=== PATIENT | female | born 1950 | race Caucasian/White ===

== ENCOUNTER 2017-03-12 15:59 | Outpatient (POV) | payer MEDICARE, SELFPAY | END 2017-03-12 17:15 | disposition home or self-care (01) | PROVIDERS: Visit Provider Podiatrist | DX: M20.12 Hallux valgus (acquired), left foot (principal); M20.11 Hallux valgus (acquired), right foot; M20.42 Other hammer toe(s) (acquired), left foot; M20.41 Other hammer toe(s) (acquired), right foot | CPT/HCPCS: 99203; 73630 ==

== ENCOUNTER 2017-04-28 14:57 | Emergency (ER) | payer MEDICARE, SELFPAY ==
[2017-04-28 14:58] VITALS: BP 111/60; PULSE 66; RESP 14; TEMP 36.9; O2SAT 98; BMI 25.5
--- NOTE | 2017-04-28 15:18 | XR_ITS ---
XR ribs RT min 3V w CXR1V Ordering Physician: Racquel Tamayo Patient Age: 66 years: Female HISTORY: ITS.REASON: FALL WITH PAIN Right rib pain. TECHNIQUE: Oblique views right ribs. COMPARISON :December 2010 CXR... April 2010. Left rib series FINDINGS Right ribs are intact with no fracture identified. No rib lesion. Mild diffuse demineralization. The lungs appear clear bilaterally with no pneumothorax no pleural effusion. would only note Trace blunting right CP angle on the oblique views could reflect. Most likely reflects mild chronic pleural change although could reflect scant pleural fluid. This and I see no pneumothorax associated raise concern however. The previous chest film patient large hiatal hernia but there appear to been interval surgery at the upper abdomen which may address such. The heart is upper normal in size. Calcified granuloma at the left nayeli again noted. IMPRESSION: ------ . 1. No right Rib fracture nor lesion evident. 2. Lungs well expanded and clear with no active disease. No pneumothorax. No pleural effusion. 3. Trace blunting right CP angle most likely reflecting minor chronic pleural change. Doubt Tiny pleural effusion 4. Other observations pole No longer see the large hiatal hernila evident on 2010, but rather now see postsurgical changes upper abdomen-possibly reflect hiatal hernia repair Borderline to minor cardiomegaly is similar to previous studies
--- NOTE | 2017-04-28 15:20 | HMH.EDUTC ---
[facility] [place] Disposition Clinical Impression: Rib pain on right side Disposition: Home, Self-Care Condition on Discharge: Good Instructions: DI for Chronic Pain -- Adult Additional Instructions: Follow up with family doctor on Sunday if symptoms do not improve Return if needed Over the counter medication for pain as needed Stop taking the over the counter Arthritis medication that you just started taking that possibly caused the allergic reaction you was having today at the [facility] If you began to have any trouble breathing or swelling go straight to ER Forms: Work/School Release Time of Disposition: 16:46 Medical Decision Making - Medical Records Medical records reviewed: Yes: I reviewed the patient's medical records. Vital Signs: 04/28/17 14:58 Temperature 98.4 F Temperature Source Oral Pulse Rate [Left Brachial] 66 Respiratory Rate 14 Blood Pressure [Right Arm] 111/60 Blood Pressure Mean [Right Arm] 77 Blood Pressure Source [Right Arm] Automatic Cuff Blood Pressure Position [Right Arm] Sitting 02 Sat by Pulse Oximetry 98 Oxygen Delivery Method Room Air Orders (Tests/Meds): ED MEDICATIONS Discontinued Medications Generic Name Dose Route Start Last Admin Trade Name Abimbola PRN Reason Stop Dose Admin Methylprednisolone Sodium Succinate 125 mg 04/28/17 15:41 04/28/17 15:45 Solu-Medrol 125mg/2ml Vial IM 04/28/17 15:42 125 mg ONCE ONE Administration - Kishor Inquiry Pt receiving controlled substance: No Kishor was queried for this patient: No - Reevaluation(s) Time: 16:41 (Rash and welps improved ) [facility] [place] HPI - General Stated complaint: AO 04/25/17 Fell and Hurt Right Ribs Mode of Arrival: Ambulatory Source of Information: Patient Limitations: No Limitations Description of Symptoms (Recalled from Triage Doc. by RN): PT FELL AND IS C/O RIB PAIN HEENT Symptoms (Recalled from RN notes): No Resp Symptoms (Recalled from RN notes): No Skin Symptoms (Recalled from RN notes): No MS Symptoms (Recalled from RN notes): Yes (RIB PAIN) Functional Status (Recalled from RN notes): NA - History of Present Illness Provider Complaint: Patient state that she fell about 3 days ago and landed on her right side States that she has been having pain in her right rib area ever since States that she is not having any trouble breathing just having pain when she moves or tries to stand quickly. - Related Data Home Medications Medication Instructions Recorded Confirmed fluoxetine 20 mg capsule PO 90 Days 04/23/17 gabapentin 300 mg capsule PO 90 Days 04/23/17 gemfibrozil 600 mg tablet PO 90 Days 04/23/17 primidone 250 mg tablet PO 90 Days 04/23/17 promethazine 6.25 mg/5 mL syrup PO 23 Days 04/23/17 Allergies Allergy/AdvReac Type Severity Reaction Status Date / Time No Known Allergies Allergy Unverified 03/27/17 14:44 - Worker's Comp Is this a Worker's Comp case?: No [facility] History I have reviewed the patient's past medical history: Yes Medical History: Denies:: Cancer, Diabetes Mellitus Type 1, Diabetes Mellitus Type 2, Hypertension, MRSA Other Surgeries: Yes: Other (ear surgery) Amputation: No Fractures: No - *Social History Smoking Status: Current every day smoker Tobacco Type: cigarettes # Packs/Day (cigarettes): 1 Alcohol Intake: never Alcohol Intake Frequency:: 0-2 drinks per day Substance Use Type: denies use Occupational Status: employed - Psychiatric History Expresses thoughts of harming self/others: None Suicide Plan Description: No Plan *Family Hx:: Cancer ROS Obtained: Yes All systems reviewed & no additional complaints Physical Exam - General General appearance: alert, in no apparent distress - Chest Chest inspection: Present: normal inspection, symmetric chest wall rise, other (No bruising, no contusions to area). Absent: tenderness - Expanded Chest Exam Breast: bilateral: other (no bruising, no discoloration, noticed red raised hives on chest and back that
--- NOTE | 2017-04-28 15:24 | ED_ITS ---
[facility] [place] Disposition Clinical Impression: Rib pain on right side Disposition: Home, Self-Care Condition on Discharge: Good Instructions: DI for Chronic Pain -- Adult Additional Instructions: Follow up with family doctor on Sunday if symptoms do not improve Return if needed Over the counter medication for pain as needed Stop taking the over the counter Arthritis medication that you just started taking that possibly caused the allergic reaction you was having today at the [facility] If you began to have any trouble breathing or swelling go straight to ER Forms: Work/School Release Time of Disposition: 16:46 Medical Decision Making - Medical Records Medical records reviewed: Yes: I reviewed the patient's medical records. Vital Signs: 04/28/17 14:58 Temperature 98.4 F Temperature Source Oral Pulse Rate [Left Brachial] 66 Respiratory Rate 14 Blood Pressure [Right Arm] 111/60 Blood Pressure Mean [Right Arm] 77 Blood Pressure Source [Right Arm] Automatic Cuff Blood Pressure Position [Right Arm] Sitting 02 Sat by Pulse Oximetry 98 Oxygen Delivery Method Room Air Orders (Tests/Meds): ED MEDICATIONS Discontinued Medications Generic Name Dose Route Start Last Admin Trade Name Abimbola PRN Reason Stop Dose Admin Methylprednisolone Sodium Succinate 125 mg 04/28/17 15:41 04/28/17 15:45 Solu-Medrol 125mg/2ml Vial IM 04/28/17 15:42 125 mg ONCE ONE Administration - Kishor Inquiry Pt receiving controlled substance: No Kishor was queried for this patient: No - Reevaluation(s) Time: 16:41 (Rash and welps improved ) [facility] [place] HPI - General Stated complaint: AO 04/25/17 Fell and Hurt Right Ribs Mode of Arrival: Ambulatory Source of Information: Patient Limitations: No Limitations Description of Symptoms (Recalled from Triage Doc. by RN): PT FELL AND IS C/O RIB PAIN HEENT Symptoms (Recalled from RN notes): No Resp Symptoms (Recalled from RN notes): No Skin Symptoms (Recalled from RN notes): No MS Symptoms (Recalled from RN notes): Yes (RIB PAIN) Functional Status (Recalled from RN notes): NA - History of Present Illness Provider Complaint: Patient state that she fell about 3 days ago and landed on her right side States that she has been having pain in her right rib area ever since States that she is not having any trouble breathing just having pain when she moves or tries to stand quickly. - Related Data Home Medications Medication Instructions Recorded Confirmed fluoxetine 20 mg capsule PO 90 Days 04/23/17 gabapentin 300 mg capsule PO 90 Days 04/23/17 gemfibrozil 600 mg tablet PO 90 Days 04/23/17 primidone 250 mg tablet PO 90 Days 04/23/17 promethazine 6.25 mg/5 mL syrup PO 23 Days 04/23/17 Allergies Allergy/AdvReac Type Severity Reaction Status Date / Time No Known Allergies Allergy Unverified 03/27/17 14:44 - Worker's Comp Is this a Worker's Comp case?: No [facility] History I have reviewed the patient's past medical history: Yes Medical History: Denies:: Cancer, Diabetes Mellitus Type 1, Diabetes Mellitus Type 2, Hypertension, MRSA Other Surgeries: Yes: Other (ear surgery) Amputation: No Fractures: No - *Social History Smoking Status: Current every day smoker Tobacco Type: cigarettes # Packs/Day (cigarettes): 1
[2017-04-28 17:04] VITALS: BP 134/85; PULSE 87; RESP 18; O2SAT 98
== END 2017-04-28 17:05 | disposition home or self-care (01) ==
PROVIDERS: Emergency Provider Nurse Practitioner
DX: R07.81 Pleurodynia (principal); W18.30XA Fall on same level, unspecified, initial encounter; Y93.9 Activity, unspecified; Y92.9 Unspecified place or not applicable; F17.210 Nicotine dependence, cigarettes, uncomplicated
CPT/HCPCS: 71101; 96372; 99202

== ENCOUNTER → 2017-07-09 08:25 | Outpatient (CLI) | payer MEDICARE, SELFPAY ==
[2017-07-09 08:54] LABS: Basophils # 0.1 K/mm3 (0-0.2); Basophils % 0.9 % (0.1-2.0); Eosinophils # 0.8 K/mm3 (0.0-0.4); Hematocrit 37.5 % (37.0-47.0); Hemoglobin 12.5 g/dL (12.2-16.2); Lymphocytes # 1.3 K/mm3 (0.7-4.5); Lymphocytes % 21.4 K/mm3 (10-50); Mean Corpuscular HGB Conc 33.3 g/dL (31.8-35.4); Mean Corpuscular Hemoglobin 34.8 pg (27.0-31.2); Mean Corpuscular Volume 104.6 fl (81-99); Mean Platelet Volume 10.3 fl (7.4-10.4); Monocytes # 0.6 K/mm3 (0.1-1.0); Monocytes % 9.8 % (1.7-9.3); Neutrophils # 3.3 K/mm3 (1.8-7.8); Neutrophils % 54.8 % (37.0-80.0); Platelet Count 176 K/mm3 (142-424); Red Blood Count 3.58 M/mm3 (4.20-5.40); Red Cell Distribution Width 12.7 % (11.5-17.5)
[2017-07-09 10:05] LABS: Anion Gap 11.9 mEq/L (5-15); Bilirubin,Total 0.2 mg/dL (0.2-1.0); Blood Urea Nitrogen 21 mg/dL (7-18); Carbon Dioxide 28 mmol/L (21.0-32.0); Chloride 104 mmol/L (98-107); Creatinine,Serum 0.96 mg/dL (0.55-1.02); Estimated Glomerular Filt Rate 58 ml/min (>60); Ferritin 20 ng/mL (8-388); GFR (African American) 70 ML/MIN (>60); Glucose 98 mg/dL (74-106); Potassium 4.9 mmoL/L (3.5-5.1); Sodium 139 mmol/L (136-145)
[2017-07-09 10:06] LABS: Alanine Aminotransferase 23 U/L (12-78); Albumin Level 3.5 gm/dL (3.4-5.0); Albumin/Globulin Ratio 0.8 (1.1-1.8); Aspartate Amino Transferase 27 U/L (15-37); Chol/HDL Ratio 2.6 (1-3.5); Cholesterol 169 mg/dL (140-200); Globulin 4.2 gm/dl (1.3-3.2); HDL Cholesterol 66 mg/dL (29-89); LDL Cholesterol 92 mg/dL (0-130); Total Protein,Serum 7.7 gm/dL (6.4-8.2); Triglycerides 55 mg/dL (30-200); VLDL Cholesterol 11 mg/dL (0-40)
[2017-07-09 10:07] LABS: Alkaline Phosphatase 260 U/L (46-116); Thyroid Stimulating Hormone 0.72 uIU/ml (0.358-3.740)
[2017-07-10 08:24] LABS: Iron 94 ug/dL (27-139); UIBC 218 ug/dL (118-369)
[2017-07-10 15:40] LABS: Iron Saturation 30 % (15-55)
== END ==
PROVIDERS: Visit Provider Physician Assistant
DX: D50.9 Iron deficiency anemia, unspecified (principal); E78.5 Hyperlipidemia, unspecified; E03.9 Hypothyroidism, unspecified; R79.89 Other specified abnormal findings of blood chemistry
CPT/HCPCS: 36415; 80053; 80061; 82728; 83550; 84443; 85025

== ENCOUNTER → 2017-07-16 15:34 | Outpatient (CLI) | payer MEDICARE, SELFPAY ==
--- NOTE | 2017-07-16 15:36 | XR_ITS ---
XR DEXA axial skeleton HISTORY: ITS.REASON: Osteoporosis ORDERING PHYSICIAN: Clive Bradley MD PATIENT AGE: 67 years COMPARISON: 04/27/2016 FINDINGS: The BMD measured at the AP spine L1-L4 is 0.845 g/cm squared with a T score of -2.8 . This is considered Osteoporotic according to the World Health Organization criteria. Fracture risk is high. Treatment is advised. The mean hip density has a T score of -1.8. The density within the lumbar spine has increased by 5.5% and the density in the hips has decreased by 5% compared to the previous exam. IMPRESSION: Osteoporosis with high fracture risk. Recommend follow-up exam July 2018
== END ==
PROVIDERS: PCP Family Medicine; Visit Provider Obstetrics & Gynecology
DX: M81.0 Age-related osteoporosis without current pathological fracture (principal)
CPT/HCPCS: 77080

== ENCOUNTER → 2017-12-21 10:48 | Outpatient (CLI) | payer MEDICARE, SELFPAY ==
--- NOTE | 2017-12-21 10:54 | XR_ITS ---
XR ribs RT min 3V w CXR1V HISTORY: Chest pain, follow-up rib fracture ITS.REASON: FU RIB FX ORDERING PHYSICIAN: MELANIE Cabrera PATIENT AGE: 67 years Comparison: 12/08/2017 FINDINGS: There are chronic appearing fractures of the right fourth, fifth, sixth, and seventh ribs no acute displaced rib fractures are apparent. There is a healing right third rib fracture as previously described Frontal view of the chest shows unremarkable cardiovascular structures with evidence of old granulomatous disease. No evidence of pneumothorax. IMPRESSION: Chronic appearing right third through seventh rib fractures. Please correlate with clinical findings.
== END ==
PROVIDERS: PCP Physician Assistant; Visit Provider Physician Assistant
DX: S22.31XD Fracture of one rib, right side, subsequent encounter for fracture with routine healing (principal)
CPT/HCPCS: 71101

== ENCOUNTER 2018-01-03 14:53 | Outpatient (CLI) | payer MEDICARE, SELFPAY ==
[2018-01-03 14:56] VITALS: BMI 25.9
[2018-01-03 15:26] LABS: Albumin Level 3.3 gm/dL (3.4-5.0); Calcium 8.5 mg/dL (8.5-10.1)
[2018-01-03 15:28] LABS: Creatinine Clearance Estimated 57 mL/min (0-300); Creatinine,Serum 0.94 mg/dL (0.55-1.02); Estimated Glomerular Filt Rate 59 ml/min (>60); GFR (African American) 71 ML/MIN (>60)
[2018-01-03 15:49] VITALS: BP 127/66; PULSE 68; RESP 18; TEMP 36.4; O2SAT 99
[2018-01-03 16:10] VITALS: BP 110/70; PULSE 62; RESP 18; TEMP 36.6; O2SAT 98
== END 2018-01-03 16:10 | disposition home or self-care (01) ==
LOC: INF 14:59
PROVIDERS: PCP Physician Assistant; Visit Provider Obstetrics & Gynecology
DX: M81.0 Age-related osteoporosis without current pathological fracture (principal)
CPT/HCPCS: 82040; 82310; 82565; 96374; J3489

== ENCOUNTER → 2018-07-17 15:29 | Outpatient (CLI) | payer MEDICARE, SELFPAY ==
--- NOTE | 2018-07-17 15:36 | XR_ITS ---
XR DEXA axial skeleton HISTORY: ITS.REASON: screening ORDERING PHYSICIAN: Clive Bradley MD PATIENT AGE: 68 years COMPARISON: 07/16/2017 FINDINGS: The BMD measured at the AP Spine L1-L4 is 0.813 g/cm squared with a T score of -3.1. This is considered Osteoporotic according to the World Health Organization criteria. Fracture risk is High. Treatment is advised. The mean hip density has decreased 8%.. The lumbar density has decreased by 4% IMPRESSION: Osteoporosis with high fracture risk. Treatment is advised. Recommend follow-up exam July 2019
== END ==
PROVIDERS: PCP Family Medicine; Visit Provider Obstetrics & Gynecology
DX: M81.0 Age-related osteoporosis without current pathological fracture (principal); Z78.0 Asymptomatic menopausal state
CPT/HCPCS: 77080

== ENCOUNTER → 2018-08-19 16:15 | Outpatient (CLI) | payer MEDICARE, SELFPAY ==
[2018-08-19 16:59] LABS: Basophils # 0.1 K/mm3 (0-0.2); Basophils % 0.7 % (0.1-2.0); Eosinophils # 0.4 K/mm3 (0.0-0.4); Eosinophils % 6.1 % (0.1-12.0); Lymphocytes # 2.1 K/mm3 (0.7-4.5); Lymphocytes % 29.8 % (10-50); Mean Corpuscular HGB Conc 32.3 g/dL (31.8-35.4); Mean Corpuscular Hemoglobin 32.4 pg (27.0-31.2); Mean Corpuscular Volume 100.1 fl (81-99); Mean Platelet Volume 9.3 fl (7.4-10.4); Monocytes # 0.5 K/mm3 (0.1-1.0); Monocytes % 7.1 % (1.7-9.3); Neutrophils # 4.1 K/mm3 (1.8-7.8); Neutrophils % 56.3 % (37.0-80.0); Platelet Count 270 K/mm3 (142-424); Red Blood Count 3.69 M/mm3 (4.20-5.40); Red Cell Distribution Width 13.9 % (11.5-17.5); White Blood Count 7.2 K/mm3 (4.8-10.8)
[2018-08-19 19:01] LABS: Alanine Aminotransferase 30 U/L (12-78); Albumin Level 4.2 gm/dL (3.4-5.0); Alkaline Phosphatase 400 U/L (46-116); Anion Gap 17.6 mEq/L (5-15); Aspartate Amino Transferase 40 U/L (15-37); Bilirubin,Total 0.3 mg/dL (0.2-1.0); Blood Urea Nitrogen 26 mg/dL (7-18); Calcium 8.8 mg/dL (8.5-10.1); Carbon Dioxide 23 mmol/L (21.0-32.0); Chloride 100 mmol/L (98-107); Chol/HDL Ratio 3.1 (1-3.5); Cholesterol 245 mg/dL (140-200); Creatinine,Serum 1.46 mg/dL (0.55-1.02); Estimated Glomerular Filt Rate 35 ml/min (>60); Ferritin 37 ng/mL (8-388); Free T4 (Free Thyroxine) 0.87 ng/dl (0.76-1.46); GFR (African American) 43 ML/MIN (>60); Globulin 4.1 gm/dl (1.3-3.2); Glucose 88 mg/dL (74-106); HDL Cholesterol 79 mg/dL (29-89); LDL Cholesterol 150 mg/dL (0-130); Potassium 4.6 mmoL/L (3.5-5.1); Sodium 136 mmol/L (136-145); Thyroid Stimulating Hormone 0.87 uIU/ml (0.358-3.740); Total Protein,Serum 8.3 gm/dL (6.4-8.2); Triglycerides 82 mg/dL (30-200); VLDL Cholesterol 16 mg/dL (0-40)
[2018-08-21 07:24] LABS: Iron 105 ug/dL (27-139); UIBC 230 ug/dL (118-369)
[2018-08-21 08:17] LABS: Iron Saturation 31 % (15-55); Vitamin D 25 Hydroxy 19.3 ng/mL (30.0-100.0)
[2018-08-21 14:40] LABS: Vitamin B12 <150 pg/mL (232-1245)
== END ==
PROVIDERS: Visit Provider Physician Assistant
DX: D50.9 Iron deficiency anemia, unspecified (principal); E78.5 Hyperlipidemia, unspecified; E03.9 Hypothyroidism, unspecified; I10 Essential (primary) hypertension; R53.83 Other fatigue
CPT/HCPCS: 36415; 80053; 80061; 82607; 82652; 82728; 83540; 83550; 84439; 84443; 85025

== ENCOUNTER → 2018-08-20 17:39 | Outpatient (CLI) | payer MEDICARE, SELFPAY ==
[2018-08-22 10:12] LABS: Creatinine, Urine 156.5 mg/dL (Not Estab.); Microalbumin, Urine 91.1 ug/mL (Not Estab.)
== END ==
PROVIDERS: Visit Provider Physician Assistant
DX: R53.83 Other fatigue (principal); I10 Essential (primary) hypertension; D50.9 Iron deficiency anemia, unspecified; E78.5 Hyperlipidemia, unspecified; E03.9 Hypothyroidism, unspecified
CPT/HCPCS: 82043; 82570

== ENCOUNTER 2018-10-26 18:20 | Inpatient (IN) ==
[2018-10-26 19:00] LABS: Basophils % 0.1 % (0.1-2.0); Eosinophils # 0.1 K/mm3 (0.0-0.4); Eosinophils % 0.9 % (0.1-12.0); Hematocrit 30.5 % (37.0-47.0); Hemoglobin 10.1 g/dL (12.2-16.2); Lymphocytes # 0.8 K/mm3 (0.7-4.5); Lymphocytes % 7.1 % (10-50); Mean Corpuscular HGB Conc 33.2 g/dL (31.8-35.4); Mean Corpuscular Volume 91.3 fl (81-99); Mean Platelet Volume 9.2 fl (7.4-10.4); Monocytes # 0.6 K/mm3 (0.1-1.0); Monocytes % 5.2 % (1.7-9.3); Neutrophils # 9.5 K/mm3 (1.8-7.8); Neutrophils % 86.7 % (37.0-80.0); Platelet Count 182 K/mm3 (142-424); Red Blood Count 3.34 M/mm3 (4.20-5.40); Red Cell Distribution Width 12.7 % (11.5-17.5)
[2018-10-26 19:11] LABS: Albumin Level 2.7 gm/dL (3.4-5.0); Albumin/Globulin Ratio 0.6 (1.1-1.8); Anion Gap 15.3 mEq/L (5-15); Bilirubin,Total 0.7 mg/dL (0.2-1.0); Calcium 8.7 mg/dL (8.5-10.1); Globulin 4.5 gm/dl (1.3-3.2); Total Protein,Serum 7.2 gm/dL (6.4-8.2)
[2018-10-26 19:13] LABS: Lymphocytes % 5 % (10-50); Monocytes % 2 % (2-9); Neutrophils % 83 % (42-76); RBC Morphology Normal; Rouleaux 1+; Total Cells Counted 100
--- NOTE | 2018-10-26 19:17 | Emergency Department Note ---
ED Disposition Clinical Impression: S/P colonoscopy with polypectomy, Diverticulosis, Hypothyroidism, Diabetes, Essential tremor Disposition: Still a Patient Condition on Discharge: Fair - Critical Care Critical Care Time: No Attestation: On 10/26/18, the high probability of a clinically significant, sudden or life threatening deterioration of the following system(s) required my full and direct attention, intervention and personal management. The time I documented below is in addition to time spent performing reported procedures but includes the following listed in this critical care notation. Medical Decision Making - Kishor Inquiry Pt receiving controlled substance: No Kishor was queried for this patient: No Vital Signs: 10/26/18 18:43 Temperature 103.1 F H Temperature Source Oral Pulse Rate [Left Radial] 65 Respiratory Rate 20 Blood Pressure [Right Arm] 138/56 L Blood Pressure Mean [Right Arm] 83 Blood Pressure Source [Right Arm] Automatic Cuff Blood Pressure Position [Right Arm] Sitting 02 Sat by Pulse Oximetry 98 Oxygen Delivery Method Room Air - Lab Data Lab Results 10/26/18 18:47: WBC 11.0 H, RBC 3.34 L, Hgb 10.1 L, Hct 30.5 L, MCV 91.3, MCH 30.3, MCHC 33.2, RDW 12.7, Plt Count 182, MPV 9.2, Neut % (Auto) 86.7 H, Lymph % (Auto) 7.1 L, [place] % (Auto) 5.2, Eos % (Auto) 0.9, Baso % (Auto) 0.1, Neut # (Auto) 9.5 H, Lymph # (Auto) 0.8, Pima # (Auto) 0.6, Eos # (Auto) 0.1, Baso # (Auto) 0.0, Total Counted 100, Neutrophils % (Manual) 83 H, Band Neutrophils % 10.0 H, Lymphocytes % (Manual) 5 L, Monocytes % (Manual) 2, Platelet Estimate Normal, RBC Morphology Normal, Rouleaux 1+ 10/26/18 18:47: Sodium 131 L, Potassium 3.3 L, Chloride 97 L, Carbon Dioxide 22, Anion Gap 15.3 H, BUN 20 H, Creatinine 1.42 H, Estimated Creat Clear 42, Estimated GFR 37 L, Est GFR ( Amer) 44 L, Glucose 112 H, Calcium 8.7, Total Bilirubin 0.7, AST 33, ALT 34, Alkaline Phosphatase 275 H, Total Protein 7.2, Albumin 2.7 L, Globulin 4.5 H, Albumin/Globulin Ratio 0.6 L 10/26/18 19:35: Lactate 1.6 Result diagrams: 10/26/18 18:47 10/26/18 18:47 Orders (Tests/Meds): ED MEDICATIONS Generic Name Dose Route Start Last Admin Trade Name Freq PRN Reason Stop Dose Admin Sodium Chloride 1,000 mls @ 999 mls/hr 10/26/18 19:00 10/26/18 18:56 Sod Chlor 0.9% 1000ml Bag IV 10/26/18 20:00 999 mls/hr .Q1H1M YONI Administration Ertapenem 1 gm/ Sodium 50 mls @ 100 mls/hr 10/26/18 19:30 10/26/18 19:32 Chloride IV 11/09/18 19:29 100 mls/hr Q24H YONI Administration Protocol Discontinued Medications Generic Name Dose Route Start Last Admin Trade Name Freq PRN Reason Stop Dose Admin Acetaminophen 1,000 mg 10/26/18 18:48 10/26/18 18:55 Tylenol 500mg Tablet PO 10/26/18 18:49 1,000 mg ONCE ONE Administration Diatrizoate Meglum/Diatrizoate Sod 30 ml 10/26/18 19:22 10/26/18 19:27 Gastrografin 66%-10% 30ml PO 10/26/18 19:23 30 ml ONCE ONE Administration ORDERS Category Date Time Status CT abdomen pelvis wo con Stat Cat Scan 10/26/18 19:13 Taken Urinalysis and Microscopic Stat Lab 10/26/18 18:47 Ordered Blood Culture Stat Micro 10/26/18 19:35 Received - CT Data CT Scan: Abdomen, Pelvis Time Received: 20:24 Preliminary Findings: Abnormal Findings Narrative: Verbal report diverticulosis no appendicitis no perforation by Dr. Zabala. Medical Decision Narrative: 1899 I labs, blood cultures and ordered first dose of antibiotics. I ordered the patient stat CT scan of the abdomen with p.o. and IV contrast. 1929 I left the radiologist Dr. Zabala a voicemail for a stat read. 1939 notified on-call surgeon Dr. Watson did the patient history, exam findings and lab findings pending CT report. [address] Zabala radiologist there is no perforation no appendicitis, [address] Brasher and later on with Dr. Vasquez obviously the patient has an infection, final CT scan report is pending. She will be admitted for bowel rest IV antibiotics and bowel rest. Abdominal Pain HPI - General Chief Complaint: Abdominal Pain Stated Complaint: 10/24 colinastomy Chillilling,lower abd pain5 Time Seen by Provider: 10/26/18 19:00 Mode of Arrival: Ambulatory Limitations: No Limitations Description of Symptoms (Recalled from ER Triage Doc. by RN): to ed per pvt car c/o lower abd pain, nausea, chills starting yesterday pt states she had a colonoscopy th with no complications. cpta none - History of Present Illness HPI narrative: 68 years old white female with history of hypothyroidism, diabetes, essential tr emors, fundoplication and status post colonoscopy 48 hours ago. Postprocedure, she developed right lower quadrant abdominal pain she had with nausea no vomiting. Yesterday, she developed chills and covered up with blankets. He denies having hematemesis coffee-ground emesis melanotic stool or bleeding per rectum she denies having dysuria hematuria or frequency. MD complaint: abdominal pain Onset (ago): day(s) Consistency: constant Location: RLQ Severity: moderate Severity scale (1-10): 5 Quality: dull Radiation: none Associated symptoms: nausea - Related Data Home Medications Medication Instructions Recorded Confirmed fluoxetine 20 mg capsule 20 mg PO HS 90 Days 04/23/17 10/26/18 gabapentin 300 mg capsule 300 mg PO HS 90 Days 04/23/17 10/26/18 gemfibrozil 600 mg tablet 600 mg PO BID 90 Days 04/23/17 10/26/18 primidone 250 mg tablet 250 mg PO DAILY 90 Days 04/23/17 10/26/18 Levothyroxine Sodium [Synthroid 125 mcg PO DAILY 10/24/18 10/26/18 125mcg (0.125mg) tablet] RX: [id number]/Sod Sulf,Bicarb,Cl/KCl 240 ml PO Q10M 10/24/18 10/26/18 [[id number] and Electrolytes Soln] Allergies Allergy/AdvReac Type Severity Reaction Status Date / Time No Known Allergies Allergy Verified 10/24/18 06:48 [facility] History - Hepatitis A Screen Drug use history?: No High risk sexual behaviors?: No History of sexually transmitted infection?: No Currently employed?: No Childcare worker?: No Do you have indoor plumbing?: Yes Do you have electricity?: Yes Attestation statement:: This patient has been screened for Hepatitis A risk factors. I have reviewed the patient's past medical history: Yes Medical History: Reports:: Depression Denies:: Cancer, Diabetes Mellitus Type 1, Diabetes Mellitus Type 2, Hypertension, Internal Pacemaker, Lung Disease, MRSA, Seizures Other Medical History: Reports: Hypothyroidism Comment: tremor, chronic back pain Other Surgeries: Yes: Cholecystectomy, Colonoscopy, EGD, Other. No: Pacemaker Amputation: No Fractures: No Comment: 1972-PPBTL. 1996- D&C CONE BX. 2009- THYROID IRRADIATED. 2014- HIAT AL HERNIA REPAIR. 2015- LAP CHOLY. 04/2017---LEFT EAR REPAIR - Social History Smoking Status: Never smoker # Packs/Day (cigarettes): 1 Alcohol Intake: never Alcohol Intake Frequency:: 0-2 drinks per day Substance Use Type: denies use Occupational Status: employed - Psychiatric History Pschychiatric History:: Reports:: Depression Family Hx:: Cancer, Hypertension, Coronary Artery Disease ROS Obtained: Yes All systems reviewed & no additional complaints Physical Exam - General General appearance: alert, in no apparent distress - Head Head exam: atraumatic, normocephalic, normal inspection - Eye Eye exam: Present: normal appearance, PERRL, EOMI - ENT ENT exam: Present: normal exam, normal oropharynx, mucous membranes moist, TM's normal bilaterally, normal external ear exam - Neck Neck exam: Present: normal inspection, full ROM, trachea midline. Absent: meningismus, lymphadenopathy - Chest Chest inspection: Present: normal inspection, symmetric chest wall rise. Absent: tenderness - Respiratory Respiratory exam: Present: normal lung sounds bilaterally. Absent: respiratory distress, wheezes - Cardiovascular Cardiovascular exam: Present: regular rate, normal rhythm, normal heart sounds. Absent: JVD - Abdominal Exam Abdominal exam: Present: soft, tenderness, normal bowel sounds, tenderness at McBurney's Point, other (Right lower quadrant tenderness with rebound tenderness no cross tenderness.). Absent: distention, guarding, rebound, rigidity, Murp hy's sign - Extremities Exam Extremities exam: Present: normal inspection, full ROM, normal capillary refill. Absent: calf tenderness - Back Exam Back exam: Present: normal inspection. Absent: tenderness - Neurological Exam Neurological exam: Present: alert, oriented X3, CN II-XII intact, motor sensory deficit, reflexes normal - Psychiatric Psychiatric exam: Present: normal affect, normal mood - Skin Skin exam: Present: warm, dry, intact, normal color - Lymphatic Lymphatic Findings: no adenopathy
[2018-10-27 01:34] LABS: Microscopic, Urine URINE MICROSCOPIC (MICROSCOPIC)
[2018-10-27 02:00] LABS: Appearance,Urine SL CLOUDY (Clear); Bilirubin,Urine Negative (Negative); Blood, Urine 2+ (Negative); Color,Urine YELLOW (Yellow); Glucose,Urine (UA) Negative (Negative); Ketones,Urine TRACE (Negative); Leukocyte Esterase,Urine 2+ (Negative); Protein,Urine 1+ (Negative)
[2018-10-27 02:06] LABS: Bacteria,Urine 2+ /lpf; RBC,Urine 20-50 #/hpf (0-3); WBC,Urine 50-100 #/hpf (0-3)
[2018-10-27 06:55] LABS: Eosinophils % 0.1 % (0.1-12.0)
[2018-10-27 07:07] LABS: Basophils % 0.2 % (0.1-2.0); Lymphocytes # 0.9 K/mm3 (0.7-4.5); Lymphocytes % 8.6 % (10-50); Mean Corpuscular HGB Conc 33.4 g/dL (31.8-35.4); Mean Corpuscular Volume 92.4 fl (81-99); Mean Platelet Volume 9.4 fl (7.4-10.4); Monocytes # 0.6 K/mm3 (0.1-1.0); Monocytes % 5.4 % (1.7-9.3); Neutrophils # 9.4 K/mm3 (1.8-7.8); Neutrophils % 85.6 % (37.0-80.0); Platelet Count 179 K/mm3 (142-424); Red Blood Count 2.93 M/mm3 (4.20-5.40); Red Cell Distribution Width 12.8 % (11.5-17.5)
[2018-10-27 07:08] LABS: Anion Gap 19.1 mEq/L (5-15); Calcium 8.3 mg/dL (8.5-10.1)
[2018-10-27 07:12] LABS: Hematocrit 27.1 % (37.0-47.0); Hemoglobin 9.1 g/dL (12.2-16.2)
[2018-10-27 07:22] LABS: Lymphocytes % 5 % (10-50); Monocytes % 1 % (2-9); Neutrophils % 83 % (42-76); RBC Morphology Normal; Rouleaux 2+; Total Cells Counted 100
--- NOTE | 2018-10-27 08:18 | Pharmacy Consult Notes ---
[facility] Pharmacy VTE Monitoring - Patient Demographics Admission date: 10/27/18 Report Date: 10/27/18 Time: 08:17 Allergies/Adverse Reactions: Patient Allergies No Known Allergies Allergy (Verified 10/24/18 06:48) Height: 1.63 m Weight: 72.235 kg Patient Problems: Current Active Problems (Updated 10/26/18 @ 19:47 by Abdirizak Scott MD) S/P colonoscopy with polypectomy (Acute) Diverticulosis (Acute) Hypothyroidism (Acute) Diabetes (Acute) Essential tremor (Acute) - VTE Risk Labs: VTE Related Lab Results Hgb 9.1 g/dL (12.2-16.2) L 10/27/18 06:04 Hct 27.1 % (37.0-47.0) L 10/27/18 06:04 Plt Count 179 K/mm3 (142-424) 10/27/18 06:04 BUN 18 mg/dL (7-18) 10/27/18 06:04 Creatinine 1.19 mg/dL (0.55-1.02) H 10/27/18 06:04 Estimated Creat Clear 50 mL/min (50-200) 10/27/18 06:04 Was VTE Risk Assessment Performed: Yes VTE Score: 3 VTE Risk Level: Low Risk - Prophylaxis Types of VTE Prophylaxis: TEDS Knee High (CHATO HOSE ORDER PLACED)
--- NOTE | 2018-10-27 09:05 | History & Physical Report ---
*Admission Date: 10/27/18 *Chief complaint: Abdominal pain *History of present illness: 68 year old patient presented to [facility] ER yesterday complaining of lower abdominal pain and fever. She had a colonoscopy, now 3 days ago, for colon cancer screening and did have one polyp removed. She did have a few liquid stools after the colonoscopy but no blood in stool. She had some nausea but no vomiting. Otherwise, she has been in her normal state of health. [facility] History I have reviewed the patient's past medical history: Yes Medical History: Reports:: Depression, Gastroesophageal Reflux Disease(GERD), Hepatitis (autoimmune), Hypertension, Osteoporosis, Renal Insufficiency Denies:: Cancer, Diabetes Mellitus Type 1, Diabetes Mellitus Type 2, Internal Pacemaker, Lung Disease, MRSA, Seizures *Have you ever received a pneumonia vaccine?: Yes *Have you received a flu vaccine this season?: Yes Other Medical History: Reports: Hypothyroidism, Other (tremor, chronic back pain, over active bladder) Other Surgeries: Yes: Cholecystectomy, Colonoscopy (w/ polypectomy 10/24/18), EGD, Hernia Repair, Other (fundoplication). No: Pacemaker Amputation: No Fractures: No - *Social History Educational Level: Attended College Smoking Status: Former smoker Tobacco Type: cigarettes # Packs/Day (cigarettes): 1 Smoking End Date: 04/09/2016 Alcohol Intake: never Alcohol Intake Frequency:: holidays/special occasions only Substance Use Type: denies use *Occupational Status:: employed Housing: house Household Members: family *Travel in the last 8 weeks: None - Psychiatric History Expresses thoughts of harming self/others: None Pschychiatric History:: Reports:: Depression Family Hx:: Cancer Review of Systems - Constitutional Reports chills, Reports fever(s) - Eyes Denies blurry vision - ENT Denies difficulty swallowing - *Cardiovascular Denies chest pain - *Respiratory Denies cough - *Genitourinary Reports painful urination - *Musculoskeletal Denies joint pain - Integumentary/Breasts Denies rash - *Neurologic Denies dizziness - Psychiatric Denies confusion - Hematologic/Lymphatic Denies easy bleeding Meds Home Medications Medication Instructions Recorded Confirmed Type fluoxetine 20 mg capsule 20 mg PO HS 90 Days 04/23/17 10/26/18 History gabapentin 300 mg capsule 300 mg PO HS 90 Days 04/23/17 10/26/18 History primidone 250 mg tablet 250 mg PO DAILY 90 Days 04/23/17 10/26/18 History Levothyroxine Sodium [Synthroid 125 mcg PO DAILY 10/24/18 10/26/18 History 125mcg (0.125mg) tablet] Oxybutynin Chloride [Ditropan 5mg 5 mg PO BID 10/26/18 10/26/18 History tablet] Famotidine [Pepcid 20mg Tablet] 20 mg PO HS 10/27/18 10/27/18 History Gemfibrozil 600 mg PO BID 10/27/18 10/27/18 History Allergies Allergy/AdvReac Type Severity Reaction Status Date / Time No Known Allergies Allergy Verified 10/24/18 06:48 Exam Vital signs and Labs for Last 24 Hours: Temp Pulse Resp BP Pulse Ox 98.2 F 61 20 108/33 L 95 10/27/18 08:00 10/27/18 08:00 10/27/18 08:00 10/27/18 08:00 10/27/18 08:00 Laboratory Results - last 24 hr 10/26/18 18:47: WBC 11.0 H, RBC 3.34 L, Hgb 10.1 L, Hct 30.5 L, MCV 91.3, MCH 30.3, MCHC 33.2, RDW 12.7, Plt Count 182, MPV 9.2, Neut % (Auto) 86.7 H, Lymph % (Auto) 7.1 L, [place] % (Auto) 5.2, Eos % (Auto) 0.9, Baso % (Auto) 0.1, Neut # (Auto) 9.5 H, Lymph # (Auto) 0.8, [place] # (Auto) 0.6, Eos # (Auto) 0.1, Baso # (Auto) 0.0, Total Counted 100, Neutrophils % (Manual) 83 H, Band Neutrophils % 10.0 H, Lymphocytes % (Manual) 5 L, Monocytes % (Manual) 2, Platelet Estimate Normal, RBC Morphology Normal, Rouleaux 1+ 10/26/18 18:47: Sodium 131 L, Potassium 3.3 L, Chloride 97 L, Carbon Dioxide 22, Anion Gap 15.3 H, BUN 20 H, Creatinine 1.42 H, Estimated Creat Clear 42, Estimated GFR 37 L, Est GFR ( Amer) 44 L, Glucose 112 H, Calcium 8.7, Total Bilirubin 0.7, AST 33, ALT 34, Alkaline Phosphatase 275 H, Total Protein 7.2, Albumin 2.7 L, Globulin 4.5 H, Albumin/Globulin Ratio 0.6 L 10/26/18 19:35: Lactate 1.6 10/26/18 21:54: POC Glucose 94 10/27/18 01:15: Urine Color Yellow, Urine Appearance Sl cloudy, Urine pH 6.0, Ur Specific [place] 1.010, Urine Protein 1+, Urine Glucose (UA) Negative, Urine Ketones Trace, Urine Blood 2+, Urine Nitrate Positive, Urine Bilirubin Negative, Urine Urobilinogen 2.0, Ur Leukocyte Esterase 2+ A, Urine RBC 20-50, Urine WBC 50-100, Urine Bacteria 2+ 10/27/18 06:04: WBC 11.0 H, RBC 2.93 L, Hgb 9.1 L, Hct 27.1 L, MCV 92.4, MCH 30.9, MCHC 33.4, RDW 12.8, Plt Count 179, MPV 9.4, Neut % (Auto) 85.6 H, Lymph % (Auto) 8.6 L, [place] % (Auto) 5.4, Eos % (Auto) 0.1, Baso % (Auto) 0.2, Neut # (Auto) 9.4 H, Lymph # (Auto) 0.9, [place] # (Auto) 0.6, Eos # (Auto) 0.0, Baso # (Auto) 0.0, Total Counted 100, Neutrophils % (Manual) 83 H, Band Neutrophils % 11.0 H, Lymphocytes % (Manual) 5 L, Monocytes % (Manual) 1 L, Platelet Estimate Normal, RBC Morphology Normal, Rouleaux 2+ 10/27/18 06:04: Sodium 136, Potassium 3.1 L, Chloride 101, Carbon Dioxide 19 L, Anion Gap 19.1 H, BUN 18, Creatinine 1.19 H, Estimated Creat Clear 50, Estimated GFR 45 L, Est GFR ( Amer) 54 L D, Glucose 71 L D, Calcium 8.3 L, Magnesium 1.8 10/27/18 06:32: POC Glucose 79 Vital Signs - 24 hr 10/26/18 18:43 10/26/18 20:52 10/26/18 21:21 Temperature 103.1 F H 98.9 F 98.2 F Pulse Rate 69 Pulse Rate [Left Radial] 65 56 L Respiratory Rate Blood Pressure 139/79 Blood Pressure [Right Arm] 138/56 L 111/42 L 02 Sat by Pulse Oximetry 98 96 10/26/18 22:22 10/27/18 04:53 10/27/18 07:38 Temperature 103 F H Pulse Rate Pulse Rate [Left Radial] 66 Respiratory Rate 18 Blood Pressure Blood Pressure [Right Arm] 104/48 L 02 Sat by Pulse Oximetry 96 95 95 10/27/18 08:00 Temperature 98.2 F Pulse Rate Pulse Rate [Left Radial] 61 Respiratory Rate 20 Blood Pressure Blood Pressure [Right Arm] 108/33 L 02 Sat by Pulse Oximetry 95 I & O for Last 24 hours: Intake & Output 10/24/18 10/25/18 10/26/18 10/27/18 23:59 23:59 23:59 23:59 Intake Total 0 / 0 Output Total 950 / 950 Balance -950 / -950 Weight 159 lb 4 oz 159 lb 4 oz Microbiology Reports for the Last 24 Hours: Microbiology 10/26/18 19:35 Blood Blood Culture - Preliminary 10/26/18 19:35 Blood Blood Culture - Preliminary - Constitutional no acute distress - *Routine HEENT Exam Head: Present: normocephalic Eye: Present: EOMI, PERRL ENT: Present: mucous membranes moist - *Routine Neck Exam Present: supple. Absent: lymphadenopathy - *Routine Respiratory Exam Present: CTA bilaterally - *Routine Cardiovascular Exam Present: RRR - *Routine Abdominal Exam Present: soft, normoactive bowel sounds, tenderness (bilateral lower quadrants) - *Routine Extremities Exam Absent: cyanosis, clubbing, edema - *Routine Skin Exam Present: warm. Absent: rash - *Routine Neurological Exam Present: alert, oriented X3, tremors Assessment and Plan (1) Urinary tract infection Current visit: Yes Status: Acute Category: Medical Code(s): N39.0 - Urinary tract infection, site not specified (2) Renal insufficiency Current visit: Yes Status: Acute Category: Medical Code(s): N28.9 - Disorder of kidney and ureter, unspecified (3) Anemia Current visit: Yes Status: Acute Category: Medical Code(s): D64.9 - Anemia, unspecified (4) Hyponatremia Current visit: Yes Status: Acute Category: Medical Code(s): E87.1 - Hypo- osmolality and hyponatremia (5) Hypokalemia Current visit: Yes Status: Acute Category: Medical Code(s): E87.6 - Hypokalemia (6) Abdominal pain Current visit: Yes Status: Acute Category: Medical Code(s): R10.9 - Unspecified abdominal pain (7) Diverticulosis Current visit: Yes Status: Acute Category: Medical Code(s): K57.90 - Diverticulosis of intestine, part unspecified, without perforation or abscess without bleeding (8) Essential tremor Current visit: Yes Status: Acute Category: Medical Code(s): G25.0 - Essential tremor (9) Hypothyroidism Current visit: Yes Status: Acute Category: Medical Code(s): E03.9 - Hypothyroidism, unspecified (10) S/P colonoscopy with polypectomy Current visit: Yes Status: Acute Category: Surgical Code(s): Z98.890 - Other specified postprocedural states (11) Osteoporosis Problem details: USI Current visit: No Status: Acute Category: Medical Code(s): M81.0 - Age-related osteoporosis without current pathological fracture - Assessment and plan all Dx Assessment and Plan for all problems:: Patient admitted with abdominal pain and fever. She seems to have a UTI, will continue antibiotics and start clear liquid diet today, replace potassium.
--- NOTE | 2018-10-27 09:19 | Consult Report ---
*Admission Date: 10/27/18 *Reason for consult:: Abdominal pain status post colonoscopy *History of present illness: This is a 68-year-old female who presented overnight with increasing pain along the lower abdomen and most significantly in the right lower quadrant. She is now 3 days status post colonoscopy at which time she underwent snare excision of polyps and was also found to have diverticulosis with minimal inflammatory response close to the diverticulum. No definitive sign of diverticulitis noted. Evaluation in the emergency department revealed a mild leukocytosis. She was febrile, but otherwise her vital signs were essentially normal. CT scan revealed no definitive abnormality. This morning she states that her abdominal pain "somewhat better". Review of Systems - Constitutional Reports fever(s) - Eyes Denies change in vision - ENT Denies change in voice, Denies difficulty swallowing - *Cardiovascular Denies chest pain - *Respiratory Denies cough - *Gastrointestinal Reports abdominal pain, Denies vomiting - *Genitourinary Denies abnormal vaginal bleeding - *Musculoskeletal Denies tingling - Integumentary/Breasts Denies lesions - *Neurologic Denies confusion, Denies dizziness - Psychiatric Denies anxiety - Endocrine Denies cold intolerance - Hematologic/Lymphatic Denies easy bleeding - Allergic/Immunologic Denies wheezing [facility] History Medical History: Reports:: Depression, Gastroesophageal Reflux Disease(GERD), Hepatitis (autoimmune), Hypertension, Osteoporosis, Renal Insufficiency Denies:: Cancer, Diabetes Mellitus Type 1, Diabetes Mellitus Type 2, Internal Pacemaker, Lung Disease, MRSA, Seizures *Have you ever received a pneumonia vaccine?: Yes *Have you received a flu vaccine this season?: Yes Other Medical History: Reports: Hypothyroidism, Osteoporosis, Other (tremor) Other Surgeries: Yes: Cholecystectomy, Colonoscopy (w/ polypectomy 10/24/18), EGD, Hernia Repair, Other (fundoplication). No: Pacemaker Amputation: No Fractures: No - *Social History Educational Level: Attended College Smoking Status: Former smoker Tobacco Type: cigarettes # Packs/Day (cigarettes): 1 Smoking End Date: 04/09/2016 Alcohol Intake: never Alcohol Intake Frequency:: holidays/special occasions only Substance Use Type: denies use *Occupational Status:: employed Housing: house Household Members: family *Travel in the last 8 weeks: None - Psychiatric History Expresses thoughts of harming self/others: None Pschychiatric History:: Reports:: Depression Family Hx:: Cancer Meds Home Medications Medication Instructions Recorded Confirmed Type fluoxetine 20 mg capsule 20 mg PO HS 90 Days 04/23/17 10/26/18 History gabapentin 300 mg capsule 300 mg PO HS 90 Days 04/23/17 10/26/18 History primidone 250 mg tablet 250 mg PO DAILY 90 Days 04/23/17 10/26/18 History Levothyroxine Sodium [Synthroid 125 mcg PO DAILY 10/24/18 10/26/18 History 125mcg (0.125mg) tablet] Oxybutynin Chloride [Ditropan 5mg 5 mg PO BID 10/26/18 10/26/18 History tablet] Famotidine [Pepcid 20mg Tablet] 20 mg PO HS 10/27/18 10/27/18 History Gemfibrozil 600 mg PO BID 10/27/18 10/27/18 History Allergies Allergy/AdvReac Type Severity Reaction Status Date / Time No Known Allergies Allergy Verified 10/24/18 06:48 Exam Vital signs and Labs for Last 24 Hours: Temp Pulse Resp BP Pulse Ox 98.2 F 61 20 108/33 L 95 10/27/18 08:00 10/27/18 08:00 10/27/18 08:00 10/27/18 08:00 10/27/18 08:00 Laboratory Results - last 24 hr 10/26/18 18:47: WBC 11.0 H, RBC 3.34 L, Hgb 10.1 L, Hct 30.5 L, MCV 91.3, MCH 30.3, MCHC 33.2, RDW 12.7, Plt Count 182, MPV 9.2, Neut % (Auto) 86.7 H, Lymph % (Auto) 7.1 L, [place] % (Auto) 5.2, Eos % (Auto) 0.9, Baso % (Auto) 0.1, Neut # (Auto) 9.5 H, Lymph # (Auto) 0.8, [place] # (Auto) 0.6, Eos # (Auto) 0.1, Baso # (Auto) 0.0, Total Counted 100, Neutrophils % (Manual) 83 H, Band Neutrophils % 10.0 H, Lymphocytes % (Manual) 5 L, Monocytes % (Manual) 2, Platelet Estimate Normal, RBC Morphology Normal, Rouleaux 1+ 10/26/18 18:47: Sodium 131 L, Potassium 3.3 L, Chloride 97 L, Carbon Dioxide 22, Anion Gap 15.3 H, BUN 20 H, Creatinine 1.42 H, Estimated Creat Clear 42, Estimated GFR 37 L, Est GFR ( Amer) 44 L, Glucose 112 H, Calcium 8.7, Total Bilirubin 0.7, AST 33, ALT 34, Alkaline Phosphatase 275 H, Total Protein 7.2, Albumin 2.7 L, Globulin 4.5 H, Albumin/Globulin Ratio 0.6 L 10/26/18 19:35: Lactate 1.6 10/26/18 21:54: POC Glucose 94 10/27/18 01:15: Urine Color Yellow, Urine Appearance Sl cloudy, Urine pH 6.0, Ur Specific [place] 1.010, Urine Protein 1+, Urine Glucose (UA) Negative, Urine Ket ones Trace, Urine Blood 2+, Urine Nitrate Positive, Urine Bilirubin Negative, Urine Urobilinogen 2.0, Ur Leukocyte Esterase 2+ A, Urine RBC 20-50, Urine WBC 50-100, Urine Bacteria 2+ 10/27/18 06:04: WBC 11.0 H, RBC 2.93 L, Hgb 9.1 L, Hct 27.1 L, MCV 92.4, MCH 30.9, MCHC 33.4, RDW 12.8, Plt Count 179, MPV 9.4, Neut % (Auto) 85.6 H, Lymph % (Auto) 8.6 L, [place] % (Auto) 5.4, Eos % (Auto) 0.1, Baso % (Auto) 0.2, Neut # (Auto) 9.4 H, Lymph # (Auto) 0.9, [place] # (Auto) 0.6, Eos # (Auto) 0.0, Baso # (Auto) 0.0, Total Counted 100, Neutrophils % (Manual) 83 H, Band Neutrophils % 11.0 H, Lymphocytes % (Manual) 5 L, Monocytes % (Manual) 1 L, Platelet Estimate Normal, RBC Morphology Normal, Rouleaux 2+ 10/27/18 06:04: Sodium 136, Potassium 3.1 L, Chloride 101, Carbon Dioxide 19 L, Anion Gap 19.1 H, BUN 18, Creatinine 1.19 H, Estimated Creat Clear 50, Estimated GFR 45 L, Est GFR ( Amer) 54 L D, Glucose 71 L D, Calcium 8.3 L, Magnesium 1.8 10/27/18 06:32: POC Glucose 79 I & O for Last 24 hours: Intake & Output 10/24/18 10/25/18 10/26/18 10/27/18 11:59 11:59 11:59 11:59 Intake Total 0 / 0 Output Total 950 / 950 Balance -950 / -950 Weight 159 lb 4 oz Microbiology Reports for the Last 24 Hours: Microbiology 10/26/18 19:35 Blood Blood Culture - Preliminary 10/26/18 19:35 Blood Blood Culture - Preliminary - Constitutional no acute distress - *Routine Respiratory Exam Absent: respiratory distress - *Routine Cardiovascular Exam Present: RRR - *Routine Abdominal Exam Present: soft Comments: Mild lower abdominal tenderness Results - Labs 10/27/18 06:04 10/27/18 06:04 Laboratory Results - last 24 hr 10/26/18 18:47: WBC 11.0 H, RBC 3.34 L, Hgb 10.1 L, Hct 30.5 L, MCV 91.3, MCH 30.3, MCHC 33.2, RDW 12.7, Plt Count 182, MPV 9.2, Neut % (Auto) 86.7 H, Lymph % (Auto) 7.1 L, [place] % (Auto) 5.2, Eos % (Auto) 0.9, Baso % (Auto) 0.1, Neut # (Auto) 9.5 H, Lymph # (Auto) 0.8, [place] # (Auto) 0.6, Eos # (Auto) 0.1, Baso # (Auto) 0.0, Total Counted 100, Neutrophils % (Manual) 83 H, Band Neutrophils % 10.0 H, Lymphocytes % (Manual) 5 L, Monocytes % (Manual) 2, Platelet Estimate Normal, RBC Morphology Normal, Rouleaux 1+ 10/26/18 18:47: Sodium 131 L, Potassium 3.3 L, Chloride 97 L, Carbon Dioxide 22, Anion Gap 15.3 H, BUN 20 H, Creatinine 1.42 H, Estimated Creat Clear 42, Estimated GFR 37 L, Est GFR ( Amer) 44 L, Glucose 112 H, Calcium 8.7, Total Bilirubin 0.7, AST 33, ALT 34, Alkaline Phosphatase 275 H, Total Protein 7.2, Albumin 2.7 L, Globulin 4.5 H, Albumin/Globulin Ratio 0.6 L 10/26/18 19:35: Lactate 1.6 10/26/18 21:54: POC Glucose 94 10/27/18 01:15: Urine Color Yellow, Urine Appearance Sl cloudy, Urine pH 6.0, Ur Specific [place] 1.010, Urine Protein 1+, Urine Glucose (UA) Negative, Urine Ketones Trace, Urine Blood 2+, Urine Nitrate Positive, Urine Bilirubin Negative, Urine Urobilinogen 2.0, Ur Leukocyte Esterase 2+ A, Urine RBC 20-50, Urine WBC 50-100, Urine Bacteria 2+ 10/27/18 06:04: WBC 11.0 H, RBC 2.93 L, Hgb 9.1 L, Hct 27.1 L, MCV 92.4, MCH 30.9, MCHC 33.4, RDW 12.8, Plt Count 179, MPV 9.4, Neut % (Auto) 85.6 H, Lymph % (Auto) 8.6 L, [place] % (Auto) 5.4, Eos % (Auto) 0.1, Baso % (Auto) 0.2, Neut # (Auto) 9.4 H, Lymph # (Auto) 0.9, [place] # (Auto) 0.6, Eos # (Auto) 0.0, Baso # (Auto) 0.0, Total Counted 100, Neutrophils % (Manual) 83 H, Band Neutrophils % 11.0 H, Lymphocytes % (Manual) 5 L, Monocytes % (Manual) 1 L, Platelet Estimate Normal, RBC Morphology Normal, Rouleaux 2+ 10/27/18 06:04: Sodium 136, Potassium 3.1 L, Chloride 101, Carbon Dioxide 19 L, Anion Gap 19.1 H, BUN 18, Creatinine 1.19 H, Estimated Creat Clear 50, Estimated GFR 45 L, Est GFR ( Amer) 54 L D, Glucose 71 L D, Calcium 8.3 L, Magnesium 1.8 10/27/18 06:32: POC Glucose 79 - Imaging CT scan - abdomen: report reviewed, image reviewed CT scan - pelvis: report reviewed, image reviewed Assessment and Plan (1) Urinary tract infection Current visit: Yes Status: Acute Category: Medical Code(s): N39.0 - Urinary tract infection, site not specified (2) Abdominal pain Current visit: Yes Status: Acute Category: Medical Code(s): R10.9 - Unspecified abdominal pain Possibly secondary to urinary tract infection. 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 No definitive sign of diverticulitis. Continue management as per primary service
[2018-10-28 05:58] LABS: Basophils % 0.1 % (0.1-2.0); Eosinophils % 0.2 % (0.1-12.0); Hemoglobin 8.9 g/dL (12.2-16.2); Lymphocytes # 1.4 K/mm3 (0.7-4.5); Lymphocytes % 16.3 % (10-50); Mean Corpuscular HGB Conc 32.6 g/dL (31.8-35.4); Mean Platelet Volume 9.5 fl (7.4-10.4); Monocytes # 0.6 K/mm3 (0.1-1.0); Monocytes % 7.7 % (1.7-9.3); Neutrophils # 6.3 K/mm3 (1.8-7.8); Neutrophils % 75.6 % (37.0-80.0); Platelet Count 168 K/mm3 (142-424); Red Blood Count 2.92 M/mm3 (4.20-5.40); White Blood Count 8.4 K/mm3 (4.8-10.8)
[2018-10-28 06:00] LABS: Hematocrit 27.4 % (37.0-47.0)
[2018-10-28 06:07] LABS: Anion Gap 12.1 mEq/L (5-15); Calcium 8.4 mg/dL (8.5-10.1)
--- NOTE | 2018-10-28 07:27 | Progress Note ---
Subjective Patient reports: feels better Exam Vital signs and Labs for Last 24 Hours: Temp Pulse Resp BP Pulse Ox 98.2 F 54 L 24 137/57 L 95 10/28/18 04:00 10/28/18 04:00 10/28/18 04:00 10/28/18 04:00 10/28/18 04:00 Laboratory Results - last 24 hr 10/27/18 11:06: POC Glucose 95 10/27/18 16:40: POC Glucose 135 H 10/27/18 21:04: POC Glucose 139 H 10/28/18 05:47: WBC 8.4, RBC 2.92 L, Hgb 8.9 L, Hct 27.4 L, MCV 94.0, MCH 30.6, MCHC 32.6, RDW 13.0, Plt Count 168, MPV 9.5, Neut % (Auto) 75.6, Lymph % (Auto) 16.3, [place] % (Auto) 7.7, Eos % (Auto) 0.2, Baso % (Auto) 0.1, Neut # (Auto) 6.3, Lymph # (Auto) 1.4, [place] # (Auto) 0.6, Eos # (Auto) 0.0, Baso # (Auto) 0.0 10/28/18 05:47: Sodium 135 L, Potassium 4.1 D, Chloride 106, Carbon Dioxide 21, Anion Gap 12.1, BUN 11 D, Creatinine 1.10 H, Estimated Creat Clear 54, Estimated GFR 49 L, Est GFR ( Amer) 59, Glucose 156 H D, Calcium 8.4 L 10/28/18 06:16: POC Glucose 163 H I & O for Last 24 hours: Intake & Output 10/25/18 10/26/18 10/27/18 10/28/18 11:59 11:59 11:59 11:59 Intake Total 0 / 0 4337 / 4337 Output Total 950 / 950 1100 / 1100 Balance -950 / -950 3237 / 3237 Weight 159 lb 4 oz 166 lb 3 oz Microbiology Reports for the Last 24 Hours: Microbiology 10/27/18 01:15 Urine,Clean Catch Urine Culture - Preliminary NO GROWTH AFTER 24 HOURS 10/26/18 19:35 Blood Blood Culture - Preliminary 10/26/18 19:35 Blood Blood Culture - Preliminary - Constitutional no acute distress - *Routine Abdominal Exam Present: soft Comments: Minimal tenderness in lower abdomen (improved) Progress Note: A&P (1) Urinary tract infection Status: Acute Assessment and plan: As per primary service Current Visit: Yes (2) Renal insufficiency Status: Acute Current Visit: Yes (3) Anemia Status: Acute Assessment and plan: No sign of ongoing blood loss. Continue evaluation as outpatient. Current Visit: Yes (4) Hyponatremia Status: Acute Current Visit: Yes (5) Hypokalemia Status: Acute Current Visit: Yes (6) Abdominal pain Status: Acute Assessment and plan: Dramatically improved Current Visit: Yes (7) Diverticulosis Status: Acute Current Visit: Yes (8) Essential tremor Status: Acute Current Visit: Yes (9) Hypothyroidism Status: Acute Current Visit: Yes (10) S/P colonoscopy with polypectomy Status: Acute Current Visit: Yes (11) Osteoporosis Problem details: USI Status: Acute Current Visit: No
--- NOTE | 2018-10-28 08:18 | Progress Note ---
<Awa Mathur - Last Filed: 10/28/18 08:14> Internal Medicine - PN: Subj *Date: 10/28/18 *Time: 08:15 Interval history: Patient states she is better. She is hungry and would like some food and a diet Pepsi. She denies nausea and abdominal pain. Her bowels have mood stool is a yellow liquid. She is voiding QS. She denies chest pain shortness of breath. Exam Vital signs and Labs for Last 24 Hours: Temp Pulse Resp BP Pulse Ox 97.7 F 52 L 18 121/53 L 98 10/28/18 07:59 10/28/18 07:59 10/28/18 07:59 10/28/18 07:59 10/28/18 07:59 Laboratory Results - last 24 hr 10/27/18 11:06: POC Glucose 95 10/27/18 16:40: POC Glucose 135 H 10/27/18 21:04: POC Glucose 139 H 10/28/18 05:47: WBC 8.4, RBC 2.92 L, Hgb 8.9 L, Hct 27.4 L, MCV 94.0, MCH 30.6, MCHC 32.6, RDW 13.0, Plt Count 168, MPV 9.5, Neut % (Auto) 75.6, Lymph % (Auto) 16.3, [place] % (Auto) 7.7, Eos % (Auto) 0.2, Baso % (Auto) 0.1, Neut # (Auto) 6.3, Lymph # (Auto) 1.4, [place] # (Auto) 0.6, Eos # (Auto) 0.0, Baso # (Auto) 0.0 10/28/18 05:47: Sodium 135 L, Potassium 4.1 D, Chloride 106, Carbon Dioxide 21, Anion Gap 12.1, BUN 11 D, Creatinine 1.10 H, Estimated Creat Clear 54, Estimated GFR 49 L, Est GFR ( Amer) 59, Glucose 156 H D, Calcium 8.4 L 10/28/18 06:16: POC Glucose 163 H I & O for Last 24 hours: Intake & Output 10/25/18 10/26/18 10/27/18 10/28/18 11:59 11:59 11:59 11:59 Intake Total 0 / 0 4337 / 4337 Output Total 950 / 950 1100 / 1100 Balance -950 / -950 3237 / 3237 Weight 159 lb 4 oz 166 lb 3 oz Microbiology Reports for the Last 24 Hours: Microbiology 10/27/18 01:15 Urine,Clean Catch Urine Culture - Final Multiple organisms, suggests contamination. 10/26/18 19:35 Blood Blood Culture - Preliminary 10/26/18 19:35 Blood Blood Culture - Preliminary - Constitutional no acute distress Comments: Appears comfortable - *Routine Respiratory Exam Comments: Few bibasilar crackles - *Routine Cardiovascular Exam Present: RRR - *Routine Abdominal Exam Present: soft, normoactive bowel sounds. Absent: tenderness, distended, guarding - *Routine Extremities Exam Absent: edema, calf tenderness - *Routine Neurological Exam Present: tremors (Head tremor) Assessment and Plan (1) Urinary tract infection Current visit: Yes Status: Acute Category: Medical Code(s): N39.0 - Urinary tract infection, site not specified (2) Renal insufficiency Current visit: Yes Status: Acute Category: Medical Code(s): N28.9 - Disorder of kidney and ureter, unspecified (3) Anemia Current visit: Yes Status: Acute Category: Medical Code(s): D64.9 - Anemia, unspecified (4) Hyponatremia Current visit: Yes Status: Acute Category: Medical Code(s): E87.1 - Hypo- osmolality and hyponatremia (5) Hypokalemia Current visit: Yes Status: Acute Category: Medical Code(s): E87.6 - Hypokalemia (6) Abdominal pain Current visit: Yes Status: Acute Category: Medical Code(s): R10.9 - Unspecified abdominal pain (7) Diverticulosis Current visit: Yes Status: Acute Category: Medical Code(s): K57.90 - Diverticulosis of intestine, part unspecified, without perforation or abscess without bleeding (8) Essential tremor Current visit: Yes Status: Acute Category: Medical Code(s): G25.0 - Essential tremor (9) Hypothyroidism Current visit: Yes Status: Acute Category: Medical Code(s): E03.9 - Hypothyroidism, unspecified (10) S/P colonoscopy with polypectomy Current visit: Yes Status: Acute Category: Surgical Code(s): Z98.890 - Other specified postprocedural states (11) Osteoporosis Problem details: USI Current visit: No Status: Acute Category: Medical Code(s): M81.0 - Age-related osteoporosis without current pathological fracture - Assessment and plan all Dx Assessment and Plan for all problems:: We will advance diet. Saline lock <Elder Brasher - Last Filed: 10/28/18 08:50> Internal Medicine - PN: Subj *Date: 10/28/18 *Time: 08:49 Exam Vital signs and Labs for Last 24 Hours: Temp Pulse Resp BP Pulse Ox 97.7 F 52 L 18 121/53 L 98 10/28/18 07:59 10/28/18 07:59 10/28/18 07:59 10/28/18 07:59 10/28/18 07:59 Laboratory Results - last 24 hr 10/27/18 01:15: Urine Color Yellow, Urine Appearance Sl cloudy, Urine pH 6.0, Ur Specific [place] 1.010, Urine Protein 1+, Urine Glucose (UA) Negative, Urine Ketones Trace, Urine Blood 2+, Urine Nitrate Positive, Urine Bilirubin Negative, Urine Urobilinogen 2.0, Ur Leukocyte Esterase 2+ A, Urine RBC 20-50, Urine WBC 50-100, Urine Bacteria 2+ 10/27/18 11:06: POC Glucose 95 10/27/18 16:40: POC Glucose 135 H 10/27/18 21:04: POC Glucose 139 H 10/28/18 05:47: WBC 8.4, RBC 2.92 L, Hgb 8.9 L, Hct 27.4 L, MCV 94.0, MCH 30.6, MCHC 32.6, RDW 13.0, Plt Count 168, MPV 9.5, Neut % (Auto) 75.6, Lymph % (Auto) 16.3, [place] % (Auto) 7.7, Eos % (Auto) 0.2, Baso % (Auto) 0.1, Neut # (Auto) 6.3, Lymph # (Auto) 1.4, [place] # (Auto) 0.6, Eos # (Auto) 0.0, Baso # (Auto) 0.0 10/28/18 05:47: Sodium 135 L, Potassium 4.1 D, Chloride 106, Carbon Dioxide 21, Anion Gap 12.1, BUN 11 D, Creatinine 1.10 H, Estimated Creat Clear 54, Estimated GFR 49 L, Est GFR ( Amer) 59, Glucose 156 H D, Calcium 8.4 L 10/28/18 06:16: POC Glucose 163 H I & O for Last 24 hours: Intake & Output 10/25/18 10/26/18 10/27/18 10/28/18 23:59 23:59 23:59 23:59 Intake Total 2359 / 2359 1977 Output Total 1750 / 1750 300 / 300 Balance 609 / 609 1678 / 1678 Weight 159 lb 4 oz 159 lb 4 oz 166 lb 3 oz Microbiology Reports for the Last 24 Hours: Microbiology 10/26/18 19:35 Blood Blood Culture - Preliminary Gram Negative Rods 10/26/18 19:35 Blood Blood Culture - Preliminary Gram Negative Rods 10/27/18 01:15 Urine,Clean Catch Urine Culture - Final Multiple organisms, suggests contamination. Assessment and Plan (1) Urinary tract infection Current visit: Yes Status: Acute Category: Medical Code(s): N39.0 - Urinary tract infection, site not specified (2) Renal insufficiency Current visit: Yes Status: Acute Category: Medical Code(s): N28.9 - Disorder of kidney and ureter, unspecified (3) Anemia Current visit: Yes Status: Acute Category: Medical Code(s): D64.9 - Anemia, unspecified (4) Hyponatremia Current visit: Yes Status: Acute Category: Medical Code(s): E87.1 - Hypo- osmolality and hyponatremia (5) Hypokalemia Current visit: Yes Status: Acute Category: Medical Code(s): E87.6 - Hypokalemia (6) Abdominal pain Current visit: Yes Status: Acute Category: Medical Code(s): R10.9 - Unspecified abdominal pain (7) Diverticulosis Current visit: Yes Status: Acute Category: Medical Code(s): K57.90 - Diverticulosis of intestine, part unspecified, without perforation or abscess without bleeding (8) Essential tremor Current visit: Yes Status: Acute Category: Medical Code(s): G25.0 - Essential tremor (9) Hypothyroidism Current visit: Yes Status: Acute Category: Medical Code(s): E03.9 - Hypothyroidism, unspecified (10) S/P colonoscopy with polypectomy Current visit: Yes Status: Acute Category: Surgical Code(s): Z98.890 - Other specified postprocedural states (11) Osteoporosis Problem details: USI Current visit: No Status: Acute Category: Medical Code(s): M81.0 - Age-related osteoporosis without current pathological fracture - Assessment and plan all Dx Assessment and Plan for all problems:: Saw patient, agree with above note.
--- NOTE | 2018-10-28 14:14 | Discharge Summary ---
General - General Admission date:: 10/27/18 Discharge date: 10/28/18 HPI HPI: 68 year old patient presented to [facility] ER complaining of lower abdominal pain and fever. She had a colonoscopy, 3 days prior to admission for colon cancer screening and did have one polyp removed. She did have a few liquid stools after the colonoscopy but no blood in stool. She had some nausea but no vomiting. Otherwise, she had been in her normal state of health. Objective Vital signs: Temp Pulse Resp BP Pulse Ox 97.7 F 52 L 18 121/53 L 97 10/28/18 07:59 10/28/18 07:59 10/28/18 07:59 10/28/18 07:59 10/28/18 08:18 Narrative: Exam Vital signs and Labs for Last 24 Hours: Temp Pulse Resp BP Pulse Ox 97.7 F 52 L 18 121/53 L 98 10/28/18 07:59 10/28/18 07:59 10/28/18 07:59 10/28/18 07:59 10/28/18 07:59 Laboratory Results - last 24 hr 10/27/18 11:06: POC Glucose 95 10/27/18 16:40: POC Glucose 135 H 10/27/18 21:04: POC Glucose 139 H 10/28/18 05:47: WBC 8.4, RBC 2.92 L, Hgb 8.9 L, Hct 27.4 L, MCV 94.0, MCH 30.6, MCHC 32.6, RDW 13.0, Plt Count 168, MPV 9.5, Neut % (Auto) 75.6, Lymph % (Auto) 16.3, [place] % (Auto) 7.7, Eos % (Auto) 0.2, Baso % (Auto) 0.1, Neut # (Auto) 6.3, Lymph # (Auto) 1.4, [place] # (Auto) 0.6, Eos # (Auto) 0.0, Baso # (Auto) 0.0 10/28/18 05:47: Sodium 135 L, Potassium 4.1 D, Chloride 106, Carbon Dioxide 21, Anion Gap 12.1, BUN 11 D, Creatinine 1.10 H, Estimated Creat Clear 54, Estimated GFR 49 L, Est GFR ( Amer) 59, Glucose 156 H D, Calcium 8.4 L 10/28/18 06:16: POC Glucose 163 H I & O for Last 24 hours: Intake & Output 10/25/18 10/26/18 10/27/18 10/28/18 11:59 11:59 11:59 11:59 Intake Total 0 / 0 4337 / 4337 Output Total 950 / 950 1100 / 1100 Balance -950 / -950 3237 / 3237 Weight 159 lb 4 oz 166 lb 3 oz Microbiology Reports for the Last 24 Hours: Microbiology 10/27/18 01:15 Urine,Clean Catch Urine Culture - Final Multiple organisms, suggests contamination. 10/26/18 19:35 Blood Blood Culture - Preliminary 10/26/18 19:35 Blood Blood Culture - Preliminary - Constitutional no acute distress Comments: Appears comfortable - *Routine Respiratory Exam Comments: Few bibasilar crackles - *Routine Cardiovascular Exam Present: RRR - *Routine Abdominal Exam Present: soft, normoactive bowel sounds. Absent: tenderness, distended, guarding - *Routine Extremities Exam Absent: edema, calf tenderness - *Routine Neurological Exam Present: tremors (Head tremor) Results Labs on day of discharge: Labs from last 24 hours 10/28/18 10/28/18 10/28/18 06:16 05:47 05:47 WBC 8.4 RBC 2.92 L Hgb 8.9 L Hct 27.4 L MCV 94.0 MCH 30.6 MCHC 32.6 RDW 13.0 Plt Count 168 MPV 9.5 Neut % (Auto) 75.6 Lymph % (Auto) 16.3 [place] % (Auto) 7.7 Eos % (Auto) 0.2 Baso % (Auto) 0.1 Neut # (Auto) 6.3 Lymph # (Auto) 1.4 [place] # (Auto) 0.6 Eos # (Auto) 0.0 Baso # (Auto) 0.0 Sodium 135 L Potassium 4.1 D Chloride 106 Carbon Dioxide 21 Anion Gap 12.1 BUN 11 D Creatinine 1.10 H Estimated Creat Clear 54 Estimated GFR 49 L Est GFR ( Amer) 59 Glucose 156 H D POC Glucose 163 H Calcium 8.4 L Urine Color Urine Appearance Urine pH Ur Specific [place] Urine Protein Urine Glucose (UA) Urine Ketones Urine Blood Urine Nitrate Urine Bilirubin Urine Urobilinogen Ur Leukocyte Esterase Urine RBC Urine WBC Urine Bacteria 10/27/18 10/27/1819 21:04 16:40 01:15 WBC RBC Hgb Hct MCV MCH MCHC RDW Plt Count MPV Neut % (Auto) Lymph % (Auto) [place] % (Auto) Eos % (Auto) Baso % (Auto) Neut # (Auto) Lymph # (Auto) [place] # (Auto) Eos # (Auto) Baso # (Auto) Sodium Potassium Chloride Carbon Dioxide Anion Gap BUN Creatinine Estimated Creat Clear Estimated GFR Est GFR ( Amer) Glucose POC Glucose 139 H 135 H Calcium Urine Color Yellow Urine Appearance Sl cloudy Urine pH 6.0 Ur Specific [place] 1.010 Urine Protein 1+ Urine Glucose (UA) Negative Urine Ketones Trace Urine Blood 2+ Urine Nitrate Positive Urine Bilirubin Negative Urine Urobilinogen 2.0 Ur Leukocyte Esterase 2+ A Urine RBC 20-50 Urine WBC 50-100 Urine Bacteria 2+ Preliminary micro results at discharge 10/26/18 19:35 Blood Culture - Preliminary Blood Gram Negative Rods 10/26/18 19:35 Blood Culture - Preliminary Blood Gram Negative Rods DS: Diagnosis - Discharge Diagnosis (1) Urinary tract infection Status: Acute (2) Renal insufficiency Status: Acute (3) Anemia Status: Acute (4) Hyponatremia Status: Acute (5) Hypokalemia Status: Acute (6) Abdominal pain Status: Acute (7) Diverticulosis Status: Acute (8) Essential tremor Status: Acute (9) Hypothyroidism Status: Acute (10) S/P colonoscopy with polypectomy Status: Acute (11) Osteoporosis Status: Acute Problem details: USI Discharge Plan - Patient Discharge Instructions ACTIVITY: Continue current activity DIET: continue same diet Patient Instructions: Urinary Tract Infection, DI for Abdominal Pain-Adult - Follow up Plan Follow up with: Adeola Hebert PA [Physician [employer]] - 11/01/18 1:15 pm Baudilio Watson MD [Staff Physician] - 10/30/18 9:00 am (The patient should have a follow-up appointment status post colonoscopy. Please confirm this appointment.) Disposition: Home, Self-Jail Medications: Home Medications Medication Instructions Recorded Confirmed Type fluoxetine 20 mg capsule 20 mg PO HS 90 Days 04/23/17 10/26/18 History gabapentin 300 mg capsule 300 mg PO HS 90 Days 04/23/17 10/26/18 History primidone 250 mg tablet 250 mg PO DAILY 90 Days 04/23/17 10/26/18 History Levothyroxine Sodium [Synthroid 125 mcg PO DAILY 10/24/18 10/26/18 History 125mcg (0.125mg) tablet] Oxybutynin Chloride [Ditropan 5mg 5 mg PO BID 10/26/18 10/26/18 History tablet] Famotidine [Pepcid 20mg Tablet] 20 mg PO HS 10/27/18 10/27/18 History Gemfibrozil 600 mg PO BID 10/27/18 10/27/18 History cefUROXime axetil [Ceftin 250mg 250 mg PO BID #14 tab 10/28/18 Rx Tablet] Prescriptions/Medication Reconciliation: New cefUROXime axetil [Ceftin 250mg Tablet] 250 mg PO BID #14 tab Continued gabapentin 300 mg capsule 300 mg PO HS 90 Days fluoxetine 20 mg capsule 20 mg PO HS 90 Days primidone 250 mg tablet 250 mg PO DAILY 90 Days Oxybutynin Chloride [Ditropan 5mg tablet] 5 mg PO BID Gemfibrozil 600 mg PO BID Levothyroxine Sodium [Synthroid 125mcg (0.125mg) tablet] 125 mcg PO DAILY Famotidine [Pepcid 20mg Tablet] 20 mg PO HS
--- NOTE | 2018-10-29 08:21 | Progress Note ---
<Awa Mathur - Last Filed: 10/29/18 08:18> Internal Medicine - PN: Subj *Date: 10/29/18 *Time: 08:18 Interval history: She is feeling fine this morning. She did sleep. She is eating without difficulty. She ambulates in the room without problems. She denies chest pain and shortness of breath. She denies abdominal discomfort. Bowels are moving and have some form now. She is voiding QS. Blood cultures finals reveal E. coli sensitive to antibiotics except for sulfa. Exam Vital signs and Labs for Last 24 Hours: Temp Pulse Resp BP Pulse Ox 98.3 F 60 16 139/63 100 10/29/18 07:57 10/29/18 07:57 10/29/18 07:57 10/29/18 07:57 10/29/18 07:57 Laboratory Results - last 24 hr 10/27/18 01:15: Urine Color Yellow, Urine Appearance Sl cloudy, Urine pH 6.0, Ur Specific [place] 1.010, Urine Protein 1+, Urine Glucose (UA) Negative, Urine Ketones Trace, Urine Blood 2+, Urine Nitrate Positive, Urine Bilirubin Negative, Urine Urobilinogen 2.0, Ur Leukocyte Esterase 2+ A, Urine RBC 20-50, Urine WBC 50-100, Urine Bacteria 2+ 10/28/18 11:25: POC Glucose 131 H 10/28/18 16:46: POC Glucose 100 10/28/18 20:50: POC Glucose 96 10/29/18 05:56: POC Glucose 105 I & O for Last 24 hours: Intake & Output 10/26/18 10/27/18 10/28/18 10/29/18 11:59 11:59 11:59 11:59 Intake Total 0 / 0 4577 / 4577 840 / 840 Output Total 950 / 950 1100 / 1100 1001 / 1001 Balance -950 / -950 3477 / 3477 -161 / -161 Weight 159 lb 4 oz 166 lb 3 oz 171 lb 6.4 oz Microbiology Reports for the Last 24 Hours: Microbiology 10/26/18 19:35 Blood Blood Culture - Preliminary Escherichia coli 10/26/18 19:35 Blood Blood Culture - Preliminary Gram Negative Rods 10/27/18 01:15 Urine,Clean Catch Urine Culture - Final Multiple organisms, suggests contamination. - Constitutional no acute distress Comments: Appears comfortable - *Routine Respiratory Exam Present: CTA bilaterally (Anteriorly and posteriorly) - *Routine Cardiovascular Exam Present: RRR - *Routine Abdominal Exam Present: soft, normoactive bowel sounds. Absent: tenderness, distended - *Routine Extremities Exam Absent: edema, calf tenderness - *Routine Neurological Exam Present: alert, oriented X3 Assessment and Plan (1) Urinary tract infection Current visit: Yes Status: Acute Category: Medical Code(s): N39.0 - Urinary tract infection, site not specified (2) Renal insufficiency Current visit: Yes Status: Acute Category: Medical Code(s): N28.9 - Disorder of kidney and ureter, unspecified (3) Anemia Current visit: Yes Status: Acute Category: Medical Code(s): D64.9 - Anemia, unspecified (4) Hyponatremia Current visit: Yes Status: Acute Category: Medical Code(s): E87.1 - Hypo- osmolality and hyponatremia (5) Hypokalemia Current visit: Yes Status: Acute Category: Medical Code(s): E87.6 - Hypokalemia (6) Abdominal pain Current visit: Yes Status: Acute Category: Medical Code(s): R10.9 - Unspecified abdominal pain (7) Diverticulosis Current visit: Yes Status: Acute Category: Medical Code(s): K57.90 - Diverticulosis of intestine, part unspecified, without perforation or abscess without bleeding (8) Essential tremor Current visit: Yes Status: Acute Category: Medical Code(s): G25.0 - Essential tremor (9) Hypothyroidism Current visit: Yes Status: Acute Category: Medical Code(s): E03.9 - Hypothyroidism, unspecified (10) S/P colonoscopy with polypectomy Current visit: Yes Status: Acute Category: Surgical Code(s): Z98.890 - Other specified postprocedural states (11) Osteoporosis Problem details: USI Current visit: No Status: Acute Category: Medical Code(s): M81.0 - Age-related osteoporosis without current pathological fracture (12) E coli bacteremia Current visit: Yes Status: Acute Category: Medical Code(s): R78.81 - Bacteremia - Assessment and plan all Dx Assessment and Plan for all problems:: Home today on antibiotic. <Elder Brasher - Last Filed: 10/29/18 08:52> Internal Medicine - PN: Subj *Date: 10/29/18 *Time: 08:52 Exam Vital signs and Labs for Last 24 Hours: Temp Pulse Resp BP Pulse Ox 98.3 F 60 16 139/63 100 10/29/18 07:57 10/29/18 07:57 10/29/18 07:57 10/29/18 07:57 10/29/18 07:57 Laboratory Results - last 24 hr 10/28/18 11:25: POC Glucose 131 H 10/28/18 16:46: POC Glucose 100 10/28/18 20:50: POC Glucose 96 10/29/18 05:56: POC Glucose 105 I & O for Last 24 hours: Intake & Output 10/26/18 10/27/18 10/28/18 10/29/18 23:59 23:59 23:59 23:59 Intake Total 2359 / 2359 2698 / 2698 360 / 360 Output Total 1750 / 1750 901 / 901 400 / 400 Balance 609 / 609 1797 / 1797 -40 / -40 Weight 159 lb 4 oz 159 lb 4 oz 166 lb 3 oz 171 lb 6.4 oz Microbiology Reports for the Last 24 Hours: Microbiology 10/26/18 19:35 Blood Blood Culture - Preliminary Escherichia coli 10/26/18 19:35 Blood Blood Culture - Preliminary Gram Negative Rods 10/27/18 01:15 Urine,Clean Catch Urine Culture - Final Multiple organisms, suggests contamination. Assessment and Plan (1) Urinary tract infection Current visit: Yes Status: Acute Category: Medical Code(s): N39.0 - Urinary tract infection, site not specified (2) Renal insufficiency Current visit: Yes Status: Acute Category: Medical Code(s): N28.9 - Disorder of kidney and ureter, unspecified (3) Anemia Current visit: Yes Status: Acute Category: Medical Code(s): D64.9 - Anemia, unspecified (4) Hyponatremia Current visit: Yes Status: Acute Category: Medical Code(s): E87.1 - Hypo- osmolality and hyponatremia (5) Hypokalemia Current visit: Yes Status: Acute Category: Medical Code(s): E87.6 - Hypokalemia (6) Abdominal pain Current visit: Yes Status: Acute Category: Medical Code(s): R10.9 - Unspecified abdominal pain (7) Diverticulosis Current visit: Yes Status: Acute Category: Medical Code(s): K57.90 - Diverticulosis of intestine, part unspecified, without perforation or abscess without bleeding (8) Essential tremor Current visit: Yes Status: Acute Category: Medical Code(s): G25.0 - Essential tremor (9) Hypothyroidism Current visit: Yes Status: Acute Category: Medical Code(s): E03.9 - Hypothyroidism, unspecified (10) S/P colonoscopy with polypectomy Current visit: Yes Status: Acute Category: Surgical Code(s): Z98.890 - Other specified postprocedural states (11) Osteoporosis Problem details: USI Current visit: No Status: Acute Category: Medical Code(s): M81.0 - Age-related osteoporosis without current pathological fracture (12) E coli bacteremia Current visit: Yes Status: Acute Category: Medical Code(s): R78.81 - Bacteremia - Assessment and plan all Dx Assessment and Plan for all problems:: Saw patient, agree with above note.
--- NOTE | 2018-10-29 08:32 | Progress Note ---
Subjective Patient reports: feels better Exam Vital signs and Labs for Last 24 Hours: Temp Pulse Resp BP Pulse Ox 98.3 F 60 16 139/63 100 10/29/18 07:57 10/29/18 07:57 10/29/18 07:57 10/29/18 07:57 10/29/18 07:57 Laboratory Results - last 24 hr 10/28/18 11:25: POC Glucose 131 H 10/28/18 16:46: POC Glucose 100 10/28/18 20:50: POC Glucose 96 10/29/18 05:56: POC Glucose 105 I & O for Last 24 hours: Intake & Output 10/26/18 10/27/18 10/28/18 10/29/18 11:59 11:59 11:59 11:59 Intake Total 0 / 0 4577 / 4577 840 / 840 Output Total 950 / 950 1100 / 1100 1001 / 1001 Balance -950 / -950 3477 / 3477 -161 / -161 Weight 159 lb 4 oz 166 lb 3 oz 171 lb 6.4 oz Microbiology Reports for the Last 24 Hours: Microbiology 10/26/18 19:35 Blood Blood Culture - Preliminary Escherichia coli 10/26/18 19:35 Blood Blood Culture - Preliminary Gram Negative Rods 10/27/18 01:15 Urine,Clean Catch Urine Culture - Final Multiple organisms, suggests contamination. - Constitutional no acute distress - *Routine Abdominal Exam Present: soft Progress Note: A&P (1) Urinary tract infection Status: Acute Current Visit: Yes (2) Renal insufficiency Status: Acute Current Visit: Yes (3) Anemia Status: Acute Current Visit: Yes (4) Hyponatremia Status: Acute Current Visit: Yes (5) Hypokalemia Status: Acute Current Visit: Yes (6) Abdominal pain Status: Acute Assessment and plan: improved Ongoing treatment as per primary service Follow-up as scheduled status post recent colonoscopy Current Visit: Yes (7) Diverticulosis Status: Acute Current Visit: Yes (8) Essential tremor Status: Acute Current Visit: Yes (9) Hypothyroidism Status: Acute Current Visit: Yes (10) S/P colonoscopy with polypectomy Status: Acute Current Visit: Yes (11) Osteoporosis Problem details: USI Status: Acute Current Visit: No (12) E coli bacteremia Status: Acute Current Visit: Yes
--- NOTE | 2018-10-31 09:33 | Discharge Summary ---
General - General Admission date:: 10/27/18 Discharge date: 10/29/18 HPI HPI: 68 year old patient presented to [facility] ER yesterday complaining of lower abdominal pain and fever. She had a colonoscopy, now 3 days ago, for colon cancer screening and did have one polyp removed. She did have a few liquid stools after the colonoscopy but no blood in stool. She had some nausea but no vomiting. Otherwise, she has been in her normal state of health. Hospital Course Hospital Course: The patient was admitted with abdominal pain and fever. She was felt to have a UTI and was started on antibiotics as well as a clear liquid diet. Her potassium was replaced due to hypokalemia. Dr. Watson was consulted due to abdominal pain status post colonoscopy. She did have a CT of the abdomen and pelvis which showed small bowel dilatation with moderate air-fluid levels consistent with an ileus. There was some areas of mildly thickened small bowel which could be d/t an enteritis or partial obstruction. There was also prominent diverticulosis of the sigmoid colon and some borderline wall thickening in some of these diverticuli. Radiology felt it was difficult to exclude a mild diverticulitis. Dr. Watson felt management could be as per Dr. Brasher and nothing surgical was necessary. She did begin feeling better and her abdominal pain improved. She wanted a diet therefore it was advanced and she tolerated a regular diet well. Her bowels did move and her stool was a yellow liquid. Her urine culture came back with multiple organisms suggesting contamination. Her potassium did normalize. Her blood culture began growing gram-negative rods. Her final blood culture revealed E. coli sensitive to most antibiotics except for sulfa. She was stable to be discharged home on Levaquin and will follow up with both Dr. Watson and in the office of [facility]. Objective Vital signs: Temp Pulse Resp BP Pulse Ox 98.3 F 60 16 139/63 97 10/29/18 07:57 10/29/18 07:57 10/29/18 07:57 10/29/18 07:57 10/29/18 09:00 Narrative: - Constitutional no acute distress - *Routine HEENT Exam Head: Present: normocephalic Eye: Present: EOMI, PERRL ENT: Present: mucous membranes moist - *Routine Neck Exam Present: supple. Absent: lymphadenopathy - *Routine Respiratory Exam Present: CTA bilaterally - *Routine Cardiovascular Exam Present: RRR - *Routine Abdominal Exam Present: soft, normoactive bowel sounds, tenderness (bilateral lower quadrants) - *Routine Extremities Exam Absent: cyanosis, clubbing, edema - *Routine Skin Exam Present: warm. Absent: rash - *Routine Neurological Exam Present: alert, oriented X3, tremors Results Labs on day of discharge: Preliminary micro results at discharge 10/26/18 19:35 Blood Culture - Preliminary Blood Escherichia coli 10/26/18 19:35 Blood Culture - Preliminary Blood Escherichia coli DS: Diagnosis - Discharge Diagnosis (1) Urinary tract infection Status: Acute (2) Renal insufficiency Status: Acute (3) Anemia Status: Acute (4) Hyponatremia Status: Acute (5) Hypokalemia Status: Acute (6) Abdominal pain Status: Acute (7) Diverticulosis Status: Acute (8) Essential tremor Status: Acute (9) Hypothyroidism Status: Acute (10) S/P colonoscopy with polypectomy Status: Acute (11) Osteoporosis Status: Acute Problem details: USI (12) E coli bacteremia Status: Acute Discharge Plan - Patient Discharge Instructions ACTIVITY: Continue current activity DIET: continue same diet Patient Instructions: Urinary Tract Infection, DI for Abdominal Pain-Adult - Follow up Plan Follow up with: Adeola Hebert PA [[facility]] - 11/01/18 1:15 pm Baudilio Watson MD [Staff Physician] - 10/30/18 9:00 am (The patient should have a follow-up appointment status post colonoscopy. Please confirm this appointment.) Disposition: Home, Self-Intermediate Medications: Home Medications Medication Instructions Recorded Confirmed Type fluoxetine 20 mg capsule 20 mg PO HS 90 Days 04/23/17 10/30/18 History gabapentin 300 mg capsule 300 mg PO HS 90 Days 04/23/17 10/30/18 History primidone 250 mg tablet 250 mg PO DAILY 90 Days 04/23/17 10/30/18 History Levothyroxine Sodium [Synthroid 125 mcg PO DAILY 10/24/18 10/30/18 History 125mcg (0.125mg) tablet] Oxybutynin Chloride [Ditropan 5mg 5 mg PO BID 10/26/18 10/30/18 History tablet] Famotidine [Pepcid 20mg Tablet] 20 mg PO HS 10/27/18 10/30/18 History Gemfibrozil 600 mg PO BID 10/27/18 10/30/18 History levoFLOXacin [Levaquin 500mg 500 mg PO DAILY #10 tab 10/29/18 10/30/18 Rx tab] Prescriptions/Medication Reconciliation: New levoFLOXacin [Levaquin 500mg tab] 500 mg PO DAILY #10 tab Continued gabapentin 300 mg capsule 300 mg PO HS 90 Days fluoxetine 20 mg capsule 20 mg PO HS 90 Days primidone 250 mg tablet 250 mg PO DAILY 90 Days Oxybutynin Chloride [Ditropan 5mg tablet] 5 mg PO BID Gemfibrozil 600 mg PO BID Levothyroxine Sodium [Synthroid 125mcg (0.125mg) tablet] 125 mcg PO DAILY Famotidine [Pepcid 20mg Tablet] 20 mg PO HS
== END 2018-10-29 16:05 | disposition home or self-care (01) | DRG 690 ==
LOC: ER 18:20 → 2ND 18:20
PROVIDERS: ADMIT Family Medicine; ATTEND Family Medicine
CPT/HCPCS: 36415; 74176; 80048; 80053; 81001; 82962; 83605; 83735; 85007; 85025; 87040; 87077; 87086; 87186; 88305; 96365; 96367; 99284; G0378; J1335

== ENCOUNTER → 2019-01-16 10:51 | Outpatient (CLI) | payer MEDICARE, SELFPAY ==
--- NOTE | 2019-01-16 11:00 | XR_ITS ---
PROCEDURE: XR FOOT WT BEARING LT 3V CLINICAL INDICATION: fracture left foot Follow-up fracture, pain COMPARISON: FTL3 FOOT-LT-3 VIEWS from 03/12/2017 FTR3 FOOT-RT-3 VIEWS from 03/12/2017 XR FOOT LT MIN 3V from 01/02/2019 FINDINGS: There is a nondisplaced oblique fracture through the base of the 5th metatarsal which does appear to extend into the articular surface proximally. Fracture line is still visible. There is generalized osteopenia IMPRESSION: No change oblique fracture base of 5th metatarsal with extension into the articular surface nondisplaced Dictated by: Sav Da Silva MD 01/16/2019 17:35 Electronically signed by Sav Da Silva MD in [place] 01/16/2019 17:35
== END ==
PROVIDERS: PCP Family Medicine; Visit Provider Podiatrist
DX: S92.352A Displaced fracture of fifth metatarsal bone, left foot, initial encounter for closed fracture (principal)
CPT/HCPCS: 73630

== ENCOUNTER → 2019-01-21 08:39 | Outpatient (CLI) | payer MEDICARE, SELFPAY ==
--- NOTE | 2019-01-21 08:40 | FL_ITS ---
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 The colon was visualized from rectum to cecum. There are scattered diverticula in the descending and sigmoid colon. No annular constricting lesions are evident. There was an area of questionable internal filling defect in the proximal descending colon. This was viewed fluoroscopically and with manipulation appeared to move on through the colon consistent with some residual fecal material IMPRESSION: Colonic diverticulosis. Otherwise negative air-contrast barium enema The and the the the the of Dictated by: Sav Da Silva MD 01/25/2019 06:44 Electronically signed by Sav Da Silva MD in [place] 01/25/2019 06:44
== END ==
PROVIDERS: PCP Family Medicine; Visit Provider Surgery
DX: Q43.8 Other specified congenital malformations of intestine (principal)
CPT/HCPCS: 74270

== ENCOUNTER 2019-01-28 14:47 | Outpatient (CLI) | payer MEDICARE, SELFPAY ==
[2019-01-28 14:51] VITALS: BMI 26.6
[2019-01-28 15:06] LABS: Albumin Level 3.4 gm/dL (3.4-5.0); Creatinine Clearance Estimated 46 mL/min (50-200); Creatinine,Serum 1.25 mg/dL (0.55-1.02); Estimated Glomerular Filt Rate 42 ml/min (>60); GFR (African American) 51 ML/MIN (>60)
[2019-01-28 15:12] LABS: Calcium 8.9 mg/dL (8.5-10.1)
[2019-01-28 15:28] VITALS: BP 123/61; PULSE 58; RESP 18; O2SAT 94
[2019-01-28 15:55] VITALS: BP 134/71; PULSE 58; RESP 18
== END 2019-01-28 15:55 | disposition home or self-care (01) ==
LOC: INF 14:47
PROVIDERS: Visit Provider Obstetrics & Gynecology
DX: M81.0 Age-related osteoporosis without current pathological fracture (principal)
CPT/HCPCS: 82040; 82310; 82565; 96365; J3489

== ENCOUNTER → 2019-02-05 08:46 | Outpatient (CLI) | payer MEDICARE, SELFPAY ==
--- NOTE | 2019-02-05 08:52 | XR_ITS ---
PROCEDURE: XR FOOT WT BEARING LT 3V CLINICAL INDICATION: fracture/dislocation f/u Follow-up fracture COMPARISON: FTL3 FOOT-LT-3 VIEWS from 03/12/2017 FTR3 FOOT-RT-3 VIEWS from 03/12/2017 XR FOOT LT MIN 3V from 01/02/2019 XR FOOT WT BEARING LT 3V from 01/16/2019 FINDINGS: Nondisplaced transverse fracture once again noted involving the base of the 5th metatarsal. Fracture line is still visible laterally and inferiorly with some healing medially. There is diffuse osteopenia Other findings:None. IMPRESSION: No change nondisplaced healing 5th metatarsal fracture Dictated by: Sav Da Silva MD 02/05/2019 14:16 Electronically signed by Sav Da Silva MD in [place] 02/05/2019 14:16
== END ==
PROVIDERS: PCP Family Medicine; Visit Provider Podiatrist
DX: T14.8XXA Other injury of unspecified body region, initial encounter (principal); S92.352A Displaced fracture of fifth metatarsal bone, left foot, initial encounter for closed fracture
CPT/HCPCS: 73630

== ENCOUNTER 2019-03-12 15:00 | Outpatient (RCR) | payer MEDICARE, SELFPAY ==
--- NOTE | 2019-02-25 15:32 | HMH.PTOPEV ---
PT Outpatient Evaluation Rehab PT Outpatient Evaluation Start: 02/25/19 15:18 Freq: Status: Active Protocol: Document 02/25/19 15:19 ALYSSAIMARIA C (Rec: 02/25/19 15:32 ALYSSIAMARIA C [id number]) Electronically Signed By Imer Augustin, PT 02/25/19 15:19 Outpatient Therapy Subjective History Subjective History This is the initial Physical Therapy evaluation for [facility]. Pt is a 68 y/o female referred to PT for c/o L upper trapezius pain. Pt reports pain began ~ 1 year ago. Pt reports pain has come and gone multiple times over the year. Chief Complaint Pain,Spasms,Stiff Symptom Type Ache,Throb,Dull Symptoms Relieved By Heat,OTC Meds,Prescription Meds Symptoms Aggravated By Physical Activity Prior Functional Limitations None Current Functional Limitations Housework,Recreation Activity Symptom Description Intermittent Level of pain today (0-10) 0 Pain scale - at its best (0-10) 0 Pain scale - at its worst (0-10) 5 Cervical Eval Palpation Cervical Muscles L Thoracic Paraspinals Cervical/Thoracic Palpation Findings Tenderness,Trigger Point Posture Head/C-Spine Posture Sitting Position Excess Extension,C-Spine Flattened Head/C-Spine Posture Standing Position Excess Extension,C-Spine Flattened AROM Cervical Spine Extension Active Range of 30 Motion (degrees) Cervical Spine Flexion Active Range of 50 Motion (degrees) Cervical Spine Right Lateral Flexion 30 Active Range of Motion (degrees) Cervical Spine Left Lateral Flexion 30 Active Range of Motion (degrees) Cervical Spine Right Rotation Active 50 Range of Motion (degrees) Cervical Spine Left Rotation Active 50 Range of Motion (degrees) MMT Bilateral Deltoid (C5) 4 Good Biceps Brachii Strength Grade 4- Good- Triceps Brachii Strength Grade 4- Good- Special Test C-Spine Foraminal Compression (Spurling) Negative Left,Negative Right Test C-Spine Foraminal Distraction Test Negative C-Spine Compression Test Negative Left,Negative Right Outpatient Therapy Assessment Impairments Problems/Impairmments Palpation Tenderness,Impaired Range of Motion,Impaired Household Care,Impaired Recreational Activities, Impaired Work Activities, Subjective C/O Pain Prognosis Rehab Potential Fair Clinical Impress
== END 2019-03-12 15:05 | disposition home or self-care (01) ==
LOC: PT 15:00
PROVIDERS: PCP Family Medicine; Visit Provider Family Medicine
DX: M53.82 Other specified dorsopathies, cervical region (principal); M62.838 Other muscle spasm
CPT/HCPCS: 97110; 97163

== ENCOUNTER → 2019-04-19 09:56 | Outpatient (CLI) | payer MEDICARE, SELFPAY ==
[2019-04-19 14:44] LABS: Alanine Aminotransferase 32 U/L (12-78); Albumin/Globulin Ratio 0.9 (1.1-1.8); Alkaline Phosphatase 415 U/L (46-116); Anion Gap 17.3 mEq/L (5-15); Aspartate Amino Transferase 36 U/L (15-37); Bilirubin,Total 0.3 mg/dL (0.2-1.0); Blood Urea Nitrogen 16 mg/dL (7-18); Calcium 8.7 mg/dL (8.5-10.1); Carbon Dioxide 21 mmol/L (21.0-32.0); Chloride 106 mmol/L (98-107); Chol/HDL Ratio 2.7 (1-3.5); Cholesterol 237 mg/dL (140-200); Creatinine,Serum 1.36 mg/dL (0.55-1.02); Estimated Glomerular Filt Rate 38 ml/min (>60); Ferritin 110 ng/mL (8-388); Free T4 (Free Thyroxine) 1.18 ng/dl (0.76-1.46); GFR (African American) 47 ML/MIN (>60); Globulin 3.2 gm/dl (1.3-3.2); Glucose 98 mg/dL (74-106); HDL Cholesterol 88 mg/dL (29-89); LDL Cholesterol 141 mg/dL (0-130); Potassium 4.3 mmoL/L (3.5-5.1); Sodium 140 mmol/L (136-145); Thyroid Stimulating Hormone 0.04 uIU/ml (0.358-3.740); Total Protein,Serum 6.2 gm/dL (6.4-8.2); Triglycerides 42 mg/dL (30-200); VLDL Cholesterol 8 mg/dL (0-40)
[2019-04-20 08:46] LABS: Iron 104 ug/dL (27-139); UIBC 91 ug/dL (118-369)
[2019-04-20 10:36] LABS: Iron Saturation 53 % (15-55)
== END ==
PROVIDERS: Visit Provider Physician Assistant
DX: E03.9 Hypothyroidism, unspecified (principal); N28.9 Disorder of kidney and ureter, unspecified; D50.9 Iron deficiency anemia, unspecified; E78.5 Hyperlipidemia, unspecified
CPT/HCPCS: 36415; 80053; 80061; 82728; 83540; 83550; 84439; 84443

== ENCOUNTER → 2019-04-23 14:53 | Outpatient (POV) | payer MEDICARE, SELFPAY | DX: Z00.00 Encounter for general adult medical examination without abnormal findings (principal) ==

== ENCOUNTER → 2019-05-14 15:00 | Outpatient (POV) | payer MEDICARE, SELFPAY | DX: Z00.00 Encounter for general adult medical examination without abnormal findings (principal) ==

== ENCOUNTER → 2019-05-28 12:56 | Outpatient (POV) | payer MEDICARE, SELFPAY | DX: Z00.00 Encounter for general adult medical examination without abnormal findings (principal) ==

== ENCOUNTER → 2019-06-18 13:39 | Outpatient (POV) | payer MEDICARE, SELFPAY | DX: Z00.00 Encounter for general adult medical examination without abnormal findings (principal) ==

== ENCOUNTER → 2019-07-02 15:38 | Outpatient (POV) | payer MEDICARE, SELFPAY | DX: Z00.00 Encounter for general adult medical examination without abnormal findings (principal) ==

== ENCOUNTER → 2019-07-11 15:30 | Outpatient (CLI) | payer MEDICARE, SELFPAY ==
[2019-07-11 15:49] LABS: Basophils # 0.1 K/mm3 (0-0.2); Eosinophils # 0.2 K/mm3 (0.0-0.4); Eosinophils % 3.7 % (0.1-12.0); Hematocrit 33.8 % (37.0-47.0); Hemoglobin 10.6 g/dL (12.2-16.2); Lymphocytes # 1.5 K/mm3 (0.7-4.5); Lymphocytes % 23.6 % (10-50); Mean Corpuscular HGB Conc 31.3 g/dL (31.8-35.4); Mean Corpuscular Volume 102.3 fl (81-99); Mean Platelet Volume 9.2 fl (7.4-10.4); Monocytes # 0.4 K/mm3 (0.1-1.0); Monocytes % 6.1 % (1.7-9.3); Neutrophils # 4.1 K/mm3 (1.8-7.8); Neutrophils % 65.7 % (37.0-80.0); Platelet Count 293 K/mm3 (142-424); Red Cell Distribution Width 13.5 % (11.5-17.5); White Blood Count 6.2 K/mm3 (4.8-10.8)
[2019-07-11 16:52] LABS: Chloride 106 mmol/L (98-107); Potassium 5.4 mmoL/L (3.5-5.1); Sodium 138 mmol/L (136-145)
[2019-07-11 16:55] LABS: Anion Gap 13.4 mEq/L (5-15); Blood Urea Nitrogen 15 mg/dl (7-17); Carbon Dioxide 24 mmol/L (22.0-30.0); Estimated Glomerular Filt Rate 44 ml/min (>60); GFR (African American) 54 ML/MIN (>60); Phosphorous 3.6 mg/dl (2.5-4.5)
[2019-07-11 16:56] LABS: Calcium 9.6 mg/dl (8.4-10.2); Glucose 144 mg/dl (74-100)
[2019-07-14 08:14] LABS: Vitamin D 25 Hydroxy 23.1 ng/mL (30.0-100.0)
[2019-07-15 08:02] LABS: Parathyroid Hormone Intact 115 pg/mL (15-65)
== END ==
PROVIDERS: Visit Provider Internal Medicine Nephrology
DX: N18.3 Chronic kidney disease, stage 3 (moderate) (principal)
CPT/HCPCS: 36415; 80069; 82652; 83970; 85025

== ENCOUNTER → 2019-07-14 14:18 | Outpatient (CLI) | payer MEDICARE, SELFPAY ==
[2019-07-14 15:03] LABS: Microscopic, Urine URINE MICROSCOPIC (MICROSCOPIC)
[2019-07-14 16:38] LABS: Appearance,Urine CLEAR (Clear); Bilirubin,Urine Negative (Negative); Blood, Urine Negative (Negative); Color,Urine YELLOW (Yellow); Glucose,Urine (UA) Negative (Negative); Ketones,Urine Negative (Negative); Leukocyte Esterase,Urine 2+ (Negative); Nitrate,Urine POSITIVE (Negative); PH,Urine 6.5 (5.0-8.5); Protein,Urine Negative (Negative); Urobilinogen,Urine 0.2 EU/dl (0.2)
[2019-07-14 16:50] LABS: Creatinine,Urine Random 51 mg/dL (Not Estab.)
[2019-07-14 16:52] LABS: Bacteria,Urine 3+ /lpf; Squamous Epithelial Cell,Urine Occasional #/hpf (0-5)
== END ==
PROVIDERS: Visit Provider Internal Medicine Nephrology
DX: N18.3 Chronic kidney disease, stage 3 (moderate) (principal); R82.90 Unspecified abnormal findings in urine
CPT/HCPCS: 81001; 82570; 84155; 87086; 87088; 87186

== ENCOUNTER → 2019-08-20 15:05 | Outpatient (POV) | payer MEDICARE, SELFPAY | PROVIDERS: PCP Family Medicine | DX: Z00.00 Encounter for general adult medical examination without abnormal findings (principal) ==

== ENCOUNTER → 2019-10-01 14:53 | Outpatient (POV) | payer MEDICARE, SELFPAY | PROVIDERS: PCP Family Medicine | DX: Z00.00 Encounter for general adult medical examination without abnormal findings (principal) ==

== ENCOUNTER → 2019-11-05 12:59 | Outpatient (POV) | payer MEDICARE, SELFPAY | PROVIDERS: PCP Family Medicine | DX: Z00.00 Encounter for general adult medical examination without abnormal findings (principal) ==

== ENCOUNTER → 2019-11-11 14:26 | Outpatient (CLI) | payer MEDICARE, SELFPAY ==
[2019-11-11 14:42] LABS: Basophils % 0.6 % (0.1-2.0); Eosinophils # 0.1 K/mm3 (0.0-0.4); Eosinophils % 2.3 % (0.1-12.0); Hematocrit 31.9 % (37.0-47.0); Hemoglobin 10.7 g/dL (12.2-16.2); Lymphocytes # 1.9 K/mm3 (0.7-4.5); Lymphocytes % 32.3 % (10-50); Mean Corpuscular HGB Conc 33.7 g/dL (31.8-35.4); Mean Platelet Volume 10.1 fl (7.4-10.4); Monocytes # 0.3 K/mm3 (0.1-1.0); Monocytes % 5.2 % (1.7-9.3); Neutrophils # 3.6 K/mm3 (1.8-7.8); Neutrophils % 59.7 % (37.0-80.0); Platelet Count 229 K/mm3 (142-424); Red Blood Count 3.16 M/mm3 (4.20-5.40); Red Cell Distribution Width 14.5 % (11.5-17.5)
[2019-11-11 14:58] LABS: INR 1.02 (0.9-1.1); Prothrombin Time 10.5 seconds (9.4-11.8)
[2019-11-11 15:26] LABS: Chloride 104 mmol/L (98-107); Potassium 4.7 mmoL/L (3.5-5.1); Sodium 137 mmol/L (136-145)
[2019-11-11 15:28] LABS: Blood Urea Nitrogen 20 mg/dl (7-17); Estimated Glomerular Filt Rate 34 ml/min (>60); GFR (African American) 41 ML/MIN (>60)
[2019-11-11 15:29] LABS: Alanine Aminotransferase 46 U/L (12-78); Albumin/Globulin Ratio 1.1 (1.1-1.8); Alkaline Phosphatase 964 U/L (38-126); Anion Gap 17.7 mEq/L (5-15); Aspartate Amino Transferase 85 U/L (14-36); Bilirubin,Total 0.8 mg/dl (0.2-1.3); Calcium 8.9 mg/dl (8.4-10.2); Carbon Dioxide 20 mmol/L (22.0-30.0); Globulin 3.5 g/dL (1.3-3.2); Glucose 147 mg/dl (74-100); Total Protein,Serum 7.5 g/dl (6.3-8.2)
== END ==
PROVIDERS: Visit Provider Nurse Practitioner Family
DX: R10.9 Unspecified abdominal pain (principal); R79.89 Other specified abnormal findings of blood chemistry
CPT/HCPCS: 36415; 80053; 85025; 85610

== ENCOUNTER → 2019-11-22 12:05 | Outpatient (CLI) | payer MEDICARE, SELFPAY ==
[2019-11-22 13:53] LABS: Alkaline Phosphatase 889 U/L (38-126)
[2019-11-25 02:54] LABS: Mitochondrial (M2) Antibody <20.0 Units (0.0-20.0)
== END ==
PROVIDERS: Visit Provider Nurse Practitioner Family
DX: R74.8 Abnormal levels of other serum enzymes (principal)
CPT/HCPCS: 36415; 84075; 86256

== ENCOUNTER → 2019-12-03 15:44 | Outpatient (CLI) | payer MEDICARE, SELFPAY ==
[2019-12-03 18:47] LABS: Gamma Glutamyl Transpeptidase 1298 U/L (12-43)
[2019-12-08 15:21] LABS: Alkaline Phosphatase 814 IU/L (39-117); Bone Fraction: 21 % (14-68); Liver Fraction: 79 % (18-85)
[2019-12-08 16:03] LABS: Intestinal Frac.: 0 % (0-18)
== END ==
PROVIDERS: Visit Provider Nurse Practitioner Family
DX: R74.8 Abnormal levels of other serum enzymes (principal)
CPT/HCPCS: 36415; 82977; 84075; 84080

== ENCOUNTER → 2020-02-02 12:20 | Outpatient (CLI) | payer MEDICARE, SELFPAY ==
[2020-02-02 13:03] LABS: Basophils # 0.1 K/mm3 (0-0.2); Eosinophils # 0.2 K/mm3 (0.0-0.4); Eosinophils % 2.8 % (0.1-12.0); Hematocrit 38.2 % (37.0-47.0); Hemoglobin 12.2 g/dL (12.2-16.2); Lymphocytes # 2.1 K/mm3 (0.7-4.5); Mean Corpuscular HGB Conc 31.9 g/dL (31.8-35.4); Mean Corpuscular Hemoglobin 33.1 pg (27.0-31.2); Mean Corpuscular Volume 103.9 fl (81-99); Monocytes # 0.5 K/mm3 (0.1-1.0); Monocytes % 7.1 % (1.7-9.3); Neutrophils % 58.1 % (37.0-80.0); Platelet Count 247 K/mm3 (142-424); Red Blood Count 3.68 M/mm3 (4.20-5.40); Red Cell Distribution Width 13.8 % (11.5-17.5); White Blood Count 6.9 K/mm3 (4.8-10.8)
[2020-02-02 13:25] LABS: Albumin Level 4.2 g/dl (3.5-5.0); Chloride 100 mmol/L (98-107); Potassium 5.1 mmoL/L (3.5-5.1); Sodium 131 mmol/L (136-145)
[2020-02-02 13:27] LABS: Blood Urea Nitrogen 20 mg/dl (7-17); Estimated Glomerular Filt Rate 49 ml/min (>60); GFR (African American) 59 ML/MIN (>60)
[2020-02-02 13:28] LABS: Anion Gap 13.1 mEq/L (5-15); Calcium 9.3 mg/dl (8.4-10.2); Carbon Dioxide 23 mmol/L (22.0-30.0); Glucose 114 mg/dl (74-100); Phosphorous 4.3 mg/dl (2.5-4.5)
[2020-02-02 14:41] LABS: Microscopic, Urine URINE MICROSCOPIC (MICROSCOPIC)
[2020-02-02 14:49] LABS: Appearance,Urine CLOUDY (Clear); Bilirubin,Urine Negative (Negative); Blood, Urine Negative (Negative); Color,Urine YELLOW (Yellow); Glucose,Urine (UA) Negative (Negative); Ketones,Urine Negative (Negative); Leukocyte Esterase,Urine 3+ (Negative); Nitrate,Urine POSITIVE (Negative); Protein,Urine Negative (Negative); Urobilinogen,Urine 0.2 EU/dl (0.2)
[2020-02-02 15:06] LABS: Creatinine,Urine Random 48 mg/dL (Not Estab.)
[2020-02-02 15:17] LABS: Bacteria,Urine 1+ /lpf
== END ==
PROVIDERS: Visit Provider Internal Medicine Nephrology
DX: N18.30 Chronic kidney disease, stage 3 unspecified (principal); R82.90 Unspecified abnormal findings in urine
CPT/HCPCS: 36415; 80069; 81001; 82570; 84155; 85025; 87086; 87088; 87186

== ENCOUNTER → 2020-02-09 14:32 | Outpatient (POV) | payer MEDICARE, SELFPAY | PROVIDERS: Visit Provider Internal Medicine Nephrology | DX: Z00.00 Encounter for general adult medical examination without abnormal findings (principal) ==

== ENCOUNTER → 2020-03-18 14:58 | Outpatient (POV) | payer MEDICARE, SELFPAY ==
[2020-03-18 15:12] VITALS: BP 128/88; PULSE 74; RESP 18; TEMP 36.6; O2SAT 98; BMI 25.0
--- NOTE | 2020-03-18 15:16 | HMH.PMCON ---
Assessment and Plan (1) Back pain, thoracic Status: Chronic Qualifiers: Back pain laterality: left Category: Medical Code(s): M54.6 - Pain in thoracic spine - Assessment and plan all Dx Assessment and Plan for all problems:: We will get an MRI of her thoracic spine to help determine pathology. Patient also had shingles several years back in the same area. If she does not have pathology on her MRI we may treat her for postherpetic neuralgia. I will follow-up with her after her MRI reassess her symptoms at that time she has been instructed to call the office if she has any issues prior to her next appointment. Dr. Christine has reviewed this note and agrees with this plan of care. This note was dictated using voice recognition software and may contain errors or omissions HPI - Data of Consult Consult date: 03/18/20 Requesting Physician: Anna Lal APRN Primary Care Provider: Elder Brasher MD - Consult Narrative Reason for consult: Back pain History of present illness: Ms. Oneill is a 69 year old female who presents today for consultation regards to her thoracic back pain. Patient was seen several years back and received an injection however it was not beneficial for her. Patient is tried multiple medications including gabapentin with no relief. She is continuing to work at [employer]. Patient's pain is quite focal in her thoracic spine on the T4-T5 level. Patient does not have any imaging of this thoracic spine. We will order an MRI to help discern pathology. Rates her pain today a 5 out of 10 CC: Anna Lal APRN [facility] History I have reviewed the patient's past medical history: Yes Medical History: Reports:: Depression, Gastroesophageal Reflux Disease(GERD), Hepatitis, Hypertension, Osteoporosis, Renal Insufficiency Denies:: Cancer, Diabetes Mellitus Type 1, Diabetes Mellitus Type 2, Internal Pacemaker, Lung Disease, MRSA, Seizures *Have you ever received a pneumonia vaccine?: Yes *Have you received a flu vaccine this season?: Yes Other Medical History: Reports: Hypothyroidism, Osteoporosis, Other (tremor, chronic back pain, over active bladder) Other Surgeries: Yes: Cholecystectomy, Colonoscopy, EGD, Hernia Repair, Other. No: Pacemaker Amputation: No Fractures: Yes (STERNAL) - *Social History Smoking Status: Never smoker Tobacco Type: cigarettes # Packs/Day (cigarettes): 1 Alcohol Intake: never Alcohol Intake Frequency:: other Substance Use Type: denies use *Occupational Status:: retired Housing: house Household Members: family *Travel in the last 8 weeks: None - Psychiatric History Pschychiatric History:: Reports:: Depression Family Hx:: Cancer Review of Systems - Review of Systems ROS General: no recent weight change, no fever, no sleep disturbances Respiratory: no cough, no shortness of air, no recurring pulmonary infections Cardiovascular/Peripheral Vascular: No chest pain, No palpitations, no edema, no shortness of breath. Gastrointestinal: no new onset incontinence, normal bowel movements reported Genitourinary: no new onset incontinence Musculoskeletal: Back pain Psychiatric: normal mood/ affect Neurological: [denies new onset weakness in extremities], [denies new onset balance issues] Meds Home Medications Medication Instructions Recorded Confirmed Type fluoxetine 20 mg capsule 20 mg PO HS 90 Days 04/23/17 02/05/19 History gabapentin 300 mg capsule 300 mg PO HS 90 Days 04/23/17 02/05/19 History primidone 250 mg tablet 250 mg PO DAILY 90 Days 04/23/17 02/05/19 History Levothyroxine Sodium [Synthroid 125 mcg PO DAILY 10/24/18 02/05/19 History 125mcg (0.125mg) tablet] Oxybutynin Chloride [Ditropan 5mg 5 mg PO BID 10/26/18 02/05/19 History tablet] Famotidine [Pepcid 20mg Tablet] 20 mg PO HS 10/27/18 02/05/19 History gemfibroziL [Gemfibrozil] 600 mg PO BID 10/27/18 02/05/19 History Walker [Francisco, Nanci] 1 each MISCELLANEOUS DIRECTED 12/09
== END ==
PROVIDERS: PCP Family Medicine; Visit Provider Clinical Nurse Specialist Family Health
DX: M54.6 Pain in thoracic spine (principal)
CPT/HCPCS: 99212

== ENCOUNTER → 2020-03-23 07:38 | Outpatient (CLI) | payer MEDICARE, SELFPAY ==
--- NOTE | 2020-03-23 07:51 | MR_ITS ---
PROCEDURE: MR THORACIC SPINE WO CON CLINICAL INDICATION: BACK PAIN LEFT SIDED MID BACK PAIN [id number], NO INJURY. PRIOR 09-30-25 COMPARISON: MR TSW/O MRI-T-SPINE W/O from 10/01/2015 TECHNIQUE: Routine multiplanar multi echo sequences are performed without gadolinium enhancement. FINDINGS: Mild exaggeration thoracic kyphosis. No fracture or dislocation evident. No lytic or blastic change. No disc herniation canal stenosis or paraspinal mass is evident. There are mild degenerative changes at the costovertebral junction. Spinal cord has an unremarkable appearance ending at the L1 level. There is mild multilevel disc desiccation but no significant IMPRESSION: Exaggerated thoracic kyphosis with mild degenerative otherwise negative with no significant change in no acute finding. Dictated by: Sav Da Silva MD 03/24/2020 17:59 Sav Da Silva MD in [place] 03/24/2020 17:59
== END ==
PROVIDERS: PCP Family Medicine; Visit Provider Clinical Nurse Specialist Family Health
DX: M54.6 Pain in thoracic spine (principal)
CPT/HCPCS: 72146

== ENCOUNTER → 2020-03-29 09:38 | Outpatient (POV) | payer MEDICARE, SELFPAY ==
--- NOTE | 2020-03-29 10:07 | P.CONS_ITS ---
[facility] Pain Management SOAP Note Subjective:: Is a pleasant 69-year-old white female presents today for follow-up after MRI. Patient has thoracic back pain. Patient was seen several years back and received an injection however it was not beneficial for her. She is tried multiple medications including gabapentin with no relief. She rates the pain a 0 out of 10. Patient does have kyphosis. Patient and I discussed a trigger point injection she is has a very focal pain complaints in her left thoracic paraspinous. Patient does have a palpable trigger point in this location. She would like to move forward with this. ROS General: no recent weight change, no fever, no sleep disturbances Respiratory: no cough, no shortness of air, no recurring pulmonary infections Cardiovascular/Peripheral Vascular: No chest pain, No palpitations, no edema, no shortness of breath. Gastrointestinal: no new onset incontinence, normal bowel movements reported Genitourinary: no new onset incontinence Musculoskeletal: Myofascial pain Psychiatric: normal mood/ affect Neurological: [denies new onset weakness in extremities], [denies new onset luz elena nce issues] Objective:: Physical Exam General: Alert and oriented x3, no acute distress, pleasant and cooperative, [on room air] Lungs: Resps E/U, Symmetrical chest expansion, Eyes: PERRL Musculoskeletal: Flexion and extension of thoracic lumbar spine somewhat guarded secondary to pain, deep tendon reflexes normal, strength in upper and lower extremities [5/5], slightly antalgic gait noted Neurological: speech clear, 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 I will follow-up with her after this reassess her symptoms at that time she has been instructed to call the office if she has any issues prior to her next appointment. Dr. Christine has reviewed this note and agrees with this plan of care. This note was dictated using voice recognition software and may contain errors or omissions [facility] History I have reviewed the patient's past medical history: Yes Medical History: Reports:: Depression, Gastroesophageal Reflux Disease(GERD), Hepatitis, Hypertension, Osteoporosis, Renal Insufficiency Denies:: Cancer, Diabetes Mellitus Type 1, Diabetes Mellitus Type 2, Internal Pacemaker, Lung Disease, MRSA, Seizures *Have you ever received a pneumonia vaccine?: Yes *Have you received a flu vaccine this season?: Yes Other Medical History: Reports: Hypothyroidism, Osteoporosis, Other (tremor, chronic back pain, over active bladder) Other Surgeries: Yes: Cholecystectomy, Colonoscopy, EGD, Hernia Repair, Other. No: Pacemaker Amputation: No Fractures: Yes (STERNAL) - *Social History Smoking Status: Never smoker Tobacco Type: cigarettes # Packs/Day (cigarettes): 1 Alcohol Intake: never Alcohol Intake Frequency:: other Substance Use Type: denies use *Occupational Status:: retired Housing: house Household Members: family *Travel in the last 8 weeks: None - Psychiatric History Pschychiatric History:: Reports:: Depression Family Hx:: Cancer
[2020-03-29 10:41] VITALS: BP 145/87; PULSE 77; RESP 18; TEMP 36.2; O2SAT 98; BMI 25.0
== END ==
PROVIDERS: PCP Family Medicine; Visit Provider Clinical Nurse Specialist Family Health
DX: M79.18 Myalgia, other site (principal)
CPT/HCPCS: 99212

== ENCOUNTER 2020-04-05 14:49 | Day surgery (SDC) | payer MEDICARE, SELFPAY ==
[2020-04-05 14:59] VITALS: BP 118/62; PULSE 72; RESP 18; TEMP 36.1; O2SAT 99; BMI 25.0
[2020-04-05 15:25] VITALS: BP 142/74; PULSE 74; RESP 18; O2SAT 98
[2020-04-05 15:26] VITALS: BP 128/78; PULSE 79; RESP 18; O2SAT 98
--- NOTE | 2020-04-05 15:28 | HMH.PMPROC ---
- Procedure Date: 04/05/20 Time: 15:28 Anesthesiologist:: Anna Lal APRN Complications:: None Pre-procedure Diagnosis:: Myofascial pain syndrome Post-procedure Diagnosis:: Same Indications for Procedure:: Patient is a pleasant 69-year-old white female presents today for trigger point injections of the left thoracic paraspinous. Patient has thoracic back pain. She has had thoracic epidurals with no relief. Patient's MRI did show kyphosis. Patient is tried multiple medications including gabapentin with no relief. She rates her pain today a 0 out of 10 however this is because she has not done much. She is still working. Patient has palpable trigger points in her left thoracic paraspinous muscles. Procedure Details:: Procedure: Informed consent was obtained and the risk and benefits of the procedure were explained to the patient. Patient was taken to the procedure room. Left thoracic paraspinous was prepped using ChloraPrep as a cleansing solution. Trigger points were palpated and marked. Each of these trigger points were injected with 3 mL's of bupivacaine 0.25 and Depo-Medrol 10 mg. A total of 80 milligrams of Depo-Medrol was used for 8 trigger points in the left thoracic paraspinous muscle. Bandages were placed over the injection sites. Patient tolerated the procedure well with no complications. Plan and Disposition:: We will see the patient back in several weeks reassess her symptoms at that time she has been instructed to call the office if she has any issues prior to her next appointment. Dr. Christine has reviewed this note and agrees with this plan of care. This note was dictated using voice recognition software and may contain errors or omissions
[2020-04-05 15:44] VITALS: BP 112/62; PULSE 66; RESP 20; O2SAT 99
== END 2020-04-05 15:45 | disposition home or self-care (01) ==
LOC: SC.PAINP 14:51
PROVIDERS: PCP Family Medicine; Visit Provider Clinical Nurse Specialist Family Health
DX: M79.18 Myalgia, other site; K21.9 Gastro-esophageal reflux disease without esophagitis; E03.9 Hypothyroidism, unspecified; Z79.899 Other long term (current) drug therapy
CPT/HCPCS: 20552; J1040

== ENCOUNTER → 2020-04-19 16:21 | Outpatient (CLI) | payer MEDICARE, SELFPAY ==
--- NOTE | 2020-04-19 16:30 | XR_ITS ---
PROCEDURE: XR CERVICAL SPINE 5V CLINICAL INDICATION: CERVICAL SPINE ARTHRITIS Neck pain, left shoulder pain COMPARISON: No exams were available for comparison FINDINGS: 2-3 mm anterolisthesis C4 on C5 and 2 mm anterolisthesis C5 on C6. There is degenerative disc disease at C6-C7. Foramina are widely patent. Facet arthritic changes are present at C4-C5 and C6. No fracture or dislocation. No lytic or blastic change. Other findings:None. IMPRESSION: Degenerative changes as described above Dictated by: Sav Da Silva MD 04/19/2020 17:23 Sav Da Silva MD in [place] 04/19/2020 17:23
== END ==
PROVIDERS: PCP Family Medicine; Visit Provider Family Medicine
DX: M47.812 Spondylosis without myelopathy or radiculopathy, cervical region (principal)
CPT/HCPCS: 72050

== ENCOUNTER → 2020-04-22 09:09 | Outpatient (POV) | payer MEDICARE, SELFPAY ==
--- NOTE | 2020-04-22 09:45 | HMH.PAINSOAP ---
[facility] Pain Management SOAP Note Subjective:: Patient is a pleasant 69-year-old white female presents today for follow-up after trigger points of the left thoracic paraspinous muscles. Patient however has a new pain in her left shoulder she rates it a 10 out of 10. Patient has tried a Medrol Dosepak with not much relief. Patient has tried gabapentin however she had side effects to it. She is also tried a muscle relaxer with not much relief. Patient I had a discussion in regards to the plan of care. We will try prednisone to 40 mg a day for 5 days. If she is not better in 1 week we will get an MRI of her cervical spine to help determine pathology. Patient does not have any difficulty moving her shoulder she does not have any decrease in range of motion. ROS General: no recent weight change, no fever, no sleep disturbances Respiratory: no cough, no shortness of air, no recurring pulmonary infections Cardiovascular/Peripheral Vascular: No chest pain, No palpitations, no edema, no shortness of breath. Gastrointestinal: no new onset incontinence, normal bowel movements reported Genitourinary: no new onset incontinence Musculoskeletal: Left shoulder pain Psychiatric: normal mood/ affect Neurological: [denies new onset weakness in extremities], [denies new onset balance issues] Objective:: Physical Exam General: Alert and oriented x3, no acute distress, pleasant and cooperative, [on room air] Lungs: Resps E/U, Symmetrical chest expansion, Eyes: PERRL Musculoskeletal: Flexion and extension of cervical spine somewhat guarded secondary to pain, deep tendon reflexes normal, strength in upper and lower extremities [5/5], [abnormal gait noted] Neurological: speech clear, 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 twice daily for 5 days we will see her in 1 week. If she is no better we will order an MRI of her neck. She has been instructed to call the office if she has any issues prior to her next appointment. Dr. Christine has reviewed this note and agrees with this plan of care. This note was dictated using voice recognition software and may contain errors or omissions [facility] History I have reviewed the patient's past medical history: Yes Medical History: Reports:: Depression, Gastroesophageal Reflux Disease(GERD), Hepatitis, Hypertension, Osteoporosis, Renal Insufficiency Denies:: Cancer, Diabetes Mellitus Type 1, Diabetes Mellitus Type 2, Internal Pacemaker, Lung Disease, MRSA, Seizures *Have you ever received a pneumonia vaccine?: No *Have you received a flu vaccine this season?: No Other Medical History: Reports: Hypothyroidism, Osteoporosis, Thyroid Disease, Other (tremor, chronic back pain, over active bladder) Other Surgeries: Yes: Cholecystectomy, Colonoscopy, EGD, Hernia Repair, Other. No: Pacemaker Amputation: No Fractures: Yes (STERNAL) - *Social History Smoking Status: Never smoker Tobacco Type: cigarettes # Packs/Day (cigarettes): 1 Alcohol Intake: never Alcohol Intake Frequency:: other Substance Use Type: denies use *Occupational Status:: retired Housing: house Household Members: family *Travel in the last 8 weeks: None - Psychiatric History Pschychiatric History:: Reports:: Depression Family Hx:: Cancer
== END ==
PROVIDERS: PCP Family Medicine; Visit Provider Clinical Nurse Specialist Family Health
DX: M25.512 Pain in left shoulder (principal); M79.18 Myalgia, other site
CPT/HCPCS: 99212; G0463

== ENCOUNTER → 2020-04-29 14:13 | Outpatient (POV) | payer MEDICARE, SELFPAY ==
[2020-04-29 14:43] VITALS: BP 112/74; PULSE 77; RESP 18; O2SAT 99; BMI 22.4
--- NOTE | 2020-04-29 14:50 | P.CONS_ITS ---
[facility] Pain Management SOAP Note Subjective:: Is an 69-year-old white female who presents today for follow-up. Patient was seen last week with extreme neck pain. Her pain has eased up after some steroids however she is having still severe pain in her neck radiating down into her left arm. Patient has not had any recent MRI imaging of her neck. I discussed with her getting an diagnostic imaging since she has not responded to the prednisone. Patient is agreeable. She does rate her pain a 3 out of 10 today. Patient's tried and failed gabapentin, prednisone, muscle relaxers. ROS General: no recent weight change, no fever, no sleep disturbances Respiratory: no cough, no shortness of air, no recurring pulmonary infections Cardiovascular/Peripheral Vascular: No chest pain, No palpitations, no edema, no shortness of breath. Gastrointestinal: no new onset incontinence, normal bowel movements reported Genitourinary: no new onset incontinence Musculoskeletal: Neck pain, arm pain Psychiatric: normal mood/ affect Neurological: [denies new onset weakness in extremities], [denies new onset balance issues] Objective:: Physical Exam General: Alert and oriented x3, no acute distress, pleasant and cooperative, [on room air] Lungs: Resps E/U, Symmetrical chest expansion, Eyes: PERRL Musculoskeletal: Flexion and extension of cervical spine somewhat guarded secondary to pain, deep tendon reflexes normal, strength in upper and lower extremities [5/5], slightly antalgic gait noted Neurological: 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 We will continue her prednisone 20 mg once daily for 10 more days. I will follow-up with her after this reassess her symptoms at that time she has been instructed to call the office if she has any issues prior to her next appointment. Dr. Christine has reviewed this note and agrees with this plan of care. This note was dictated using voice recognition software and may contain errors or omissions [facility] History I have reviewed the patient's past medical history: Yes Medical History: Reports:: Depression, Gastroesophageal Reflux Disease(GERD), Hepatitis, Hypertension, Osteoporosis, Renal Insufficiency Denies:: Cancer, Diabetes Mellitus Type 1, Diabetes Mellitus Type 2, Internal Pacemaker, Lung Disease, MRSA, Seizures *Have you ever received a pneumonia vaccine?: Yes *Have you received a flu vaccine this season?: Yes Other Medical History: Reports: Hypothyroidism, Osteoporosis, Thyroid Disease, Other (tremor, chronic back pain, over active bladder) Other Surgeries: Yes: Cholecystectomy, Colonoscopy, EGD, Hernia Repair, Other. No: Pacemaker Amputation: No Fractures: Yes (STERNAL) - *Social History Smoking Status: Never smoker Tobacco Type: cigarettes # Packs/Day (cigarettes): 1 Alcohol Intake: never Alcohol Intake Frequency:: other Substance Use Type: denies use *Occupational Status:: employed Housing: house Household Members: family *Travel in the last 8 weeks: None - Psychiatric History Pschychiatric History:: Reports:: Depression Family Hx:: Cancer
== END ==
PROVIDERS: Visit Provider Clinical Nurse Specialist Family Health
DX: M50.10 Cervical disc disorder with radiculopathy, unspecified cervical region (principal)
CPT/HCPCS: 99212; G0463

== ENCOUNTER → 2020-05-04 14:21 | Outpatient (CLI) | payer MEDICARE, SELFPAY ==
--- NOTE | 2020-05-04 14:24 | MR_ITS ---
PROCEDURE: MR CERVICAL SPINE WO CON CLINICAL INDICATION: NECK PAIN LT SIDED NECK PAIN INTO LEFT SHOULDER, SYMPTOMS X3 WEEKS. PRIOR XRAYS 1--21 COMPARISON: No exams were available for comparison TECHNIQUE: Standard multiplanar multiecho sequences are performed without contrast. 3-D MIP and myelographic images are also rendered and reviewed FINDINGS: There is normal alignment. There is exaggeration of the cervical lordosis. The craniocervical junction has an unremarkable. C2-C3: Unremarkable. C3-C4: Unremarkable. C4-C5: Minimal bulging disc. C5-C6: Minimal bulging disc. C6-C7: Minimal bulging disc. C7-T1: 2 mm anterolisthesis of C7. T1-T2: 2 mm anterolisthesis. IMPRESSION: Exaggeration of cervical lordosis. Minimal bulging disc C4-C5 C5-C6 and C6-C7. No extruded herniated disc canal stenosis or other significant anomaly. Dictated by: Sav Da Silva MD 05/05/2020 15:34 Sav Da Silva MD in [facility] 05/05/2020 15:34
== END ==
PROVIDERS: Visit Provider Clinical Nurse Specialist Family Health
DX: M54.2 Cervicalgia (principal)
CPT/HCPCS: 72141; 76376

== ENCOUNTER 2020-05-09 11:37 | Emergency (ER) | payer MEDICARE, SELFPAY ==
[2020-05-09] VITALS (9 sets, daily range): BP systolic 132–149; BP diastolic 52–78; PULSE 72–84; RESP 16–18; TEMP 36.8; O2SAT 98–100; BMI 22.4
--- NOTE | 2020-05-09 11:38 | HMH.EDGENADL ---
ED Disposition Clinical Impression: Chest wall pain Disposition: Home, Self-Care Condition on Discharge: Good Instructions: DI for Atypical Chest Pain Additional Instructions: Additional instructions for CHEST PAIN: See your physician as soon as possible for further evaluation. Return immediately if worsening chest pain, vomiting, shortness of breath, fever, coughing of blood. Referrals: PCP,No [Primary Care Provider] - - Critical Care Critical Care Time: No Attestation: On , the high probability of a clinically significant, sudden or life threatening deterioration of the following system(s) required my full and direct attention, intervention and personal management. The time I documented below is in addition to time spent performing reported procedures but includes the following listed in this critical care notation. Medical Decision Making - Kishor Inquiry Pt receiving controlled substance: No Vital Signs: 05/09/20 11:37 05/09/20 11:47 05/09/20 12:37 Temperature 98.2 F Temperature Source Oral Pulse Rate [Right] 84 83 77 Respiratory Rate 16 16 16 Blood Pressure [Right Arm] 149/78 H 137/68 Blood Pressure Mean [Right Arm] 101 91 Blood Pressure Source [Right Arm] Blood Pressure Position [Right Arm] 02 Sat by Pulse Oximetry 98 99 100 Oxygen Delivery Method Room Air 05/09/20 13:23 05/09/20 13:50 05/09/20 14:00 Temperature Temperature Source Pulse Rate [Right] 75 72 77 Respiratory Rate 18 16 18 Blood Pressure [Right Arm] 144/66 H 145/52 H 132/57 L Blood Pressure Mean [Right Arm] 92 83 82 Blood Pressure Source [Right Arm] Automatic Cuff Blood Pressure Position [Right Arm] Supine 02 Sat by Pulse Oximetry 100 99 99 Oxygen Delivery Method Room Air 05/09/20 14:34 Temperature Temperature Source Pulse Rate [Right] 77 Respiratory Rate 18 Blood Pressure [Right Arm] 137/64 Blood Pressure Mean [Right Arm] 88 Blood Pressure Source [Right Arm] Blood Pressure Position [Right Arm] 02 Sat by Pulse Oximetry 99 Oxygen Delivery Method - Lab Data Lab Results 05/09/20 11:45: WBC 10.6, RBC 3.65 L, Hgb 11.8 L, Hct 36.3 L, MCV 99.4 H, MCH 32.3 H, MCHC 32.5, RDW 15.2, Plt Count 327, MPV 10.0, Neut % (Auto) 69.4, Lymph % (Auto) 22.6, Moore % (Auto) 6.7, Eos % (Auto) 0.8, Baso % (Auto) 0.6, Neut # (Auto) 7.4, Lymph # (Auto) 2.4, Moore # (Auto) 0.7, Eos # (Auto) 0.1, Baso # (Auto) 0.1 05/09/20 11:45: Sodium 137, Potassium 5.1, Chloride 105, Carbon Dioxide 16 L, Anion Gap 21.1 H, BUN 44 H, Creatinine 1.60 H, Estimated Creat Clear 30, Estimated GFR 32 L, Est GFR ( Amer) 38 L, Glucose 95, Calcium 10.2, Troponin I 0.02 05/09/20 14:21: Troponin I 0.02 Result diagrams: 05/09/20 11:45 05/09/20 11:45 Orders (Tests/Meds): ED MEDICATIONS Discontinued Medications Generic Name Dose Route Start Last Admin Trade Name Freq PRN Reason Stop Dose Admin Sodium Chloride 1,000 ml 05/09/20 12:33 05/09/20 13:28 Sodium Chloride 0.9% 1000ml Bag IV 05/09/20 12:34 1,000 ml BOLUS ONE Administration ORDERS Category Date Time Status Troponin I Q3H Lab 05/09/20 18:00 Ordered Urinalysis and Microscopic Stat Lab 05/09/20 11:47 Ordered - Radiology Data #1 Image(s): Chest, Pelvis Image Reviewed: Yes I reviewed the patient's radiology image, Yes I have reviewed radiologist's interpretation PROCEDURE: XR PELVIS 1-2V Referring Doctor: Kael Kelly Patient Age:69Y CLINICAL INDICATION: Fall with head and neck pain injury. Also pelvic injury and pain. COMPARISON: CT ABDPELW CT abdomen pelvis w con from 10/26/2018 DX,RF FL BARIUM ENEMA from 01/21/2019 TECHNIQUE: XR Pelvis AP View FINDINGS: Osseous pelvis-intact with no fracture or dislocation is evident. No significant degenerative change. Hip joint spaces are well maintained.. No lytic or blastic change. The SI joints have an unremarkable appearance. bones are slightly demineralized. Sac
--- NOTE | 2020-05-09 11:39 | ECG_ITS ---
APPROVED REPORT Exam: Resting ECG HR:84 bpm ECG Measurements Heart Rate 84 AXES NE 102 P -7 QRSd 66 QRS 29 QT 356 T 59 QTc 420 Conclusion Sinus rhythm with short NE Otherwise normal ECG Electronically signed by : Hansel Polanco, 05/10/2020 05:56:57
--- NOTE | 2020-05-09 11:47 | XR_ITS ---
PROCEDURE: XR PELVIS 1-2V Referring Doctor: Kael Kelly Patient Age:69Y CLINICAL INDICATION: Fall with head and neck pain injury. Also pelvic injury and pain. COMPARISON: CT ABDPELW CT abdomen pelvis w con from 10/26/2018 DX,RF FL BARIUM ENEMA from 01/21/2019 TECHNIQUE: XR Pelvis AP View FINDINGS: Osseous pelvis-intact with no fracture or dislocation is evident. No significant degenerative change. Hip joint spaces are well maintained.. No lytic or blastic change. The SI joints have an unremarkable appearance. bones are slightly demineralized. Sacrum unremarkable. Iliac bone pubis unremarkable. IMPRESSION: Osseous pelvis intact with no acute findings.. Mild demineralization Dictated by: Eron Zabala MD 05/09/2020 13:35 Eron Zabala MD in [facility] 05/09/2020 13:35
--- NOTE | 2020-05-09 11:47 | XR_ITS ---
PROCEDURE: XR CHEST AP Referring Doctor: Kael Kelly Patient Age:69Y CLINICAL HISTORY: possible fall multiple injuries including chest COMPARISON: CR [id number] XR ribs RT min 3V w CXR1V from 04/28/2017 CR [id number] XR ribs RT min 3V w CXR1V from 12/08/2017 DX [id number] XR ribs RT min 3V w CXR1V from 12/21/2017 FINDINGS: The lungs are well expanded and clear with nothing definitely acute The cardiomediastinal silhouette and pulmonary vascularity are within normal limits. The lungs are clear without infiltrates, suspicious nodules, or pleural effusions. No acute bony abnormalities. Postsurgical changes at the epigastric region to the left of midline again observed. Calcified left hilar nodes again observed IMPRESSION: Lungs clear with no nothing definitely acute. Stable appearance chest since 2017 Dictated by: Eron Zabala MD 05/09/2020 13:32 Eron Zabala MD in [facility] 05/09/2020 13:32
--- NOTE | 2020-05-09 11:47 | CT_ITS ---
PROCEDURE: CT CERVICAL SPINE WO CON Referring Doctor: Kael Kelly Patient Age:69Y CLINICAL INDICATION: Patient fell with neck pain.. COMPARISON: MR MR CERVICAL SPINE WO CON from 05/04/2020 TECHNIQUE: No IV contrast Helical axial images obtained with sagittal and coronal reformats. All CT scans at the facility use one or more dose reduction, viz: automated exposure control, ma/kV adjustment per patient size (including targeted exams where dose is matched to indication, i.e. head), or iterative reconstruction technique. FINDINGS: Cervical spine images reveal no no fracture nor subluxation is evident. Satisfactory alignment C-spine with no significant subluxation. Normal prevertebral soft tissues. Facets, neural foramen and vertebral bodies i normal relationships and overall intact with mild degenerative changes C-spine similar to previous studies including recent MR performed last week May 04 2020... There is some scant early degenerative disc changes to his is C6/7 suggestion of scant mild central disc bulge at this level. Also note there are some degenerative facet changes of these are most evident to the left at C2/3 and on the right at C C5/6. Normal C1/C2 relationships. The images again include the posterior fossa or we again see the 1.6 cm densely calcified round mass at the far left aspect of the posterior fossa period of the coronal images with this is is cervical image set nicely demonstrate the dural base abutting the inferior/posterior margin of temporal bone where the tentorium originates of further home characteristic of a meningioma. Apices of lungs are clear with no acute findings. IMPRESSION: Cervical spine intact with no fracture nor subluxation. Mild cervical degenerative changes: There are degenerative facet changes bilaterally most evident right C5/6 and left C2/3 Only scant early degenerative disc changes otherwise noted. For example scant central bulge C6/7. (Recent MRI C-spine further evaluated for these very minor degenerative features) *. The 16 mm densely calcified mass at the far left aspect of the posterior fossa,, compatible with a calcified meningioma Dictated by: Eron Zabala MD 05/09/2020 13:30 Eron Zabala MD in [facility] 05/09/2020 13:30
--- NOTE | 2020-05-09 11:47 | CT_ITS ---
PROCEDURE: CT HEAD/BRAIN WO CON Referring Doctor: Kael Kelly Patient Age:69Y CLINICAL INDICATION: possible fall Multiple injuries including suspected head trauma head injury. Also rib pain chest pain right side COMPARISON: CR XR CERVICAL SPINE 5V from 04/19/2020 MR MR CERVICAL SPINE WO CON from 05/04/[address] CERVICAL SPINE WO CON from 05/09/2020 TECHNIQUE: No IV contrast. Standard axial images were obtained. All CT scans at the facility use one or more dose reduction, viz: automated exposure control, ma/kV adjustment per patient size (including targeted exams where dose is matched to indication, i.e. head), or iterative reconstruction technique. FINDINGS: No acute intracranial findings. No intracranial hemorrhage. . No territorial infarct . Diffuse cerebral atrophy. Chronic small vessel deep white-matter ischemic gliotic changes most certainly account for the patchy subtle low-density in throughout periventricular regions No hydrocephalus.The ventricles and basal cisterns appear clear and satisfactory.. The hyperdense choroid extends from the atria downward into the towards the temporal horns bilaterally/symmetric anatomical variation with this appearance. No mass or midline shift nor mass effect. No subdural or extra-axial fluid collection is evident. Posterior fossa-densely calcified round area at left aspect posterior fossa measuring up to 16 mm diameter most compatible with a intracranial meningioma a just adjacent to the transverse sinus. Typically these are rather typically indolent and progressing longstanding feature but would benefit from neuro surgical consultation. No previous head CTs for comparison at this facility Skull intact- calvarium and scalp unremarkable. Mastoid air cells are well developed and and overall clear with only a few opacified mastoid air cells posteriorly bilaterally barely evident. Middle ear clear . IAC's symmetric. Nosinus air-fluid level. Visualized portions of the paranasal sinuses and orbits unremarkable. IMPRESSION: 1..No acute intracranial findings . Diffuse cerebral atrophy. . Chronic small vessel deep white-matter ischemic gliotic changes at cerebral hemispheres bilaterally 2...*Round 16 mm density calcified insert cranial mass mass far left aspect of the posterior fossa-dural based and overlying the left cerebellar hemisphere. Most compatible with a incidental intracranial meningioma at posterior fossa. Dictated by: Eron Zabala MD 05/09/2020 13:17 Eron Zabala MD in [facility] 05/09/2020 13:17
--- NOTE | 2020-05-09 12:04 | CT_ITS ---
PROCEDURE: CT CHEST WO CON Referring Doctor: Kael Kelly Patient Age:69Y CLINICAL INDICATION: fall COMPARISON: CR [id number] XR ribs RT min 3V w CXR1V from 04/28/2017 CR [id number] XR ribs RT min 3V w CXR1V from 12/08/2017 DX [id number] XR ribs RT min 3V w CXR1V from 12/21/[address] abdomen pelvis w con from 10/26/2018 CR XR CHEST AP from 05/09/2020 TECHNIQUE: Axial images obtained with sagittal and coronal reformats. All CT scans at the facility use one or more dose reduction, viz: automated exposure control, ma/kV adjustment per patient size (including targeted exams where dose is matched to indication, i.e. head), or iterative reconstruction technique. FINDINGS: HEART: Unremarkable. Normal heart size. No significant pericardial effusion. Coronary artery calcification left main and LAD noted MEDIASTINAL AND HILAR STRUCTURES: No mediastinal or hilar mass evident. No dominant adenopathy. . Calcified left hilar nodes reflect old granulomatous disease. No significant mediastinal adenopathy or mass otherwise but PULMONARY ARTERIES: Normal caliber. No IV contrast and thus can't evaluate for PE the the the AORTA: No aneurysmal dilatation. Minimal atherosclerotic calcification LUNGS:Well expanded and clear. But no focal pneumonia. No pleural effusion but mild chronic changes but no significant mass or nodule. Benign calcified granuloma at periphery of the left upper lung measuring just over 3 mm size PLEURAL SPACES: No significant effusion. No evidence of pneumothorax. BONY STRUCTURES: No acute bony abnormalities apparent.No obvious rib fractures Suspect there is a old healed fracture of the sternum/at manubrium. But vertebral bodies appear intact and. Stable appearance of vertebral bodies from T9 to the upper L-spine when compared to previous 2019 CT abdomen. But the vertebral bodies above this appears satisfactory. There may be some mild demineralization. The spinous processes appear intact. LYMPH NODES: No enlarged lymph nodes evident. UPPER ABDOMEN: 3 cm right renal cyst again noted measuring fluid solid stool at the the colon most evident at the right colon .. Postsurgical changes just below GE junction with what appears to be the the hiatal hernia or hiatal hernia repair again noted similar-in either case this area unchanged since prior studies the IMPRESSION: 1..No acute findings at the chest. Lungs clear/chest wall unremarkable.. . No evident rib fractures T-spine intact. Old fracture sternum/manubrium noted the the the the the . Lungs well expanded and clear with no active disease.-only mild hyperexpansion and minimal chronic changes Dictated by: Eron Zabala MD 05/09/2020 12:54 Eron Zabala MD in [facility] 05/09/2020 12:54
[2020-05-09 12:05] LABS: Chloride 105 mmol/L (98-107); Potassium 5.1 mmoL/L (3.5-5.1); Sodium 137 mmol/L (136-145)
[2020-05-09 12:07] LABS: Basophils # 0.1 K/mm3 (0-0.2); Basophils % 0.6 % (0.1-2.0); Eosinophils # 0.1 K/mm3 (0.0-0.4); Eosinophils % 0.8 % (0.1-12.0); Hematocrit 36.3 % (37.0-47.0); Hemoglobin 11.8 g/dL (12.2-16.2); Lymphocytes # 2.4 K/mm3 (0.7-4.5); Lymphocytes % 22.6 % (10-50); Mean Corpuscular HGB Conc 32.5 g/dL (31.8-35.4); Mean Corpuscular Hemoglobin 32.3 pg (27.0-31.2); Mean Corpuscular Volume 99.4 fl (81-99); Monocytes # 0.7 K/mm3 (0.1-1.0); Monocytes % 6.7 % (1.7-9.3); Neutrophils # 7.4 K/mm3 (1.8-7.8); Neutrophils % 69.4 % (37.0-80.0); Platelet Count 327 K/mm3 (142-424); Red Blood Count 3.65 M/mm3 (4.20-5.40); Red Cell Distribution Width 15.2 % (11.5-17.5); White Blood Count 10.6 K/mm3 (4.8-10.8)
[2020-05-09 12:08] LABS: Anion Gap 21.1 mEq/L (5-15); Blood Urea Nitrogen 44 mg/dl (7-17); Calcium 10.2 mg/dl (8.4-10.2); Carbon Dioxide 16 mmol/L (22.0-30.0); Creatinine Clearance Estimated 30 mL/min (50-200); Estimated Glomerular Filt Rate 32 ml/min (>60); GFR (African American) 38 ML/MIN (>60); Glucose 95 mg/dl (74-100)
--- NOTE | 2020-05-09 12:18 | PC.NURSE ---
pt to CT
[2020-05-09 12:21] LABS: Troponin I 0.02 ng/ml (0.00-0.034)
--- NOTE | 2020-05-09 13:06 | PC.NURSE ---
Pt returned from CT
[2020-05-09 14:57] LABS: Troponin I 0.02 ng/ml (0.00-0.034)
== END 2020-05-09 16:07 | disposition home or self-care (01) ==
PROVIDERS: Emergency Provider Emergency Medicine
DX: R07.89 Other chest pain (principal); K21.9 Gastro-esophageal reflux disease without esophagitis; E03.9 Hypothyroidism, unspecified; I10 Essential (primary) hypertension; N28.9 Disorder of kidney and ureter, unspecified; M81.0 Age-related osteoporosis without current pathological fracture; Z79.899 Other long term (current) drug therapy
CPT/HCPCS: 70450; 71045; 71250; 72125; 72170; 80048; 84484; 85025; 93005; 96365; 99284

== ENCOUNTER → 2020-05-13 08:43 | Outpatient (POV) | payer MEDICARE, SELFPAY ==
[2020-05-13 08:59] VITALS: BP 124/50; PULSE 80; RESP 20; TEMP 36.9; O2SAT 100; BMI 22.4
[2020-05-13 11:26] LABS: 25-OH Vitamin D, Total 62.3 ng/mL (30-100)
[2020-05-13 11:38] LABS: Albumin Level 4.4 g/dl (3.5-5.0); Chloride 107 mmol/L (98-107); Potassium 4.1 mmoL/L (3.5-5.1); Sodium 136 mmol/L (136-145)
[2020-05-13 11:41] LABS: Anion Gap 17.1 mEq/L (5-15); Blood Urea Nitrogen 41 mg/dl (7-17); Calcium 9.8 mg/dl (8.4-10.2); Carbon Dioxide 16 mmol/L (22.0-30.0); Creatinine Clearance Estimated 35 mL/min (50-200); Estimated Glomerular Filt Rate 37 ml/min (>60); GFR (African American) 45 ML/MIN (>60); Glucose 218 mg/dl (74-100); Phosphorous 3.3 mg/dl (2.5-4.5)
--- NOTE | 2020-05-13 11:41 | HMH.PAINSOAP ---
[facility] Pain Management SOAP Note Subjective:: Patient is a pleasant 69-year-old white female who presents today for follow-up. Patient has neck pain with radiating shoulder pain. Patient is completed physical therapy. She is interested in injective therapy she rates her pain a 6 out of 10. She is continue all home stretching program. Patient does have bulging disc throughout her cervical spine. Patient's not on any anticoagulation therapy. ROS General: no recent weight change, no fever, no sleep disturbances Respiratory: no cough, no shortness of air, no recurring pulmonary infections Cardiovascular/Peripheral Vascular: No chest pain, No palpitations, no edema, no shortness of breath. Gastrointestinal: no new onset incontinence, normal bowel movements reported Genitourinary: no new onset incontinence Musculoskeletal: Neck pain, shoulder pain Psychiatric: normal mood/ affect Neurological: [denies new onset weakness in extremities], [denies new onset balance issues] Objective:: Physical Exam General: Alert and oriented x3, no acute distress, pleasant and cooperative, [on room air] Lungs: Resps E/U, Symmetrical chest expansion, Eyes: PERRL Musculoskeletal: Flexion and extension of cervical spine somewhat guarded secondary to pain, deep tendon reflexes normal, strength in upper and lower extremities [5/5], antalgic gait noted 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 Patient's recently failed 3 months of conservative therapy including medications. Dr. Christine has reviewed this note and agrees with this plan of care. This note was dictated using voice recognition software and may contain errors or omissions [facility] History I have reviewed the patient's past medical history: Yes Medical History: Reports:: Depression, Gastroesophageal Reflux Disease(GERD), Hepatitis, Hypertension, Osteoporosis, Renal Insufficiency Denies:: Cancer, Diabetes Mellitus Type 1, Diabetes Mellitus Type 2, Internal Pacemaker, Lung Disease, MRSA, Seizures *Have you ever received a pneumonia vaccine?: Yes *Have you received a flu vaccine this season?: Yes Other Medical History: Reports: Hypothyroidism, Osteoporosis, Thyroid Disease, Other (tremor, chronic back pain, over active bladder) Other Surgeries: Yes: Cholecystectomy, Colonoscopy, EGD, Hernia Repair, Other. No: Pacemaker Amputation: No Fractures: Yes (STERNAL) - *Social History Smoking Status: Never smoker Tobacco Type: cigarettes # Packs/Day (cigarettes): 1 Alcohol Intake: never Alcohol Intake Frequency:: other Substance Use Type: denies use *Occupational Status:: retired Housing: house Household Members: family *Travel in the last 8 weeks: None - Psychiatric History Pschychiatric History:: Reports:: Depression Family Hx:: Cancer
[2020-05-17 19:25] LABS: C-Telopeptide Serum 809 pg/mL (.); Tandem-R Ostase 83.9 ug/L (.)
== END ==
PROVIDERS: PCP Family Medicine; Visit Provider Clinical Nurse Specialist Family Health
DX: M50.10 Cervical disc disorder with radiculopathy, unspecified cervical region (principal); M81.0 Age-related osteoporosis without current pathological fracture
CPT/HCPCS: 36415; 80069; 82306; 82523; 84080; 99212; G0463

== ENCOUNTER 2020-05-28 11:30 | Day surgery (SDC) | payer MEDICARE, SELFPAY ==
[2020-05-28 11:36] VITALS: BP 126/33; PULSE 71; RESP 20; TEMP 36.5; O2SAT 100; BMI 22.1
[2020-05-28 12:04] VITALS: BP 132/85; PULSE 85; RESP 18; O2SAT 98
[2020-05-28 12:05] VITALS: BP 128/88; PULSE 85; RESP 18; TEMP 36.8; O2SAT 98
[2020-05-28 12:16] VITALS: BP 128/57; PULSE 71; RESP 20; O2SAT 100
--- NOTE | 2020-05-28 12:49 | HMH.PMPROC ---
- Procedure Date: 05/28/20 Time: 12:49 Anesthesiologist:: Alexis Christine MD Complications:: None Pre-procedure Diagnosis:: Degenerative disc disease of the cervical spine with cervical radiculopathy symptoms Post-procedure Diagnosis:: Same Indications for Procedure:: This patient is a pleasant 69-year-old white female who we are treating for neck pain with cervical radicular symptoms. She has increasing pain in her neck radiating to left shoulder. We will do a cervical epidural steroid injection today to see if this will help with her pain symptoms. Procedure Details:: Cervical epidural steroid injection under fluoroscopy Informed consent was obtained and the risks and benefits of the procedure was explained to the patient. The patient was taken to the procedure room placed prone on the procedure table. The neck was prepped using ChloraPrep. The skin and subcutaneous tissues were anesthetized using lidocaine. I placed a 18-gauge epidural needle into the C5-C6 interspace and advanced using [id number] to air and fluoroscopic guidance. After confirmation of needle placement in the epidural space with dye, I injected 3 mL's lidocaine 1.5% and Depo-Medrol 80 mg. The patient tolerated the procedure well with no complications. Plan and Disposition:: We will follow-up with her in 2 weeks. Will reevaluate her symptoms at that time.
== END 2020-05-28 12:17 | disposition home or self-care (01) ==
LOC: SC.PAINP 11:33
PROVIDERS: PCP Family Medicine; Visit Provider Anesthesiology
DX: M50.10 Cervical disc disorder with radiculopathy, unspecified cervical region (principal); I10 Essential (primary) hypertension; E07.9 Disorder of thyroid, unspecified; K21.9 Gastro-esophageal reflux disease without esophagitis; F32.9 Major depressive disorder, single episode, unspecified; E78.5 Hyperlipidemia, unspecified; F41.9 Anxiety disorder, unspecified; Z87.448 Personal history of other diseases of urinary system; Z79.899 Other long term (current) drug therapy
CPT/HCPCS: 62321; J1040; Q9966

== ENCOUNTER → 2020-06-04 14:44 | Outpatient (CLI) | payer MEDICARE, SELFPAY ==
--- NOTE | 2020-06-04 14:48 | XR_ITS ---
PROCEDURE: XR DEXA AXIAL SKELETON CLINICAL HISTORY: Dexa Scan- osteoporosis COMPARISON: CR [id number] XR DEXA axial skeleton from 07/17/2018 FINDINGS: The right hip BMD is 0.494 with a T-score of -3.2. The left hip BMD is 0.52 with a T-score of -3.2. The lumbar spine BMD is 0.630 with a T-score of -3.8. Previously the lowest density was in the L spine with a T-score of -3.1. Previously the lowest density in the hips was in the left femoral neck with T-score -2.9 IMPRESSION: This patient is considered osteoporotic according to the World Health Organization criteria. Fracture risk is high. Treatment is advised. Based on these results a follow-up exam is recommended in 1 year. Dictated by: Sav Da Silva MD 06/05/2020 10:33 Sav Da Silva MD in [facility] 06/05/2020 10:33
== END ==
PROVIDERS: PCP Family Medicine; Visit Provider Obstetrics & Gynecology
DX: M81.0 Age-related osteoporosis without current pathological fracture (principal)
CPT/HCPCS: 77080

== ENCOUNTER 2020-06-14 12:59 | Outpatient (CLI) | payer MEDICARE, SELFPAY ==
[2020-06-14 12:59] VITALS: BMI 22.3
[2020-06-14 13:23] LABS: Albumin Level 4.1 g/dl (3.5-5.0)
[2020-06-14 13:25] LABS: Calcium 9.5 mg/dl (8.4-10.2); Creatinine Clearance Estimated 13 mL/min (50-200); Estimated Glomerular Filt Rate 12 ml/min (>60); GFR (African American) 15 ML/MIN (>60)
[2020-06-14 13:50] VITALS: BP 111/65; PULSE 69; RESP 18; TEMP 36.1; O2SAT 98
== END 2020-06-14 13:50 | disposition home or self-care (01) ==
LOC: INF 12:59
PROVIDERS: Visit Provider Obstetrics & Gynecology
DX: M81.0 Age-related osteoporosis without current pathological fracture (principal)
CPT/HCPCS: 82040; 82310; 82565

== ENCOUNTER → 2020-06-14 14:16 | Outpatient (CLI) | payer MEDICARE, SELFPAY ==
[2020-06-14 15:01] LABS: Basophils # 0.1 K/mm3 (0-0.2); Basophils % 0.7 % (0.1-2.0); Eosinophils # 0.2 K/mm3 (0.0-0.4); Eosinophils % 2.7 % (0.1-12.0); Hematocrit 35.6 % (37.0-47.0); Hemoglobin 10.8 g/dL (12.2-16.2); Lymphocytes # 1.7 K/mm3 (0.7-4.5); Lymphocytes % 26.4 % (10-50); Mean Corpuscular HGB Conc 30.5 g/dL (31.8-35.4); Mean Corpuscular Hemoglobin 33.3 pg (27.0-31.2); Mean Corpuscular Volume 109.3 fl (81-99); Mean Platelet Volume 9.7 fl (7.4-10.4); Monocytes # 0.4 K/mm3 (0.1-1.0); Monocytes % 5.6 % (1.7-9.3); Neutrophils % 64.5 % (37.0-80.0); Platelet Count 230 K/mm3 (142-424); Red Blood Count 3.26 M/mm3 (4.20-5.40); Red Cell Distribution Width 14.5 % (11.5-17.5); White Blood Count 6.3 K/mm3 (4.8-10.8)
[2020-06-14 15:32] LABS: Chloride 114 mmol/L (98-107); Sodium 142 mmol/L (136-145)
[2020-06-14 15:35] LABS: Alanine Aminotransferase 44 U/L (12-78); Albumin Level 4.5 g/dl (3.5-5.0); Albumin/Globulin Ratio 1.5 (1.1-1.8); Alkaline Phosphatase 696 U/L (38-126); Anion Gap 20.3 mEq/L (5-15); Aspartate Amino Transferase 74 U/L (14-36); Bilirubin,Total 0.6 mg/dl (0.2-1.3); Blood Urea Nitrogen 41 mg/dl (7-17); Calcium 10.2 mg/dl (8.4-10.2); Carbon Dioxide 14 mmol/L (22.0-30.0); Estimated Glomerular Filt Rate 12 ml/min (>60); GFR (African American) 15 ML/MIN (>60); Glucose 92 mg/dl (74-100); Total Protein,Serum 7.5 g/dl (6.3-8.2)
[2020-06-14 16:36] LABS: Potassium 6.3 mmoL/L (3.5-5.1)
[2020-06-17 16:18] LABS: Alkaline Phosphatase 657 IU/L (39-117); Bone Fraction: 23 % (14-68); Liver Fraction: 75 % (18-85)
[2020-06-18 04:58] LABS: Intestinal Frac.: 1 % (0-18)
== END ==
PROVIDERS: Visit Provider Nurse Practitioner Family
DX: R74.8 Abnormal levels of other serum enzymes (principal)
CPT/HCPCS: 36415; 80053; 82040; 82310; 82565; 84075; 84080; 85025

== ENCOUNTER → 2020-06-24 08:45 | Outpatient (POV) | payer MEDICARE, SELFPAY ==
--- NOTE | 2020-06-24 09:19 | HMH.PAINSOAP ---
[facility] Pain Management SOAP Note Subjective:: Patient is a pleasant 69-year-old white female who we are treating for neck and back pain. She is following up after cervical epidural steroid injection she rates her pain a 1 out of 10 overall doing extremely well. Patient I discussed physical therapy for home stretching program and potential repeat injection in several weeks. Patient is agreeable. She is not on any anticoagulation therapy. ROS General: no recent weight change, no fever, no sleep disturbances Respiratory: no cough, no shortness of air, no recurring pulmonary infections Cardiovascular/Peripheral Vascular: No chest pain, No palpitations, no edema, no shortness of breath. Gastrointestinal: no new onset incontinence, normal bowel movements reported Genitourinary: no new onset incontinence Musculoskeletal: Neck pain, back pain Psychiatric: normal mood/ affect Neurological: [denies new onset weakness in extremities], [denies new onset balance issues] Objective:: Physical Exam General: Alert and oriented x3, no acute distress, pleasant and cooperative, [on room air] Lungs: Resps E/U, Symmetrical chest expansion, Eyes: PERRL Musculoskeletal: Flexion and extension of lumbar and cervical spine somewhat guarded secondary to pain, deep tendon reflexes normal, strength in upper and lower extremities [5/5], [abnormal gait noted] Neurological: speech clear, ophthalmic medical technologist equal, no gross sensory deficits Assessment:: Degenerative disc disease cervical spine cervical radiculopathy symptoms, degenerative disc disease lumbar spine with lumbar radiculopathy symptoms Plan:: We will schedule patient for C5-C6 cervical epidural steroid injection in 8 weeks. We will also set her up with physical therapy for home stretching program. I will follow-up with her after her injection reassess her symptoms at that time she has been instructed to call the office if she has any issues prior to her next appointment. Dr. Christine has reviewed this note and agrees with this plan of care. This note was dictated using voice recognition software and may contain errors or omissions [facility] History I have reviewed the patient's past medical history: Yes Medical History: Reports:: Depression, Gastroesophageal Reflux Disease(GERD), Hepatitis, Hyperlipidemia, Hypertension, Osteoporosis, Renal Insufficiency Denies:: Cancer, Diabetes Mellitus Type 1, Diabetes Mellitus Type 2, Internal Pacemaker, Lung Disease, MRSA, Seizures *Have you ever received a pneumonia vaccine?: Yes *Have you received a flu vaccine this season?: No Other Medical History: Reports: Hypothyroidism, Osteoporosis, Thyroid Disease, Other (tremor, chronic back pain, over active bladder) Other Surgeries: Yes: Cholecystectomy, Colonoscopy, EGD, Hernia Repair (hiatal hernia surgery), Other. No: Pacemaker Amputation: No Fractures: Yes (STERNAL) - *Social History Smoking Status: Never smoker Tobacco Type: cigarettes # Packs/Day (cigarettes): 1 Alcohol Intake: never Alcohol Intake Frequency:: other Substance Use Type: denies use *Occupational Status:: retired Housing: house Household Members: family *Travel in the last 8 weeks: None - Psychiatric History Pschychiatric History:: Reports:: Depression Family Hx:: Cancer
[2020-06-24 09:22] VITALS: BP 132/75; PULSE 65; RESP 18; O2SAT 98; BMI 22.6
== END ==
PROVIDERS: PCP Family Medicine; Visit Provider Clinical Nurse Specialist Family Health
DX: M50.10 Cervical disc disorder with radiculopathy, unspecified cervical region (principal); M51.16 Intervertebral disc disorders with radiculopathy, lumbar region
CPT/HCPCS: 99212; G0463

== ENCOUNTER → 2020-06-25 14:06 | Outpatient (CLI) | payer MEDICARE, SELFPAY ==
[2020-06-25 14:38] LABS: Basophils % 0.6 % (0.1-2.0); Eosinophils % 0.6 % (0.1-12.0); Hematocrit 33.6 % (37.0-47.0); Hemoglobin 9.9 g/dL (12.2-16.2); Lymphocytes # 1.6 K/mm3 (0.7-4.5); Lymphocytes % 23.3 % (10-50); Mean Corpuscular HGB Conc 29.6 g/dL (31.8-35.4); Mean Corpuscular Hemoglobin 32.3 pg (27.0-31.2); Mean Corpuscular Volume 109.1 fl (81-99); Mean Platelet Volume 9.5 fl (7.4-10.4); Monocytes # 0.2 K/mm3 (0.1-1.0); Monocytes % 3.1 % (1.7-9.3); Neutrophils # 4.9 K/mm3 (1.8-7.8); Neutrophils % 72.3 % (37.0-80.0); Platelet Count 264 K/mm3 (142-424); Red Blood Count 3.08 M/mm3 (4.20-5.40); Red Cell Distribution Width 13.7 % (11.5-17.5); White Blood Count 6.7 K/mm3 (4.8-10.8)
[2020-06-25 15:06] LABS: Albumin Level 4.2 g/dl (3.5-5.0); Anion Gap 17.4 mEq/L (5-15); Blood Urea Nitrogen 43 mg/dl (7-17); Calcium 9.4 mg/dl (8.4-10.2); Carbon Dioxide 15 mmol/L (22.0-30.0); Chloride 109 mmol/L (98-107); Estimated Glomerular Filt Rate 25 ml/min (>60); GFR (African American) 30 ML/MIN (>60); Glucose 131 mg/dl (74-100); Potassium 5.4 mmoL/L (3.5-5.1); Sodium 136 mmol/L (136-145)
== END ==
PROVIDERS: Visit Provider Internal Medicine Nephrology
DX: N18.30 Chronic kidney disease, stage 3 unspecified (principal)
CPT/HCPCS: 36415; 80069; 85025

== ENCOUNTER 2020-06-29 08:40 | Outpatient (RCR) | payer MEDICARE, SELFPAY ==
--- NOTE | 2020-06-29 09:50 | HMH.PTOPEV ---
PT Outpatient Evaluation Rehab PT Outpatient Evaluation Start: 06/29/20 09:37 Freq: Status: Active Protocol: Document 06/29/20 09:37 LENORA (Rec: 06/29/20 09:50 ESTELAMOEKALPESH [id number]) Electronically Signed By Vignesh Segovia, PT 06/29/20 09:37 Outpatient Therapy Subjective History Subjective History Patient is a 69 year old female presenting to outpatient PT with reports of cervical and lumbar spine pain . LS pain is chronic in nature, while cervical spine pain has been present for approximately 2 months. CS pain L>R. Most recent CS CT indicates minimal degenerative changes. Comorbidities include hx hiatal hernia, cholecystectomy, HTN and HL. Chief Complaint Pain,Stiff Symptom Type Ache Symptoms Relieved By Rest/Positioning,Heat, Prescription Meds Symptoms Aggravated By Physical Activity Prior Functional Limitations None Current Functional Limitations Reaching,Lifting,Housework, Walking,Bending/Stooping Symptom Description Constant but Variable Level of pain today (0-10) 0 Pain scale - at its best (0-10) 0 Pain scale - at its worst (0-10) 9 Cervical Eval Palpation Cervical Muscles R Cervical Paraspinal,L Cervical Paraspinal,R Suboccipital,L Suboccipital,L Upper Trapezius,R Thoracic Paraspinals Cervical/Thoracic Palpation Findings Tenderness,Spasm Posture Head/C-Spine Posture Sitting Position C-Spine Flattened Head/C-Spine Posture Standing Position C-Spine Flattened Flexibility Deficits Upper Trapezius Muscle Length (R) Mild Tightness,(L) Moderate Tightness Levaetor Scapulae Muscle Length (R) Mild Tightness,(L) Moderate Tightness Pectoralis Minor Muscle Length (R) Moderate Tightness,(L) Moderate Tightness Passive Joint Mobility Cervical PIVM Dec: R C2/3 L C2/3 R C3/4 L C3/4 R C4/5 L C4/5 R C5/6 L C5/6 R C6/7 L C6/7
== END 2020-06-29 08:45 | disposition home or self-care (01) ==
LOC: PT 08:40
PROVIDERS: PCP Family Medicine; Visit Provider Clinical Nurse Specialist Family Health
DX: M54.5 Low back pain (principal)
CPT/HCPCS: 97163

== ENCOUNTER 2020-08-06 09:01 | Day surgery (SDC) | payer MEDICARE, SELFPAY ==
[2020-08-06 09:05] VITALS: BP 134/54; PULSE 57; RESP 18; TEMP 36.6; O2SAT 98; BMI 22.3
[2020-08-06 09:37] VITALS: BP 135/45; PULSE 60; RESP 18
[2020-08-06 09:40] VITALS: BP 140/52; PULSE 60; RESP 18; O2SAT 98
--- NOTE | 2020-08-06 09:52 | HMH.PMPROC ---
- Procedure Date: 08/06/20 Time: 09:52 Anesthesiologist:: Alexis Christine MD Complications:: None Pre-procedure Diagnosis:: Degenerative disc disease of cervical spine with cervical radiculopathy symptoms Post-procedure Diagnosis:: Same Indications for Procedure:: This patient is a pleasant 70-year-old white female who we are treating for neck pain with cervical radiculopathy symptoms. She has increasing pain in her neck radiating to both shoulders and down her left arm. She is done well with previous cervical epidural steroid injections. She presents for repeat cervical epidural steroid injection under fluoroscopy today. Procedure Details:: Cervical epidural steroid injection under fluoroscopy Informed consent was obtained and the risks and benefits of the procedure was explained to the patient. The patient was taken to the procedure room placed prone on the procedure table. The neck was prepped using ChloraPrep. The skin and subcutaneous tissues were anesthetized using lidocaine. I placed a 18-gauge epidural needle into the C5-C6 interspace and advanced using [id number] to air and fluoroscopic guidance. After confirmation of needle placement in the epidural space with dye, I injected 3 mL's lidocaine 1.5% and Depo-Medrol 80 mg. The patient tolerated the procedure well with no complications. Plan and Disposition:: We will follow-up with her in 2 weeks. Will reevaluate her symptoms at that time.
[2020-08-06 10:00] VITALS: BP 134/58; PULSE 55; RESP 18; O2SAT 98
== END 2020-08-06 10:00 | disposition home or self-care (01) ==
LOC: SC.PAINP 09:04
PROVIDERS: PCP Family Medicine; Visit Provider Anesthesiology
DX: M50.10 Cervical disc disorder with radiculopathy, unspecified cervical region (principal); I10 Essential (primary) hypertension; E78.5 Hyperlipidemia, unspecified; F32.9 Major depressive disorder, single episode, unspecified; E03.9 Hypothyroidism, unspecified
CPT/HCPCS: 62321; J1040; Q9966

== ENCOUNTER → 2020-08-30 08:51 | Outpatient (POV) | payer MEDICARE, SELFPAY ==
[2020-08-30 09:04] VITALS: BP 127/50; PULSE 68; RESP 18; O2SAT 98; BMI 22.3
--- NOTE | 2020-08-30 09:15 | P.CONS_ITS ---
[facility] Pain Management SOAP Note Subjective:: Patient is a pleasant 70-year-old white female who we are treating for neck pain with cervical radiculopathy symptoms she is following up after C5-C6 cervical epidural. She is doing extremely well rating her pain a 0 out of 10. Patient's only complaint today is her thoracic spine. Patient is interested in doing an epidural injection in this area. Patient has radiation of pain at times. She is not on any anticoagulation therapy. She responds well to injective therapy. ROS General: no recent weight change, no fever, no sleep disturbances Respiratory: no cough, no shortness of air, no recurring pulmonary infections Cardiovascular/Peripheral Vascular: No chest pain, No palpitations, no edema, no shortness of breath. Gastrointestinal: no new onset incontinence, normal bowel movements reported Genitourinary: no new onset incontinence Musculoskeletal: Back pain Psychiatric: normal mood/ affect Neurological: [denies new onset weakness in extremities], [denies new onset balance issues] Objective:: Physical Exam General: Alert and oriented x3, no acute distress, pleasant and cooperative, [on room air] Lungs: Resps E/U, Symmetrical chest expansion, Eyes: PERRL Musculoskeletal: Flexion and extension of thoracic spine somewhat guarded secondary to pain, deep tendon reflexes normal, strength in upper and lower extremities [5/5], antalgic gait noted Neurological: speech clear, forest fire prevention manager equal, no gross sensory deficits Assessment:: Degenerative disc disease thoracic spine with thoracic radiculopathy and back pain Plan:: We will schedule the patient for T6-T7 thoracic epidural steroid injection given the efficacy of injections in the past I do believe it would benefit her given her symptomology. Follow-up with her afterwards reassess her symptoms at that time she is been instructed to call the office if she has any issues prior to her next appointment. Dr. Christine has reviewed this note and agrees with this plan of care. This note was dictated using voice recognition software and may contain errors or omissions [facility] History I have reviewed the patient's past medical history: Yes Medical History: Reports:: Depression, Gastroesophageal Reflux Disease(GERD), Hepatitis, Hyperlipidemia, Hypertension, Osteoporosis, Renal Insufficiency Denies:: Cancer, Diabetes Mellitus Type 1, Diabetes Mellitus Type 2, Internal Pacemaker, Lung Disease, MRSA, Seizures *Have you ever received a pneumonia vaccine?: Yes *Have you received a flu vaccine this season?: Yes Other Medical History: Reports: Hypothyroidism, Osteoporosis, Thyroid Disease, Other (tremor, chronic back pain, over active bladder) Other Surgeries: Yes: Cholecystectomy, Colonoscopy, EGD, Hernia Repair (hiatal hernia surgery), Other. No: Pacemaker Amputation: No Fractures: Yes (STERNAL) - *Social History Smoking Status: Never smoker Tobacco Type: cigarettes # Packs/Day (cigarettes): 1 Alcohol Intake: never Alcohol Intake Frequency:: other Substance Use Type: denies use *Occupational Status:: retired Housing: house Household Members: other *Travel in the last 8 weeks: None - Psychiatric History Pschychiatric History:: Reports:: Depression Family Hx:: Cancer
== END ==
PROVIDERS: PCP Family Medicine; Visit Provider Clinical Nurse Specialist Family Health
DX: M51.14 Intervertebral disc disorders with radiculopathy, thoracic region (principal)
CPT/HCPCS: 99212; G0463

== ENCOUNTER 2020-09-10 10:15 | Day surgery (SDC) | payer MEDICARE, SELFPAY ==
[2020-09-10 10:33] VITALS: BP 111/40; PULSE 54; RESP 18; TEMP 36.6; O2SAT 98; BMI 22.3
[2020-09-10 11:06] VITALS: BP 116/47; PULSE 63; RESP 18; O2SAT 98
[2020-09-10 11:09] VITALS: BP 116/47; PULSE 63; RESP 18; O2SAT 98
--- NOTE | 2020-09-10 11:15 | HMH.PMPROC ---
- Procedure Date: 09/10/20 Time: 11:15 Anesthesiologist:: Alexis Christine MD Complications:: None Pre-procedure Diagnosis:: Degenerative disc disease of thoracic spine with thoracic radicular symptoms to the left side. 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 She had a cervical epidural steroid injection which gave her almost complete relief of her pain symptoms. She now has some increasing pain in her mid back radiating to the left side in the scapular area. We will do a thoracic epidural steroid injection at T6-T7 today to help her with her pain symptoms. Procedure Details:: Informed consent was obtained and the risk and benefits of the procedure was explained to the patient. Patient was taken to the procedure room. The back was prepped using ChloraPrep. C-arm fluoroscopy was used to view the thoracic spine. The skin and subcutaneous tissues were anesthetized using lidocaine. I placed a 17-gauge Touhy epidural needle into the T6-T7 interspace. I advanced using [id number] to air and fluoroscopic guidance until the epidural space was reached. Confirmation of needle placement in the epidural space was with dye. After this we injected 1 mL lidocaine 1.5% and Depo-Medrol 80 mg. The patient tolerated the procedure well with no complication. Plan and Disposition:: We will follow-up with her in 2 weeks. Will reevaluate her symptoms at that time. If she still having symptoms on the left side she may benefit from an intercostal nerve block in the posterior axillary line at the sixth and seventh ribs.
[2020-09-10 11:25] VITALS: BP 126/54; PULSE 58; RESP 20; O2SAT 98
== END 2020-09-10 11:25 | disposition home or self-care (01) ==
LOC: SC.PAINP 10:17
PROVIDERS: PCP Family Medicine; Visit Provider Anesthesiology
DX: M51.14 Intervertebral disc disorders with radiculopathy, thoracic region (principal); G58.8 Other specified mononeuropathies; E03.9 Hypothyroidism, unspecified; E78.5 Hyperlipidemia, unspecified; I10 Essential (primary) hypertension; K21.9 Gastro-esophageal reflux disease without esophagitis; M81.0 Age-related osteoporosis without current pathological fracture; F32.9 Major depressive disorder, single episode, unspecified; N28.9 Disorder of kidney and ureter, unspecified
CPT/HCPCS: 62321; J1040; Q9966

== ENCOUNTER → 2020-10-04 08:51 | Outpatient (POV) | payer MEDICARE, SELFPAY ==
[2020-10-04 09:06] VITALS: BP 129/55; PULSE 60; RESP 18; O2SAT 97; BMI 23.0
--- NOTE | 2020-10-04 10:09 | P.CONS_ITS ---
[facility] Pain Management SOAP Note Subjective:: Patient is a 70-year-old white female who presents today for follow-up after a thoracic epidural steroid injection. She is being treated for intercostal neuralgia on the left side. She also has degenerative disc disease thoracic spine with thoracic radicular symptoms. Patient's pain is a 0 out of 10 today. She is doing very well since her injection. She has also had cervical epidural steroid injections for which she gets 80 to 90% relief. Patient says that the injections gave her between 3 to 4 months of relief. She has been able to work longer day since having her last injection. Review of Systems General: No recent weight changes, no fever, no sleep disturbances Respiratory: No cough, no shortness of air, no recurring pulmonary infections Cardiovascular/peripheral vascular: No chest pain, no palpitations, no edema, no shortness of breath Gastrointestinal: No new onset incontinence, normal bowel movements reported Genitourinary: No new onset incontinence Musculoskeletal: Denies pain Psychiatric: Normal mood/affect Neurological: [Denies weakness in extremities], [denies balance issues] Objective:: Physical exam General: Alert and oriented x3, no acute distress, pleasant and cooperative, [on room air] Lungs: Respirations even and unlabored, symmetrical chest expansion Eyes: PERRL Musculoskeletal: Flexion and extension of [] spine nonguarded,, deep tendon reflexes normal, strength in upper and lower extremities [5/5], normal gait note d Neurological: Speech clear, pharmacovigilance specialist equal, no gross sensory deficit Assessment:: Degenerative disc disease thoracic spine with thoracic radiculopathy symptoms, intercostal neuralgia left side Plan:: Patient is doing well overall since her injections. We will schedule her for a 3-month follow-up. She has been instructed to contact clinic if she has any concerns before next appointment. [facility] History I have reviewed the patient's past medical history: Yes Medical History: Reports:: Depression, Gastroesophageal Reflux Disease(GERD), Hepatitis, Hyperlipidemia, Hypertension, Osteoporosis, Renal Insufficiency Denies:: Cancer, Diabetes Mellitus Type 1, Diabetes Mellitus Type 2, Internal Pacemaker, Lung Disease, MRSA, Seizures *Have you ever received a pneumonia vaccine?: Yes *Have you received a flu vaccine this season?: Yes Other Medical History: Reports: Hypothyroidism, Osteoporosis, Thyroid Disease, Other (tremor, chronic back pain, over active bladder). Denies: Blood Transfusion Reaction Other Surgeries: Yes: Cholecystectomy, Colonoscopy, EGD, Hernia Repair (hiatal hernia surgery), Other. No: Pacemaker Amputation: No Fractures: Yes (STERNAL) - *Social History Smoking Status: Never smoker Tobacco Type: cigarettes # Packs/Day (cigarettes): 1 Alcohol Intake: never Alcohol Intake Frequency:: other Substance Use Type: denies use *Occupational Status:: unemployed Housing: house Household Members: family *Travel in the last 8 weeks: None - Psychiatric History Pschychiatric History:: Reports:: Depression Family Hx:: Cancer
== END ==
PROVIDERS: PCP Family Medicine; Visit Provider Clinical Nurse Specialist Family Health
DX: M51.14 Intervertebral disc disorders with radiculopathy, thoracic region (principal); G58.8 Other specified mononeuropathies
CPT/HCPCS: 99212; G0463

== ENCOUNTER → 2020-10-18 08:05 | Outpatient (POV) | payer MEDICARE, SELFPAY ==
[2020-10-18 08:19] VITALS: BP 135/57; PULSE 68; RESP 18; O2SAT 98; BMI 23.0
--- NOTE | 2020-10-18 08:36 | HMH.PAINSOAP ---
[facility] Pain Management SOAP Note Subjective:: Patient is a 70-year-old white female who presents today for follow-up. She is being treated for degenerative disc disease thoracic spine with thoracic radiculopathy symptoms, . Today, she is complaining of left shoulder pain. Patient rates her pain a 1 out of 10 with no movement, and a 7 out of 10 with any type of movement of her left arm and left shoulder. She says that she has had a left intra-articular shoulder injection in the past and has gotten up to 70 to 80% relief for about 3 to 4 weeks. She recently underwent a thoracic epidural steroid injection and is still getting relief from that injection from 10/04/2020. She and I did discuss compounding cream to apply topically to her left shoulder. We can schedule the patient for a left intra-articular shoulder injection. Review of Systems General: No recent weight changes, no fever, no sleep disturbances Respiratory: No cough, no shortness of air, no recurring pulmonary infections Cardiovascular/peripheral vascular: No chest pain, no palpitations, no edema, no shortness of breath Gastrointestinal: No new onset incontinence, normal bowel movements reported Genitourinary: No new onset incontinence Musculoskeletal: Left shoulder pain with movement Psychiatric: Normal mood/affect Neurological: [Denies weakness in extremities], [denies balance issues] Objective:: Physical exam General: Alert and oriented x3, no acute distress, pleasant and cooperative, [on room air] Lungs: Respirations even and unlabored, symmetrical chest expansion Eyes: PERRL Musculoskeletal: Movement of left upper extremity guarded secondary to pain, deep tendon reflexes normal, strength in upper and lower extremities [5/5], [abnormal gait noted] Neurological: Speech clear, it solutions sales consultant equal, no gross sensory deficit Assessment:: Left shoulder pain, osteoarthritis left shoulder, degenerative disc disease thoracic spine with thoracic radiculopathy symptoms, Plan:: We will schedule the patient for a left intra-articular shoulder injection. She has had the injection in the past and is gotten significant relief after the injection. She is continuing with home stretching. We will also order the patient compounding cream to apply topically to her left shoulder. We will see her back in the clinic after her injection for reevaluation of symptoms. She has been instructed to contact clinic if she has any concerns for next appointment. Patient has been instructed to contact the clinic with any concerns before the next appointment. Dr. Christine has reviewed this note and agrees with this plan of care. This note was dictated using voice recognition software and make contain errors or omissions. Risks and benefits of the procedure have been explained to the patient. Patient would like to proceed with the procedure. Possible side effects of corticosteroids have been discussed with the patient. [facility] History I have reviewed the patient's past medical history: Yes Medical History: Reports:: Depression, Gastroesophageal Reflux Disease(GERD), Hepatitis, Hyperlipidemia, Hypertension, Osteoporosis, Renal Insufficiency Denies:: Cancer, Diabetes Mellitus Type 1, Diabetes Mellitus Type 2, Internal Pacemaker, Lung Disease, MRSA, Seizures *Have you ever received a pneumonia vaccine?: Yes *Have you received a flu vaccine this season?: Yes Other Medical History: Reports: Hypothyroidism, Osteoporosis, Thyroid Disease, Other (tremor, chronic back pain, over active bladder). Denies: Blood Transfusion Reaction Other Surgeries: Yes: Cholecystectomy, Colonoscopy, EGD, Hernia Repair (hiatal hernia surgery), Other. No: Pacemaker Amputation: No Fractures: Yes (STERNAL) - *Social History Smoking Status: Never smoker Tobacco Type: cigarettes # Packs/Day (cigarettes): 1 Alcohol Intake: never Alcohol Intake Frequency:: other Substance Use Type: denies use *Occupational Status:: unemployed Housing: house House
== END ==
PROVIDERS: Visit Provider Clinical Nurse Specialist Family Health
DX: M51.14 Intervertebral disc disorders with radiculopathy, thoracic region (principal); M19.012 Primary osteoarthritis, left shoulder
CPT/HCPCS: 99212; G0463

== ENCOUNTER 2020-10-29 10:28 | Day surgery (SDC) | payer MEDICARE, SELFPAY ==
[2020-10-29 11:00] VITALS: BP 108/43; PULSE 58; RESP 18; TEMP 36.7; O2SAT 97; BMI 23.0
[2020-10-29 11:59] VITALS: BP 115/59; PULSE 61; RESP 18; O2SAT 99
[2020-10-29 12:05] VITALS: BP 115/59; PULSE 58; RESP 18; O2SAT 100
--- NOTE | 2020-10-29 12:12 | P.PCN_ITS ---
- Procedure Date: 10/29/20 Time: 12:12 Anesthesiologist:: Fabiola Yoon MD Complications:: None Pre-procedure Diagnosis:: Left shoulder glenohumeral arthropathy, subacromial bursitis, chronic left shoulder pain Post-procedure Diagnosis:: Same Indications for Procedure:: This patient is a very pleasant 70-year-old white female who presents today with chronic left shoulder pain related to the above diagnosis. She reports the pain is worse with any type of movement and states that the pain radiates from her shoulder into her left upper extremity. She states that she has previously undergone intra-articular left shoulder injections in the past and notes about 70 to 80% pain relief for about 3 to 4 weeks. Of note, she recently underwent a thoracic epidural steroid injection October 04, 2020 and notes ongoing pain relief. For today is for the patient to undergo a repeat intra-articular left shoulder glenohumeral steroid injection, left sided subacromial bursa injection, and left suprascapular nerve injection. Procedure Details:: Informed consent was obtained. Risks and benefits of the procedure were explained to the patient. Patient was taken back to the procedure. The left shoulder was prepped using ChloraPrep. A 25-gauge needle was used first posteriorly in the medial to lateral trajectory the needle is advanced into the glenohumeral joint of the left shoulder was approached, at which point 3 mL of injectate solution of 5 mL of 1% lidocaine, 5 mL bupivacaine 0.25% and Depo- Medrol 40 mg was injected. Next the trajectory was adjusted so that the needle was advanced anteriorly and superiorly into the subacromial bursa of the shoulder, at which point 5 mL of the same injectate solution was injected. The needle was removed and scapular spine was palpated and a 25-gauge needle was advanced to 45 degrees toward the suprascapular notch, at which point 10 mL of the same injectate solution was injected. Patient tolerated the procedure well without any complications. Plan and Disposition:: We will follow-up with this patient in 2 weeks. Will reevaluate pain symptoms at that time.
[2020-10-29 12:28] VITALS: BP 110/40; PULSE 53; RESP 20; O2SAT 97
== END 2020-10-29 12:29 | disposition home or self-care (01) ==
LOC: SC.PAINP 10:31
PROVIDERS: PCP Family Medicine; Visit Provider Anesthesiology Pain Medicine
DX: M12.812 Other specific arthropathies, not elsewhere classified, left shoulder (principal); M75.52 Bursitis of left shoulder; G89.29 Other chronic pain
CPT/HCPCS: 20610; J1040

== ENCOUNTER → 2020-11-15 13:58 | Outpatient (CLI) | payer MEDICARE, SELFPAY ==
[2020-11-15 14:49] LABS: Basophils # 0.1 K/mm3 (0-0.2); Basophils % 0.8 % (0.1-2.0); Eosinophils # 0.1 K/mm3 (0.0-0.4); Eosinophils % 1.1 % (0.1-12.0); Hematocrit 31.3 % (37.0-47.0); Hemoglobin 10.2 g/dL (12.2-16.2); Mean Corpuscular HGB Conc 32.7 g/dL (31.8-35.4); Mean Corpuscular Hemoglobin 32.7 pg (27.0-31.2); Mean Corpuscular Volume 99.8 fl (81-99); Mean Platelet Volume 8.7 fl (7.4-10.4); Monocytes # 0.5 K/mm3 (0.1-1.0); Monocytes % 4.6 % (1.7-9.3); Neutrophils # 7.4 K/mm3 (1.8-7.8); Neutrophils % 73.5 % (37.0-80.0); Platelet Count 289 K/mm3 (142-424); Red Blood Count 3.14 M/mm3 (4.20-5.40); Red Cell Distribution Width 14.1 % (11.5-17.5); White Blood Count 10.1 K/mm3 (4.8-10.8)
[2020-11-15 15:23] LABS: Blood Urea Nitrogen 27 mg/dl (7-17); Calcium 9.1 mg/dl (8.4-10.2); Carbon Dioxide 24 mmol/L (22.0-30.0); Chloride 103 mmol/L (98-107); Estimated Glomerular Filt Rate 49 ml/min (>60); GFR (African American) 59 ML/MIN (>60); Glucose 118 mg/dl (74-100); Phosphorous 3.3 mg/dl (2.5-4.5); Sodium 136 mmol/L (136-145)
[2020-11-15 15:24] LABS: Alanine Aminotransferase 115 U/L (12-78); Albumin/Globulin Ratio 1.3 (1.1-1.8); Alkaline Phosphatase 1107 U/L (38-126); Anion Gap 15.1 mEq/L (5-15); Aspartate Amino Transferase 199 U/L (14-36); Bilirubin,Total 0.8 mg/dl (0.2-1.3); Blood Urea Nitrogen 28 mg/dl (7-17); Calcium 9.2 mg/dl (8.4-10.2); Carbon Dioxide 24 mmol/L (22.0-30.0); Chloride 102 mmol/L (98-107); Estimated Glomerular Filt Rate 49 ml/min (>60); GFR (African American) 59 ML/MIN (>60); Globulin 3.2 g/dL (1.3-3.2); Glucose 117 mg/dl (74-100); Potassium 5.1 mmoL/L (3.5-5.1); Sodium 136 mmol/L (136-145); Total Protein,Serum 7.2 g/dl (6.3-8.2)
[2020-11-15 15:33] LABS: Intact Parathyroid Hormone 111.6 pg/mL (7.5-53.5)
[2020-11-17 15:11] LABS: Calcium, Ionized 5.3 mg/dL (4.5-5.6)
[2020-11-18 17:32] LABS: Alkaline Phosphatase 1099 IU/L (48-121); Bone Fraction: 26 % (14-68); Intestinal Frac.: 1 % (0-18); Liver Fraction: 73 % (18-85)
[2020-12-07 10:31] LABS: Albumin 3.3; Alpha-1-Globulin 0.3; Alpha-2-Globulin 1.1; Protein, Total 6.9
[2020-12-07 10:32] LABS: Free Kappa Lt Chains 56.4; Free Lambda Lt Chains 59.4
== END ==
PROVIDERS: Visit Provider Internal Medicine Nephrology
DX: N18.30 Chronic kidney disease, stage 3 unspecified (principal); R74.8 Abnormal levels of other serum enzymes
CPT/HCPCS: 36415; 80053; 80069; 82330; 83883; 83970; 84075; 84080; 84155; 84165; 85025

== ENCOUNTER → 2020-11-16 17:27 | Outpatient (CLI) | payer MEDICARE, SELFPAY ==
[2020-11-16 19:01] LABS: Creatinine,Urine Random 86 mg/dL (Not Estab.)
== END ==
PROVIDERS: Visit Provider Internal Medicine Nephrology
DX: N18.30 Chronic kidney disease, stage 3 unspecified (principal)
CPT/HCPCS: 82570; 84155

== ENCOUNTER → 2020-11-17 09:15 | Outpatient (CLI) | payer MEDICARE, SELFPAY ==
--- NOTE | 2020-11-17 09:18 | XR_ITS ---
PROCEDURE: XR DEXA AXIAL SKELETON CLINICAL HISTORY: OSTEOPOROSIS COMPARISON: CR DEXAAX XR DEXA axial skeleton from 07/17/2018 CR XR PELVIS 1-2V from 05/09/2020 FINDINGS: The right hip BMD is 0.455 with a T-score of -3.5. The left hip BMD is 0.481 with a T-score of -3.3. The lumbar spine BMD is 0.654 with a T-score of -3.6. Previously the lowest density was in the lumbar spine with T-score of -3.1 IMPRESSION: This patient is considered osteoporotic according to the World Health Organization criteria. Fracture risk is high. Treatment is advised. Based on these results a follow-up exam is recommended in 1 year. Dictated by: Sav Da Silva MD 11/18/2020 07:39 Sav Da Silva MD in [place] 11/18/2020 07:39
--- NOTE | 2020-11-17 09:18 | US_ITS ---
PROCEDURE: US KIDNEY CLINICAL INDICATION: RENAL CYST COMPARISON: US ABD US ABD(COMPLETE-MULTI ORGANS from 02/26/[id number] abdomen pelvis w con from 10/26/2018 FINDINGS: The right kidney is [id number]. No hydronephrosis, cortical thinning, or renal mass or perinephric fluid collection is evident. There is a benign-appearing 2.8 x 3.3 cm cyst along the lower pole of the right kidney. This previously measured 2.3 x 2.8 cm The left kidney is [id number]. No hydronephrosis, cortical thinning, or renal mass or perinephric fluid collection is evident. IMPRESSION: Benign-appearing right renal cyst at 3 cm slightly larger from 02/26/2017. Otherwise negative renal ultrasound Dictated by: Sav Da Silva MD 11/17/2020 16:37 Sav Da Silva MD in [facility] 11/17/2020 16:37
== END ==
PROVIDERS: PCP Family Medicine; Visit Provider Internal Medicine Nephrology
DX: N28.1 Cyst of kidney, acquired (principal); M81.0 Age-related osteoporosis without current pathological fracture
CPT/HCPCS: 76770; 77080

== ENCOUNTER → 2020-11-29 10:30 | Outpatient (POV) | payer MEDICARE, SELFPAY ==
[2020-11-29 10:44] VITALS: BP 152/62; PULSE 73; RESP 18; O2SAT 100; BMI 22.6
--- NOTE | 2020-11-29 12:22 | HMH.PAINSOAP ---
[facility] Pain Management SOAP Note Subjective:: Patient is a 70-year-old white female who presents today for follow-up after left shoulder intra-articular injection. Patient had a left intra-articular shoulder injection on 10/29/2020. Patient reports that she got approximately 2 to 3 weeks of relief. She recently started taking prednisone because her pain did return. She says that she was order compounding cream which caused her to have severe nausea and as a result she stopped taking the medicine. She has been taking Voltaren gel as well as Aspercreme. She says she feels the Aspercreme has given her the most relief. She says that she is leaving this week for vacation and would like to schedule a repeat injection, however, she would like to schedule the injection for a month out. She has been taking steroids and would like to plan to finish out her steroid Dosepak and then plan for the injection. Patient has taken gabapentin in the past which caused her to have severe grogginess and weakness. As result, she did stop the medication. She did report to get some relief with the medication. We discussed trying Lyrica. She would like to try this medication. Her pain at this time is a 1 out of 10, however. Patient does have pain that radiates into her left arm. Review of Systems General: No recent weight changes, no fever, no sleep disturbances Respiratory: No cough, no shortness of air, no recurring pulmonary infections Cardiovascular/peripheral vascular: No chest pain, no palpitations, no edema, no shortness of breath Gastrointestinal: No new onset incontinence, normal bowel movements reported Genitourinary: No new onset incontinence Musculoskeletal: Left shoulder pain, left arm pain Psychiatric: [Normal mood/affect] Neurological: [Denies weakness in extremities], [denies balance issues] Objective:: Physical exam General: Alert and oriented x3, no acute distress, pleasant and cooperative, [on room air] Lungs: Respirations even and unlabored, symmetrical chest expansion Eyes: PERRL Musculoskeletal: Flexion and extension of right upper extremity somewhat guarded secondary to pain, strength in upper and lower extremities [5/5], normal gait noted Neurological: Speech clear, [sample tester equal], no gross sensory deficit Assessment:: Osteoarthritis left shoulder, left shoulder pain, left arm pain Plan:: We will schedule the patient for a left intra-articular shoulder injection for 1 month. She is currently taking oral steroids. We will also order her Lyrica 75 mg 1 tablet p.o. twice daily for her left arm pain. She has taken gabapentin for this in the past which caused her to have side effects. The patient has been advised if she experiences any side effects to stop the medication. She is also been advised if the medication is not giving her relief to stop the medication. We will follow-up with her after her left intra-articular shoulder injection for reevaluation of symptoms. She has been instructed to contact the clinic if she has any concerns before next appointment. Risks and benefits of the procedure have been explained to the patient. Patient would like to proceed with the procedure. Risks and benefits of the medication have been explained in detail to the patient. The patient has been advised to consult with his/her primary care provider and pharmacist regarding drug-drug interaction of medications currently prescribed. Possible side effects of corticosteroids have been discussed with the patient. Patient has been instructed to contact the clinic with any concerns before the next appointment. Dr. Christine has reviewed this note and agrees with this plan of care. This note was dictated using voice recognition software and make contain errors or omissions. [facility] History I have reviewed the patient's past medical history: Yes Medical History: Reports:: Depression, Diabetes Mellitus Type 2, Gastroesophageal Reflux Disease(GERD), Hepatiti
== END ==
PROVIDERS: PCP Family Medicine; Visit Provider Clinical Nurse Specialist Family Health
DX: M19.012 Primary osteoarthritis, left shoulder (principal); M79.602 Pain in left arm
CPT/HCPCS: 99212; G0463

== ENCOUNTER → 2020-12-24 13:17 | Outpatient (CLI) | payer MEDICARE, SELFPAY ==
[2020-12-24 14:48] LABS: Alanine Aminotransferase 47 U/L (12-78); Albumin Level 3.6 g/dl (3.5-5.0); Albumin/Globulin Ratio 1.1 (1.1-1.8); Alkaline Phosphatase 707 U/L (38-126); Aspartate Amino Transferase 71 U/L (14-36); Bilirubin,Total 0.7 mg/dl (0.2-1.3); Blood Urea Nitrogen 36 mg/dl (7-17); Calcium 9.2 mg/dl (8.4-10.2); Carbon Dioxide 18 mmol/L (22.0-30.0); Chloride 111 mmol/L (98-107); Estimated Glomerular Filt Rate 40 ml/min (>60); GFR (African American) 49 ML/MIN (>60); Globulin 3.4 g/dL (1.3-3.2); Glucose 115 mg/dl (74-100); Sodium 139 mmol/L (136-145)
[2020-12-24 15:20] LABS: Potassium 5.7 mmoL/L (3.5-5.1)
== END ==
PROVIDERS: Visit Provider Physician Assistant
DX: N28.9 Disorder of kidney and ureter, unspecified (principal)
CPT/HCPCS: 36415; 80053

== ENCOUNTER → 2020-12-27 13:17 | Outpatient (POV) | payer MEDICARE, SELFPAY | PROVIDERS: Visit Provider Internal Medicine Nephrology | DX: Z00.00 Encounter for general adult medical examination without abnormal findings (principal) ==

== ENCOUNTER 2020-12-31 08:38 | Day surgery (SDC) | payer MEDICARE, SELFPAY ==
[2020-12-31 08:52] VITALS: BP 124/68; PULSE 70; O2SAT 100; BMI 23.4
[2020-12-31 09:25] VITALS: BP 132/59; PULSE 62; RESP 18; O2SAT 98
[2020-12-31 09:26] VITALS: BP 132/59; PULSE 64; RESP 18; O2SAT 99
[2020-12-31 09:40] VITALS: BP 128/41; PULSE 60; RESP 20; O2SAT 100
--- NOTE | 2020-12-31 09:40 | HMH.PMPROC ---
- Procedure Date: 12/31/20 Time: 09:40 Anesthesiologist:: Alexis Christine MD Complications:: None Pre-procedure Diagnosis:: Left shoulder pain with degenerative osteoarthritis Post-procedure Diagnosis:: Same Indications for Procedure:: Patient is a pleasant 70-year-old white female who we've been treating for left shoulder pain with degenerative osteoarthritis. She has benefited from these injections in the past. Her pain is now starting to come back. We'll do a repeat left shoulder intra-articular injection and left suprascapular nerve block today. Procedure Details:: Left intra-articular shoulder injection and left suprascapular nerve block informed consent was obtained the risk and benefits of the procedure were explained to the patient. Patient was taken the procedure room. The left shoulder was prepped using ChloraPrep. A 25-gauge needle was used and we injected 10 mL bupivacaine 0.25% and Depo-Medrol 40 mg into the area of the left suprascapular nerve and into the left shoulder joint. Patient tolerated the procedure well with no complications. Plan and Disposition:: We'll follow-up with her in 2 weeks. Will reevaluate symptoms at that time.
== END 2020-12-31 09:41 | disposition home or self-care (01) ==
LOC: SC.PAINP 08:39
PROVIDERS: PCP Family Medicine; Visit Provider Anesthesiology
DX: M19.012 Primary osteoarthritis, left shoulder (principal); E78.5 Hyperlipidemia, unspecified; I10 Essential (primary) hypertension; K21.9 Gastro-esophageal reflux disease without esophagitis; E11.9 Type 2 diabetes mellitus without complications; E03.9 Hypothyroidism, unspecified; F32.9 Major depressive disorder, single episode, unspecified; M81.0 Age-related osteoporosis without current pathological fracture; N28.9 Disorder of kidney and ureter, unspecified; Z87.19 Personal history of other diseases of the digestive system; D64.9 Anemia, unspecified
CPT/HCPCS: 20610; 64418; J1040

== ENCOUNTER 2021-01-03 09:38 | Outpatient (CLI) | payer MEDICARE, SELFPAY ==
[2021-01-03 09:55] VITALS: BP 115/56; PULSE 55; RESP 18; TEMP 36.3; O2SAT 100
[2021-01-03 10:17] VITALS: BP 113/59; PULSE 55; RESP 18
[2021-01-03 11:54] LABS: Blood Urea Nitrogen 31 mg/dl (7-17); Calcium 9.5 mg/dl (8.4-10.2); Carbon Dioxide 19 mmol/L (22.0-30.0); Chloride 109 mmol/L (98-107); Estimated Glomerular Filt Rate 49 ml/min (>60); GFR (African American) 59 ML/MIN (>60); Glucose 125 mg/dl (74-100); Sodium 137 mmol/L (136-145)
== END 2021-01-03 10:17 | disposition home or self-care (01) ==
PROVIDERS: Physician Assistant; PCP Family Medicine; Visit Provider Internal Medicine Nephrology
DX: N28.9 Disorder of kidney and ureter, unspecified (principal); M81.0 Age-related osteoporosis without current pathological fracture
CPT/HCPCS: 36415; 80048; 96374; J3489

== ENCOUNTER → 2021-01-17 09:30 | Outpatient (POV) | payer MEDICARE, SELFPAY ==
[2021-01-17 09:53] VITALS: BP 100/62; PULSE 62; RESP 18; O2SAT 97; BMI 23.4
--- NOTE | 2021-01-17 10:53 | HMH.PAINSOAP ---
[facility] Pain Management SOAP Note Subjective:: Patient is a 70-year-old female who presents today for follow-up after a left intra-articular shoulder injection. Patient reports she did not get any relief with the injection. She rates her pain an 8 out of 10 to the area. Patient is having pain to the top of her left shoulder with radiation into the left anterior aspect of left arm. She denies pain with movement of arm. She says the pain is constant in nature. She has not had imaging of her arm. She has had an MRI of her cervical spine which did not show any significant concern with impingement or bulging disks. She is on Lyrica which does give her relief. The patient also uses Voltaren gel which gives her significant relief. Compounding cream did not help the patient, as she was unable to tolerate gabapentin in the medication. Review of Systems General: No recent weight changes, no fever, no sleep disturbances Respiratory: No cough, no shortness of air, no recurring pulmonary infections Cardiovascular/peripheral vascular: No chest pain, no palpitations, no edema, no shortness of breath Gastrointestinal: No new onset incontinence, normal bowel movements reported Genitourinary: No new onset incontinence Musculoskeletal: Left shoulder pain, left anterior arm pain Psychiatric: [Normal mood/affect] Neurological: [Denies weakness in extremities], [denies balance issues] Objective:: Physical exam General: Alert and oriented x3, no acute distress, pleasant and cooperative Lungs: Respirations even and unlabored, symmetrical chest expansion Eyes: PERRL Musculoskeletal: Palpation of left shoulder and left anterior arm somewhat guarded secondary to pain, normal gait noted Neurological: Speech clear, no gross sensory deficit Assessment:: Left shoulder pain, left arm pain Plan:: The patient has had an MRI of her cervical spine which did not show any significant pathology. She continues to have pain into the top of her left shoulder as well as pain into the anterior aspect of left arm. We will schedule the patient for an MRI of her left arm. She says that she is getting relief with Lyrica. We will continue the patient on Lyrica 75 mg 1 tablet p.o. twice daily. We will see the patient back after her MRI to discuss a further plan of care. The intra-articular shoulder injection did not give the patient any significant relief. The patient has tried compounding cream, but was not able to tolerate the medication due to gabapentin and the medicine. She does use Voltaren gel topically which gives her about 30 to 40% relief. We will review the patient's MRI at next visit. Patient has been instructed to contact the clinic with any concerns before the next appointment. Dr. Christine has reviewed this note and agrees with this plan of care. This note was dictated using voice recognition software and make contain errors or omissions. [facility] History I have reviewed the patient's past medical history: Yes Medical History: Reports:: Depression, Diabetes Mellitus Type 2, Gastroesophageal Reflux Disease(GERD), Hepatitis, Hyperlipidemia, Hypertension, Osteoporosis, Renal Insufficiency Denies:: Cancer, Diabetes Mellitus Type 1, Internal Pacemaker, Lung Disease, MRSA, Seizures *Have you ever received a pneumonia vaccine?: Yes *Have you received a flu vaccine this season?: Yes Other Medical History: Reports: Blood Transfusion Reaction, Hypothyroidism, Osteoporosis, Thyroid Disease, Other (tremor, chronic back pain, over active bladder) Other Surgeries: Yes: Cholecystectomy, Colonoscopy, EGD, Hernia Repair (hiatal hernia surgery), Other (left ear). No: Pacemaker Amputation: No Fractures: Yes (STERNAL) - *Social History Smoking Status: Never smoker Tobacco Type: cigarettes # Packs/Day (cigarettes): 1 Alcohol Intake: never Alcohol Intake Frequency:: other Substance Use Type: denies use *Occupational Status:: unemployed Housing: house Household Member
== END ==
PROVIDERS: Visit Provider Clinical Nurse Specialist Family Health
DX: M25.512 Pain in left shoulder (principal); M79.602 Pain in left arm
CPT/HCPCS: 99212; G0463

== ENCOUNTER → 2021-01-31 07:51 | Outpatient (CLI) | payer MEDICARE, SELFPAY ==
--- NOTE | 2021-01-31 08:05 | MR_ITS ---
PROCEDURE INFORMATION: Exam: MR Left Upper Extremity Joint Without Contrast; Shoulder Exam date and time: 01/31/2021 8:05 AM Age: 70 years old Clinical indication: Pain; Shoulder; Left; Additional info: Left shoulder pain. Left shoulder pain. Soreness in arm, no injury or trauma. No prior. TECHNIQUE: Imaging protocol: MR of the Left upper extremity without contrast. Exam focused on the shoulder. COMPARISON: CT CHEST WO CON 05/09/2020 12:21 PM FINDINGS: Limitations: Imaging planes are nonstandard due to extensive external rotation of the shoulder. Motion artifact. Bones and cartilage: The undersurface of the acromion has a normal curvature, consistent with a type II acromion. Joint spaces: A normal amount of fluid is present in the glenohumeral joint. Joint fluid extends through the full thickness rotator cuff tear into the subacromial-subdeltoid bursa. No significant degenerative change involves the acromioclavicular joint. Glenoid labrum: Abnormal signal and morphology of the superior labrum in a patient of this age likely represents degenerative tearing. Supraspinatus tendon: A focal full-thickness tear involves the supraspinatus tendon. The tear measures 7 mm anterior to posterior with approximately 1.5 cm retraction (series 10/image 12). Infraspinatus tendon: Mild tendinosis involves the infraspinatus tendon. Subscapularis tendon: No tear or significant tendinosis involves the subscapularis tendon. Teres minor tendon: No tear or significant tendinosis involves the teres minor tendon. Tendon of biceps brachii: The long head of the biceps tendon is normally situated within the bicipital groove. Glenohumeral ligaments: Unremarkable. Muscles: Unremarkable. Soft tissues: Unremarkable. IMPRESSION: 1. Full-thickness supraspinatus tendon tear measuring 7 mm anterior to posterior with 1.5 cm retraction and no significant muscle atrophy. 2. Abnormal signal and morphology of the glenoid labrum, likely representing degenerative tearing.
--- NOTE | 2021-01-31 08:49 | HMH.PMCON ---
Assessment and Plan - Assessment and plan all Dx Assessment and Plan for all problems:: Patient is a 70-year-old female who presents today for consultation for HPI - Data of Consult Patient: new to practice Consult date: 01/31/21 Requesting Physician: Inge Corcoran APRN Primary Care Provider: Elder Brasher MD - Consult Narrative History of present illness: Ms. Oneill is a 70 year old female who presents today for consultation for CC: Inge Corcoran APRN [facility] History I have reviewed the patient's past medical history: Yes Medical History: Reports:: Depression, Diabetes Mellitus Type 2, Gastroesophageal Reflux Disease(GERD), Hepatitis, Hyperlipidemia, Hypertension, Osteoporosis, Renal Insufficiency Denies:: Cancer, Diabetes Mellitus Type 1, Internal Pacemaker, Lung Disease, MRSA, Seizures *Have you ever received a pneumonia vaccine?: Yes *Have you received a flu vaccine this season?: Yes Other Medical History: Reports: Blood Transfusion Reaction, Hypothyroidism, Osteoporosis, Thyroid Disease, Other (tremor, chronic back pain, over active bladder) Other Surgeries: Yes: Cholecystectomy, Colonoscopy, EGD, Hernia Repair (hiatal hernia surgery), Other (left ear). No: Pacemaker Amputation: No Fractures: Yes (STERNAL) - *Social History Smoking Status: Never smoker Tobacco Type: cigarettes # Packs/Day (cigarettes): 1 Alcohol Intake: never Alcohol Intake Frequency:: other Substance Use Type: denies use *Occupational Status:: unemployed Housing: house Household Members: none - Psychiatric History Pschychiatric History:: Reports:: Depression Family Hx:: Cancer Review of Systems - Review of Systems Review of Systems General: No recent weight changes, no fever, no sleep disturbances Respiratory: No cough, no shortness of air, no recurring pulmonary infections Cardiovascular/peripheral vascular: No chest pain, no palpitations, no edema, no shortness of breath Gastrointestinal: No new onset incontinence, normal bowel movements reported Genitourinary: No new onset incontinence Musculoskeletal: [] Psychiatric: [Normal mood/affect] Neurological: [Denies weakness in extremities], [denies balance issues] Meds Home Medications Medication Instructions Recorded Confirmed Type fluoxetine 20 mg capsule 20 mg PO HS 90 Days 04/23/17 01/03/21 History gabapentin 300 mg capsule 300 mg PO HS 90 Days 04/23/17 01/03/21 History primidone 250 mg tablet 250 mg PO DAILY 90 Days 04/23/17 01/03/21 History Levothyroxine Sodium [Synthroid 125 mcg PO DAILY 10/24/18 01/03/21 History 125mcg (0.125mg) tablet] Oxybutynin Chloride [Ditropan 5mg 5 mg PO BID 10/26/18 01/03/21 History tablet] Famotidine [Pepcid 20mg Tablet] 20 mg PO HS 10/27/18 01/03/21 History gemfibroziL [Gemfibrozil] 600 mg PO BID 10/27/18 01/03/21 History zoledronic acid 5 mg/100 mL in 5 mg IV DIRECTED ml 01/03/19 01/03/21 History mannitol 5 %-water intravenous piggybck lisinopriL [Lisinopril] 10 mg PO DAILY 10/29/20 01/03/21 History predniSONE [Prednisone 20mg 20 mg PO BID 10/29/20 01/03/21 History Tab] Pregabalin [Lyrica 75mg Cap] 75 mg PO BID 12/31/20 01/03/21 History Pregabalin [Lyrica 75mg Cap] 75 mg PO BID #60 cap 01/17/21 Rx Allergies Allergy/AdvReac Type Severity Reaction Status Date / Time No Known Allergies Allergy Verified 12/31/20 08:59 Objective Narrative: Physical exam General: Alert and oriented x3, no acute distress, pleasant and cooperative Lungs: Respirations even and unlabored, symmetrical chest expansion Eyes: PERRL Musculoskeletal: Flexion and extension of [] [spine] somewhat guarded secondary to pain, [antalgic gait noted] Neurological: Speech clear, no gross sensory deficit Opioid Risk Tool - Opioid Risk Tool-Female Family hx alcohol abuse: N Family hx illegal drugs: N Family hx rx drug abuse: N Personal hx alcohol abuse: N Personal hx illegal drugs: N
== END ==
PROVIDERS: PCP Family Medicine; Visit Provider Clinical Nurse Specialist Family Health
DX: M25.512 Pain in left shoulder (principal)
CPT/HCPCS: 73221

== ENCOUNTER → 2021-03-08 09:48 | Outpatient (POV) | payer MEDICARE, SELFPAY ==
[2021-03-08 10:03] VITALS: BP 140/68; PULSE 65; RESP 20; TEMP 36.8; O2SAT 93; BMI 23.4
--- NOTE | 2021-03-08 10:07 | HMH.PAINSOAP ---
[facility] Pain Management SOAP Note Subjective:: Patient is a pleasant 71-year-old female who is here today for follow-up after an MRI. Patient is currently being treated for acute left shoulder pain. Patient previously had a left intra-articular shoulder injection that did not help with her discomfort. Patient also had an MRI on her cervical spine which was unremarkable. When we last saw the patient, we started the patient on Lyrica and ordered an MRI on her left shoulder. Today, patient says that her discomfort on her left shoulder is about the same as last time. The pain is more localized to her left shoulder and does not radiate to her finger tips. She rates her pain today as 3/10. Patient says the lyrica, hot compresses, and voltaren gel are helping her discomfort a little bit. From the MRI, patient presents with left supraspinatus tear. Review of Systems General: No recent weight changes, no fever, no sleep disturbances Respiratory: No cough, no shortness of air, no recurring pulmonary infections Cardiovascular/peripheral vascular: No chest pain, no palpitations, no edema, no shortness of breath Gastrointestinal: No new onset incontinence, normal bowel movements reported Genitourinary: No new onset incontinence Musculoskeletal: left shoulder pain Psychiatric: [Normal mood/affect] Neurological: [Denies weakness in extremities], [denies balance issues] Objective:: Physical exam General: Alert and oriented x3, no acute distress, pleasant and cooperative Lungs: Respirations even and unlabored, symmetrical chest expansion Eyes: PERRL Musculoskeletal: left shoulder tender to palpation, limited ROM, pain on movement Neurological: Speech clear, no gross sensory deficit Assessment:: Supraspinatus tear Plan:: PROCEDURE INFORMATION: Exam: MR Left Upper Extremity Joint Without Contrast; Shoulder Exam date and time: 01/31/2021 8:05 AM Age: 70 years old Clinical indication: Pain; Shoulder; Left; Additional info: Left shoulder pain. Left shoulder pain. Soreness in arm, no injury or trauma. No prior. TECHNIQUE: Imaging protocol: MR of the Left upper extremity without contrast. Exam focused on the shoulder. COMPARISON: CT CHEST WO CON 05/09/2020 12:21 PM FINDINGS: Limitations: Imaging planes are nonstandard due to extensive external rotation of the shoulder. Motion artifact. Bones and cartilage: The undersurface of the acromion has a normal curvature, consistent with a type II acromion. Joint spaces: A normal amount of fluid is present in the glenohumeral joint. Joint fluid extends through the full thickness rotator cuff tear into the subacromial-subdeltoid bursa. No significant degenerative change involves the acromioclavicular joint. Glenoid labrum: Abnormal signal and morphology of the superior labrum in a patient of this age likely represents degenerative tearing. Supraspinatus tendon: A focal full-thickness tear involves the supraspinatus tendon. The tear measures 7 mm anterior to posterior with approximately 1.5 cm retraction (series 10/image 12). Infraspinatus tendon: Mild tendinosis involves the infraspinatus tendon. Subscapularis tendon: No tear or significant tendinosis involves the subscapularis tendon. Teres minor tendon: No tear or significant tendinosis involves the teres minor tendon. Tendon of biceps brachii: The long head of the biceps tendon is normally situated within the bicipital groove. Glenohumeral ligaments: Unremarkable. Muscles: Unremarkable. Soft tissues: Unremarkable. IMPRESSION: 1. Full-thickness supraspinatus tendon tear measuring 7 mm anterior to posterior with 1.5 cm retraction and no significant muscle atrophy. 2. Abnormal signal and morphology of the glenoid labrum, likely representing degenerative tearing. From the MRI, Patient has a full
== END ==
PROVIDERS: Visit Provider Clinical Nurse Specialist Family Health
DX: S46.812A Strain of other muscles, fascia and tendons at shoulder and upper arm level, left arm, initial encounter
CPT/HCPCS: 99212; G0463

== ENCOUNTER 2021-04-18 13:00 | Outpatient (RCR) | payer MEDICARE, SELFPAY ==
--- NOTE | 2021-03-28 15:57 | HMH.OTOPEV ---
OT Inpatient Evaluation Rehab OT Outpatient Eval Start: 03/28/21 15:40 Freq: Status: Active Protocol: Document 03/28/21 15:40 JASPALJUAN (Rec: 03/28/21 15:57 JASPALJUAN [id number]) Electronically Signed By Daria Cristina OT 03/28/21 15:40 Outpatient Therapy Subjective History Subjective History 70 year old female referred to skilled OP OT services for L shoulder pain. Patient has been seeing pain clinic for L shoulder pain. MRI completed on 01/31/21 with findings of 1 . Full-thickness supraspinatus tendon tear measuring 7 mm anterior to posterior with 1.5 cm retraction and no significant muscle atrophy. 2. Abnormal signal and morphology of the glenoid labrum, likely representing degenerative tearing. 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 Patient is currently off work for the next week or so in order to decrease pain. Chief Complaint Pain Symptom Type Ache,Throb Symptoms Relieved By Nothing Symptoms Aggravated By Physical Activity Prior Functional Limitations None Current Functional Limitations Reaching,Lifting,Sleeping, Recreation Activity Symptom Description Intermittent Level of pain today (0-10) 0 Pain scale - at its best (0-10) 0 Pain scale - at its worst (0-10) 8 Shoulder/Elbow Eval Shoulder Objective Measurements Shoulder ROM Left Shoulder Abduction Active Range of 95 Motion (degrees) Shoulder Flexion Active Range of Motion 110 (degrees) Query Text: Shoulder External Rotation Active Range 20 of Motion (degrees) Shoulder Internal Rotation Active Range 60 of Motion (degrees) pain with active ROM shoulder exam right standard Shoulder MMT Shoulder Abduction Strength Grade 3- Fair- Shoulder Extension Strength Grade 3- Fair- Shoulder Flexion Strength Grade 3- Fair- Shoulder Horizontal Abduction Strength 3- Fair- Grade
== END 2021-04-18 13:05 | disposition home or self-care (01) ==
LOC: OT 13:00
PROVIDERS: PCP Family Medicine; Visit Provider Family Medicine
DX: M75.122 Complete rotator cuff tear or rupture of left shoulder, not specified as traumatic (principal); M25.512 Pain in left shoulder
CPT/HCPCS: 97010; 97014; 97110; 97140; 97165; 97530; G0283

== ENCOUNTER → 2021-04-26 12:06 | Outpatient (CLI) | payer MEDICARE, SELFPAY ==
--- NOTE | 2021-04-26 12:12 | XR_ITS ---
FINAL REPORT CLINICAL HISTORY: LT shoulder pain FINDINGS: LEFT SHOULDER Four views demonstrate no acute fracture or dislocation. There is mild acromioclavicular and glenohumeral joint degenerative change. The visualized bony structures are well aligned. No soft tissue abnormality is seen. IMPRESSION: Mild degenerative changes. Reviewed, Interpreted and Dictated by Shoaib Park III, MD Transcribed by Awa Boland Authenticated by Shoaib Park III, MD on 04/26/2021 02:32:12 PM [facility]
== END ==
PROVIDERS: PCP Family Medicine; Visit Provider Orthopaedic Surgery
DX: M25.512 Pain in left shoulder (principal)
CPT/HCPCS: 73030

== ENCOUNTER → 2021-05-03 12:39 | Outpatient (CLI) | payer MEDICARE, SELFPAY ==
--- NOTE | 2021-05-03 12:47 | XR_ITS ---
FINAL REPORT TECHNIQUE: Chest PA & Lateral CLINICAL HISTORY: PRE-OP,IRON DEFICIENCY..hypertension COMPARISON: May 09, 2020 FINDINGS: 2 views of the chest were performed. The heart size is normal. There is a calcified left hilar lymph node. There is a calcified granuloma in the left upper lobe. There is no acute cardiopulmonary process. There are no pleural effusions. There is no pneumothorax. The bony thorax appears intact. IMPRESSION: No acute cardiopulmonary process. Reviewed, Interpreted and Dictated by Sebas Heck MD Transcribed by Surinder [place] Authenticated by Sebas Heck MD on 05/03/2021 02:42:35 PM [facility]
--- NOTE | 2021-05-03 13:58 | ECG_ITS ---
APPROVED REPORT Exam: Resting ECG HR:64 bpm ECG Measurements Heart Rate 64 AXES AL 172 P 31 QRSd 75 QRS -12 QT 385 T -8 QTc 394 Conclusion SINUS RHYTHM VOLTAGE CRITERIA FOR LVH [MEETS CRITERIA IN ONE OF: R(aVL), S(V1), R(V5), R(V5/V6)+S(V1)] ANTEROLATERAL MYOCARDIAL INFARCTION , OF INDETERMINATE AGE [40+ ms Q WAVE IN I/aVL/V3-V6] ABNORMAL ECG UNCONFIRMED REPORT Electronically signed by : Hansel Polanco MD 05/09/2021 17:37:00
[2021-05-03 14:01] LABS: Basophils # 0.1 K/mm3 (0-0.2); Basophils % 0.8 % (0.1-2.0); Eosinophils # 0.2 K/mm3 (0.0-0.4); Eosinophils % 1.8 % (0.1-12.0); Hematocrit 31.9 % (37.0-47.0); Hemoglobin 10.1 g/dL (12.2-16.2); Lymphocytes # 2.6 K/mm3 (0.7-4.5); Lymphocytes % 25.5 % (10-50); Mean Corpuscular HGB Conc 31.8 g/dL (31.8-35.4); Mean Corpuscular Hemoglobin 32.4 pg (27.0-31.2); Mean Corpuscular Volume 101.9 fl (81-99); Mean Platelet Volume 9.9 fl (7.4-10.4); Monocytes # 0.3 K/mm3 (0.1-1.0); Monocytes % 3.4 % (1.7-9.3); Neutrophils # 6.9 K/mm3 (1.8-7.8); Neutrophils % 68.5 % (37.0-80.0); Platelet Count 325 K/mm3 (142-424); Red Blood Count 3.13 M/mm3 (4.20-5.40); Red Cell Distribution Width 14.6 % (11.5-17.5); White Blood Count 10.1 K/mm3 (4.8-10.8)
[2021-05-03 14:21] LABS: Chloride 108 mmol/L (98-107); Sodium 136 mmol/L (136-145)
[2021-05-03 14:22] LABS: Potassium 4.8 mmoL/L (3.5-5.1)
[2021-05-03 14:24] LABS: Alanine Aminotransferase 50 U/L (12-78); Albumin Level 3.9 g/dl (3.5-5.0); Albumin/Globulin Ratio 1.1 (1.1-1.8); Alkaline Phosphatase 1285 U/L (38-126); Anion Gap 16.8 mEq/L (5-15); Aspartate Amino Transferase 101 U/L (14-36); Bilirubin,Total 0.9 mg/dl (0.2-1.3); Blood Urea Nitrogen 32 mg/dl (7-17); Carbon Dioxide 16 mmol/L (22.0-30.0); Estimated Glomerular Filt Rate 37 ml/min (>60); GFR (African American) 45 ML/MIN (>60); Globulin 3.7 g/dL (1.3-3.2); Iron 95 ug/dL (37-170); Total Protein,Serum 7.6 g/dl (6.3-8.2)
[2021-05-03 14:25] LABS: Calcium 9.1 mg/dl (8.4-10.2); Glucose 120 mg/dl (74-100)
[2021-05-03 14:37] LABS: Free T4 (Free Thyroxine) 2.13 ng/dl (0.78-2.19)
[2021-05-03 14:53] LABS: Thyroid Stimulating Hormone 0.08 uIU/mL (0.465-4.68)
[2021-05-05 15:11] LABS: Erythropoietin 6.4 mIU/mL (2.6-18.5)
== END ==
PROVIDERS: PCP Family Medicine; Visit Provider Family Medicine
DX: Z01.818 Encounter for other preprocedural examination (principal); N28.9 Disorder of kidney and ureter, unspecified; I10 Essential (primary) hypertension; D50.9 Iron deficiency anemia, unspecified; E03.9 Hypothyroidism, unspecified
CPT/HCPCS: 36415; 71046; 80053; 82668; 83540; 84100; 84439; 84443; 85025; 93005

== ENCOUNTER → 2021-05-04 14:25 | Outpatient (CLI) | payer MEDICARE, SELFPAY ==
[2021-05-04 14:27] LABS: Microscopic, Urine URINE MICROSCOPIC (MICROSCOPIC)
[2021-05-04 14:38] LABS: Appearance,Urine CLEAR (Clear); Bilirubin,Urine Negative (Negative); Blood, Urine Negative (Negative); Color,Urine YELLOW (Yellow); Glucose,Urine (UA) Negative (Negative); Ketones,Urine Negative (Negative); Leukocyte Esterase,Urine 2+ (Negative); Nitrate,Urine POSITIVE (Negative); PH,Urine 5.5 (5.0-8.5); Protein,Urine Negative (Negative); Urobilinogen,Urine 0.2 EU/dl (0.2)
[2021-05-04 15:09] LABS: Amorphous Sediment,Urine 1+ /lpf; Bacteria,Urine 4+ /lpf; WBC,Urine 50-100 #/hpf (0-3)
== END ==
PROVIDERS: Visit Provider Family Medicine
DX: Z01.818 Encounter for other preprocedural examination (principal); N28.9 Disorder of kidney and ureter, unspecified; B96.20 Unspecified Escherichia coli [E. coli] as the cause of diseases classified elsewhere; I10 Essential (primary) hypertension; D50.9 Iron deficiency anemia, unspecified; E03.9 Hypothyroidism, unspecified
CPT/HCPCS: 81001; 87086; 87088; 87186

== ENCOUNTER → 2021-05-16 13:46 | Outpatient (CLI) | payer MEDICARE, SELFPAY ==
[2021-05-16 13:53] LABS: Microscopic, Urine URINE MICROSCOPIC (MICROSCOPIC)
[2021-05-16 14:51] LABS: Basophils % 0.5 % (0.1-2.0); Eosinophils # 0.1 K/mm3 (0.0-0.4); Eosinophils % 1.6 % (0.1-12.0); Hematocrit 32.2 % (37.0-47.0); Hemoglobin 10.1 g/dL (12.2-16.2); Lymphocytes # 1.7 K/mm3 (0.7-4.5); Lymphocytes % 20.4 % (10-50); Mean Corpuscular HGB Conc 31.4 g/dL (31.8-35.4); Mean Corpuscular Hemoglobin 32.5 pg (27.0-31.2); Mean Corpuscular Volume 103.3 fl (81-99); Mean Platelet Volume 10.2 fl (7.4-10.4); Monocytes # 0.5 K/mm3 (0.1-1.0); Monocytes % 5.6 % (1.7-9.3); Neutrophils # 5.9 K/mm3 (1.8-7.8); Platelet Count 414 K/mm3 (142-424); Red Blood Count 3.12 M/mm3 (4.20-5.40); Red Cell Distribution Width 14.9 % (11.5-17.5); White Blood Count 8.2 K/mm3 (4.8-10.8)
[2021-05-16 15:12] LABS: Anion Gap 14.6 mEq/L (5-15); Blood Urea Nitrogen 22 mg/dl (7-17); Calcium 9.4 mg/dl (8.4-10.2); Carbon Dioxide 20 mmol/L (22.0-30.0); Chloride 104 mmol/L (98-107); Estimated Glomerular Filt Rate 55 ml/min (>60); GFR (African American) 66 ML/MIN (>60); Glucose 99 mg/dl (74-100); Potassium 4.6 mmoL/L (3.5-5.1); Sodium 134 mmol/L (136-145)
[2021-05-16 18:01] LABS: Appearance,Urine CLOUDY (Clear); Bilirubin,Urine Negative (Negative); Blood, Urine Negative (Negative); Color,Urine DK YELLOW (Yellow); Glucose,Urine (UA) Negative (Negative); Ketones,Urine Negative (Negative); Leukocyte Esterase,Urine 1+ (Negative); Nitrate,Urine POSITIVE (Negative); Protein,Urine Negative (Negative)
[2021-05-16 18:25] LABS: Bacteria,Urine 1+ /lpf; RBC,Urine Occasional #/hpf (0-3); WBC,Urine TNTC #/hpf (0-3); Yeast,Urine 4+ /lpf
== END ==
PROVIDERS: PCP Family Medicine; Visit Provider Family Medicine
DX: N39.0 Urinary tract infection, site not specified (principal); E03.9 Hypothyroidism, unspecified; N28.9 Disorder of kidney and ureter, unspecified; D64.9 Anemia, unspecified; B96.20 Unspecified Escherichia coli [E. coli] as the cause of diseases classified elsewhere
CPT/HCPCS: 36415; 80048; 81001; 84439; 85025; 87086; 87088; 87186

== ENCOUNTER → 2021-05-30 13:56 | Outpatient (CLI) | payer MEDICARE, SELFPAY | PROVIDERS: Visit Provider Family Medicine | DX: N39.0 Urinary tract infection, site not specified (principal) ==

== ENCOUNTER → 2021-05-31 14:27 | Outpatient (CLI) | payer MEDICARE, SELFPAY ==
[2021-05-31 15:33] LABS: Microscopic, Urine URINE MICROSCOPIC (MICROSCOPIC)
[2021-05-31 17:38] LABS: Appearance,Urine CLEAR (Clear); Bilirubin,Urine Negative (Negative); Blood, Urine Negative (Negative); Color,Urine YELLOW (Yellow); Glucose,Urine (UA) Negative (Negative); Ketones,Urine Negative (Negative); Leukocyte Esterase,Urine 1+ (Negative); Nitrate,Urine Negative (Negative); Protein,Urine Negative (Negative); Urobilinogen,Urine 0.2 EU/dl (0.2)
[2021-05-31 18:19] LABS: Amorphous Sediment,Urine Trace /lpf; Bacteria,Urine 1+ /lpf; Calcium Oxalate Crystals,Urine 2+ /lpf
== END ==
PROVIDERS: Visit Provider Family Medicine
DX: N39.0 Urinary tract infection, site not specified (principal)
CPT/HCPCS: 81001; 87086

== ENCOUNTER 2021-07-28 05:14 | Inpatient (IN) | payer MEDICARE, SELFPAY ==
[2021-07-28] VITALS (8 sets, daily range): BP systolic 106–122; BP diastolic 50–70; PULSE 61–76; RESP 16–20; TEMP 36.3–37.3; O2SAT 93–100; BMI 21.9
--- NOTE | 2021-07-28 05:20 | HMH.EDGENADL ---
ED Disposition Clinical Impression: Dehydration, RUBÉN (acute kidney injury), Metabolic acidosis, Rib pain on right side Sepsis Qualifiers: Sepsis type: sepsis due to unspecified organism Sepsis acute organ dysfunction status: with acute organ dysfunction Severe sepsis acute organ dysfunction type: acute renal failure Acute renal failure type: unspecified Severe sepsis shock status: without septic shock Qualified Code(s): A41.9 - Sepsis, unspecified organism; R65.20 - Severe sepsis without septic shock; N17.9 - Acute kidney failure, unspecified Disposition: Admitted As Inpatient Condition on Discharge: Undetermined - Critical Care Critical Care Time: Yes Attestation: On , the high probability of a clinically significant, sudden or life threatening deterioration of the following system(s) required my full and direct attention, intervention and personal management. The time I documented below is in addition to time spent performing reported procedures but includes the following listed in this critical care notation. Total Critical Care Time: 30 Vital system(s) involved:: Metabolic Failure, Renal Failure My critical care processes included: Assessment & monitoring of V/S, Initial and Re-exams, Data Review/Interpretation, Coordinating Care, Medication Orders and management, Documentation Medical Decision Making - Medical Records Medical records reviewed: Yes: I reviewed the patient's medical records. - Kishor Inquiry Pt receiving controlled substance: No Vital Signs: 07/28/21 05:12 07/28/21 05:30 07/28/21 06:37 Temperature 99.1 F Temperature Source Oral Pulse Rate 69 61 Pulse Rate [Left] 76 Respiratory Rate 16 Blood Pressure 114/58 L 122/59 L Blood Pressure [Right Arm] 119/61 Blood Pressure Mean [Right Arm] 80 02 Sat by Pulse Oximetry 100 100 100 Oxygen Delivery Method Room Air Room Air Room Air - Lab Data Lab results reviewed: Yes: I reviewed the patient's lab results. Lab Results 07/28/21 05:59: WBC 17.5 H, RBC 2.53 L, Hgb 8.6 L, Hct 26.3 L, MCV 104.0 H, MCH 33.9 H, MCHC 32.5, RDW 15.0, Plt Count 215, MPV 10.5 H, Neut % (Auto) 89.3 H, Lymph % (Auto) 4.4 L, [place] % (Auto) 6.0, Eos % (Auto) 0.1, Baso % (Auto) 0.2, Neut # (Auto) 15.6 H, Lymph # (Auto) 0.8, [place] # (Auto) 1.0, Eos # (Auto) 0.0, Baso # (Auto) 0.0 07/28/21 05:59: Troponin I < 0.01, TSH 0.16 L, Thyroxine (T4) 3.5 L 07/28/21 05:59: Sodium 129 L, Potassium 4.3, Chloride 104, Carbon Dioxide 8 L*, Anion Gap 21.3 H, BUN 56 H, Creatinine 1.90 H, Estimated Creat Clear 21, Estimated GFR 26 L, Est GFR ( Amer) 31 L, Glucose 91, Calcium 7.9 L, Magnesium 1.8, Total Bilirubin 1.5 H, AST 72 H, ALT 43, Alkaline Phosphatase 645 H, Total Protein 7.0, Albumin 3.5, Globulin 3.5 H, Albumin/Globulin Ratio 1.0 L 07/28/21 05:59: Lactate 1.1 07/28/21 05:59: PT 11.8, INR 1.05 07/28/21 05:59: Acetone Level Moderate 07/28/21 06:02: Urine Color Yellow, Urine Appearance Clear, Urine pH 5.5, Ur Specific [place] 1.020, Urine Protein 2+, Urine Glucose (UA) Negative, Urine Ketones Trace, Urine Blood 3+, Urine Nitrate Positive, Urine Bilirubin Negative, Urine Urobilinogen 2.0, Ur Leukocyte Esterase 3+ A, Urine RBC 10-20, Urine WBC 20-50, Ur Squamous Epith Cells Occasional, Urine Bacteria 2+ 07/28/21 06:43: VBG pH 7.21 L, VBG pCO2 22.7 L, VBG pO2 88.3 H, VBG HCO3 8.9 L, VBG Total CO2 9.6 L, VBG O2 Saturation 95.1 H, VBG Base Excess -18.9 L Result diagrams: 07/28/21 05:59 07/28/21 05:59 Orders (Tests/Meds): ED MEDICATIONS Generic Name Dose Route Start Last Admin Trade Name Freq PRN Reason Stop Dose Admin Sodium Chloride 1,000 mls @ 1,000 mls/hr 07/28/21 05:30 07/28/21 05:53 Sod Chlor 0.45% 1000ml Bag IV 08/27/21 05:29 1,000 mls/hr .Q1H YONI Administration Ceftriaxone Sodium 1 gm/ 50 mls @ 100 mls/hr 07/28/21 07:00 Sodium Chloride IV 08/11/21 06:59 Q24H YONI Sodium Chloride 1,000 mls @ 100 mls/hr 07/28/21 07:15 Sod Chlor 0.45% 1000ml Bag I
--- NOTE | 2021-07-28 05:29 | XR_ITS ---
PROCEDURE INFORMATION: Exam: XR Left Ribs with PA Chest Exam date and time: 07/28/2021 5:34 AM Age: 71 years old Clinical indication: Chest wall pain; Left; Additional info: Pain, left lateral rib cage TECHNIQUE: Imaging protocol: XR Left ribs with PA chest. Views: 3 views COMPARISON: CR XR CHEST 2V 07/28/2021 5:32 AM FINDINGS: Lungs: No focal airspace disease. Pleural spaces: Unremarkable. No pleural effusion. No pneumothorax. Heart/Mediastinum: Cardiomediastinal silhouette is within normal limits. Bones/joints: No displaced rib fractures identified. Intraperitoneal space: Surgical clips in the upper abdomen. IMPRESSION: 1. No acute cardiopulmonary abnormality. 2. No displaced rib fractures identified.
--- NOTE | 2021-07-28 05:29 | XR_ITS ---
PROCEDURE INFORMATION: Exam: XR Chest Exam date and time: 07/28/2021 5:32 AM Age: 71 years old Clinical indication: Pain; Left-sided; Additional info: Left sided rib pain TECHNIQUE: Imaging protocol: XR of the chest. Views: 2 views. COMPARISON: CR XR CHEST 2V 05/03/2021 1:05 PM FINDINGS: Lungs: No focal airspace disease. Calcified granulomas in the left upper lobe. Pleural spaces: Unremarkable. No pleural effusion. No pneumothorax. Heart/Mediastinum: Cardiomediastinal silhouette is within normal limits. Bones/joints: Unremarkable. Intraperitoneal space: Surgical clips in the upper abdomen. IMPRESSION: No acute cardiopulmonary abnormality.
--- NOTE | 2021-07-28 05:35 | PC.NURSE ---
Pt gone to RAD
--- NOTE | 2021-07-28 05:49 | PC.NURSE ---
Pt back from RAD
--- NOTE | 2021-07-28 05:52 | ECG_ITS ---
APPROVED REPORT Exam: Resting ECG HR:67 bpm ECG Measurements Heart Rate 67 AXES NE 129 P -11 QRSd 76 QRS 30 QT 400 T 47 QTc 415 Conclusion SINUS RHYTHM WITH SINUS ARRHYTHMIA NORMAL ECG UNCONFIRMED REPORT Electronically signed by : Hansel Polanco MD 07/28/2021 11:44:44
[2021-07-28 06:19] LABS: Basophils % 0.2 % (0.1-2.0); Eosinophils % 0.1 % (0.1-12.0); Hematocrit 26.3 % (37.0-47.0); Hemoglobin 8.6 g/dL (12.2-16.2); Lymphocytes # 0.8 K/mm3 (0.7-4.5); Lymphocytes % 4.4 % (10-50); Mean Corpuscular HGB Conc 32.5 g/dL (31.8-35.4); Mean Corpuscular Hemoglobin 33.9 pg (27.0-31.2); Mean Platelet Volume 10.5 fl (7.4-10.4); Neutrophils # 15.6 K/mm3 (1.8-7.8); Neutrophils % 89.3 % (37.0-80.0); Platelet Count 215 K/mm3 (142-424); Red Blood Count 2.53 M/mm3 (4.20-5.40); White Blood Count 17.5 K/mm3 (4.8-10.8)
[2021-07-28 06:24] LABS: MANUAL DIFFERENTIAL MANUAL DIFFERENTIAL (MANUAL DIFF)
[2021-07-28 06:27] LABS: Chloride 104 mmol/L (98-107); Potassium 4.3 mmoL/L (3.5-5.1); Sodium 129 mmol/L (136-145)
[2021-07-28 06:30] LABS: Alanine Aminotransferase 43 U/L (12-78); Albumin Level 3.5 g/dl (3.5-5.0); Alkaline Phosphatase 645 U/L (38-126); Anion Gap 21.3 mEq/L (5-15); Aspartate Amino Transferase 72 U/L (14-36); Bilirubin,Total 1.5 mg/dl (0.2-1.3); Blood Urea Nitrogen 56 mg/dl (7-17); Calcium 7.9 mg/dl (8.4-10.2); Creatinine Clearance Estimated 21 mL/min (50-200); Estimated Glomerular Filt Rate 26 ml/min (>60); GFR (African American) 31 ML/MIN (>60); Globulin 3.5 g/dL (1.3-3.2); Glucose 91 mg/dl (74-100); INR 1.05 (0.9-1.1); Lactic Acid 1.1 mmol/L (0.7-2.1); Prothrombin Time 11.8 seconds (10.1-12.5)
[2021-07-28 06:31] LABS: Magnesium 1.8 mg/dl (1.6-2.3)
[2021-07-28 06:35] LABS: Carbon Dioxide 8 mmol/L (22.0-30.0)
[2021-07-28 06:36] LABS: Coronavirus 19, PCR Not Detected (NotDetected); Influenza A, PCR Not Detected (NotDetected); Influenza B, PCR Not Detected (NotDetected)
[2021-07-28 06:42] LABS: Microscopic, Urine URINE MICROSCOPIC (MICROSCOPIC)
[2021-07-28 06:43] LABS: Appearance,Urine CLEAR (Clear); Bilirubin,Urine Negative (Negative); Blood, Urine 3+ (Negative); Color,Urine YELLOW (Yellow); Glucose,Urine (UA) Negative (Negative); Ketones,Urine TRACE (Negative); Leukocyte Esterase,Urine 3+ (Negative); Nitrate,Urine POSITIVE (Negative); PH,Urine 5.5 (5.0-8.5); Protein,Urine 2+ (Negative)
[2021-07-28 06:43] LABS: Troponin I < 0.01 ng/ml (0.00-0.034)
[2021-07-28 06:47] LABS: T4 (Thyroxine) 3.5 ug/dl (5.53-11.0)
[2021-07-28 07:00] LABS: Bacteria,Urine 2+ /lpf; Squamous Epithelial Cell,Urine Occasional #/hpf (0-5); WBC,Urine 20-50 #/hpf (0-3)
[2021-07-28 07:00] LABS: VBG Base Excess -18.9 mmol/L (-2.4-2.3); VBG HCO3 8.9 mmol/L (23-30); VBG Oxygen Saturation 95.1 % (50-70); VBG PH 7.21 mmol/L (7.31-7.41); VBG PO2 88.3 mmol/L (28-40); VBG Total CO2 9.6 mmol/L (23-27)
--- NOTE | 2021-07-28 07:00 | PC.NURSE ---
Dr. Brasher pagepriscilla
[2021-07-28 07:01] LABS: VBG PCO2 22.7 mmol/L (35-51)
[2021-07-28 07:01] LABS: Thyroid Stimulating Hormone 0.16 uIU/mL (0.465-4.68)
[2021-07-28 07:02] LABS: Acetone, Serum (Rapid) Moderate (None Detect)
--- NOTE | 2021-07-28 07:04 | PC.NURSE ---
DR De Dios electronic lab technician with [facility]
--- NOTE | 2021-07-28 07:09 | PC.NURSE ---
House notified for bed assignment
[2021-07-28 07:16] LABS: Anisocytosis 1+; Hypochromasia 1+; Lymphocytes % 12 % (10-50); Monocytes % 3 % (2-9); Neutrophils % 85 % (42-76); Platelet Estimate Normal; Total Cells Counted 100
--- NOTE | 2021-07-28 07:21 | HMH.PHAVTE ---
[facility] Pharmacy VTE Monitoring - Patient Demographics Admission date: 07/28/21 Report Date: 07/28/21 Time: 07:21 Allergies/Adverse Reactions: Patient Allergies No Known Allergies Allergy (Verified 04/26/21 13:18) Height: 1.52 m Weight: 50.802 kg Patient Problems: Current Active Problems Rib pain on right side (Acute) Sepsis (Acute) Dehydration (Acute) RUBÉN (acute kidney injury) (Acute) Metabolic acidosis (Acute) - VTE Risk Labs: VTE Related Lab Results Hgb 8.6 g/dL (12.2-16.2) L 07/28/21 05:59 Hct 26.3 % (37.0-47.0) L 07/28/21 05:59 Plt Count 215 K/mm3 (142-424) 07/28/21 05:59 PT 11.8 seconds (10.1-12.5) 07/28/21 05:59 INR 1.05 (0.9-1.1) 07/28/21 05:59 BUN 56 mg/dl (7-17) H 07/28/21 05:59 Creatinine 1.90 mg/dl (0.52-1.04) H 07/28/21 05:59 Estimated Creat Clear 21 mL/min (50-200) 07/28/21 05:59 Clinical Trial Participant: No - Prophylaxis VTE Prophylaxis Ordered?: Yes Types of VTE Prophylaxis: TEDS Knee High
--- NOTE | 2021-07-28 07:22 | PC.NURSE ---
0746 bed assignment requested room 265. all staff notified
--- NOTE | 2021-07-28 08:30 | PC.NURSE ---
called report to shoshana hernandez
--- NOTE | 2021-07-28 09:04 | PC.NURSE ---
patient going up to 2nd floor with KARISHMA Welch by wheelchair. patient has all belongings
--- NOTE | 2021-07-28 10:34 | HMH.HP ---
*Admission Date: 07/28/21 <Adeola Hebert - 07/28/21 10:46> *Chief complaint: weakness <Adeola Hebert - 07/28/21 10:46> *History of present illness: Terrie is a 71yo F with past medical history significant for hypertension, GERD, depression and essential tremors presenting for chief complaint of feeling ill and generalized weakness at home. Patient started feeling ill on Sunday and has had a decreased p.o. intake since then. She denies fevers but has had rhinorrhea. She denies a sore throat, cough or hemoptysis. No chest pain or shortness of breath. She is currently denying abdominal pain and states she has been feeling nauseated but does not vomit secondary to prior surgery for hiatal hernia. No diarrhea, dysuria, blood in stool or urine. No unilateral lower extremity swelling. Patient denies blood thinner use. Of note, patient fell Sunday and hit her left-sided ribs on a cabinet. She has pain over the lateral left rib cage but denies hitting her head or loss of consciousness. On initial evaluation, patient is hemodynamically stable nontoxic-appearing. Differential diagnosis includes, but is not limited to, rib fracture, contusion, viral gastrointestinal illness, COVID-19, ACS, pneumonia, urinary tract infection, other. On initial exam, patient is hemodynamically stable nontoxic-appearing. She was evaluated with CBC, CMP, lactic acid, troponin, coags, magnesium, INR, COVID-19 swab, UA, urine culture, blood culture. She was treated with 1 L of IV fluids. She was given p.o. Tylenol for pain. Lab work is significant for metabolic acidosis likely secondary to starvation ketoacidosis in addition to mild to moderate RUBÉN in the setting of a urinary tract infection. Patient's presentation is concerning for sepsis. Given this, patient was given IV antibiotics, started on mIVF and admitted for inpatient care. (above as per ER physician) <Adeola Hebert - 07/28/21 10:46> [facility] History I have reviewed the patient's past medical history: Yes <Adeola Hebert - 07/28/21 10:46> Medical History: Reports:: Depression, Diabetes Mellitus Type 2, Gastroesophageal Reflux Disease(GERD), Hepatitis, Hyperlipidemia, Hypertension, Osteoporosis, Renal Insufficiency Denies:: Cancer, Diabetes Mellitus Type 1, Internal Pacemaker, Lung Disease, MRSA, Seizures <AzeemjeffersonAdeola 07/28/21 10:46> *Have you ever received a pneumonia vaccine?: Yes <EmileeAdeola 07/28/21 10:46> *Have you received a flu vaccine this season?: Yes <EmileeAdeola 07/28/21 10:46> Other Medical History: Reports: Blood Transfusion Reaction, Hypothyroidism, Osteoporosis, Thyroid Disease, Other (tremor, chronic back pain, over active bladder, autoimmune hepatitis) <EmileeAdeola 07/28/21 10:46> Laterality Cases: Bilateral: Cataract <EmileeAdeola 07/28/21 10:46> Other Surgeries: Yes: Cholecystectomy, Colonoscopy, EGD, Hernia Repair (hiatal hernia surgery), Other (left ear). No: Pacemaker <EmileeAdeola 07/28/21 10:46> Amputation: No <EmileeAdeola 07/28/21 10:46> Fractures: Yes (STERNAL) <EmileeAdeola 07/28/21 10:46> - *Social History Smoking Status: Never smoker <EmileeAdeola 07/28/21 10:46> Tobacco Type: cigarettes <EmileeAdeola 07/28/21 10:46> # Packs/Day (cigarettes): 1 <EmileeAdeola 07/28/21 10:46> Alcohol Intake: never <EmileeAdeola 07/28/21 10:46> Alcohol Intake Frequency:: other <EmileeAdeola 07/28/21 10:46> Substance Use Type: denies use <EmileeAdeola 07/28/21 10:46> *Occupational Status:: retired <EmileeAdeola 07/28/21 10:46> Housing: house <Adeola Hebert 07/28/21 10:46> Household Members: none <Adeola Hebert 07/28/21 10:46> *Travel in the last 8 weeks: None <Adeola Hebert 07/28/21 10:46> - Psychiatric History Pschychiatric History:: Reports:: Depression <Adeola Hebert 07/28/21 10:46> Family Hx:: Cancer <Adeola Hebert - 07/28/21 10:46> Review of Systems - Constitutional Reports weakness, Denies fever(s) <Luiza
[2021-07-28 11:35] LABS: Troponin I < 0.01 ng/ml (0.00-0.034)
[2021-07-28 12:16] LABS: Troponin I < 0.01 ng/ml (0.00-0.034)
[2021-07-29 04:00] VITALS: BP 122/62; PULSE 57; RESP 17; TEMP 36.8; O2SAT 100
[2021-07-29 05:44] LABS: Basophils % 0.2 % (0.1-2.0); Eosinophils % 0.1 % (0.1-12.0); Hematocrit 24.3 % (37.0-47.0); Lymphocytes % 6.2 % (10-50); Mean Corpuscular Volume 99.9 fl (81-99); Mean Platelet Volume 10.6 fl (7.4-10.4); Monocytes % 6.5 % (1.7-9.3); Neutrophils # 13.9 K/mm3 (1.8-7.8); Neutrophils % 87.2 % (37.0-80.0); Platelet Count 196 K/mm3 (142-424); Red Blood Count 2.43 M/mm3 (4.20-5.40); Red Cell Distribution Width 15.2 % (11.5-17.5)
[2021-07-29 05:49] LABS: Chloride 107 mmol/L (98-107); MANUAL DIFFERENTIAL MANUAL DIFFERENTIAL (MANUAL DIFF)
[2021-07-29 05:50] LABS: Potassium 3.2 mmoL/L (3.5-5.1); Sodium 129 mmol/L (136-145)
[2021-07-29 05:53] LABS: Anion Gap 14.2 mEq/L (5-15); Blood Urea Nitrogen 51 mg/dl (7-17); Carbon Dioxide 11 mmol/L (22.0-30.0); Creatinine Clearance Estimated 25 mL/min (50-200); Estimated Glomerular Filt Rate 32 ml/min (>60); GFR (African American) 38 ML/MIN (>60); Glucose 117 mg/dl (74-100)
--- NOTE | 2021-07-29 06:37 | PC.NURSE ---
Pt has rested well this shift. Pt has c/o of pain in right shoulder x1, medicated per MAR. Pt remains on RA with O2 sats >90%. Pt has ambulated with x1 assist to BSC. Pt has had 700ml in output this shift.
[2021-07-29 08:00] VITALS: BP 143/65; PULSE 55; RESP 17; TEMP 36.4; O2SAT 100
--- NOTE | 2021-07-29 08:06 | HMH.ACPN2 ---
Internal Medicine - PN: Subj *Date: 07/29/21 *Time: 08:06 Interval history: Patient with no new complaints today, feels a little better. Exam Vital signs and Labs for Last 24 Hours: Temp Pulse Resp BP Pulse Ox 98.3 F 57 L 17 122/62 100 07/29/21 04:00 07/29/21 04:00 07/29/21 04:00 07/29/21 04:00 07/29/21 04:00 Laboratory Results - last 24 hr 07/28/21 10:45: Troponin I < 0.01 07/28/21 11:43: Troponin I < 0.01 07/29/21 05:25: WBC 16.0 H, RBC 2.43 L, Hgb 8.0 L, Hct 24.3 L, MCV 99.9 H, MCH 33.0 H, MCHC 33.0, RDW 15.2, Plt Count 196, MPV 10.6 H, Neut % (Auto) 87.2 H, Lymph % (Auto) 6.2 L, [place] % (Auto) 6.5, Eos % (Auto) 0.1, Baso % (Auto) 0.2, Neut # (Auto) 13.9 H, Lymph # (Auto) 1.0, [place] # (Auto) 1.0, Eos # (Auto) 0.0, Baso # (Auto) 0.0 07/29/21 05:25: Sodium 129 L, Potassium 3.2 L D, Chloride 107, Carbon Dioxide 11 L, Anion Gap 14.2, BUN 51 H, Creatinine 1.60 H, Estimated Creat Clear 25, Estimated GFR 32 L, Est GFR ( Amer) 38 L D, Glucose 117 H D, Calcium 8.0 L Vital Signs - 24 hr 07/28/21 09:04 07/28/21 09:45 07/28/21 16:00 Temperature 97.4 F L 97.4 F L 98.1 F Pulse Rate 61 Pulse Rate [Left] 62 71 Respiratory Rate 18 19 20 Blood Pressure 110/70 Blood Pressure [Right Arm] 115/58 L 110/56 L 02 Sat by Pulse Oximetry 98 99 07/28/21 20:00 07/29/21 04:00 Temperature 98.0 F 98.3 F Pulse Rate Pulse Rate [Left] 67 57 L Respiratory Rate 18 17 Blood Pressure Blood Pressure [Right Arm] 113/57 L 122/62 02 Sat by Pulse Oximetry 93 L 100 I & O for Last 24 hours: Intake & Output 07/26/21 07/27/21 07/28/21 07/29/21 23:59 23:59 23:59 23:59 Intake Total 240 / 240 2000 Output Total 700 / 1100 400 / 400 Balance -460 / -860 1601 / 1601 Weight 111 lb 15.988 oz Microbiology Reports for the Last 24 Hours: Microbiology 07/28/21 06:02 Urine,Clean Catch Urine Culture - Preliminary NO GROWTH AFTER 24 HOURS - Constitutional no acute distress (appears tired) - *Routine HEENT Exam Head: Present: normocephalic Eye: Present: EOMI, PERRL ENT: Present: mucous membranes moist - *Routine Neck Exam Present: supple. Absent: lymphadenopathy - *Routine Respiratory Exam Present: CTA bilaterally - *Routine Cardiovascular Exam Present: RRR - *Routine Abdominal Exam Present: soft, normoactive bowel sounds. Absent: tenderness - *Routine Extremities Exam Absent: cyanosis, clubbing, edema - *Routine Skin Exam Present: warm. Absent: rash - *Routine Neurological Exam Present: alert, oriented X3, tremors Assessment and Plan (1) Urinary tract infection Status: Acute Category: Medical Code(s): N39.0 - Urinary tract infection, site not specified (2) RUBÉN (acute kidney injury) Status: Acute Category: Medical Code(s): N17.9 - Acute kidney failure, unspecified (3) Dehydration Status: Acute Category: Medical Code(s): E86.0 - Dehydration (4) Metabolic acidosis Status: Acute Category: Medical Code(s): E87.2 - Acidosis (5) Rib pain on right side Status: Acute Category: Medical Code(s): R07.81 - Pleurodynia (6) Sepsis Status: Acute Qualifiers: Sepsis type: sepsis due to unspecified organism Sepsis acute organ dysfunction status: with acute organ dysfunction Severe sepsis acute organ dysfunction type: acute renal failure Acute renal failure type: unspecified Severe sepsis shock status: without septic shock Qualified Code(s): A41.9 - Sepsis, unspecified organism; R65.20 - Severe sepsis without septic shock; N17.9 - Acute kidney failure, unspecified Category: Medical Code(s): A41.9 - Sepsis, unspecified organism (7) Anemia Status: Acute Category: Medical Code(s): D64.9 - Anemia, unspecified (8) Essential tremor Status: Chronic Category: Medical Code(s): G25.0 - Essential tremor (9) Hypothyroidism Status: Chronic Category: Medical Code(s): E03.9 - Hypothyr
[2021-07-29 08:09] LABS: Lymphocytes % 12 % (10-50); Monocytes % 1 % (2-9); Neutrophils % 87 % (42-76); Platelet Estimate Normal; Total Cells Counted 100
[2021-07-29 08:10] LABS: Hypochromasia 1+
--- NOTE | 2021-07-29 13:31 | PC.NURSE ---
Spoke to Lilli in lab regarding critical blood cultures and urine culture results. Verified pt's name, and room number. [id number]- Notified MD Mo who is cashier receptionist for MD Brasher regarding results. NNO @ this time
[2021-07-29 15:51] VITALS: BP 136/56; PULSE 52; RESP 16; TEMP 36.3; O2SAT 100
[2021-07-29 15:59] VITALS: BMI 21.9
[2021-07-29 20:00] VITALS: BP 152/53; PULSE 56; RESP 16; TEMP 36.4; O2SAT 96
[2021-07-30] VITALS (7 sets, daily range): BP systolic 117–151; BP diastolic 57–76; PULSE 54–61; RESP 16–20; TEMP 36.4–36.7; O2SAT 94–100; BMI 21.4
--- NOTE | 2021-07-30 04:47 | PC.NURSE ---
Patient has rested well this RN's shift. Patient ambulated well with 1 assist to the bathroom. No concerns voiced to this RN
--- NOTE | 2021-07-30 06:37 | PC.NURSE ---
Ceftriaxone and D5W/0.9% NS w/ 40meq K+ are compatible per Eldon from [employer].
[2021-07-30 07:46] LABS: Basophils % 0.2 % (0.1-2.0); Eosinophils % 0.1 % (0.1-12.0); Hematocrit 24.5 % (37.0-47.0); Hemoglobin 7.8 g/dL (12.2-16.2); Lymphocytes # 1.9 K/mm3 (0.7-4.5); Lymphocytes % 14.7 % (10-50); Mean Corpuscular HGB Conc 31.8 g/dL (31.8-35.4); Mean Corpuscular Hemoglobin 31.6 pg (27.0-31.2); Mean Corpuscular Volume 99.2 fl (81-99); Mean Platelet Volume 9.8 fl (7.4-10.4); Monocytes # 0.8 K/mm3 (0.1-1.0); Monocytes % 5.9 % (1.7-9.3); Neutrophils # 10.2 K/mm3 (1.8-7.8); Neutrophils % 79.1 % (37.0-80.0); Platelet Count 203 K/mm3 (142-424); Red Blood Count 2.47 M/mm3 (4.20-5.40); Red Cell Distribution Width 15.1 % (11.5-17.5); White Blood Count 12.9 K/mm3 (4.8-10.8)
[2021-07-30 08:09] LABS: Chloride 115 mmol/L (98-107); Potassium 3.4 mmoL/L (3.5-5.1); Sodium 135 mmol/L (136-145)
[2021-07-30 08:12] LABS: Anion Gap 13.4 mEq/L (5-15); Blood Urea Nitrogen 37 mg/dl (7-17); Creatinine Clearance Estimated 30 mL/min (50-200); Estimated Glomerular Filt Rate 40 ml/min (>60); GFR (African American) 49 ML/MIN (>60); Glucose 170 mg/dl (74-100)
[2021-07-30 08:19] LABS: Carbon Dioxide 10 mmol/L (22.0-30.0)
--- NOTE | 2021-07-30 08:32 | HMH.ACPN2 ---
Internal Medicine - PN: Subj *Date: 07/30/21 *Time: 08:32 Interval history: Patient with no new complaints today. Exam Vital signs and Labs for Last 24 Hours: Temp Pulse Resp BP Pulse Ox 98.1 F 60 16 151/58 H 100 07/30/21 08:00 07/30/21 08:00 07/30/21 08:00 07/30/21 08:00 07/30/21 08:00 Laboratory Results - last 24 hr 07/28/21 06:02: Urine Color Yellow, Urine Appearance Clear, Urine pH 5.5, Ur Specific [place] 1.020, Urine Protein 2+, Urine Glucose (UA) Negative, Urine Ketones Trace, Urine Blood 3+, Urine Nitrate Positive, Urine Bilirubin Negative, Urine Urobilinogen 2.0, Ur Leukocyte Esterase 3+ A, Urine RBC 10-20, Urine WBC 20-50, Ur Squamous Epith Cells Occasional, Urine Bacteria 2+ 07/30/21 07:15: WBC 12.9 H, RBC 2.47 L, Hgb 7.8 L, Hct 24.5 L, MCV 99.2 H, MCH 31.6 H, MCHC 31.8, RDW 15.1, Plt Count 203, MPV 9.8, Neut % (Auto) 79.1, Lymph % (Auto) 14.7, [place] % (Auto) 5.9, Eos % (Auto) 0.1, Baso % (Auto) 0.2, Neut # (Auto) 10.2 H, Lymph # (Auto) 1.9, [place] # (Auto) 0.8, Eos # (Auto) 0.0, Baso # (Auto) 0.0 07/30/21 07:15: Sodium 135 L, Potassium 3.4 L, Chloride 115 H, Carbon Dioxide 10 L, Anion Gap 13.4, BUN 37 H D, Creatinine 1.30 H, Estimated Creat Clear 30, Estimated GFR 40 L, Est GFR ( Amer) 49 L D, Glucose 170 H, Calcium 8.0 L Vital Signs - 24 hr 07/29/21 15:51 07/29/21 20:00 07/30/21 00:00 Temperature 97.4 F L 97.6 F 98.0 F Pulse Rate [Left] 52 L 56 L 59 L Respiratory Rate 16 16 16 Blood Pressure [Right Arm] 136/56 L 152/53 H 141/62 H 02 Sat by Pulse Oximetry 100 96 99 07/30/21 04:00 07/30/21 08:00 Temperature 97.5 F L 98.1 F Pulse Rate [Left] 61 60 Respiratory Rate 17 16 Blood Pressure [Right Arm] 127/60 151/58 H 02 Sat by Pulse Oximetry 99 100 I & O for Last 24 hours: Intake & Output 07/27/21 07/28/21 07/29/21 07/30/21 23:59 23:59 23:59 23:59 Intake Total 240 / 240 2601 / 2601 889 / 889 Output Total 700 / 1100 1450 / 1450 Balance -460 / -860 1151 / 1151 889 / 889 Weight 111 lb 15.988 oz 111 lb 15.917 oz 109 lb 6.4 oz Microbiology Reports for the Last 24 Hours: Microbiology 07/28/21 06:02 Urine,Clean Catch Urine Culture - Final Escherichia coli 07/28/21 06:06 Blood Blood Culture - Preliminary Gram Negative Rods 07/28/21 06:06 Blood Blood Culture - Preliminary Gram Negative Rods - Constitutional no acute distress - *Routine HEENT Exam Head: Present: normocephalic Eye: Present: EOMI, PERRL ENT: Present: mucous membranes moist - *Routine Neck Exam Present: supple. Absent: lymphadenopathy - *Routine Respiratory Exam Present: CTA bilaterally - *Routine Cardiovascular Exam Present: RRR - *Routine Abdominal Exam Present: soft, normoactive bowel sounds. Absent: tenderness - *Routine Extremities Exam Absent: cyanosis, clubbing, edema - *Routine Skin Exam Present: warm. Absent: rash - *Routine Neurological Exam Present: alert, oriented X3, tremors Assessment and Plan (1) Urinary tract infection Status: Acute Category: Medical Code(s): N39.0 - Urinary tract infection, site not specified (2) RUBÉN (acute kidney injury) Status: Acute Category: Medical Code(s): N17.9 - Acute kidney failure, unspecified (3) Dehydration Status: Acute Category: Medical Code(s): E86.0 - Dehydration (4) Metabolic acidosis Status: Acute Category: Medical Code(s): E87.2 - Acidosis (5) Rib pain on right side Status: Acute Category: Medical Code(s): R07.81 - Pleurodynia (6) Sepsis Status: Acute Qualifiers: Sepsis type: sepsis due to unspecified organism Sepsis acute organ dysfunction status: with acute organ dysfunction Severe sepsis acute organ dysfunction type: acute renal failure Acute renal failure type: unspecified Severe sepsis shock status: without septic shock Qualified Code(s): A41.9 - Sepsis, unspecified orga
--- NOTE | 2021-07-30 08:45 | PC.NURSE ---
Made Dr. Brasher aware of critical c02 of 10. Improved from 8. NNO at this time.
--- NOTE | 2021-07-30 09:00 | PC.NURSE ---
Dr. Brasher mentioned possible PICC line Sunday08-01-21, depending on culture results.
--- NOTE | 2021-07-30 15:27 | PC.NURSE ---
Patient has had an increase in pain in her left side during this shift. Gave acetaminophen per order.
--- NOTE | 2021-07-30 17:58 | PC.NURSE ---
Patient having increase in pain on her left side. Requested heating pad, Gil Alvarado RN applied warm compress to try and alleviate. Son at bedside visiting. Call light in place and working properly.
[2021-07-31] VITALS (7 sets, daily range): BP systolic 119–142; BP diastolic 58–71; PULSE 58–69; RESP 15–20; TEMP 36.4–36.7; O2SAT 99–100; BMI 21.2
--- NOTE | 2021-07-31 03:51 | PC.NURSE ---
Patient stated at the beginning of shift that she is feeling much better. She has ambulated well with 1x assist to the bedside commode. Patient remains hemodynamically stable thus far.
--- NOTE | 2021-07-31 06:59 | HMH.ACPN2 ---
Internal Medicine - PN: Subj *Date: 07/31/21 *Time: 06:59 Interval history: Patient with no new complaints today, slept well last night. Exam Vital signs and Labs for Last 24 Hours: Temp Pulse Resp BP Pulse Ox 97.5 F L 58 L 15 142/71 H 100 07/31/21 04:00 07/31/21 04:00 07/31/21 04:00 07/31/21 04:00 07/31/21 04:00 Laboratory Results - last 24 hr 07/30/21 07:15: WBC 12.9 H, RBC 2.47 L, Hgb 7.8 L, Hct 24.5 L, MCV 99.2 H, MCH 31.6 H, MCHC 31.8, RDW 15.1, Plt Count 203, MPV 9.8, Neut % (Auto) 79.1, Lymph % (Auto) 14.7, [place] % (Auto) 5.9, Eos % (Auto) 0.1, Baso % (Auto) 0.2, Neut # (Auto) 10.2 H, Lymph # (Auto) 1.9, [place] # (Auto) 0.8, Eos # (Auto) 0.0, Baso # (Auto) 0.0 07/30/21 07:15: Sodium 135 L, Potassium 3.4 L, Chloride 115 H, Carbon Dioxide 10 L, Anion Gap 13.4, BUN 37 H D, Creatinine 1.30 H, Estimated Creat Clear 30, Estimated GFR 40 L, Est GFR ( Amer) 49 L D, Glucose 170 H, Calcium 8.0 L Vital Signs - 24 hr 07/30/21 08:00 07/30/21 12:00 07/30/21 15:22 Temperature 98.1 F 97.9 F 97.9 F Pulse Rate [Left] 60 54 L 58 L Respiratory Rate 16 20 20 Blood Pressure [Right Arm] 151/58 H 151/76 H 149/69 H 02 Sat by Pulse Oximetry 99 100 94 L 07/30/21 19:54 07/30/21 20:00 07/31/21 04:00 Temperature 97.9 F 97.5 F L Pulse Rate [Left] 56 L 58 L Respiratory Rate 16 15 Blood Pressure [Right Arm] 117/57 L 142/71 H 02 Sat by Pulse Oximetry 99 99 100 I & O for Last 24 hours: Intake & Output 07/28/21 07/29/21 07/30/21 07/31/21 23:59 23:59 23:59 23:59 Intake Total 240 / 240 2601 / 2601 2089 / 2089 1727 / 1727 Output Total 700 / 1100 1450 / 1450 700 / 700 Balance -460 / -860 1151 / 1151 1389 / 1389 1727 / 1727 Weight 111 lb 15.988 oz 111 lb 15.917 oz 109 lb 6.4 oz 108 lb 0.424 oz Microbiology Reports for the Last 24 Hours: Microbiology 07/28/21 06:06 Blood Blood Culture - Final Escherichia coli 07/28/21 06:06 Blood Blood Culture - Final Escherichia coli 07/28/21 06:02 Urine,Clean Catch Urine Culture - Final Escherichia coli - Constitutional no acute distress - *Routine HEENT Exam Head: Present: normocephalic Eye: Present: EOMI, PERRL ENT: Present: mucous membranes moist - *Routine Neck Exam Present: supple. Absent: lymphadenopathy - *Routine Respiratory Exam Present: CTA bilaterally - *Routine Cardiovascular Exam Present: RRR - *Routine Abdominal Exam Present: soft, normoactive bowel sounds. Absent: tenderness - *Routine Extremities Exam Absent: cyanosis, clubbing, edema - *Routine Skin Exam Present: warm. Absent: rash - *Routine Neurological Exam Present: alert, oriented X3, tremors Assessment and Plan (1) Urinary tract infection Status: Acute Category: Medical Code(s): N39.0 - Urinary tract infection, site not specified (2) RUBÉN (acute kidney injury) Status: Acute Category: Medical Code(s): N17.9 - Acute kidney failure, unspecified (3) Dehydration Status: Acute Category: Medical Code(s): E86.0 - Dehydration (4) Metabolic acidosis Status: Acute Category: Medical Code(s): E87.2 - Acidosis (5) Rib pain on right side Status: Acute Category: Medical Code(s): R07.81 - Pleurodynia (6) Sepsis Status: Acute Qualifiers: Sepsis type: sepsis due to unspecified organism Sepsis acute organ dysfunction status: with acute organ dysfunction Severe sepsis acute organ dysfunction type: acute renal failure Acute renal failure type: unspecified Severe sepsis shock status: without septic shock Qualified Code(s): A41.9 - Sepsis, unspecified organism; R65.20 - Severe sepsis without septic shock; N17.9 - Acute kidney failure, unspecified Category: Medical Code(s): A41.9 - Sepsis, unspecified organism (7) Anemia Status: Acute Category: Medical Code(s): D64.9 - Anemia, unspecified (8) Essential tremor Status: Ch
[2021-08-01 03:36] VITALS: BP 147/65; PULSE 65; RESP 15; TEMP 36.7; O2SAT 99
--- NOTE | 2021-08-01 04:03 | PC.NURSE ---
Patient has rested well thus far in this RN's shift. She has ambulated to the bedside commode with assistance x1. Patient has had no acute events thus far on this RN's shift.
[2021-08-01 04:53] VITALS: BMI 21.6
[2021-08-01 06:34] LABS: Chloride 120 mmol/L (98-107)
[2021-08-01 06:35] LABS: Potassium 5.1 mmoL/L (3.5-5.1); Sodium 138 mmol/L (136-145)
[2021-08-01 06:37] LABS: Blood Urea Nitrogen 19 mg/dl (7-17); Creatinine Clearance Estimated 39 mL/min (50-200); Estimated Glomerular Filt Rate 54 ml/min (>60); GFR (African American) 66 ML/MIN (>60)
[2021-08-01 06:38] LABS: Anion Gap 7.1 mEq/L (5-15); Calcium 8.8 mg/dl (8.4-10.2); Carbon Dioxide 16 mmol/L (22.0-30.0); Glucose 122 mg/dl (74-100)
--- NOTE | 2021-08-01 07:01 | XR_ITS ---
PROCEDURE INFORMATION: Exam: XR Chest Exam date and time: 08/01/2021 5:09 PM Age: 71 years old Clinical indication: Device placement; Picc; Additional info: Confirm picc line placement TECHNIQUE: Imaging protocol: XR of the chest. Views: 1 view. COMPARISON: CR XR RIBS LT 2V 07/28/2021 5:34 AM FINDINGS: Left PICC line with tip in the SVC. Bilateral perihilar hazy/ground-glass opacifications. Remainder of the lungs clear. Normal pleural spaces. Magnified cardiomediastinal silhouette due to technique. Airways patent. No acute skeletal abnormality or aggressive osseous lesion. Multiple surgical clips in the left upper quadrant. IMPRESSION: 1. Left PICC line in place. 2. Concern for mild bilateral perihilar acute airspace disease which could be related to pneumonia or mild pulmonary edema.
[2021-08-01 07:45] LABS: Basophils # 0.1 K/mm3 (0-0.2); Basophils % 0.6 % (0.1-2.0); Eosinophils # 0.1 K/mm3 (0.0-0.4); Eosinophils % 0.8 % (0.1-12.0); Hemoglobin 8.1 g/dL (12.2-16.2); Lymphocytes # 3.8 K/mm3 (0.7-4.5); Lymphocytes % 30.4 % (10-50); Mean Corpuscular HGB Conc 32.5 g/dL (31.8-35.4); Mean Corpuscular Hemoglobin 32.2 pg (27.0-31.2); Mean Corpuscular Volume 98.9 fl (81-99); Mean Platelet Volume 11.6 fl (7.4-10.4); Monocytes # 0.8 K/mm3 (0.1-1.0); Monocytes % 6.1 % (1.7-9.3); Neutrophils # 7.8 K/mm3 (1.8-7.8); Neutrophils % 62.1 % (37.0-80.0); Platelet Count 304 K/mm3 (142-424); Red Blood Count 2.52 M/mm3 (4.20-5.40); Red Cell Distribution Width 15.4 % (11.5-17.5); White Blood Count 12.6 K/mm3 (4.8-10.8)
[2021-08-01 08:00] VITALS: BP 165/73; PULSE 65; RESP 20; TEMP 36.5; O2SAT 100
--- NOTE | 2021-08-01 08:37 | HMH.ACPN2 ---
<Awa Mathur - Last Filed: 08/01/21 08:37> Internal Medicine - PN: Subj *Date: 08/01/21 *Time: 08:37 Interval history: Patient states she just feels extremely weak. Does not feel like eating. She denies nausea. She denies shortness of breath. She does not have any pain. She has been up to the bedside commode only. She says she has no trouble sleeping. CBC shows a white blood cell count of 12,600 this a.m. with a hemoglobin of 8.1 hematocrit of 25. Blood chemistries show sodium 138 potassium of 5.1. BUN is 19 and creatinine is 1. Exam Vital signs and Labs for Last 24 Hours: Temp Pulse Resp BP Pulse Ox 97.7 F 65 20 165/73 H 100 08/01/21 08:00 08/01/21 08:00 08/01/21 08:00 08/01/21 08:00 08/01/21 08:00 Laboratory Results - last 24 hr 08/01/21 05:29: WBC 12.6 H, RBC 2.52 L, Hgb 8.1 L, Hct 25.0 L, MCV 98.9, MCH 32.2 H, MCHC 32.5, RDW 15.4, Plt Count 304 D, MPV 11.6 H, Neut % (Auto) 62.1, Lymph % (Auto) 30.4, [place] % (Auto) 6.1, Eos % (Auto) 0.8, Baso % (Auto) 0.6, Neut # (Auto) 7.8, Lymph # (Auto) 3.8, [place] # (Auto) 0.8, Eos # (Auto) 0.1, Baso # (Auto) 0.1 08/01/21 05:29: Sodium 138, Potassium 5.1 D, Chloride 120 H, Carbon Dioxide 16 L, Anion Gap 7.1, BUN 19 H D, Creatinine 1.00 D, Estimated Creat Clear 39, Estimated GFR 54 L, Est GFR ( Amer) 66 D, Glucose 122 H, Calcium 8.8 I & O for Last 24 hours: Intake & Output 07/29/21 07/30/21 07/31/21 08/01/21 11:59 11:59 11:59 11:59 Intake Total 2481 / 2481 1729 / 1729 2687 / 2687 720 / 720 Output Total 1650 / 1650 800 / 800 400 / 400 500 / 500 Balance 831 / 831 929 / 929 2287 / 2287 220 / 220 Weight 109 lb 6.4 oz 108 lb 0.424 oz 110 lb Microbiology Reports for the Last 24 Hours: Microbiology 07/28/21 06:06 Blood Blood Culture - Final Escherichia coli 07/28/21 06:06 Blood Blood Culture - Final Escherichia coli - Constitutional no acute distress Comments: Frail - *Routine Respiratory Exam Present: crackles (Right basilar) - *Routine Cardiovascular Exam Present: RRR - *Routine Abdominal Exam Present: soft, normoactive bowel sounds. Absent: tenderness, distended - *Routine Extremities Exam Absent: edema, calf tenderness - *Routine Neurological Exam Present: alert, oriented X3 Assessment and Plan (1) Urinary tract infection Status: Acute Category: Medical Code(s): N39.0 - Urinary tract infection, site not specified (2) RUBÉN (acute kidney injury) Status: Acute Category: Medical Code(s): N17.9 - Acute kidney failure, unspecified (3) Dehydration Status: Acute Category: Medical Code(s): E86.0 - Dehydration (4) Metabolic acidosis Status: Acute Category: Medical Code(s): E87.2 - Acidosis (5) Rib pain on right side Status: Acute Category: Medical Code(s): R07.81 - Pleurodynia (6) Sepsis Status: Acute Qualifiers: Sepsis type: sepsis due to unspecified organism Sepsis acute organ dysfunction status: with acute organ dysfunction Severe sepsis acute organ dysfunction type: acute renal failure Acute renal failure type: unspecified Severe sepsis shock status: without septic shock Qualified Code(s): A41.9 - Sepsis, unspecified organism; R65.20 - Severe sepsis without septic shock; N17.9 - Acute kidney failure, unspecified Category: Medical Code(s): A41.9 - Sepsis, unspecified organism (7) Anemia Status: Acute Category: Medical Code(s): D64.9 - Anemia, unspecified (8) Essential tremor Status: Chronic Category: Medical Code(s): G25.0 - Essential tremor (9) Hypothyroidism Status: Chronic Category: Medical Code(s): E03.9 - Hypothyroidism, unspecified (10) Osteoporosis Problem details: USI Status: Chronic Qualifiers: Osteoporosis type: age-related Presence of current pathological fracture: unspecified Qualified Code(s): M81.0 - Age-related osteoporosis without current pa
--- NOTE | 2021-08-01 11:33 | HMH.PTEV ---
Physical Therapy Evaluation Rehab PT IP Evaluation Start: 08/01/21 10:28 Freq: ONCE Status: Active Protocol: Document 08/01/21 11:30 TANIYA (Rec: 08/01/21 11:33 TANIYA [id number]) Subjective/History History History Terrie is a 71yo F with past medical history significant for hypertension, GERD, depression and essential tremors presenting for chief complaint of feeling ill and generalized weakness at home. Patient started feeling ill on Sunday and has had a decreased p.o. intake since then. Subjective Subjective Pt reports she has infection in my blood Rehab PT IP Eval Objective Appearance Patient Behavior Cooperative,Fatigued Patient Orientation Place,Name,Birthday,Year Difficulty following instructions none Speech Pattern Appropriate Ambulation Patient Able to Ambulate Yes Ambulation Observation IP General Gait Pattern Observation Shuffling Step Ambulation Distance (feet) 20 Ambulation Assistive Device None Ambulation Ability Contact Guard/Hand Hold Balance Ability to Arise Able, uses arms to help Sitting Balance Steady, safe Standing Balance Steady, wide stance Dynamic Sitting Balance Ability Good Dynamic Standing Balance Ability Fair Transfers Bed Transfer Ability Supervision/Stand by Chair Transfer Ability Supervision/Stand by Sit to Stand Bed Transfer Ability Contact Guard/Hand Hold Sit to Stand Chair Transfer Ability Contact Guard/Hand Hold Rehab PT IP prob,goals,plan Problems Date of Evaluation: 08/01/21 PT IP Problems Transfers,Gait,Balance,Self care,Safety Rehab Potential Rehab Potential Fair Equipment Needs Assistive Devices None / NA Plan PT Intervention Plan Transfers,Gait,Balance,Self care,Safety,Therapeutic Exercise PT Plan Frequency BID Duration LOS Discharge Goals Bed Transfer Ability Independent Sit to Stand Chair Transfer Ability Contact Guard/Hand Hold Ambulation Assistive Device None Ambulation Distance (feet) 25 Discharge Plan PT Discharge Plan Due to Pt's PLOF she will benefit from skilled therapy to allow return to this level. Pt will
--- NOTE | 2021-08-01 14:32 | HMH.ACPN ---
Internal Medicine - PN: Subj *Date: 08/01/21 *Time: 14:32 Exam Vital signs and Labs for Last 24 Hours: Temp Pulse Resp BP Pulse Ox 97.7 F 65 20 165/73 H 100 08/01/21 08:00 08/01/21 08:00 08/01/21 08:00 08/01/21 08:00 08/01/21 08:00 Laboratory Results - last 24 hr 08/01/21 05:29: WBC 12.6 H, RBC 2.52 L, Hgb 8.1 L, Hct 25.0 L, MCV 98.9, MCH 32.2 H, MCHC 32.5, RDW 15.4, Plt Count 304 D, MPV 11.6 H, Neut % (Auto) 62.1, Lymph % (Auto) 30.4, [place] % (Auto) 6.1, Eos % (Auto) 0.8, Baso % (Auto) 0.6, Neut # (Auto) 7.8, Lymph # (Auto) 3.8, [place] # (Auto) 0.8, Eos # (Auto) 0.1, Baso # (Auto) 0.1 08/01/21 05:29: Sodium 138, Potassium 5.1 D, Chloride 120 H, Carbon Dioxide 16 L, Anion Gap 7.1, BUN 19 H D, Creatinine 1.00 D, Estimated Creat Clear 39, Estimated GFR 54 L, Est GFR ( Amer) 66 D, Glucose 122 H, Calcium 8.8 I & O for Last 24 hours: Intake & Output 07/29/21 07/30/21 07/31/21 08/01/21 23:59 23:59 23:59 23:59 Intake Total 2601 / 2601 2089 / 2089 2447 / 2447 240 / 240 Output Total 1450 / 1450 700 / 700 500 / 500 Balance 1151 / 1151 1389 / 1389 2447 / 2447 -260 / -260 Weight 50.8 kg 49.623 kg 49 kg 49.895 kg Assessment and Plan (1) Urinary tract infection Status: Acute Category: Medical Code(s): N39.0 - Urinary tract infection, site not specified (2) RUBÉN (acute kidney injury) Status: Acute Category: Medical Code(s): N17.9 - Acute kidney failure, unspecified (3) Dehydration Status: Acute Category: Medical Code(s): E86.0 - Dehydration (4) Metabolic acidosis Status: Acute Category: Medical Code(s): E87.2 - Acidosis (5) Rib pain on right side Status: Acute Category: Medical Code(s): R07.81 - Pleurodynia (6) Sepsis Status: Acute Qualifiers: Sepsis type: sepsis due to unspecified organism Sepsis acute organ dysfunction status: with acute organ dysfunction Severe sepsis acute organ dysfunction type: acute renal failure Acute renal failure type: unspecified Severe sepsis shock status: without septic shock Qualified Code(s): A41.9 - Sepsis, unspecified organism; R65.20 - Severe sepsis without septic shock; N17.9 - Acute kidney failure, unspecified Category: Medical Code(s): A41.9 - Sepsis, unspecified organism (7) Anemia Status: Acute Category: Medical Code(s): D64.9 - Anemia, unspecified (8) Essential tremor Status: Chronic Category: Medical Code(s): G25.0 - Essential tremor (9) Hypothyroidism Status: Chronic Category: Medical Code(s): E03.9 - Hypothyroidism, unspecified (10) Osteoporosis Problem details: USI Status: Chronic Qualifiers: Osteoporosis type: age-related Presence of current pathological fracture: unspecified Qualified Code(s): M81.0 - Age-related osteoporosis without current pathological fracture Category: Medical Code(s): M81.0 - Age-related osteoporosis without current pathological fracture (11) Hyponatremia Status: Acute Category: Medical Code(s): E87.1 - Hypo-osmolality and hyponatremia (12) Hypocalcemia Status: Acute Category: Medical Code(s): E83.51 - Hypocalcemia (13) Abnormal thyroid blood test Status: Acute Category: Medical Code(s): R79.89 - Other specified abnormal findings of blood chemistry (14) E coli bacteremia Status: Acute Category: Medical Code(s): R78.81 - Bacteremia The patient's infection will respond to the chosen ABx?: Yes Is the patient receiving the right drug, dose, and route?: Yes Could a more targeted ABx be ordered?: No (WBC DECREASED, E. COLI IN BLOOD X2 AND URINE CX. SENSITIVE TO ROCEPHIN.)
--- NOTE | 2021-08-01 15:17 | DIET.NUTRFU ---
Addendum entered by Dilia Blank RD, LD 08/01/21 15:21: Plans to discharge to [place] when ready, encouraged her to order and eat 3 meals/day. She is at high risk for protein calorie malnutrition Original Note: RD interviewed patient, has very poor appetite. When does eat she prefers restaurant and fast food meals. Son also helps with some meals at home. She denies being diabetic and no medications are in place nor A1c. Based on her poor intake, liberalizing diet to regular may increase her meal intake to prevent further weight loss. She also reports she dislikes glucerna, ensure and premier protein. Willing to try Boost Clear, started with dinner. Kitchen notified
--- NOTE | 2021-08-01 15:39 | PC.NURSE ---
Pt has rested well this shift. Pt has required assist x1 to bedside commode with nursing staff. Still awaiting PICC line placement at this time. No acute changes, will continue to monitor.
[2021-08-01 16:00] VITALS: BP 148/67; PULSE 55; RESP 16; TEMP 36.3; O2SAT 99
[2021-08-01 19:38] VITALS: BP 155/79; PULSE 66; RESP 15; TEMP 36.5; O2SAT 98
[2021-08-01 20:00] VITALS: O2SAT 98
[2021-08-02 04:00] VITALS: BP 166/74; PULSE 62; RESP 16; TEMP 36.7; O2SAT 100
--- NOTE | 2021-08-02 04:41 | PC.NURSE ---
Patient continues to do well with ambulation to the bedside commode with assistance x1. Patient has rested well this RN's shift. No acute events thus far.
[2021-08-02 05:00] VITALS: BMI 21.6
[2021-08-02 08:00] VITALS: BP 160/74; PULSE 74; RESP 18; TEMP 36.8; O2SAT 100
--- NOTE | 2021-08-02 08:25 | HMH.ACPN2 ---
<Awa Mathur - Last Filed: 08/02/21 08:25> Internal Medicine - PN: Subj *Date: 08/02/21 *Time: 08:25 Interval history: Patient states she is feeling better today. She is able to eat. Getting out of bed to the bedside commode was easier yesterday. She did sleep last night. She denies chest pain and shortness of breath. Exam Vital signs and Labs for Last 24 Hours: Temp Pulse Resp BP Pulse Ox 98.2 F 74 18 160/74 H 100 08/02/21 08:00 08/02/21 08:00 08/02/21 08:00 08/02/21 08:00 08/02/21 08:00 I & O for Last 24 hours: Intake & Output 07/30/21 07/31/21 08/01/21 08/02/21 11:59 11:59 11:59 11:59 Intake Total 1729 / 1729 2687 / 2687 720 / 720 600 / 600 Output Total 800 / 800 400 / 400 500 / 500 500 / 500 Balance 929 / 929 2287 / 2287 220 / 220 100 / 100 Weight 109 lb 6.4 oz 108 lb 0.424 oz 110 lb 110 lb 4.439 oz - Constitutional no acute distress Comments: Sitting up in bed eating her breakfast - *Routine Respiratory Exam Present: CTA bilaterally - *Routine Cardiovascular Exam Present: RRR - *Routine Abdominal Exam Present: soft, normoactive bowel sounds. Absent: tenderness - *Routine Extremities Exam Absent: edema, calf tenderness - *Routine Neurological Exam Present: alert, oriented X3 Assessment and Plan (1) Urinary tract infection Status: Acute Category: Medical Code(s): N39.0 - Urinary tract infection, site not specified (2) RUBÉN (acute kidney injury) Status: Acute Category: Medical Code(s): N17.9 - Acute kidney failure, unspecified (3) Dehydration Status: Acute Category: Medical Code(s): E86.0 - Dehydration (4) Metabolic acidosis Status: Acute Category: Medical Code(s): E87.2 - Acidosis (5) Rib pain on right side Status: Acute Category: Medical Code(s): R07.81 - Pleurodynia (6) Sepsis Status: Acute Qualifiers: Sepsis type: sepsis due to unspecified organism Sepsis acute organ dysfunction status: with acute organ dysfunction Severe sepsis acute organ dysfunction type: acute renal failure Acute renal failure type: unspecified Severe sepsis shock status: without septic shock Qualified Code(s): A41.9 - Sepsis, unspecified organism; R65.20 - Severe sepsis without septic shock; N17.9 - Acute kidney failure, unspecified Category: Medical Code(s): A41.9 - Sepsis, unspecified organism (7) Anemia Status: Acute Category: Medical Code(s): D64.9 - Anemia, unspecified (8) Essential tremor Status: Chronic Category: Medical Code(s): G25.0 - Essential tremor (9) Hypothyroidism Status: Chronic Category: Medical Code(s): E03.9 - Hypothyroidism, unspecified (10) Osteoporosis Problem details: USI Status: Chronic Qualifiers: Osteoporosis type: age-related Presence of current pathological fracture: unspecified Qualified Code(s): M81.0 - Age-related osteoporosis without current pathological fracture Category: Medical Code(s): M81.0 - Age-related osteoporosis without current pathological fracture (11) Hyponatremia Status: Acute Category: Medical Code(s): E87.1 - Hypo-osmolality and hyponatremia (12) Hypocalcemia Status: Acute Category: Medical Code(s): E83.51 - Hypocalcemia (13) Abnormal thyroid blood test Status: Acute Category: Medical Code(s): R79.89 - Other specified abnormal findings of blood chemistry (14) E coli bacteremia Status: Acute Category: Medical Code(s): R78.81 - Bacteremia - Assessment and plan all Dx Assessment and Plan for all problems:: Patient is interested in ongoing rehab at discharge. Care management is involved. We will continue IV antibiotics. PICC line was placed yesterday <Elder Brasher - Last Filed: 08/02/21 09:32> Internal Medicine - PN: Subj *Date: 08/02/21 *Time: 09:31 Exam Vital signs and Labs for Last 24 Hours: Temp Pulse Resp BP Pulse Ox 98.2 F 74 18 160/74 H 100 08/02/21 08:00
--- NOTE | 2021-08-02 11:27 | SW/DCPLANNER ---
Addendum entered by Isabella Garcia 08/02/21 14:34: Patient will transport via [facility] today and has notified her son of discharge plans. Addendum entered by Isablela Garcia 08/02/21 13:18: This patient has been accepted to [facility] level of care. Elenita has stated that can accept this patient today and will NOT require a COVID swab prior to discharge. Original Note: This patient is currently interested in placement at [facility] level of care at time of discharge. Patient needs PT/OT and IV antibiotics (Rocephin for two more weeks). Patient information has been faxed to Elenita moreira/ [place]. Elenita has stated that she will follow up with patient at bedside today. Patient is medically stable for discharge once placement is established.
--- NOTE | 2021-08-02 13:29 | HMH.DCSUM ---
General - General Admission date:: 07/28/21 <Elder Brasher - 08/02/21 14:13> 07/28/21 <Awa Mathur - 08/02/21 13:34> Discharge date: 08/02/21 <Awa Mathur - 08/02/21 13:48> HPI HPI: Terrie is a 71yo F with past medical history significant for hypertension, GERD, depression and essential tremors presenting for chief complaint of feeling ill and generalized weakness at home. Patient started feeling ill on Sunday and has had a decreased p.o. intake since then. She denies fevers but has had rhinorrhea. She denied a sore throat, cough or hemoptysis. No chest pain or shortness of breath. She denied abdominal pain and stated she has been feeling nauseated but did not vomit secondary to prior surgery for hiatal hernia. No diarrhea, dysuria, blood in stool or urine. No unilateral lower extremity swelling. Patient denied blood thinner use. Of note, patient fell Sunday and hit her left-sided ribs on a cabinet. She had pain over the lateral left rib cage but denied hitting her head or loss of consciousness. On initial evaluation, patient is hemodynamically stable nontoxic-appearing. Differential diagnosis includes, but is not limited to, rib fracture, contusion, viral gastrointestinal illness, COVID-19, ACS, pneumonia, urinary tract infection, other. On initial exam, patient is hemodynamically stable nontoxic-appearing. She was evaluated with CBC, CMP, lactic acid, troponin, coags, magnesium, INR, COVID-19 swab, UA, urine culture, blood culture. She was treated with 1 L of IV fluids. She was given p.o. Tylenol for pain. Lab work is significant for metabolic acidosis likely secondary to starvation ketoacidosis in addition to mild to moderate RUBÉN in the setting of a urinary tract infection. Patient's presentation is concerning for sepsis. Given this, patient was given IV antibiotics, started on mIVF and admitted for inpatient care. (above as per ER physician) <Awa Mathur - 08/02/21 13:34> Hospital Course Hospital Course: On admission patient was started on IV fluids and IV Rocephin with pending urine and blood cultures. Urine and blood eventually were positive for E. coli. keily PICC line was placed for ongoing IV antibiotics. Patient felt extremely weak on admission and she did improve daily. She never felt like eating but denied nausea and did not vomit. She denied shortness of breath. She eventually was able to get up to the bedside commode without problems. On 08/01/2021 white blood cell count was 12,600. With a hemoglobin of 8.1 hematocrit of 25. Care management was consulted for rehab at discharge. Patient was agreeable to this plan. On 06 04 2021 patient was improved. A bed was found at [place] and she was stable for discharge. She will continue with IV antibiotics with PICC line care. She will have physical therapy and Occupational Therapy with plans to go home. Medication as per medication reconciliation sheet. She will be followed at [place] by Dr. Brasher.. <Awa Mathur - 08/02/21 13:48> Objective Vital signs: Temp Pulse Resp BP Pulse Ox 98.2 F 74 18 160/74 H 100 08/02/21 08:00 08/02/21 08:00 08/02/21 08:00 08/02/21 08:00 08/02/21 08:00 <Elder Brasher - 08/02/21 14:13> Temp Pulse Resp BP Pulse Ox 98.2 F 74 18 160/74 H 100 08/02/21 08:00 08/02/21 08:00 08/02/21 08:00 08/02/21 08:00 08/02/21 08:00 <Awa Mathur - 08/02/21 13:34> Narrative: Exam Vital signs and Labs for Last 24 Hours: Temp Pulse Resp BP Pulse Ox 98.2 F 74 18 160/74 H 100 08/02/21 08:00 08/02/21 08:00 08/02/21 08:00 08/02/21 08:00 08/02/21 08:00 I & O for Last 24 hours: Intake & Output 07/30/21 07/31/21 08/01/21 08/02/21 11:59 11:59 11:59 11:59 Intake Total 1729 / 1729 2687 / 2687 720 / 720 600 / 600 Output Total 800 / 800 400 / 400 500 / 500 500 / 500 Balance 929 / 929 2287 / 2287 220 / 220 100 / 100 Weight 109 lb 6.4 oz 108 l
--- NOTE | 2021-08-02 15:15 | PC.NURSE ---
1500- called report to Tavia at [place] 1510- Spoke to Katelynn Cedeno @ [facility] about transportation for pt. Pt will be picked up by [facility] van in the next 30 min. 1515- PIV taken out and PICC line dressing replaced by MIKKI Fung under direction of Miles STARR
--- NOTE | 2021-08-03 15:27 | CARE MANAGER ---
Contacted Piotr Stafford related to follow up from hospital discharge. Nurse states she is doing well and receiving her IV antibiotic right now. Denies any questions or concerns. RO Verdugo
== END 2021-08-02 16:00 | DRG 872 ==
LOC: ER 07:07 → ICU 07:12 → 2ND 07-29 16:49 → ICU 07-30 09:27
PROVIDERS: Admitting Provider Family Medicine; Emergency Provider Emergency Medicine; PCP Family Medicine; Visit Provider Family Medicine
DX: A41.51 Sepsis due to Escherichia coli [E. coli] (principal); N39.0 Urinary tract infection, site not specified; N17.9 Acute kidney failure, unspecified; E87.2 Acidosis; E87.1 Hypo-osmolality and hyponatremia; E86.0 Dehydration; R07.81 Pleurodynia; D64.9 Anemia, unspecified; M81.0 Age-related osteoporosis without current pathological fracture; E83.51 Hypocalcemia; G89.29 Other chronic pain; M54.9 Dorsalgia, unspecified; K21.9 Gastro-esophageal reflux disease without esophagitis; E03.9 Hypothyroidism, unspecified
CPT/HCPCS: 36569; 36415; 71045; 71046; 71100; 80048; 80053; 81001; 82009; 82803; 83605; 83735; 84436; 84443; 84484; 85007; 85025; 85610; 87040; 87077; 87086; 87088; 87186; 93005; 96375; 97110; 97116; 97161; 97530; 99285; C1751; C9803; J0696; U0003; U0005

== ENCOUNTER → 2021-08-12 02:11 | Outpatient (CLI) | payer MEDICARE, SELFPAY ==
[2021-08-12 02:32] LABS: Basophils # 0.1 K/mm3 (0-0.2); Eosinophils # 0.1 K/mm3 (0.0-0.4); Hematocrit 24.9 % (37.0-47.0); Hemoglobin 7.7 g/dL (12.2-16.2); Lymphocytes # 1.6 K/mm3 (0.7-4.5); Lymphocytes % 29.3 % (10-50); Mean Corpuscular HGB Conc 31.1 g/dL (31.8-35.4); Mean Corpuscular Hemoglobin 32.9 pg (27.0-31.2); Mean Corpuscular Volume 105.7 fl (81-99); Mean Platelet Volume 9.4 fl (7.4-10.4); Monocytes # 0.3 K/mm3 (0.1-1.0); Monocytes % 5.8 % (1.7-9.3); Neutrophils # 3.3 K/mm3 (1.8-7.8); Neutrophils % 60.8 % (37.0-80.0); Platelet Count 254 K/mm3 (142-424); Red Blood Count 2.35 M/mm3 (4.20-5.40); Red Cell Distribution Width 17.2 % (11.5-17.5); White Blood Count 5.4 K/mm3 (4.8-10.8)
[2021-08-12 03:43] LABS: Vitamin B12 403 pg/mL (239-931)
[2021-08-12 03:46] LABS: Folate 6.78 ng/mL
== END ==
PROVIDERS: Visit Provider Family Medicine
DX: D64.9 Anemia, unspecified (principal)
CPT/HCPCS: 82607; 82746; 85025

== ENCOUNTER 2021-10-22 19:11 | Inpatient (IN) | payer MEDICARE, SELFPAY ==
[2021-10-22] VITALS (10 sets, daily range): BP systolic 110–137; BP diastolic 48–67; PULSE 59–71; RESP 16; TEMP 36.7–37.1; O2SAT 99–100; BMI 22.0
[2021-10-22 19:38] LABS: Eosinophils # 0.1 K/mm3 (0.0-0.4)
[2021-10-22 19:42] LABS: Basophils # 0.1 K/mm3 (0-0.2); Basophils % 1.2 % (0.1-2.0); Eosinophils % 1.2 % (0.1-12.0); Hemoglobin 8.7 g/dL (12.2-16.2); Lymphocytes % 16.4 % (10-50); Mean Corpuscular HGB Conc 30.3 g/dL (31.8-35.4); Mean Corpuscular Volume 112.1 fl (81-99); Mean Platelet Volume 10.6 fl (7.4-10.4); Monocytes # 0.3 K/mm3 (0.1-1.0); Monocytes % 5.8 % (1.7-9.3); Neutrophils # 4.5 K/mm3 (1.8-7.8); Neutrophils % 75.4 % (37.0-80.0); Platelet Count 261 K/mm3 (142-424); Red Blood Count 2.55 M/mm3 (4.20-5.40); Red Cell Distribution Width 15.1 % (11.5-17.5); White Blood Count 5.9 K/mm3 (4.8-10.8)
[2021-10-22 19:43] LABS: Albumin Level 3.6 g/dl (3.5-5.0); Albumin/Globulin Ratio 0.9 (1.1-1.8); Bilirubin,Total 1.5 mg/dl (0.2-1.3); Blood Urea Nitrogen 42 mg/dl (7-17); Calcium 8.5 mg/dl (8.4-10.2); Creatinine Clearance Estimated 34 mL/min (50-200); Estimated Glomerular Filt Rate 44 ml/min (>60); GFR (African American) 53 ML/MIN (>60); Globulin 3.9 g/dL (1.3-3.2); Glucose 118 mg/dl (74-100); Sodium 138 mmol/L (136-145); Total Protein,Serum 7.5 g/dl (6.3-8.2)
[2021-10-22 19:43] LABS: Hematocrit 28.6 % (37.0-47.0)
[2021-10-22 19:48] LABS: C-Reactive Protein 12.9 mg/L (0-4)
[2021-10-22 19:57] LABS: Microscopic, Urine URINE MICROSCOPIC (MICROSCOPIC)
[2021-10-22 19:58] LABS: Appearance,Urine CLEAR (Clear); Bilirubin,Urine Negative (Negative); Blood, Urine Negative (Negative); Color,Urine YELLOW (Yellow); Glucose,Urine (UA) Negative (Negative); Ketones,Urine Negative (Negative); Leukocyte Esterase,Urine Negative (Negative); Nitrate,Urine Negative (Negative); PH,Urine 5.5 (5.0-8.5); Protein,Urine Negative (Negative); Urobilinogen,Urine 0.2 EU/dl (0.2)
[2021-10-22 20:01] LABS: Amorphous Sediment,Urine Trace /lpf; WBC,Urine Occasional #/hpf (0-3)
[2021-10-22 20:02] LABS: Procalcitonin 0.365 ng/mL (0.0-2.0)
[2021-10-22 20:12] LABS: Alanine Aminotransferase 275 U/L (12-78); Alkaline Phosphatase 1224 U/L (38-126); Aspartate Amino Transferase 457 U/L (14-36); Carbon Dioxide 16 mmol/L (22.0-30.0); Chloride 115 mmol/L (98-107); Lactic Acid 0.8 mmol/L (0.7-2.1); Potassium 5.1 mmoL/L (3.5-5.1)
[2021-10-22 20:14] LABS: Anion Gap 12.1 mEq/L (5-15)
[2021-10-22 20:16] LABS: Erythrocyte Sedimentation Rate 99 mm/hr (0-30)
--- NOTE | 2021-10-22 20:43 | CT_ITS ---
PROCEDURE INFORMATION: Exam: CT Abdomen And Pelvis With Contrast Exam date and time: 10/22/2021 9:59 PM Age: 71 years old Clinical indication: Abdominal pain; Flank; Lower; Patient HX: Back pain; Additional info: Low back pain TECHNIQUE: Imaging protocol: Computed tomography of the abdomen and pelvis with contrast. Radiation optimization: All CT scans at this facility use at least one of these dose optimization techniques: automated exposure control; mA and/or kV adjustment per patient size (includes targeted exams where dose is matched to clinical indication); or iterative reconstruction. Contrast material: ISOVUE; Contrast volume: 75 ml; Contrast route: IV; COMPARISON: ABDPELW CT abdomen pelvis w con 10/26/2018 7:37 PM FINDINGS: Lungs: No mass/infiltrate at either lung base. No pleural effusion. Liver: The liver is normal in size and attenuation. No intrahepatic biliary dilitation. Gallbladder and bile ducts: The gallbladder is surgically absent. No evidence of extrahepatic biliary dilatation. Pancreas: Normal. No ductal dilation. Spleen: Normal. No splenomegaly. Adrenal glands: Normal. No mass. Kidneys and ureters: There is a 3.6 cm cortical cyst arising from the inferior pole of the right kidney. No hydronephrosis. Stomach and bowel: There are multiple clips identified in the region of the gastric fundus and superior to the body and tail of the pancreas. This may be on the basis of prior fundoplication procedure. The possibility that this represents clips associated with prior vagotomy is less likely however not entirely excluded. There is prominent fecal and gaseous distention of the colon. There are dilated loops of proximal, mid, and distal ileum. Fecalization of contents of dilated loops, with a transition in caliber between dilated and nondilated bowel within the right lower quadrant. Findings suggest the presence of partial small bowel obstruction. Small bowel mesentery is felt to be unremarkable. Appendix: Unremarkable. Intraperitoneal space: Unremarkable. No free air. No significant fluid collection. Vasculature: Arterial atheromatous calcifications are noted. No abdominal aortic aneurysm. There are calcified phleboliths within the pelvis. Lymph nodes: Unremarkable. No enlarged lymph nodes. Urinary bladder: A Bagley catheter is in place. Moderate distention. There is air noted within the bladder lumen. Reproductive: Hysterectomy has been performed. Bones/joints: There is osteopenia of visualized bones. Mild age-indeterminate compression deformities, thought to be on the basis of insufficiency fractures within T12, and L2-L5. Soft tissues: Unremarkable. IMPRESSION: 1. Hysterectomy has been performed. There is dilated ileum with fecalization of contents of some dilated loops and a transition in caliber between dilated and nondilated ileum within the right lower quadrant. Findings suggest the presence of partial small bowel obstruction. 2. Postsurgical changes noted in the region of the gastric fundus. Primary diagnostic consideration would be changes of post fundoplication. 3. A Bagley catheter is in place. Moderate bladder distention. There is air noted within the bladder lumen. 4. Osteopenia of visualized bones. Age-indeterminate mild compression deformities of T12, and L2-L5.
--- NOTE | 2021-10-22 21:58 | PC.NURSE ---
PT UPDATED WITH EXPECTED WAIT TIMES. WARM BLANKET PROVIDED AND LIGHTS DIMMED PER PATIENT REQUEST.
[2021-10-22 22:43] LABS: Thyroid Stimulating Hormone 0.83 uIU/mL (0.465-4.68)
[2021-10-23] VITALS (24 sets, daily range): BP systolic 106–137; BP diastolic 51–92; PULSE 55–78; RESP 14–18; TEMP 36.6–37.1; O2SAT 95–100; BMI 23.0
--- NOTE | 2021-10-23 | PC.NURSE ---
Pt resting in bed but complains of some pain. Nurse notified.
--- NOTE | 2021-10-23 00:28 | HMH.EDWEAK ---
ED Disposition Clinical Impression: Renal insufficiency Hypothyroidism Qualifiers: Hypothyroidism type: acquired Qualified Code(s): E03.9 - Hypothyroidism, unspecified Anemia Qualifiers: Anemia type: unspecified type Qualified Code(s): D64.9 - Anemia, unspecified Disposition: Admitted as Observation Condition on Discharge: Fair Instructions: DI for Urinary Tract Infection (UTI), DI for Urinary Tract Infection in Children Referrals: Elder Brasher MD [Primary Care Provider] - - Critical Care Critical Care Time: No Attestation: On 10/22/21, the high probability of a clinically significant, sudden or life threatening deterioration of the following system(s) required my full and direct attention, intervention and personal management. The time I documented below is in addition to time spent performing reported procedures but includes the following listed in this critical care notation. Medical Decision Making - Medical Records Medical records reviewed: Yes: I reviewed the patient's medical records. - Kishor Inquiry Pt receiving controlled substance: No Vital Signs: 10/22/21 19:07 10/22/21 19:35 10/22/21 20:26 Temperature 98.7 F Temperature Source Oral Pulse Rate 62 61 Pulse Rate [Left Radial] 64 Respiratory Rate 16 Blood Pressure 130/59 L 110/51 L Blood Pressure [Right Arm] 128/54 L Blood Pressure Mean Blood Pressure Mean [Right Arm] 78 Blood Pressure Source [Right Arm] Automatic Cuff Blood Pressure Position [Right Arm] Sitting 02 Sat by Pulse Oximetry 100 100 100 Oxygen Delivery Method Room Air Room Air Room Air 10/22/21 20:56 10/22/21 21:26 10/22/21 21:57 Temperature Temperature Source Pulse Rate 59 L 61 71 Pulse Rate [Left Radial] Respiratory Rate Blood Pressure 112/49 L 115/48 L 112/60 Blood Pressure [Right Arm] Blood Pressure Mean Blood Pressure Mean [Right Arm] Blood Pressure Source [Right Arm] Blood Pressure Position [Right Arm] 02 Sat by Pulse Oximetry 100 100 100 Oxygen Delivery Method Room Air Room Air Room Air 10/22/21 22:26 10/22/21 22:56 10/22/21 23:26 Temperature Temperature Source Pulse Rate 60 62 65 Pulse Rate [Left Radial] Respiratory Rate Blood Pressure 137/63 131/67 121/59 L Blood Pressure [Right Arm] Blood Pressure Mean Blood Pressure Mean [Right Arm] Blood Pressure Source [Right Arm] Blood Pressure Position [Right Arm] 02 Sat by Pulse Oximetry 99 100 100 Oxygen Delivery Method Room Air Room Air Room Air 10/22/21 23:56 10/23/21 00:02 10/23/21 00:26 Temperature 98.1 F Temperature Source Oral Pulse Rate 65 63 69 Pulse Rate [Left Radial] Respiratory Rate 16 Blood Pressure 125/59 L 132/62 131/65 Blood Pressure [Right Arm] Blood Pressure Mean 77 85 Blood Pressure Mean [Right Arm] Blood Pressure Source [Right Arm] Blood Pressure Position [Right Arm] 02 Sat by Pulse Oximetry 100 100 97 Oxygen Delivery Method Room Air 10/23/21 01:00 10/23/21 01:30 10/23/21 02:00 Temperature Temperature Source Pulse Rate 63 62 66 Pulse Rate [Left Radial] Respiratory Rate Blood Pressure 115/53 L 120/54 L 110/53 L Blood Pressure [Right Arm] Blood Pressure Mean Blood Pressure Mean [Right Arm] Blood Pressure Source [Right Arm] Blood Pressure Position [Right Arm] 02 Sat by Pulse Oximetry 100 99 98 Oxygen Delivery Method Room Air Room Air Room Air - Lab Data Lab results reviewed: Yes: I reviewed the patient's lab results. Lab Results 10/22/21 19:09: WBC 5.9, RBC 2.55 L, Hgb 8.7 L, Hct 28.6 L, MCV 112.1 H, MCH 34.0 H, MCHC 30.3 L, RDW 15.1, Plt Count 261, MPV 10.6 H, Neut % (Auto) 75.4, Lymph % (Auto) 16.4, [place] % (Auto) 5.8, Eos % (Auto) 1.2, Baso % (Auto) 1.2, Neut # (Auto) 4.5, Lymph # (Auto) 1.0, [place] # (Auto) 0.3, Eos # (Auto) 0.1, Baso # (Auto) 0.1, ESR 99 H 10/22/21 19:09: TSH 0.83, Thyroxine (T4) 8.0 10/22/21 19:45: Urine Color Yellow, Ur
[2021-10-23 00:31] LABS: Coronavirus 19, PCR Not Detected (NotDetected); Influenza A, PCR Not Detected (NotDetected); Influenza B, PCR Not Detected (NotDetected)
[2021-10-23 01:02] LABS: Ammonia < 9 umol/L (9-30)
--- NOTE | 2021-10-23 01:10 | PC.NURSE ---
No new needs. Pt resting.
[2021-10-23 02:49] LABS: Amylase 128 U/L (30-110); Lipase 306 U/L (23-300)
--- NOTE | 2021-10-23 03:35 | PC.NURSE ---
Pt resting well. No new needs at this time.
--- NOTE | 2021-10-23 04:58 | PC.NURSE ---
PT RESTING QUIETLY WITH EYES CLOSED. RESPIRATIONS EVEN AND NON-LABORED. NO ACUTE DISTRESS NOTED.
--- NOTE | 2021-10-23 05:28 | PC.NURSE ---
Pt repositioned, oral care given and oral sponges provided to pt. Bagley cath drained at this time. Pt having increased pain in low abd, gave morphine per JUN.
--- NOTE | 2021-10-23 05:51 | PC.NURSE ---
EFREM labs obtained
[2021-10-23 05:59] LABS: Basophils # 0.1 K/mm3 (0-0.2); Basophils % 1.1 % (0.1-2.0); Eosinophils # 0.1 K/mm3 (0.0-0.4); Eosinophils % 1.1 % (0.1-12.0); Hematocrit 27.2 % (37.0-47.0); Hemoglobin 8.3 g/dL (12.2-16.2); Lymphocytes # 1.6 K/mm3 (0.7-4.5); Lymphocytes % 31.1 % (10-50); Mean Corpuscular HGB Conc 30.4 g/dL (31.8-35.4); Mean Corpuscular Volume 111.7 fl (81-99); Monocytes # 0.3 K/mm3 (0.1-1.0); Monocytes % 6.8 % (1.7-9.3); Neutrophils % 59.9 % (37.0-80.0); Platelet Count 215 K/mm3 (142-424); Red Blood Count 2.44 M/mm3 (4.20-5.40); Red Cell Distribution Width 14.7 % (11.5-17.5)
[2021-10-23 06:10] LABS: Alanine Aminotransferase 244 U/L (12-78); Albumin/Globulin Ratio 0.9 (1.1-1.8); Amylase 178 U/L (30-110); Anion Gap 10.5 mEq/L (5-15); Aspartate Amino Transferase 396 U/L (14-36); Bilirubin,Total 0.9 mg/dl (0.2-1.3); Blood Urea Nitrogen 33 mg/dl (7-17); Calcium 8.1 mg/dl (8.4-10.2); Carbon Dioxide 15 mmol/L (22.0-30.0); Chloride 120 mmol/L (98-107); Creatinine Clearance Estimated 41 mL/min (50-200); Estimated Glomerular Filt Rate 61 ml/min (>60); GFR (African American) 74 ML/MIN (>60); Globulin 3.3 g/dL (1.3-3.2); Glucose 99 mg/dl (74-100); Potassium 5.5 mmoL/L (3.5-5.1); Sodium 140 mmol/L (136-145); Total Protein,Serum 6.3 g/dl (6.3-8.2)
[2021-10-23 06:12] LABS: Lipase 1217 U/L (23-300)
[2021-10-23 06:13] LABS: Alkaline Phosphatase 1045 U/L (38-126)
--- NOTE | 2021-10-23 06:23 | PC.NURSE ---
MD AWARE OF ABNORMAL LABS.
--- NOTE | 2021-10-23 07:15 | PC.NURSE ---
pt sleeping resp even and easy.
--- NOTE | 2021-10-23 07:52 | PC.NURSE ---
hospital housekeeper called regarding admission
--- NOTE | 2021-10-23 08:25 | HMH.PHAINT ---
home medication list verified using list from outpatient pharmacy
--- NOTE | 2021-10-23 08:30 | PC.NURSE ---
EX CALLED SAID PT WAS UPSET , WENT IN TO TALK TO PT HE IS FINE PT RESTING WITH NO COMPLAINTS HE SAID HE WAS MAD AT HER .
--- NOTE | 2021-10-23 08:59 | PC.NURSE ---
report called to floor
--- NOTE | 2021-10-23 09:05 | PC.NURSE ---
PT BEING TRANSPORTED TO IN-PATIENT ROOM
--- NOTE | 2021-10-23 09:09 | PC.NURSE ---
Pt arrived to the floor at this time.
--- NOTE | 2021-10-23 09:35 | HMH.HP ---
*Admission Date: 10/23/21 *Chief complaint: Abdominal pain *History of present illness: 71 year old female presented to [facility] ER last night complaining of a one day history of mid to lower abdominal pain radiating to her back after eating breakfast yesterday morning. She was unable to get any relief from her pain at home. She had a little bit of nausea but no vomiting. She denies diarrhea and constipation. She did not have fever or chills, no previous episodes. She does have a history of elevated liver enzymes and had extensive GI work up several years ago. [facility] History Medical History: Reports:: Depression, Gastroesophageal Reflux Disease(GERD), Hepatitis, Hyperlipidemia, Hypertension, Osteoporosis, Renal Insufficiency Denies:: Cancer, Diabetes Mellitus Type 1, Diabetes Mellitus Type 2, Internal Pacemaker, Lung Disease, MRSA, Seizures *Have you ever received a pneumonia vaccine?: Yes *Have you received a flu vaccine this season?: Yes Other Medical History: Reports: Blood Transfusion Reaction, Hypothyroidism, Osteoporosis, Thyroid Disease, Other (tremor, chronic back pain, over active bladder, autoimmune hepatitis) Other Surgeries: Yes: Cholecystectomy, Colonoscopy, EGD, Hernia Repair (hiatal hernia surgery), Other (left ear). No: Pacemaker Amputation: No Fractures: Yes (STERNAL) - *Social History Smoking Status: Never smoker Tobacco Type: cigarettes # Packs/Day (cigarettes): 1 Alcohol Intake: never Alcohol Intake Frequency:: other Substance Use Type: denies use *Occupational Status:: retired Housing: house Household Members: children *Travel in the last 8 weeks: None - Psychiatric History Pschychiatric History:: Reports:: Depression Family Hx:: Cancer Review of Systems - Constitutional Denies chills, Denies fever(s) - Eyes Denies blurry vision - ENT Reports dry mouth - *Cardiovascular Denies chest pain - *Respiratory Denies cough, Denies shortness of breath - *Gastrointestinal Reports nausea - *Genitourinary Denies difficulty urinating - *Musculoskeletal Reports back pain - Integumentary/Breasts Denies rash - *Neurologic Denies headache(s), Denies seizure-like activity Meds Home Medications Medication Instructions Recorded Confirmed Type Levothyroxine Sodium [Synthroid 125 mcg PO DAILY 10/24/18 10/22/21 History 125mcg (0.125mg) tablet] lisinopriL [Lisinopril] 10 mg PO DAILY 10/29/20 10/22/21 History Celecoxib [CeleBREX 100mg Capsule] 100 mg PO DAILY 07/28/21 10/22/21 History Famotidine [Acid Controller] 20 mg PO HS 07/28/21 10/22/21 History Fluoxetine HCl [Prozac 20mg 20 mg PO DAILY 07/28/21 10/22/21 History Capsule] Primidone [Mysoline] 250 mg PO HS 07/28/21 10/22/21 History Meloxicam 7.5 mg PO DAILY 10/23/21 10/23/21 History gemfibroziL [Lopid 600mg tab] 600 mg PO DAILY 10/23/21 10/23/21 History Allergies Allergy/AdvReac Type Severity Reaction Status Date / Time No Known Allergies Allergy Verified 04/26/21 13:18 Exam Vital signs and Labs for Last 24 Hours: Temp Pulse Resp BP Pulse Ox 98.3 F 60 17 127/59 L 100 10/23/21 09:23 10/23/21 09:23 10/23/21 09:23 10/23/21 09:23 10/23/21 09:23 Laboratory Results - last 24 hr 10/22/21 19:09: WBC 5.9, RBC 2.55 L, Hgb 8.7 L, Hct 28.6 L, MCV 112.1 H, MCH 34.0 H, MCHC 30.3 L, RDW 15.1, Plt Count 261, MPV 10.6 H, Neut % (Auto) 75.4, Lymph % (Auto) 16.4, [place] % (Auto) 5.8, Eos % (Auto) 1.2, Baso % (Auto) 1.2, Neut # (Auto) 4.5, Lymph # (Auto) 1.0, [place] # (Auto) 0.3, Eos # (Auto) 0.1, Baso # (Auto) 0.1, ESR 99 H 10/22/21 19:09: TSH 0.83, Thyroxine (T4) 8.0 10/22/21 19:45: Urine Color Yellow, Urine Appearance Clear, Urine pH 5.5, Ur Specific [place] 1.020, Urine Protein Negative, Urine Glucose (UA) Negative, Urine Ketones Negative, Urine Blood Negative, Urine Nitrate Negative, Urine Bilirubin Negative, Urine Urobilinogen 0.2, Ur Leukocyte Esterase Negative, Urine WBC Occasional, Amorphous Sediment Trace 10/22/21 19:50: S
--- NOTE | 2021-10-23 09:52 | P.CONPHA_ITS ---
[facility] Pharmacy VTE Monitoring - Patient Demographics Admission date: 10/23/21 Report Date: 10/23/21 Time: 09:52 Allergies/Adverse Reactions: Patient Allergies No Known Allergies Allergy (Verified 04/26/21 13:18) Height: 1.52 m Weight: 53.552 kg Patient Problems: Current Active Problems Hypothyroidism (Chronic) Essential tremor (Chronic) Renal insufficiency (Acute) Anemia (Acute) RUBÉN (acute kidney injury) (Acute) SBO (small bowel obstruction) (Acute) Elevated LFTs (Acute) Elevated lipase (Acute) Weakness (Acute) - VTE Risk Labs: VTE Related Lab Results Hgb 8.3 g/dL (12.2-16.2) L 10/23/21 05:50 Hct 27.2 % (37.0-47.0) L 10/23/21 05:50 Plt Count 215 K/mm3 (142-424) 10/23/21 05:50 BUN 33 mg/dl (7-17) H 10/23/21 05:50 Creatinine 0.90 mg/dl (0.52-1.04) D 10/23/21 05:50 Estimated Creat Clear 41 mL/min (50-200) 10/23/21 05:50 Clinical Trial Participant: No - Prophylaxis VTE Prophylaxis Ordered?: Yes Types of VTE Prophylaxis: TEDS Knee High
--- NOTE | 2021-10-23 10:50 | PC.NURSE ---
Rounded on pt, pt new admit and NPO at thist marga. No needs voiced.
--- NOTE | 2021-10-23 18:47 | PC.NURSE ---
new admit this shift. A&OX4. dilaudid for pain control. diet advanced to ice chips
[2021-10-24 04:00] VITALS: BP 144/69; PULSE 59; RESP 18; TEMP 36.9; O2SAT 99
[2021-10-24 04:59] VITALS: BMI 23.3
[2021-10-24 06:55] LABS: Basophils # 0.1 K/mm3 (0-0.2); Eosinophils # 0.2 K/mm3 (0.0-0.4); Eosinophils % 3.3 % (0.1-12.0); Hemoglobin 9.1 g/dL (12.2-16.2); Lymphocytes # 1.7 K/mm3 (0.7-4.5); Lymphocytes % 26.3 % (10-50); Mean Corpuscular HGB Conc 31.3 g/dL (31.8-35.4); Mean Corpuscular Hemoglobin 33.3 pg (27.0-31.2); Mean Corpuscular Volume 106.5 fl (81-99); Mean Platelet Volume 9.3 fl (7.4-10.4); Monocytes # 0.4 K/mm3 (0.1-1.0); Monocytes % 5.5 % (1.7-9.3); Neutrophils # 4.2 K/mm3 (1.8-7.8); Neutrophils % 64.1 % (37.0-80.0); Platelet Count 209 K/mm3 (142-424); Red Blood Count 2.74 M/mm3 (4.20-5.40); Red Cell Distribution Width 13.8 % (11.5-17.5); White Blood Count 6.5 K/mm3 (4.8-10.8)
[2021-10-24 06:56] LABS: Hematocrit 29.2 % (37.0-47.0)
[2021-10-24 07:11] LABS: Alanine Aminotransferase 271 U/L (12-78); Albumin Level 3.1 g/dl (3.5-5.0); Alkaline Phosphatase 1427 U/L (38-126); Amylase 140 U/L (30-110); Anion Gap 11.6 mEq/L (5-15); Aspartate Amino Transferase 470 U/L (14-36); Bilirubin,Total 1.1 mg/dl (0.2-1.3); Blood Urea Nitrogen 24 mg/dl (7-17); Calcium 8.8 mg/dl (8.4-10.2); Carbon Dioxide 13 mmol/L (22.0-30.0); Chloride 119 mmol/L (98-107); Creatinine Clearance Estimated 43 mL/min (50-200); Estimated Glomerular Filt Rate 61 ml/min (>60); GFR (African American) 74 ML/MIN (>60); Globulin 3.2 g/dL (1.3-3.2); Glucose 101 mg/dl (74-100); Lipase 163 U/L (23-300); Potassium 5.6 mmoL/L (3.5-5.1); Sodium 138 mmol/L (136-145); Total Protein,Serum 6.3 g/dl (6.3-8.2)
[2021-10-24 08:00] VITALS: BP 131/59; PULSE 56; RESP 16; TEMP 36.9; O2SAT 96
--- NOTE | 2021-10-24 08:12 | HMH.ACPN2 ---
<Awa Mathur - Last Filed: 10/24/21 08:12> Internal Medicine - PN: Subj *Date: 10/24/21 *Time: 08:12 Interval history: Patient may be feeling a little bit better today. She states she has some lower back pain. Her abdomen hurts whenever she moves. She was retained water and ice chips without nausea or vomiting. She states her breathing is fine. She denies chest pain. Patient states she is hungry. [place] data this a.m. shows amylase slightly improved at 140 with a lipase of 163 which is greatly improved. Sodium is 138 potassium is 5.6. Renal function is good. AST is 470 ALT is 271 and alkaline phosphatase is 1427. Exam Vital signs and Labs for Last 24 Hours: Temp Pulse Resp BP Pulse Ox 98.4 F 59 L 18 144/69 H 99 10/24/21 04:00 10/24/21 04:00 10/24/21 04:00 10/24/21 04:00 10/24/21 04:00 Laboratory Results - last 24 hr 10/24/21 06:40: WBC 6.5 D, RBC 2.74 L, Hgb 9.1 L, Hct 29.2 L, MCV 106.5 H, MCH 33.3 H, MCHC 31.3 L, RDW 13.8, Plt Count 209, MPV 9.3, Neut % (Auto) 64.1, Lymph % (Auto) 26.3, [place] % (Auto) 5.5, Eos % (Auto) 3.3, Baso % (Auto) 1.0, Neut # (Auto) 4.2, Lymph # (Auto) 1.7, [place] # (Auto) 0.4, Eos # (Auto) 0.2, Baso # (Auto) 0.1 10/24/21 06:40: Sodium 138, Potassium 5.6 H, Chloride 119 H, Carbon Dioxide 13 L, Anion Gap 11.6, BUN 24 H D, Creatinine 0.90, Estimated Creat Clear 43, Estimated GFR 61, Est GFR ( Amer) 74, Glucose 101 H, Calcium 8.8, Total Bilirubin 1.1, AST 470 H*, ALT 271 H, Alkaline Phosphatase 1427 H, Total Protein 6.3, Albumin 3.1 L, Globulin 3.2, Albumin/Globulin Ratio 1.0 L, Amylase 140 H, Lipase 163 I & O for Last 24 hours: Intake & Output 10/21/21 10/22/21 10/23/21 10/24/21 11:59 11:59 11:59 11:59 Intake Total 462 / 462 Output Total 1900 / 1900 Balance -1438 / -1438 Weight 118 lb 1 oz 119 lb - Constitutional no acute distress - *Routine Respiratory Exam Present: CTA bilaterally (Anteriorly and posteriorly) - *Routine Cardiovascular Exam Present: RRR - *Routine Abdominal Exam Present: soft, normoactive bowel sounds, tenderness (Right upper quadrant and epigastrium) - *Routine Extremities Exam Present: full ROM, pulses intact. Absent: edema, calf tenderness - *Routine Neurological Exam Present: alert, oriented X3 (Very conversant) Assessment and Plan (1) Pancreatitis Status: Acute Category: Medical Code(s): K85.90 - Acute pancreatitis without necrosis or infection, unspecified (2) Partial small bowel obstruction Status: Acute Category: Medical Code(s): K56.600 - Partial intestinal obstruction, unspecified as to cause (3) Elevated LFTs Status: Acute Category: Medical Code(s): R79.89 - Other specified abnormal findings of blood chemistry (4) Elevated lipase Status: Acute Category: Medical Code(s): R74.8 - Abnormal levels of other serum enzymes (5) Weakness Status: Acute Category: Medical Code(s): R53.1 - Weakness (6) Anemia Status: Acute Qualifiers: Anemia type: unspecified type Qualified Code(s): D64.9 - Anemia, unspecified Category: Medical Code(s): D64.9 - Anemia, unspecified (7) Renal insufficiency Status: Acute Category: Medical Code(s): N28.9 - Disorder of kidney and ureter, unspecified (8) Hypothyroidism Status: Chronic Qualifiers: Hypothyroidism type: acquired Qualified Code(s): E03.9 - Hypothyroidism, unspecified Category: Medical Code(s): E03.9 - Hypothyroidism, unspecified (9) RUBÉN (acute kidney injury) Status: Acute Category: Medical Code(s): N17.9 - Acute kidney failure, unspecified (10) Essential tremor Status: Chronic Category: Medical Code(s): G25.0 - Essential tremor - Assessment and plan all Dx Assessment and Plan for all problems:: We will try clear liquids. Continue with PPI and IV fluids. Also pain management. <Elder Brasher - Last Filed: 10/24/21 08:49> Internal Medicine - PN: Subj *Date: 10/24/21 *
--- NOTE | 2021-10-24 09:09 | PC.NURSE ---
LATE ENTRY - PT ALERT AND ORIENTED X 4. PT C/O OF ABD PAIN TWICE DURING MY SHIFT. MEDICATED PER JUN, ADEQUATE PAIN RELIEF ACHIEVED. PT RESTED IN INTERVALS. PT HAS BEEN NPO. VOIDING PER MOARN CATH WITH ADEQUATE URINE OUTPUT. NO C/O OF N/V OR VOMITING DURING MY SHIFT. CALL LIGHT IN REACH. NO OTHER NEEDS VOICED AT THIS TIME.
[2021-10-24 09:54] VITALS: BMI 23.3
--- NOTE | 2021-10-24 15:44 | PC.NURSE ---
PT IS RESTING IN BED. MEDICATED PER TRISHA FOR DISCOMFORT. ALERT AND ORIENTED X4. TOLERATING CLEAR LIQUIDS W/O N/V. PT STATES SHE IS FEELING SOMEWHAT BETTER. ABDOMEN SOFT WITH MILD TENDERNESS. PT STATES HER ABDOMEN HURTS WORSE WHEN SHE TURNS AND REPOSITIONS SELF IN BED. LUNG SOUNDS CLEAR. SCATTERED BRUISING NOTED TO BUE/BLE. WILL CONTINUE TO MONITOR.
[2021-10-24 15:46] VITALS: BP 129/66; PULSE 58; RESP 14; TEMP 36.9; O2SAT 100
[2021-10-24 19:32] VITALS: BP 149/76; PULSE 57; RESP 16; TEMP 36.9; O2SAT 100
[2021-10-24 20:00] VITALS: O2SAT 100
[2021-10-25 03:13] VITALS: BP 129/56; PULSE 64; RESP 18; TEMP 36.8; O2SAT 99
--- NOTE | 2021-10-25 04:00 | PC.NURSE ---
pt has rested intermittently, has complained of pain one time and was treated per MAR, no episodes of N/V, abdomen remains tender and is worse with movement, has had UOP since removal of catheter on day shift, remains on room air
[2021-10-25 04:59] VITALS: BMI 22.2
[2021-10-25 07:12] LABS: Basophils # 0.1 K/mm3 (0-0.2); Basophils % 0.8 % (0.1-2.0); Eosinophils # 0.1 K/mm3 (0.0-0.4); Eosinophils % 1.7 % (0.1-12.0); Hematocrit 28.2 % (37.0-47.0); Lymphocytes # 2.2 K/mm3 (0.7-4.5); Lymphocytes % 30.8 % (10-50); Mean Corpuscular HGB Conc 32.1 g/dL (31.8-35.4); Mean Corpuscular Hemoglobin 33.6 pg (27.0-31.2); Mean Corpuscular Volume 104.8 fl (81-99); Mean Platelet Volume 8.9 fl (7.4-10.4); Monocytes # 0.4 K/mm3 (0.1-1.0); Monocytes % 5.9 % (1.7-9.3); Neutrophils # 4.3 K/mm3 (1.8-7.8); Neutrophils % 60.9 % (37.0-80.0); Platelet Count 196 K/mm3 (142-424); Red Blood Count 2.69 M/mm3 (4.20-5.40); White Blood Count 7.1 K/mm3 (4.8-10.8)
[2021-10-25 07:21] LABS: Alanine Aminotransferase 246 U/L (12-78); Albumin Level 3.1 g/dl (3.5-5.0); Albumin/Globulin Ratio 0.9 (1.1-1.8); Alkaline Phosphatase 1476 U/L (38-126); Amylase 126 U/L (30-110); Aspartate Amino Transferase 365 U/L (14-36); Bilirubin,Total 1.3 mg/dl (0.2-1.3); Blood Urea Nitrogen 18 mg/dl (7-17); Calcium 8.5 mg/dl (8.4-10.2); Carbon Dioxide 15 mmol/L (22.0-30.0); Chloride 115 mmol/L (98-107); Creatinine Clearance Estimated 41 mL/min (50-200); Estimated Glomerular Filt Rate 54 ml/min (>60); GFR (African American) 66 ML/MIN (>60); Globulin 3.5 g/dL (1.3-3.2); Glucose 99 mg/dl (74-100); Lipase 101 U/L (23-300); Sodium 136 mmol/L (136-145); Total Protein,Serum 6.6 g/dl (6.3-8.2)
[2021-10-25 08:00] VITALS: BP 123/67; PULSE 59; RESP 16; TEMP 36.6; O2SAT 100
--- NOTE | 2021-10-25 08:42 | HMH.ACPN2 ---
Internal Medicine - PN: Subj *Date: 10/25/21 *Time: 08:42 Interval history: Patient feels a little better today, still has a lot of back pain and was unable to get out of bed. Exam Vital signs and Labs for Last 24 Hours: Temp Pulse Resp BP Pulse Ox 97.9 F 59 L 16 123/67 100 10/25/21 08:00 10/25/21 08:00 10/25/21 08:00 10/25/21 08:00 10/25/21 08:00 Laboratory Results - last 24 hr 10/25/21 07:05: WBC 7.1, RBC 2.69 L, Hgb 9.0 L, Hct 28.2 L, MCV 104.8 H, MCH 33.6 H, MCHC 32.1, RDW 14.0, Plt Count 196, MPV 8.9, Neut % (Auto) 60.9, Lymph % (Auto) 30.8, [place] % (Auto) 5.9, Eos % (Auto) 1.7, Baso % (Auto) 0.8, Neut # (Auto) 4.3, Lymph # (Auto) 2.2, [place] # (Auto) 0.4, Eos # (Auto) 0.1, Baso # (Auto) 0.1 10/25/21 07:05: Sodium 136, Potassium 5.0, Chloride 115 H, Carbon Dioxide 15 L, Anion Gap 11.0, BUN 18 H, Creatinine 1.00, Estimated Creat Clear 41, Estimated GFR 54 L, Est GFR ( Amer) 66, Glucose 99, Calcium 8.5, Total Bilirubin 1.3, AST 365 H*, ALT 246 H, Alkaline Phosphatase 1476 H, Total Protein 6.6, Albumin 3.1 L, Globulin 3.5 H, Albumin/Globulin Ratio 0.9 L, Amylase 126 H, Lipase 101 Vital Signs - 24 hr 10/24/21 15:46 10/24/21 19:32 10/24/21 20:00 Temperature 98.4 F 98.5 F Pulse Rate [Left Radial] 58 L 57 L Respiratory Rate 14 16 Blood Pressure [Right Arm] 129/66 149/76 H 02 Sat by Pulse Oximetry 100 100 100 10/25/21 03:13 10/25/21 08:00 Temperature 98.2 F 97.9 F Pulse Rate [Left Radial] 64 59 L Respiratory Rate 18 16 Blood Pressure [Right Arm] 129/56 L 123/67 02 Sat by Pulse Oximetry 99 100 I & O for Last 24 hours: Intake & Output 10/22/21 10/23/21 10/24/21 10/25/21 23:59 23:59 23:59 23:59 Intake Total 462 / 462 1519 / 1519 120 / 120 Output Total 800 / 800 2200 / 2200 200 / 200 Balance -338 / -338 -681 / -681 -80 / -80 Weight 113 lb 118 lb 1 oz 118 lb 15.736 oz 113 lb 8 oz Microbiology Reports for the Last 24 Hours: Microbiology 10/22/21 19:50 Blood Blood Culture - Preliminary NO GROWTH AFTER 48 HOURS 10/22/21 19:50 Blood Blood Culture - Preliminary NO GROWTH AFTER 48 HOURS - Constitutional no acute distress - *Routine HEENT Exam Head: Present: normocephalic Eye: Present: EOMI, PERRL ENT: Present: mucous membranes moist - *Routine Neck Exam Present: supple. Absent: lymphadenopathy - *Routine Respiratory Exam Present: CTA bilaterally - *Routine Cardiovascular Exam Present: RRR - *Routine Abdominal Exam Present: soft, normoactive bowel sounds. Absent: tenderness - *Routine Extremities Exam Absent: cyanosis, clubbing, edema - Routine Back/Spine/Pelvis Exam Comments: low back pain with movement - *Routine Skin Exam Present: warm. Absent: rash - *Routine Neurological Exam Present: alert, oriented X3 tremor at rest Assessment and Plan (1) Pancreatitis Status: Acute Category: Medical Code(s): K85.90 - Acute pancreatitis without necrosis or infection, unspecified (2) Partial small bowel obstruction Status: Acute Category: Medical Code(s): K56.600 - Partial intestinal obstruction, unspecified as to cause (3) Elevated LFTs Status: Acute Category: Medical Code(s): R79.89 - Other specified abnormal findings of blood chemistry (4) Elevated lipase Status: Acute Category: Medical Code(s): R74.8 - Abnormal levels of other serum enzymes (5) Weakness Status: Acute Category: Medical Code(s): R53.1 - Weakness (6) Anemia Status: Acute Qualifiers: Anemia type: unspecified type Qualified Code(s): D64.9 - Anemia, unspecified Category: Medical Code(s): D64.9 - Anemia, unspecified (7) Renal insufficiency Status: Acute Category: Medical Code(s): N28.9 - Disorder of kidney and ureter, unspecified (8) Hypothyroidism Status: Chronic Qualifiers: Hypothyroidism type: acquired Qualified Code(s): E03.9 - Hypothyroidism, u
--- NOTE | 2021-10-25 10:10 | PC.NURSE ---
Addendum entered by Racquel Salamanca RN 10/25/21 11:43: PT AMBULATED WELL FOR PHYSICAL THERAPY AND IS NOW SITTING UP IN THE CHAIR. Original Note: PT IS RESTING IN BED IN SUPINE POSITION. PT STATES HER BACK HURTS IF SHE TRIES TO TURN OR REPOSITION. ATTEMPTED TO GET PT OOB TO AMBULATE TO THE BATHROOM AND SIT UP IN THE CHAIR HOWEVER PT WAS ONLY ABLE TO SIT UP ON THE SOB FOR A FEW MINUTES AND WENT TO STAND WITH ASSIST SHE YELLED OHH MY BACK, LAY ME BACK DOWN, I CAN'T DO IT . PHYSICAL THERAPY IS WORKING WITH PT AT THE MOMENT. PT STATES SHE DID NOT FALL AT HOME AND HAS NOT HAD AN INJURY TO HER BACK, PT STATES SHE NEVER USUALLY HURTS IN HER BACK.
--- NOTE | 2021-10-25 11:13 | HMH.PTEV ---
Physical Therapy Evaluation Rehab PT IP Evaluation Start: 10/25/21 08:50 Freq: ONCE Status: Active Protocol: Document 10/25/21 11:09 PHORNE (Rec: 10/25/21 11:13 PHORNE [id number]) Subjective/History History History 71 yowf adm to [facility] with SBO and pancreatitis. She reports she lives with her son, no steps to entert he home and she is generally independent with all mobility. Subjective Subjective She c/o severe low back pain with all movement. SUP/SIT transfer problematic due to back pain. Rehab PT IP Eval Objective Appearance Patient Behavior Appropriate Patient Orientation Person,Place,Time Difficulty following instructions none Speech Pattern Clear Ambulation Patient Able to Ambulate Yes Ambulation Observation IP General Gait Pattern Observation Shuffling Step Ambulation Distance (feet) 20 Ambulation Assistive Device None Ambulation Ability Contact Guard/Hand Hold Balance Ability to Arise Able, uses arms to help Sitting Balance Steady, safe Standing Balance Steady, wide stance Dynamic Sitting Balance Ability Fair Dynamic Standing Balance Ability Fair Transfers Bed Transfer Ability Maximum x 1 (75% assist) Chair Transfer Ability Contact Guard/Hand Hold Sit to Stand Bed Transfer Ability Contact Guard/Hand Hold Sit to Stand Chair Transfer Ability Contact Guard/Hand Hold Rehab PT IP prob,goals,plan Problems Date of Evaluation: 10/25/21 PT IP Problems Bed Mobility,Transfers,Gait Rehab Potential Rehab Potential Good Plan PT Intervention Plan Bed Mobility,Transfers,Gait, Therapeutic Exercise PT Plan Frequency BID Duration LOS Discharge Goals Bed Transfer Ability Moderate x 1 (50% assist) Sit to Stand Chair Transfer Ability Contact Guard/Hand Hold Ambulation Assistive Device None Ambulation Distance (feet) 40 Discharge Plan PT Discharge Plan Pt is currently most appropriate for rehab placement once medically stable. If she were to return home she would be at increased risk for injury or further debility. G -code Required No Eval Complexity Eval Charge Codes 25924 - Moderate Complexity
--- NOTE | 2021-10-25 11:18 | HMH.PTEV ---
Physical Therapy Evaluation Rehab PT IP Evaluation Start: 10/25/21 08:50 Freq: ONCE Status: Active Protocol: Document 10/25/21 11:13 TANIYA (Rec: 10/25/21 11:18 TANIYA [id number]) Subjective/History History History This is the initial IP PT evaluation for [facility]. Pt is a 71 y/o female admitted to [facility] for partial SBO, and elevated liver enzymes. Subjective Subjective Pt c/o severe sharp pain in low back w/ movement Rehab PT IP Eval Objective Appearance Patient Behavior Anxious,Guarded,Fearful Patient Orientation Place,Name,Birthday,Year Difficulty following instructions none Speech Pattern Appropriate Ambulation Patient Able to Ambulate Yes Ambulation Observation IP General Gait Pattern Observation Shuffling Step Ambulation Distance (feet) 25 Ambulation Assistive Device None Ambulation Ability Contact Guard/Hand Hold Balance Ability to Arise Able, uses arms to help Sitting Balance Leans or slides in chair Standing Balance Steady, wide stance Dynamic Sitting Balance Ability Fair Dynamic Standing Balance Ability Poor Transfers Bed Transfer Ability Maximum x 2 (75% assist) Chair Transfer Ability Maximum x 1 (75% assist) Sit to Stand Bed Transfer Ability Contact Guard/Hand Hold Sit to Stand Chair Transfer Ability Contact Guard/Hand Hold Pain BACK Pain Intensity 9 Rehab PT IP prob,goals,plan Problems Date of Evaluation: 10/25/21 PT IP Problems Bed Mobility,Transfers,Self care,Safety,Other Other Pt Problem pain Rehab Potential Rehab Potential Fair Equipment Needs Assistive Devices Rolling / Wheeled Walker Plan PT Intervention Plan Bed Mobility,Transfers,Gait, Balance,Self care,Safety, Therapeutic Exercise PT Plan Frequency BID Duration LOS Discharge Goals Bed Transfer Ability Maximum x 2 (75% assist) Sit to Stand Chair Transfer Ability Moderate x 2 (50% assist) Ambulation Assistive Device Rolling Walker Ambulation Distance (feet) 25 Discharge Plan PT Discharge Plan Pt will benefit from skilled therapy at [facility] to aloow improved level of function and prevent decline. Pt's limiting factor at this time is severe pain in lumbar area
--- NOTE | 2021-10-25 13:20 | SW/DCPLANNER ---
Addendum entered by Isabella Garcia 10/26/21 08:16: This patient has been accepted to [facility] level of care. COVID swab has been ordered for today. Addendum entered by Isabella Garcia 10/25/21 14:55: Elenita moreira/ Piotr Stafford has reviewed patient information and will be to see this patient tomorrow morning. Original Note: I spoke with this patient regarding plans once medically stable for discharge. Patient stated that she resides at home with her son. Patient is alone during the day when her son is at work. Patient has been to [facility] in the past for [facility] level of care and is agreeable to this facility at time of discharge. Patient information has been faxed to Elenita Stafford. I will follow up with Elenita once information is reviewed.
[2021-10-25 16:00] VITALS: BP 127/61; PULSE 61; RESP 20; TEMP 36.6; O2SAT 99
--- NOTE | 2021-10-25 17:02 | PC.NURSE ---
Received report from Gil Salamanca RN. Pt currently in bed using bedpan, will ring out when she is finished. No other needs at this time.
[2021-10-25 19:35] VITALS: BP 139/62; PULSE 59; RESP 18; TEMP 36.8; O2SAT 98
[2021-10-26 03:03] VITALS: BP 113/50; PULSE 60; RESP 16; TEMP 36.7; O2SAT 98
--- NOTE | 2021-10-26 04:20 | PC.NURSE ---
Pt has rested very well this shift. She has required prn medication for back and abdomial pain and muscle spasms in her back one time this shift and both were relieved. She has used the bedpan to void this shift, has not had a BM. She is a&o X 4. Lung sounds clear t/o. Remains on RA with O2 sats 98%.20G IV in RFA patent, saline locked. Scattered bruising noted on BUE and BLE. Abdomen was tender with palpation, bowel sounds hypoactive. Pt states she has not had a BM since Sunday.
[2021-10-26 04:52] VITALS: BMI 21.6
[2021-10-26 07:54] VITALS: BP 121/59; PULSE 65; RESP 16; TEMP 36.8; O2SAT 100
--- NOTE | 2021-10-26 08:10 | HMH.ACPN2 ---
Internal Medicine - PN: Subj *Date: 10/26/21 *Time: 08:10 Interval history: Patient feels better today, got up to chair with PT yesterday, tolerating full liquids. Exam Vital signs and Labs for Last 24 Hours: Temp Pulse Resp BP Pulse Ox 98.2 F 65 16 121/59 L 100 10/26/21 07:54 10/26/21 07:54 10/26/21 07:54 10/26/21 07:54 10/26/21 07:54 Vital Signs - 24 hr 10/25/21 16:00 10/25/21 19:35 10/26/21 03:03 Temperature 97.8 F 98.2 F 98.0 F Pulse Rate [Left Radial] 61 59 L 60 Respiratory Rate 20 18 16 Blood Pressure [Right Arm] 127/61 139/62 113/50 L 02 Sat by Pulse Oximetry 99 98 98 10/26/21 07:54 Temperature 98.2 F Pulse Rate [Left Radial] 65 Respiratory Rate 16 Blood Pressure [Right Arm] 121/59 L 02 Sat by Pulse Oximetry 100 I & O for Last 24 hours: Intake & Output 10/23/21 10/24/21 10/25/21 10/26/21 23:59 23:59 23:59 23:59 Intake Total 462 / 462 1519 / 1519 240 / 240 360 / 360 Output Total 800 / 800 2200 / 2200 650 / 650 Balance -338 / -338 -681 / -681 -410 / -410 360 / 360 Weight 118 lb 1 oz 118 lb 15.736 oz 113 lb 8 oz 110 lb 2 oz - Constitutional no acute distress - *Routine HEENT Exam Head: Present: normocephalic Eye: Present: EOMI, PERRL ENT: Present: mucous membranes moist - *Routine Neck Exam Present: supple. Absent: lymphadenopathy - *Routine Respiratory Exam Present: CTA bilaterally - *Routine Cardiovascular Exam Present: RRR - *Routine Abdominal Exam Present: soft, normoactive bowel sounds. Absent: tenderness - *Routine Extremities Exam Absent: cyanosis, clubbing, edema - *Routine Skin Exam Present: warm. Absent: rash - *Routine Neurological Exam Present: alert, oriented X3, tremors (at rest) Assessment and Plan (1) Pancreatitis Status: Acute Category: Medical Code(s): K85.90 - Acute pancreatitis without necrosis or infection, unspecified (2) Partial small bowel obstruction Status: Acute Category: Medical Code(s): K56.600 - Partial intestinal obstruction, unspecified as to cause (3) Elevated LFTs Status: Acute Category: Medical Code(s): R79.89 - Other specified abnormal findings of blood chemistry (4) Elevated lipase Status: Acute Category: Medical Code(s): R74.8 - Abnormal levels of other serum enzymes (5) Weakness Status: Acute Category: Medical Code(s): R53.1 - Weakness (6) Anemia Status: Acute Qualifiers: Anemia type: unspecified type Qualified Code(s): D64.9 - Anemia, unspecified Category: Medical Code(s): D64.9 - Anemia, unspecified (7) Renal insufficiency Status: Acute Category: Medical Code(s): N28.9 - Disorder of kidney and ureter, unspecified (8) Hypothyroidism Status: Chronic Qualifiers: Hypothyroidism type: acquired Qualified Code(s): E03.9 - Hypothyroidism, unspecified Category: Medical Code(s): E03.9 - Hypothyroidism, unspecified (9) RUBÉN (acute kidney injury) Status: Acute Category: Medical Code(s): N17.9 - Acute kidney failure, unspecified (10) Essential tremor Status: Chronic Category: Medical Code(s): G25.0 - Essential tremor - Assessment and plan all Dx Assessment and Plan for all problems:: Improved, advance to soft diet. OK for discharge to [facility] today to continue physical therapy.
[2021-10-26 08:26] LABS: Coronavirus 19, PCR Not Detected (NotDetected); Influenza A, PCR Not Detected (NotDetected); Influenza B, PCR Not Detected (NotDetected)
--- NOTE | 2021-10-26 08:36 | HMH.DCSUM ---
General - General Admission date:: 10/24/21 Discharge date: 10/26/21 HPI HPI: 71 year old female presented to [facility] ER last night complaining of a one day history of mid to lower abdominal pain radiating to her back after eating breakfast yesterday morning. She was unable to get any relief from her pain at home. She had a little bit of nausea but no vomiting. She denies diarrhea and constipation. She did not have fever or chills, no previous episodes. She does have a history of elevated liver enzymes and had extensive GI work up several years ago. Hospital Course Hospital Course: Patient was admitted and kept n.p.o. and started on IV fluids. She was given pain control. It was felt she had pancreatitis as her amylase and lipase were elevated. Initially her abdomen hurt whenever she moved and she had pain radiating into her back. She was able to tolerate water and ice chips without nausea or vomiting initially. Her liver function tests were elevated. She was started on a PPI and continued with pain management. Her amylase and lipase began improving. Physical therapy was consulted due to her low back pain and trouble standing. They felt the patient was most appropriate for rehab placement once medically stable. By 10/26/2021, the patient was feeling better. Her abdominal pain had improved and her back pain was improving as well. She was able to get up to the chair with physical therapy. She was tolerating oral liquids. It was felt she was stable to discharge to [facility] for continued physical therapy and could be advanced to a soft diet. Objective Vital signs: Temp Pulse Resp BP Pulse Ox 98.2 F 65 16 121/59 L 100 10/26/21 07:54 10/26/21 07:54 10/26/21 07:54 10/26/21 07:54 10/26/21 07:54 Narrative: - Constitutional no acute distress - *Routine HEENT Exam Head: Present: normocephalic Eye: Present: EOMI, PERRL ENT: Present: mucous membranes moist - *Routine Neck Exam Present: supple. Absent: lymphadenopathy - *Routine Respiratory Exam Present: CTA bilaterally - *Routine Cardiovascular Exam Present: RRR - *Routine Abdominal Exam Present: soft, normoactive bowel sounds, tenderness (periumbilical and bilateral lower quadrants). Absent: guarding, firm, mass - *Routine Rectal Exam Rectal:: deferred - *Routine Genitalia Exam Genitalia:: deferred - *Routine Extremities Exam Absent: cyanosis, clubbing, edema - *Routine Skin Exam Present: warm. Absent: rash - *Routine Neurological Exam Present: alert, oriented X3 rest tremor present Results Labs on day of discharge: Preliminary micro results at discharge 10/22/21 19:50 Blood Culture - Preliminary Blood NO GROWTH AFTER 48 HOURS 10/22/21 19:50 Blood Culture - Preliminary Blood NO GROWTH AFTER 48 HOURS DS: Diagnosis - Discharge Diagnosis (1) Pancreatitis Status: Acute (2) Partial small bowel obstruction Status: Acute (3) Elevated LFTs Status: Acute (4) Elevated lipase Status: Acute (5) Weakness Status: Acute (6) Anemia Status: Acute (7) Renal insufficiency Status: Acute (8) Hypothyroidism Status: Chronic (9) RUBÉN (acute kidney injury) Status: Acute (10) Essential tremor Status: Chronic Discharge Plan - Patient Discharge Instructions ACTIVITY: Continue current activity DIET: continue same diet Patient Instructions: Anemia, DI for Pancreatitis, DI for Small Bowel Obstruction, DI for Low Back Pain - Follow up Plan Follow up with: Elder Brasher MD [Primary Care Provider] - Disposition: [facility] Condition at discharge:: Improved Home Medications: Home Medications Medication Instructions Recorded Confirmed Type Levothyroxine Sodium [Synthroid 125 mcg PO DAILY 10/24/18 10/22/21 History 125mcg (0.125mg) tablet] lisinopriL [Lisinopril] 10 mg PO DAILY 10/29/20 10/22/21 History Celecoxib [CeleBREX 100mg Capsule] 100 mg
--- NOTE | 2021-10-26 09:22 | PC.NURSE ---
CALLED REPORT TO [facility]. THIS RN WAS MADE AWARE THAT [facility] BUS IS EXPECTED TO PICK PT UP AROUND 1330 THIS AFTERNOON.
--- NOTE | 2021-10-27 15:36 | CARE MANAGER ---
Contacted Piotr Stafford who states that patient is doing well. Deny any questions or concerns at this time. RO Verdugo
== END 2021-10-26 15:41 | DRG 388 ==
LOC: ER 10-23 05:07 → 2ND 10-23 10:12
PROVIDERS: Admitting Provider Family Medicine; Emergency Provider Emergency Medicine; PCP Family Medicine; Visit Provider Family Medicine
DX: K56.600 Partial intestinal obstruction, unspecified as to cause (principal); K85.90 Acute pancreatitis without necrosis or infection, unspecified; N17.9 Acute kidney failure, unspecified; D64.9 Anemia, unspecified; E03.9 Hypothyroidism, unspecified; F32.A Depression, unspecified; K21.9 Gastro-esophageal reflux disease without esophagitis; E78.5 Hyperlipidemia, unspecified; I10 Essential (primary) hypertension; M81.0 Age-related osteoporosis without current pathological fracture; M54.9 Dorsalgia, unspecified
CPT/HCPCS: 51702; 74177; 80053; 81001; 82140; 82150; 83605; 83690; 84145; 84436; 84443; 85025; 85651; 86140; 87040; 97110; 97162; 99285; C9803; G0378; J2405; Q9967; U0003; U0005

== ENCOUNTER → 2021-12-01 06:32 | Outpatient (CLI) | payer MEDICARE, SELFPAY ==
[2021-12-01 07:36] LABS: Blood Urea Nitrogen 23 mg/dl (7-17); Estimated Glomerular Filt Rate 44 ml/min (>60); GFR (African American) 53 ML/MIN (>60)
--- NOTE | 2021-12-01 07:36 | MR_ITS ---
FINAL REPORT TECHNIQUE: Multiplanar and multisequence imaging was obtained before and after the intravenous injection of gadolinium contrast. MRCP images were also obtained. CLINICAL HISTORY: ELEVATED ALKALINE PHOSPHATASE LEVEL right sided back pain, hx pancreatitis 10ml prohance injected COMPARISON: CT dated 10/22/2021 FINDINGS: The liver is homogeneous, without focal hepatic lesion. The spleen is normal in size and signal intensity. The adrenal glands and pancreas are without acute abnormality. There is no hydronephrosis. A right renal cyst is noted. Limited evaluation of the GI tract is without acute abnormality. There is no abdominal lymphadenopathy or ascites. The gallbladder is absent. The common duct is normal in caliber. There is no filling defect or stricture. The pancreatic duct is not dilated. Postcontrast images reveal no abnormal enhancement. IMPRESSION: No acute abnormality. No abnormal enhancement. Authenticated and [facility]
== END ==
PROVIDERS: PCP Family Medicine
DX: R74.8 Abnormal levels of other serum enzymes (principal); R94.5 Abnormal results of liver function studies
CPT/HCPCS: 36415; 74183; 76376; 82565; 84520; A9576

== ENCOUNTER → 2022-01-18 11:04 | Outpatient (CLI) | payer MEDICARE, SELFPAY ==
--- NOTE | 2022-01-18 11:10 | XR_ITS ---
FINAL REPORT CLINICAL HISTORY: low and mid back pain FINDINGS: Thoracic spine AP and lateral views were obtained. The bones are osteopenic. There is a moderate T12 compression fracture of uncertain age. Alignment is normal. There are mild degenerative changes. IMPRESSION: Moderate T12 compression fracture of uncertain age. Lumbar spine AP, oblique and lateral views were obtained. The bones are osteopenic. There is a moderate T12 compression fracture of uncertain age. Alignment is normal. There are mild degenerative changes. IMPRESSION: Moderate T12 compression fracture of uncertain age. Reviewed, Interpreted and Dictated by Shoaib Park III, MD Transcribed by Surinder [place] Authenticated and . [facility]
== END ==
PROVIDERS: PCP Family Medicine; Visit Provider Physician Assistant
DX: M54.50 Low back pain, unspecified (principal)
CPT/HCPCS: 72084

== ENCOUNTER → 2022-01-30 13:00 | Outpatient (CLI) | payer MEDICARE, SELFPAY ==
[2022-01-30 14:13] LABS: Basophils # 0.6 K/mm3 (0-0.2); Basophils % 9.6 % (0.1-2.0); Eosinophils # 0.2 K/mm3 (0.0-0.4); Eosinophils % 2.6 % (0.1-12.0); Hemoglobin 8.9 g/dL (12.2-16.2); Lymphocytes # 1.8 K/mm3 (0.7-4.5); Lymphocytes % 30.4 % (10-50); Mean Corpuscular HGB Conc 32.9 g/dL (31.8-35.4); Mean Corpuscular Hemoglobin 30.6 pg (27.0-31.2); Mean Platelet Volume 27.4 fl (7.4-10.4); Monocytes # 0.3 K/mm3 (0.1-1.0); Monocytes % 5.3 % (1.7-9.3); Neutrophils # 3.6 K/mm3 (1.8-7.8); Neutrophils % 61.7 % (37.0-80.0); Platelet Count 78 K/mm3 (142-424); Red Blood Count 2.91 M/mm3 (4.20-5.40); Red Cell Distribution Width 24.6 % (11.5-17.5); White Blood Count 5.9 K/mm3 (4.8-10.8)
[2022-01-30 14:19] LABS: Albumin Level 3.7 g/dl (3.5-5.0); Anion Gap 21.6 mEq/L (5-15); Blood Urea Nitrogen 34 mg/dl (7-17); Calcium 8.9 mg/dl (8.4-10.2); Carbon Dioxide 12 mmol/L (22.0-30.0); Chloride 111 mmol/L (98-107); Estimated Glomerular Filt Rate 37 ml/min (>60); GFR (African American) 45 ML/MIN (>60); Glucose 102 mg/dl (74-100); Potassium 5.6 mmoL/L (3.5-5.1); Sodium 139 mmol/L (136-145)
[2022-01-30 14:30] LABS: Intact Parathyroid Hormone 141.2 pg/mL (7.5-53.5)
[2022-01-30 14:35] LABS: 25-OH Vitamin D, Total 37.7 ng/mL (30-100)
[2022-02-03 22:16] LABS: C-Telopeptide Serum 830 pg/mL (.)
[2022-02-04 11:15] LABS: Tandem-R Ostase 89.5 ug/L (.)
== END ==
PROVIDERS: PCP Family Medicine; Visit Provider Internal Medicine Nephrology
DX: N18.31 Chronic kidney disease, stage 3a (principal); M81.0 Age-related osteoporosis without current pathological fracture
CPT/HCPCS: 36415; 80069; 82306; 82523; 83970; 84080; 85025

== ENCOUNTER → 2022-02-06 12:58 | Outpatient (POV) | payer MEDICARE, SELFPAY | PROVIDERS: Visit Provider Internal Medicine Nephrology | DX: Z00.00 Encounter for general adult medical examination without abnormal findings (principal) ==

== ENCOUNTER → 2022-02-08 10:43 | Outpatient (CLI) | payer MEDICARE, SELFPAY ==
--- NOTE | 2022-02-08 10:50 | MR_ITS ---
FINAL REPORT CLINICAL HISTORY: COMPRESSION FRACTURE OF BODY OF THORACIC VERTEBRA ABDNORMAL X-RAY LEFT SIDED MID BACK PAIN X 2 MONTHS NO INJURY/TRAUMA COMPARISON: 03/23/2020 FINDINGS: Multiplanar MR imaging of the thoracic spine was performed without contrast. On the sagittal T2-weighted images, disc degeneration is seen throughout. There is a moderate chronic T2 compression fracture that is new since the prior exam. No other fractures identified. There is moderate thoracic kyphosis. No bony mass is identified. The thoracic spinal cord has an unremarkable appearance without evidence of mass, edema or syrinx. There is no evidence of canal stenosis or cord compression. On the axial images, there are bulges with small anterior osteophytes. No disc protrusions are identified. There is no evidence of significant canal stenosis. No paraspinous soft tissue abnormality is seen. IMPRESSION: Moderate chronic T2 compression fracture, new from the prior exam. Multilevel disc degeneration with bulges and small anterior osteophytes. Reviewed, Interpreted and Dictated by Shoaib Park III, MD Transcribed by Smami Yo Authenticated and [facility]
== END ==
PROVIDERS: PCP Family Medicine; Visit Provider Physician Assistant
DX: M48.54XA Collapsed vertebra, not elsewhere classified, thoracic region, initial encounter for fracture (principal)
CPT/HCPCS: 72146

== ENCOUNTER 2022-03-03 12:00 | Emergency (ER) | payer MEDICARE, SELFPAY ==
[2022-03-03 14:49] VITALS: BP 124/72; PULSE 58; RESP 16; TEMP 36.9; O2SAT 100; BMI 21.4
--- NOTE | 2022-03-03 14:52 | XR_ITS ---
FINAL REPORT CLINICAL HISTORY: Left knee pain with swelling FINDINGS: Three views of the left knee reveal no evidence of fracture or dislocation. The bony alignment is normal. There are mild degenerative changes. A moderate joint effusion is present. No localized soft tissue abnormality is seen. IMPRESSION: Degenerative change with no acute bony abnormality. Moderate joint effusion. Reviewed, Interpreted and Dictated by Shoaib aPrk III, MD Transcribed by Jaquelin Wang Authenticated and [facility]
--- NOTE | 2022-03-03 14:52 | PC.NURSE ---
notified rad od xray
--- NOTE | 2022-03-03 15:09 | EXP.UTC ---
Discharge Plan Disposition Patient Disposition: Home, Self-Care Condition: Good Prescriptions Prescriptions: New methylprednisolone 4 mg Tablets,Dose Pack 4 mg PO DIRECTED Qty: 21 0RF No Action levothyroxine 125 MCG tablet 125 mcg PO DAILY famotidine 20 MG tablet 20 mg PO HS primidone 250 MG tablet 250 mg PO HS celecoxib 100 MG capsule 100 mg PO DAILY fluoxetine 20 MG capsule 20 mg PO DAILY meloxicam 7.5 MG tablet 7.5 mg PO DAILY gemfibrozil 600 MG tablet 600 mg PO DAILY cyclobenzaprine 5 MG tablet 5 mg PO TIDP PRN (Reason: Muscle Spasm) Qty: 30 0RF lisinopril 10 MG tablet 10 mg PO DAILY Referrals Follow up/Referrals: Elder Brasher MD [Primary Care Provider] - See instructions Activity Restrictions/Add. Instructions Additional Instructions/Restrictions: Rest the extremity, apply ice for 15 minutes as tolerated three or four times per day, Elevate the extremity as tolerated while you are resting. Follow up with Dr. Garza (orthopedics). I put in a referral but you need to call his office and schedule an appointment. intment. Follow up with your regular doctor. GO TO THE ER FOR ANY WORSENING SYMPTOMS Clinical Impressions Clinical Impression: Left knee pain Instructions Patient Instructions: DI for Osteoarthritis, DI for Knee Pain, Methylprednisolone Discharge ED Provider: Umair Crews [facility] General Stated complaint: pain in Lt knee Mode of Arrival: Ambulatory Source of Information: Patient Limitations: No Limitations Time Seen by Provider: 03/03/22 15:09 Description of Symptoms (Recalled from Triage Doc. by RN): pt c/o left knee that has been ongoing for the past week on and off. unaware of sny injury HEENT Symptoms (Recalled from RN notes): No Resp Symptoms (Recalled from RN notes): No Skin Symptoms (Recalled from RN notes): No MS Symptoms (Recalled from RN notes): Yes (left knee pain) Functional Status (Recalled from RN notes): nq History of Present Illness Provider Complaint: She c/o left knee pain for the past 2 weeks. She denies any known injury. She denies any other joint pain. She denies any fever, chills, or redness of the knee. Related Data Home Medications Medication Instructions Recorded Confirmed levothyroxine 125 mcg tablet 125 mcg PO DAILY hypothyroidism 10/24/18 10/22/21 lisinopril 10 mg tablet 10 mg PO DAILY Hypertension 10/29/20 10/22/21 celecoxib 100 mg capsule 100 mg PO DAILY Arthritis 07/28/21 10/22/21 famotidine 20 mg tablet 20 mg PO HS acid reflux 07/28/21 10/22/21 fluoxetine 20 mg capsule 20 mg PO DAILY Depression 07/28/21 10/22/21 primidone 250 mg tablet 250 mg PO HS Tremors 07/28/21 10/22/21 gemfibrozil 600 mg tablet 600 mg PO DAILY Cholesterol 10/23/21 10/23/21 meloxicam 7.5 mg tablet 7.5 mg PO DAILY Arthritis 10/23/21 10/23/21 Previous Rx's Medication Instructions Recorded cyclobenzaprine 5 mg tablet 5 mg PO TIDP PRN Muscle Spasm #30 10/26/21 tabs methylprednisolone 4 mg tablets in 4 mg PO DIRECTED #21 tabs 03/03/22 a dose pack Allergies Allergy/AdvReac Type Severity Reaction Status Date / Time No Known Allergies Allergy Verified 04/26/21 13:18 Worker's Comp Is this a Worker's Comp case?: No PFSH PFS Medical History Hyperlipidemia Hypertension Surgical History History of cholecystectomy Hx of tubal ligation Social History Smoking Status: Never smoker second hand exposure: No alcohol intake: never substance use type: denies use current occupational status: retired Travel in the last 8 weeks: None household members: children housing: house 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
[2022-03-03 15:42] VITALS: BP 124/72; PULSE 58; RESP 16; TEMP 36.9; O2SAT 100
== END 2022-03-03 15:52 | disposition home or self-care (01) ==
PROVIDERS: Emergency Provider Nurse Practitioner Family; PCP Family Medicine
DX: M25.562 Pain in left knee (principal)
CPT/HCPCS: 73562; 99212; G0463

== ENCOUNTER → 2022-03-15 13:12 | Outpatient (CLI) | payer MEDICARE, SELFPAY ==
--- NOTE | 2022-03-15 13:18 | MR_ITS ---
FINAL REPORT CLINICAL HISTORY: LUMBAR PAIN after fall x 1 month ago FINDINGS: Multiplanar MR imaging of the lumbar spine was performed without contrast. On the sagittal T2-weighted images, disc degeneration is seen throughout. There is a moderate to severe chronic T12 compression fracture. The vertebral alignment is normal. There is no evidence of fracture. The conus has an unremarkable appearance. T11-12: An annular bulge is present with mild bilateral neural foraminal narrowing. T12-L1: An annular bulge is present. Facet arthropathy and osteophytes are present. There is moderate right neural foraminal narrowing. L1-2: An annular bulge is present. Facet arthropathy and osteophytes are present. There is mild bilateral neural foraminal narrowing. L2-3: An annular bulge is present. Facet arthropathy and osteophytes are present. There is mild bilateral neural foraminal narrowing. L3-4: An annular bulge and facet arthropathy are present. There is moderate bilateral neural foraminal narrowing. L4-5: An annular bulge and facet arthropathy are present. There is moderate right and mild left neural foraminal narrowing. L5-S1: An annular bulge and facet arthropathy are present. There is a small central disc protrusion with moderate bilateral neural foraminal narrowing. There is mild spurring of the sacroiliac joints. IMPRESSION: Multilevel degenerative disc disease and spondylosis. Small central disc protrusion at L5-S1 with moderate bilateral neural foraminal narrowing. Reviewed, Interpreted and Dictated by Shoaib Park III, MD Transcribed by Awa Boland Authenticated and [facility]
== END ==
PROVIDERS: PCP Family Medicine; Visit Provider Orthopaedic Surgery
DX: M54.50 Low back pain, unspecified (principal)
CPT/HCPCS: 72148; 76376

== ENCOUNTER 2022-04-11 14:46 | Emergency (ER) | payer MEDICARE, SELFPAY ==
--- NOTE | 2022-04-11 14:49 | XR_ITS ---
FINAL REPORT CLINICAL HISTORY: PAIN, fall x 1 week ago COMPARISON: February 2022 FINDINGS: 3 views of the left knee were obtained. There is no acute fracture or dislocation. Severe osteopenia. Mild degenerative change of the medial compartment. There is no soft tissue abnormality. IMPRESSION: No acute process. Reviewed, Interpreted and Dictated by Dimitry Falcon MD Transcribed by Surinder [place] Authenticated and . [facility]
[2022-04-11 15:25] VITALS: BP 121/70; PULSE 74; RESP 16; TEMP 36.6; O2SAT 100; BMI 21.4
--- NOTE | 2022-04-11 16:01 | EXP.UTC ---
Discharge Plan Disposition Patient Disposition: Home, Self-Care Condition: Good Prescriptions Prescriptions: New prednisone 10 mg tablet 10 mg PO BID 5 Days Qty: 10 0RF No Action levothyroxine 125 MCG tablet 125 mcg PO DAILY famotidine 20 MG tablet 20 mg PO HS primidone 250 MG tablet 250 mg PO HS celecoxib 100 MG capsule 100 mg PO DAILY fluoxetine 20 MG capsule 20 mg PO DAILY meloxicam 7.5 MG tablet 7.5 mg PO DAILY gemfibrozil 600 MG tablet 600 mg PO DAILY cyclobenzaprine 5 MG tablet 5 mg PO TIDP PRN (Reason: Muscle Spasm) Qty: 30 0RF methylprednisolone 4 mg Tablets,Dose Pack 4 mg PO DIRECTED Qty: 21 0RF lisinopril 10 MG tablet 10 mg PO DAILY Referrals Follow up/Referrals: Elder Brasher MD [Primary Care Provider] - See instructions Anjum Garza JR, MD [Physician] - See instructions Activity Restrictions/Add. Instructions Additional Instructions/Restrictions: *weight bearing as tolerated *RICE, Rest the extremity, Ice 15-20 minutes 3-4 times daily, Compress- wear the elias wrap as discussed as much as possible to help reduce swelling and pain, Elevate the extremity when at rest *Elias wrap is for support and help control swelling, use it except in the shower. Be sure that is not to tight but not to loose either *Elevate when resting? *Ibuprofen every 6-8 hours as needed for pain an inflammation if your Doctor has said you can take it If need something more can take Tylenol in between doses of Ibuprofen to help Immediately follow up with your family doctor for new or worsening of symptoms, or no noticeable improvement over the next 3-5 days Follow up with your Family Doctor or Orthopedics Dr Garza if pain persists Clinical Impressions Clinical Impression: Left knee pain Instructions Patient Instructions: DI for Chronic Pain -- Adult, Prednisone Discharge ED Provider: Racquel Tamayo [facility] HPI General Stated complaint: LT knee pain no accident Mode of Arrival: Wheelchair Source of Information: Patient Time Seen by Provider: 04/11/22 16:01 Description of Symptoms (Recalled from Triage Doc. by RN): pain in left knee HEENT Symptoms (Recalled from RN notes): No Resp Symptoms (Recalled from RN notes): No Skin Symptoms (Recalled from RN notes): No MS Symptoms (Recalled from RN notes): Yes (left knee) Functional Status (Recalled from RN notes): n/a History of Present Illness Provider Complaint: Patient states that she has been having pain in her left knee for over a month State that she was seen about a month ago and they give her some prednisone and it helped so when the pain started again she came in wanting to get some more predinsone to see if it would help her with the pain again Denies injury Related Data Home Medications Medication Instructions Recorded Confirmed levothyroxine 125 mcg tablet 125 mcg PO DAILY hypothyroidism 10/24/18 10/22/21 lisinopril 10 mg tablet 10 mg PO DAILY Hypertension 10/29/20 10/22/21 celecoxib 100 mg capsule 100 mg PO DAILY Arthritis 07/28/21 10/22/21 famotidine 20 mg tablet 20 mg PO HS acid reflux 07/28/21 10/22/21 fluoxetine 20 mg capsule 20 mg PO DAILY Depression 07/28/21 10/22/21 primidone 250 mg tablet 250 mg PO HS Tremors 07/28/21 10/22/21 gemfibrozil 600 mg tablet 600 mg PO DAILY Cholesterol 10/23/21 10/23/21 meloxicam 7.5 mg tablet 7.5 mg PO DAILY Arthritis 10/23/21 10/23/21 Previous Rx's Medication Instructions Recorded cyclobenzaprine 5 mg tablet 5 mg PO TIDP PRN Muscle Spasm #30 10/26/21 tabs methylprednisolone 4 mg tablets in 4 mg PO DIRECTED #21 tabs 03/03/22 a dose pack prednisone 10 mg tablet 10 mg PO BID 5 days #10 tabs 04/11/22 Allergies Allergy/AdvReac Type Severity Reaction Status Date / Time No Known Allergies Allergy Verified 04/11/22 15:50 Worker's Comp Is this a Worker's Comp case?: No [facility] Disclaimer: The information contained in this secti
[2022-04-11 17:05] VITALS: BP 121/70; PULSE 74; RESP 16; TEMP 36.6; O2SAT 100
== END 2022-04-11 17:05 | disposition home or self-care (01) ==
PROVIDERS: Emergency Provider Nurse Practitioner; PCP Family Medicine
DX: M25.562 Pain in left knee (principal)
CPT/HCPCS: 73562; 99212; 99213; G0463

== ENCOUNTER 2022-05-15 14:49 | Emergency (ER) | payer MEDICARE, SELFPAY ==
--- NOTE | 2022-05-15 15:21 | EXP.UTC ---
Discharge Plan Disposition Patient Disposition: Home, Self-Care Condition: Good Prescriptions Prescriptions: New furosemide [Lasix] 20 mg tablet 20 mg PO DAILY Qty: 7 0RF No Action levothyroxine 125 MCG tablet 125 mcg PO DAILY famotidine 20 MG tablet 20 mg PO HS primidone 250 MG tablet 250 mg PO HS fluoxetine 20 MG capsule 20 mg PO DAILY gemfibrozil 600 MG tablet 600 mg PO DAILY lisinopril 10 MG tablet 10 mg PO DAILY doxepin 50 mg capsule 50 mg PO DAILY Label Comments: TAKE ONE CAPSULE BY MOUTH EVERY DAY AT BEDTIME oxybutynin chloride 10 mg tablet extended release 24hr 10 mg PO DAILY MDD . Label Comments: TAKE ONE TABLET BY MOUTH EVERY DAY doxepin 150 mg capsule 150 mg PO DAILY Label Comments: TAKE ONE CAPSULE BY MOUTH EVERY DAY AT BEDTIME Referrals Follow up/Referrals: Elder Brasher MD [Primary Care Provider] - See instructions Activity Restrictions/Add. Instructions Additional Instructions/Restrictions: Rest the affected extremity, Elevate the extremity as tolerated while you are resting. Take tylenol for pain or fever. Follow up with your regular doctor tomorrow as discussed. GO TO THE ER FOR ANY WORSENING SYMPTOMS Clinical Impressions Clinical Impression: Leg edema, left Instructions Patient Instructions: DI for Peripheral Edema-Unilateral Discharge ED Provider: Umair Crews [facility] General Stated complaint: left foot swollen, no accident Time Seen by Provider: 05/15/22 15:21 History of Present Illness Provider Complaint: She is here with left lower leg, ankle, and foot edema for the past 1 week. She denies any injury. She c/o left leg pain also. Related Data Home Medications Medication Instructions Recorded Confirmed levothyroxine 125 mcg tablet 125 mcg PO DAILY hypothyroidism 10/24/18 05/15/22 lisinopril 10 mg tablet 10 mg PO DAILY Hypertension 10/29/20 05/15/22 famotidine 20 mg tablet 20 mg PO HS acid reflux 07/28/21 05/15/22 fluoxetine 20 mg capsule 20 mg PO DAILY Depression 07/28/21 05/15/22 primidone 250 mg tablet 250 mg PO HS Tremors 07/28/21 05/15/22 gemfibrozil 600 mg tablet 600 mg PO DAILY Cholesterol 10/23/21 05/15/22 doxepin 150 mg capsule 150 mg PO DAILY . 05/15/22 05/15/22 doxepin 50 mg capsule 50 mg PO DAILY . 05/15/22 05/15/22 oxybutynin chloride 10 mg 10 mg PO DAILY . 05/15/22 05/15/22 tablet,extended release 24 hr Previous Rx's Medication Instructions Recorded furosemide 20 mg tablet (Lasix) 20 mg PO DAILY #7 tabs 05/15/22 Allergies Allergy/AdvReac Type Severity Reaction Status Date / Time No Known Allergies Allergy Verified 05/15/22 15:51 [facility] Disclaimer: The information contained in this section may have been updated after the patient was seen, as this information can be updated by other users. 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
[2022-05-15 15:30] VITALS: BP 132/79; PULSE 86; RESP 20; TEMP 36.5; O2SAT 100; BMI 23.4
--- NOTE | 2022-05-15 15:41 | CA_ITS ---
FINAL REPORT TECHNIQUE: Ultrasound images of the deep venous system were obtained from the left groin to the calf veins. CLINICAL HISTORY: left foot edema, left leg pain, FINDINGS: The deep venous system is normally compressible. Normal flow is identified. IMPRESSION: No evidence of left lower extremity DVT. Reviewed, Interpreted and Dictated by Sebas Heck MD Transcribed by Irene Mcwilliams Authenticated and [facility]
[2022-05-15 16:45] VITALS: BP 132/79; PULSE 86; RESP 20; TEMP 36.5; O2SAT 100
== END 2022-05-15 16:45 | disposition home or self-care (01) ==
PROVIDERS: Emergency Provider Nurse Practitioner Family; PCP Family Medicine
DX: R60.0 Localized edema (principal)
CPT/HCPCS: 93971; 99212; 99213; G0463

== ENCOUNTER 2022-07-04 20:07 | Emergency (ER) | payer MEDICARE, SELFPAY ==
[2022-07-04] VITALS (7 sets, daily range): BP systolic 138–158; BP diastolic 53–87; PULSE 55–70; RESP 16–17; TEMP 36.9; O2SAT 98–100; BMI 23.0
--- NOTE | 2022-07-04 20:30 | CT_ITS ---
PROCEDURE INFORMATION: Exam: CT Pelvis Without Contrast; Skeletal Exam date and time: 07/04/2022 8:48 PM Age: 72 years old Clinical indication: Pelvic pain TECHNIQUE: Imaging protocol: Computed tomography of the pelvis without contrast. Exam focused on the skeleton. Radiation optimization: All CT scans at this facility use at least one of these dose optimization techniques: automated exposure control; mA and/or kV adjustment per patient size (includes targeted exams where dose is matched to clinical indication); or iterative reconstruction. REPORTING DATA: Count of CT and Cardiac NM exams in prior 12 months: This patient has received 2 known CTs and 0 known cardiac nuclear medicine studies in the 12 months prior to the current study. COMPARISON: CT ABDOMEN PELVIS W CON 10/22/2021 9:59 PM FINDINGS: Stomach and bowel: Diverticulosis coli without evidence for diverticulitis. Vasculature: Calcified atherosclerosis. No aneurysm. Bones/joints: Bones appear osteopenic. Subtle irregularity of the right sacral ala. degenerative narrowing bilateral hips. No dislocation. Soft tissues: Unremarkable. IMPRESSION: Osteopenia with subtle irregularity of the right sacral ala which is indeterminate but may represent an acute fracture. Correlation with point tenderness recommended.
--- NOTE | 2022-07-04 20:30 | CT_ITS ---
PROCEDURE INFORMATION: Exam: CT Lumbar Spine Without Contrast Exam date and time: 07/04/2022 8:50 PM Age: 72 years old Clinical indication: Low back pain TECHNIQUE: Imaging protocol: Computed tomography of the lumbar spine without contrast. Radiation optimization: All CT scans at this facility use at least one of these dose optimization techniques: automated exposure control; mA and/or kV adjustment per patient size (includes targeted exams where dose is matched to clinical indication); or iterative reconstruction. REPORTING DATA: Count of CT and Cardiac NM exams in prior 12 months: This patient has received 2 known CTs and 0 known cardiac nuclear medicine studies in the 12 months prior to the current study. COMPARISON: MR LUMBAR SPINE WO CON 03/15/2022 1:59 PM FINDINGS: Bones/joints: Osteopenia. Moderate anterior wedge compression deformity of T12, similar to prior examination. Subtle irregularity of the right sacral ala. Stomach and bowel: Diverticulosis coli without evidence for diverticulitis. Vasculature: Calcified atherosclerosis. No aneurysm. Soft tissues: Unremarkable. IMPRESSION: Osteopenia with subtle irregularity of the right sacral ala which is indeterminate but may represent an acute fracture. Correlation with point tenderness is recommended.
--- NOTE | 2022-07-04 20:46 | PC.NURSE ---
patient gone to CT at this time
[2022-07-04 20:56] LABS: Basophils % 0.6 % (0.1-2.0); Eosinophils # 0.1 K/mm3 (0.0-0.4); Eosinophils % 1.2 % (0.1-12.0); Hematocrit 33.3 % (37.0-47.0); Hemoglobin 10.9 g/dL (12.2-16.2); Lymphocytes # 1.1 K/mm3 (0.7-4.5); Lymphocytes % 15.1 % (10-50); Mean Corpuscular HGB Conc 32.7 g/dL (31.8-35.4); Mean Corpuscular Volume 97.9 fl (81-99); Mean Platelet Volume 8.4 fl (7.4-10.4); Monocytes # 0.4 K/mm3 (0.1-1.0); Monocytes % 5.5 % (1.7-9.3); Neutrophils # 5.5 K/mm3 (1.8-7.8); Neutrophils % 77.6 % (37.0-80.0); Platelet Count 269 K/mm3 (142-424); White Blood Count 7.1 K/mm3 (4.8-10.8)
[2022-07-04 21:13] LABS: Chloride 106 mmol/L (98-107)
[2022-07-04 21:14] LABS: Potassium 5.6 mmoL/L (3.5-5.1); Sodium 136 mmol/L (136-145)
[2022-07-04 21:16] LABS: Alanine Aminotransferase 47 U/L (12-78); Albumin Level 3.9 g/dl (3.5-5.0); Albumin/Globulin Ratio 1.1 (1.1-1.8); Alkaline Phosphatase 915 U/L (38-126); Aspartate Amino Transferase 72 U/L (14-36); Bilirubin,Total 0.9 mg/dl (0.2-1.3); Blood Urea Nitrogen 31 mg/dl (7-17); Creatinine Clearance Estimated 38 mL/min (50-200); Estimated Glomerular Filt Rate 49 ml/min (>60); GFR (African American) 59 ML/MIN (>60); Globulin 3.6 g/dL (1.3-3.2); Total Protein,Serum 7.5 g/dl (6.3-8.2)
[2022-07-04 21:17] LABS: Anion Gap 11.6 mEq/L (5-15); Calcium 8.9 mg/dl (8.4-10.2); Carbon Dioxide 24 mmol/L (22.0-30.0); Glucose 110 mg/dl (74-100)
--- NOTE | 2022-07-04 21:26 | PC.NURSE ---
Rounded on patient, no needs voiced at this time.
--- NOTE | 2022-07-04 21:32 | HMH.EDBACK ---
Discharge Plan Disposition Patient Disposition: Home, Self-Care Chief Complaint: Back Pain/Injury Prescriptions Prescriptions: No Action levothyroxine 125 MCG tablet 125 mcg PO DAILY famotidine 20 MG tablet 20 mg PO HS primidone 250 MG tablet 250 mg PO HS fluoxetine 20 MG capsule 20 mg PO DAILY gemfibrozil 600 MG tablet 600 mg PO DAILY lisinopril 10 MG tablet 10 mg PO DAILY doxepin 50 mg capsule 50 mg PO DAILY Label Comments: TAKE ONE CAPSULE BY MOUTH EVERY DAY AT BEDTIME oxybutynin chloride 10 mg tablet extended release 24hr 10 mg PO DAILY MDD . Label Comments: TAKE ONE TABLET BY MOUTH EVERY DAY doxepin 150 mg capsule 150 mg PO DAILY Label Comments: TAKE ONE CAPSULE BY MOUTH EVERY DAY AT BEDTIME furosemide [Lasix] 20 mg tablet 20 mg PO DAILY Qty: 7 0RF Referrals Follow up/Referrals: Provider,Referral, [Primary Care Provider] - See instructions Clinical Impressions Clinical Impression: Lumbar radiculopathy, Strain of lumbar region Instructions Patient Instructions: DI for Low Back Pain Discharge ED Provider: Sarthak (ED)Joao Back Pain HPI General Chief Complaint: Back Pain/Injury Stated Complaint: Back Pain Time Seen by Provider: 07/04/22 21:32 Mode of Arrival: EMS Source of Information: Patient, EMS and Medical Record Limitations: Physical Limitations Description of Symptoms (Recalled from ER Triage Doc. by RN): 72 F presents from home via EMS for acute/chronic back pain. She reports she had a steroid shot in her hip last week. 3 days ago she bent over to pickup laundry and had a sharp shooting pain 10/10. Denies loss of bowel, bladder, or ability to walk. She rates 4/10 pain as she lays on the stretcher, but when she moves it is 10/10. Patient called out for EMS this evening for the increased and continued back pain. History of Present Illness HPI Narrative: pt reports bent over and had increased back pain - has hx of hip and back pain - inc with mov - pt with no fall and no fever or cauda equina sx Complaint: back pain Onset (ago): day(s) Duration: intermittent Similar Symptoms Previously: Yes Location: lumbar spine Severity: moderate Quality: sharp Context: bending Associated symptoms: denies other symptoms Related Data Home Medications Medication Instructions Recorded Confirmed levothyroxine 125 mcg tablet 125 mcg PO DAILY hypothyroidism 10/24/18 05/15/22 lisinopril 10 mg tablet 10 mg PO DAILY Hypertension 10/29/20 05/15/22 famotidine 20 mg tablet 20 mg PO HS acid reflux 07/28/21 05/15/22 fluoxetine 20 mg capsule 20 mg PO DAILY Depression 07/28/21 05/15/22 primidone 250 mg tablet 250 mg PO HS Tremors 07/28/21 05/15/22 gemfibrozil 600 mg tablet 600 mg PO DAILY Cholesterol 10/23/21 05/15/22 doxepin 150 mg capsule 150 mg PO DAILY . 05/15/22 05/15/22 doxepin 50 mg capsule 50 mg PO DAILY . 05/15/22 05/15/22 oxybutynin chloride 10 mg 10 mg PO DAILY . 05/15/22 05/15/22 tablet,extended release 24 hr Previous Rx's Medication Instructions Recorded furosemide 20 mg tablet (Lasix) 20 mg PO DAILY #7 tabs 05/15/22 Allergies Allergy/AdvReac Type Severity Reaction Status Date / Time No Known Allergies Allergy Verified 05/15/22 15:51 [facility] Disclaimer: The information contained in this section may have been updated after the patient was seen, as this information can be updated by other users. Medical History Hyperlipidemia Hypertension Surgical History History of cholecystectomy Hx of tubal ligation Social History Smoking Status: Former smoker second hand exposure: No alcohol intake: never substance use type: denies use current occupational status: retired Travel in the last 8 weeks: None household members: children h
== END 2022-07-04 23:34 | disposition home or self-care (01) ==
PROVIDERS: Emergency Provider Emergency Medicine
DX: M54.9 Dorsalgia, unspecified (principal); X50.9XXA Other and unspecified overexertion or strenuous movements or postures, initial encounter
CPT/HCPCS: 72131; 72192; 80053; 85025; 96374; 96375; 99284; 99285; J0131

== ENCOUNTER 2022-08-02 21:37 | Observation (INO) | payer MEDICARE, SELFPAY ==
[2022-08-02 21:38] VITALS: BP 151/86; PULSE 82; RESP 17; TEMP 36.4; O2SAT 100; BMI 21.4
[2022-08-02 22:00] VITALS: BP 124/77; PULSE 78; RESP 10; O2SAT 93
[2022-08-02 22:00] LABS: Basophils % 0.4 % (0.1-2.0); Eosinophils # 0.1 K/mm3 (0.0-0.4); Hematocrit 41.8 % (37.0-47.0); Hemoglobin 13.7 g/dL (12.2-16.2); Lymphocytes % 21.5 % (10-50); Mean Corpuscular HGB Conc 32.7 g/dL (31.8-35.4); Mean Corpuscular Hemoglobin 31.6 pg (27.0-31.2); Mean Corpuscular Volume 96.7 fl (81-99); Mean Platelet Volume 8.6 fl (7.4-10.4); Monocytes # 0.4 K/mm3 (0.1-1.0); Monocytes % 3.9 % (1.7-9.3); Neutrophils # 6.7 K/mm3 (1.8-7.8); Neutrophils % 73.2 % (37.0-80.0); Platelet Count 324 K/mm3 (142-424); Red Blood Count 4.33 M/mm3 (4.20-5.40); Red Cell Distribution Width 15.5 % (11.5-17.5); White Blood Count 9.1 K/mm3 (4.8-10.8)
[2022-08-02 22:01] LABS: Coronavirus 19, PCR Not Detected (NotDetected); Influenza A, PCR Not Detected (NotDetected); Influenza B, PCR Not Detected (NotDetected)
[2022-08-02 22:01] LABS: Microscopic, Urine URINE MICROSCOPIC (MICROSCOPIC)
[2022-08-02 22:05] LABS: Alanine Aminotransferase 109 U/L (12-78); Albumin/Globulin Ratio 0.9 (1.1-1.8); Anion Gap 14.5 mEq/L (5-15); Aspartate Amino Transferase 175 U/L (14-36); Bilirubin,Total 1.3 mg/dl (0.2-1.3); Blood Urea Nitrogen 22 mg/dl (7-17); Calcium 8.9 mg/dl (8.4-10.2); Carbon Dioxide 21 mmol/L (22.0-30.0); Chloride 106 mmol/L (98-107); Creatine Kinase 34 U/L (30-135); Creatinine Clearance Estimated 39 mL/min (50-200); Estimated Glomerular Filt Rate 54 ml/min (>60); GFR (African American) 66 ML/MIN (>60); Globulin 4.4 g/dL (1.3-3.2); Glucose 119 mg/dl (74-100); Potassium 4.5 mmoL/L (3.5-5.1); Sodium 137 mmol/L (136-145); Total Protein,Serum 8.4 g/dl (6.3-8.2)
[2022-08-02 22:06] LABS: Appearance,Urine SL CLOUDY (Clear); Bilirubin,Urine Negative (Negative); Blood, Urine 1+ (Negative); Color,Urine YELLOW (Yellow); Glucose,Urine (UA) Negative (Negative); Ketones,Urine Negative (Negative); Leukocyte Esterase,Urine 2+ (Negative); Nitrate,Urine POSITIVE (Negative); Protein,Urine 1+ (Negative); Specific Gravity, Urine 1.025 (1.005-1.030); Urobilinogen,Urine 0.2 EU/dl (0.2)
[2022-08-02 22:06] LABS: Lactic Acid 1.5 mmol/L (0.7-2.1)
[2022-08-02 22:10] LABS: C-Reactive Protein 50.1 mg/L (0-4)
[2022-08-02 22:20] LABS: Alkaline Phosphatase 1586 U/L (38-126); Creatine Kinase MB 1.1 ng/ml (0.0-2.03); Troponin I < 0.01 ng/ml (0.00-0.034)
[2022-08-02 22:24] LABS: Bacteria,Urine 4+ /lpf; RBC,Urine Occasional #/hpf (0-3); Squamous Epithelial Cell,Urine Occasional #/hpf (0-5)
[2022-08-02 22:30] VITALS: BP 131/71; PULSE 75; RESP 17; O2SAT 99
[2022-08-02 22:45] LABS: Erythrocyte Sedimentation Rate 48 mm/hr (0-30)
[2022-08-02 23:00] VITALS: BP 131/75; PULSE 75; RESP 16; O2SAT 98
[2022-08-02 23:30] VITALS: BP 150/79; PULSE 72; RESP 14; O2SAT 98
--- NOTE | 2022-08-02 23:48 | HMH.EDWEAK ---
Discharge Plan Disposition Patient Disposition: Admitted As Inpatient Clinical Impressions Clinical Impression: Acute UTI (urinary tract infection), SIRS (systemic inflammatory response syndrome), Fracture of thoracic spine, Hypothyroidism Discharge ED Provider: Sarthak (ED),Joao Eli Weakness HPI General Chief complaint: Weakness Stated complaint: weakness Time Seen by Provider: 08/02/22 23:00 Mode of Arrival: EMS Source of Information: Patient, EMS and Medical Record Limitations: Physical Limitations Description of Symptoms (Recalled from ER Triage Doc. by RN): 72 F presents via EMS from home for c/o increased weakness and inability to care for herself. She was recently seen here for increased falls. She continues to have falls at home. Her last one was 1 week ago when she fell and hit a heater which was not on; however, this caused a large bruise to her right posterior lateral chest wall. Patient has been in her bed for 1 week without getting up. She has been using the bathroom on herself and laying in it. EMS reports that her son lives in the home; however, the home was in disarray along with patient being very unkept and filthy. The son apparently works often and is unable to care for his mother. History of Present Illness HPI Narrative: reported weakness and falls at home with back pain and dec mobility - pt with no cough - MD Complaint: generalized weakness Onset (ago): day(s) Duration: constant Location: generalized Migration: none Severity: moderate Associated symptoms: denies other symptoms Related Data Home Medications Medication Instructions Recorded Confirmed doxepin 150 mg capsule 150 mg PO HS Mood 08/02/22 08/02/22 famotidine 20 mg tablet 20 mg PO DAILY Acid reflux 08/02/22 08/02/22 fluoxetine 20 mg capsule 20 mg PO DAILY Mood 08/02/22 08/02/22 furosemide 40 mg tablet 40 mg PO DAILY Edema 08/02/22 08/02/22 gemfibrozil 600 mg tablet 600 mg PO BID Cholesterol 08/02/22 08/02/22 levothyroxine 112 mcg tablet 112 mcg PO DAILY Thyroid 08/02/22 08/02/22 oxybutynin chloride 10 mg 10 mg PO DAILY Urinary 08/02/22 08/02/22 tablet,extended release 24 hr primidone 250 mg tablet 250 mg PO DAILY Tremors 08/02/22 08/02/22 Allergies Allergy/AdvReac Type Severity Reaction Status Date / Time No Known Allergies Allergy Verified 05/15/22 15:51 [facility] Disclaimer: The information contained in this section may have been updated after the patient was seen, as this information can be updated by other users. 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 [employer] current occupational exposures/hazards: Yes caffeine: Yes ROS Obtained: Yes All systems reviewed & no additional complaints except as documented Physical Exam General General appearance: alert Head Head exam: normocephalic Eye Eye exam: Present PERRL and EOMI; Absent scleral icterus ENT ENT exam: Present mucous membranes dry Neck Neck exam: Present trachea midline Respiratory Respiratory exam: Present other (dec bs bilat ); Absent respiratory distress Cardiovascular Cardiovascular exam: Present regular rate, systolic murmur and +S4 Abdominal Exam Abdominal exam: Present soft; Absent tenderness or guarding Extremities Exam Extremities exam: Absent joint swelling or calf tenderness Back Exam Back exam: Present tenderness; Absent CVA tenderness (R) or vertebral tenderness Neurological Exam Neurological exam: Present alert and CN II-XII intact; Absent
[2022-08-03] VITALS (17 sets, daily range): BP systolic 126–162; BP diastolic 59–87; PULSE 60–86; RESP 8–18; TEMP 36.4–36.7; O2SAT 91–100; BMI 21.3
--- NOTE | 2022-08-03 00:03 | CT_ITS ---
PROCEDURE INFORMATION: Exam: CT Head Without Contrast Exam date and time: 08/03/2022 12:59 AM Age: 72 years old Clinical indication: Injury or trauma; Fall TECHNIQUE: Imaging protocol: Computed tomography of the head without contrast. Radiation optimization: All CT scans at this facility use at least one of these dose optimization techniques: automated exposure control; mA and/or kV adjustment per patient size (includes targeted exams where dose is matched to clinical indication); or iterative reconstruction. REPORTING DATA: Count of CT and Cardiac NM exams in prior 12 months: This patient has received 3 known CTs and 0 known cardiac nuclear medicine studies in the 12 months prior to the current study. COMPARISON: CT HEAD/BRAIN WO CON 09/05/2020 12:14 FINDINGS: Brain: Moderate chronic brain volume loss and chronic small vessel ischemic changes. There is a 1.5 cm heavily calcified extra-axial mass in the left side of the posterior fossa without significant interval change. This is almost certainly a meningioma. Cerebral ventricles: No ventriculomegaly. Paranasal sinuses: Visualized sinuses are unremarkable. No fluid levels. Mastoid air cells: Visualized mastoid air cells are well aerated. Orbital cavities: Status post bilateral cataract surgery. Nasal cavity: Right jalen bullosa. Bones/joints: Unremarkable. No acute fracture. Soft tissues: Unremarkable. IMPRESSION: No acute intracranial findings.
--- NOTE | 2022-08-03 00:04 | XR_ITS ---
PROCEDURE INFORMATION: Exam: XR Chest Exam date and time: 08/03/2022 12:43 AM Age: 72 years old Clinical indication: Injury or trauma; Fall; Blunt trauma (contusions or hematomas) TECHNIQUE: Imaging protocol: Radiologic exam of the chest. Views: 1 view. COMPARISON: CR XR CHEST PORTABLE PICC PLAC 01/08/2021 17:09 FINDINGS: Lungs: Unremarkable. No consolidation. Pleural spaces: Unremarkable. No pleural effusion. No pneumothorax. Heart/Mediastinum: Unremarkable. No cardiomegaly. Vasculature: Vascular calcifications. Bones/joints: Unremarkable. Soft tissues: Upper abdominal surgical clips. Skin fold projects over the upper left hemithorax. IMPRESSION: No acute intrathoracic organ injury.
--- NOTE | 2022-08-03 00:04 | CT_ITS ---
PROCEDURE INFORMATION: Exam: CT Thoracic Spine Without Contrast Exam date and time: 08/03/2022 1:02 AM Age: 72 years old Clinical indication: Injury or trauma; Fall; Blunt trauma (contusions or hematomas) TECHNIQUE: Imaging protocol: Computed tomography of the thoracic spine without contrast. Radiation optimization: All CT scans at this facility use at least one of these dose optimization techniques: automated exposure control; mA and/or kV adjustment per patient size (includes targeted exams where dose is matched to clinical indication); or iterative reconstruction. REPORTING DATA: Count of CT and Cardiac NM exams in prior 12 months: This patient has received 3 known CTs and 0 known cardiac nuclear medicine studies in the 12 months prior to the current study. COMPARISON: MR THORACIC SPINE WO CON 05/20/2021 10:49 FINDINGS: Bones/joints: T5 compression fracture is favored to be acute. There is mild retropulsed bone fragment producing mild spinal stenosis. T4 spinous process fracture could be acute. Chronic T12 superior endplate fracture. Soft tissues: Unremarkable. Lungs: Mild scarring and atelectasis in the lower lungs. Pleural spaces: Small left pleural effusion. Heart: Cardiomegaly. Mitral and aortic valve calcifications. Coronary arteries: Coronary artery calcifications. Other findings: Stigmata of old granulomatous disease. IMPRESSION: 1. T5 compression fracture is favored to be acute. There is mild retropulsed bone fragment producing mild spinal stenosis. 2. T4 spinous process fracture could be acute. Please correlate with point tenderness. 3. Small left pleural effusion.
--- NOTE | 2022-08-03 00:04 | CT_ITS ---
PROCEDURE INFORMATION: Exam: CT Cervical Spine Without Contrast Exam date and time: 08/03/2022 12:59 AM Age: 72 years old Clinical indication: Injury or trauma; Fall TECHNIQUE: Imaging protocol: Computed tomography of the cervical spine without contrast. Radiation optimization: All CT scans at this facility use at least one of these dose optimization techniques: automated exposure control; mA and/or kV adjustment per patient size (includes targeted exams where dose is matched to clinical indication); or iterative reconstruction. REPORTING DATA: Count of CT and Cardiac NM exams in prior 12 months: This patient has received 3 known CTs and 0 known cardiac nuclear medicine studies in the 12 months prior to the current study. COMPARISON: CT CERVICAL SPINE WO CON 09/05/2020 12:18 FINDINGS: Bones/joints: No acute fracture. Normal alignment. No significant disc bulge or herniation. No severe spinal canal stenosis. No significant neural foraminal narrowing. Lungs: Lung apices are normal. Soft tissues: Unremarkable. IMPRESSION: No acute fracture or malalignment of the cervical spine.
--- NOTE | 2022-08-03 00:04 | CT_ITS ---
PROCEDURE INFORMATION: Exam: CT Lumbar Spine Without Contrast Exam date and time: 08/03/2022 1:04 AM Age: 72 years old Clinical indication: Injury or trauma; Fall; Blunt trauma (contusions or hematomas) TECHNIQUE: Imaging protocol: Computed tomography of the lumbar spine without contrast. Radiation optimization: All CT scans at this facility use at least one of these dose optimization techniques: automated exposure control; mA and/or kV adjustment per patient size (includes targeted exams where dose is matched to clinical indication); or iterative reconstruction. REPORTING DATA: Count of CT and Cardiac NM exams in prior 12 months: This patient has received 3 known CTs and 0 known cardiac nuclear medicine studies in the 12 months prior to the current study. COMPARISON: CT LUMBAR SPINE WO CON 04/07/2022 20:50 FINDINGS: Bones/joints: Bilateral sacral body fractures most likely representing insufficiency fractures. Moderate to severe demineralization of the bones. Diaphragm: Small hiatal hernia. Gallbladder and bile ducts: Gallbladder is absent. Kidneys and ureters: Low attenuation renal lesions measuring up to 3.2 cm in diameter are incompletely characterized, but are likely cysts. No followup imaging is warranted. Stomach and bowel: Postsurgical changes of the gastroesophageal junction. Relatively large amount of stool in the colon. Mild sigmoid diverticulosis without diverticulitis. Vasculature: The arteries demonstrate moderate atherosclerotic disease. Soft tissues: Unremarkable. Other findings: Retroperitoneal surgical clips. IMPRESSION: 1. No acute fracture or malalignment of the lumbar spine. 2. Bilateral sacral body fractures most likely representing insufficiency fractures. 3. Relatively large amount of stool in the colon. COMMENTS: Consistent with the [employer]'s Incidental Findings Committee white paper (J Am Wang Radiol 2018): Any incidental renal lesion less than 1 cm or classified as too small to characterize, or any incidental cystic renal lesion characterized as simple-appearing, is likely benign. No follow-up imaging is recommended for these lesions per consensus recommendations based on imaging criteria.
--- NOTE | 2022-08-03 00:05 | XR_ITS ---
PROCEDURE INFORMATION: Exam: XR Pelvis Exam date and time: 08/03/2022 12:42 AM Age: 72 years old Clinical indication: Injury or trauma; Fall; Blunt trauma (contusions or hematomas); Does not apply; Pelvic region TECHNIQUE: Imaging protocol: Radiologic exam of the pelvis. Views: 1 or 2 view. COMPARISON: CT PELVIS WO CON 04/07/2022 20:48 FINDINGS: Bones/joints: Bones are moderately to severely demineralized, which limits evaluation for nondisplaced fractures. The patient's bilateral sacral insufficiency fractures (seen on lumbar spine CT) are difficult to identify on this radiograph. Soft tissues: Unremarkable. IMPRESSION: 1. Bones are moderately to severely demineralized, which limits evaluation for nondisplaced fractures. Within the limitations of the study, there are no displaced pelvic fractures. If the patient is unable to bear weight, consider CT for further evaluation. 2. The patient's bilateral sacral insufficiency fractures (seen on lumbar spine CT) are difficult to identify on this radiograph.
--- NOTE | 2022-08-03 00:12 | ECG_ITS ---
APPROVED REPORT Exam: Resting ECG HR:67 bpm ECG Measurements Heart Rate 67 AXES GA 129 P -27 QRSd 80 QRS -5 QT 401 T 73 QTc 416 Conclusion SINUS RHYTHM LEFT VENTRICULAR HYPERTROPHY AND ST-T CHANGE [VOLTAGE CRITERIA PLUS ST/T ABNORMALITY] ABNORMAL ECG UNCONFIRMED REPORT Electronically signed by : Hansel Polanco MD 08/03/2022 21:14:41
[2022-08-03 01:56] LABS: Troponin I 0.01 ng/ml (0.00-0.034)
--- NOTE | 2022-08-03 04:55 | PC.NURSE ---
Patient admitted to 201 observation with admitting dx of UTI, generalized weakness and frequent falls to service of Dr. Willett to Dr. Brasher.
--- NOTE | 2022-08-03 07:21 | HMH.PHAINT1 ---
Pharmacy Intervention Comments: Reconciled patient's home medications using pharmacy fill history ([facility]).
--- NOTE | 2022-08-03 08:41 | EXP.HP ---
History of Present Illness *Admission Date: 08/02/22 *Reason for visit:: weakness, multiple falls *History of present illness: Ms. Oneill is a 72-year-old female who has had multiple falls in the last few weeks. She had recently been seen in the ER for a fall approximately a week ago where she fell and hit an air purifier. She hit the right side of her back and her left arm. She states after this fall she had difficulty getting out of bed. She was trying to use a walker, but her legs became so weak she was unable to get up even with the walker. She states she has been laying in bed for approximately 1 week. Her son does live with her but is not home during the day. She has not been eating and drinking and continued to feel poorly and asked her son to bring her to the emergency room. She was evaluated and found to have a UTI and was admitted. She had a CT of the head, cervical spine, lumbar spine, thoracic spine, and she had a pelvic x-ray and a chest x-ray. The patient's lumbar spine CT showed bilateral sacral body fractures most likely representing insufficiency fractures as well as a large amount of stool in the colon. Her thoracic spine CT showed a T5 compression fracture favored to be acute with mild retropulsed bone fragment producing mild spinal stenosis. There was also a T4 spinous process fracture which also could be acute and a small left pleural effusion. Her pelvic x-ray did not show any acute fracture. [facility] Disclaimer: The information contained in this section may have been updated after the patient was seen, as this information can be updated by other users. Medical History (Updated 08/03/22 @ 10:08 by Elder Brasher MD) Autoimmune hepatitis Elevated LFTs Essential tremor GERD (gastroesophageal reflux disease) Graves' disease Hyperlipidemia Hypertension Hypothyroidism Osteoporosis Surgical History (Updated 08/03/22 @ 09:13 by MELANIE Cabrera) History of cholecystectomy History of repair of hiatal hernia Hx of tubal ligation Family History (Updated 08/03/22 @ 09:13 by MELANIE Cabrera) Cancer Social History (Updated 08/03/22 @ 05:35 by Darlin Willett RN) Smoking Status: Former smoker second hand exposure: No alcohol intake: never substance use type: denies use current occupational status: retired Travel in the last 8 weeks: None household members: children housing: house 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[employer], 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 current occupational exposures/hazards: Yes caffeine: Yes Review of Systems Constitutional Constitutional: Reports fatigue, Denies headache(s) and Reports weakness Eyes Eyes: Denies blurry vision and Denies diplopia ENT Ears, Nose, Mouth, and Throat: Denies headache(s), Denies nasal congestion, Denies sore throat and Reports vertigo *Cardiovascular Cardiovascular: Denies chest pain, Denies dyspnea and Denies leg edema *Respiratory Respiratory: Denies cough and Denies dyspnea *Gastrointestinal Gastrointestinal: Denies abdominal pain, Denies loose stools, Denies nausea and Denies vomiting *Genitourinary Genitourinary: Denies difficulty voiding and Denies dysuria *Musculoskeletal Musculoskeletal: Reports arthralgias (right hip pain), Reports back pain and Denies myalgias *Neurologic Neurologic: Denies headache(s), Reports vertigo and Reports weakness Endocrine Endocrine: Reports fatigue Meds Home Medications and Allergies Home Medications Medication Instructions Recorded Confirmed Type doxepin 150 mg capsule 150 mg PO HS Pruritis 08/02/22 08/02/22 History famotidine 20 mg tablet 20 mg PO BID Acid reflux 08/02/22 08/03/22 History fluoxetine 20 mg capsule 20 mg PO DAILY Mood 08/02/22 08/02/22 History furosemide 40 mg tablet 40 mg PO DAILY Fluid 08/02/22 08/02/22 History gemfibrozil 600 mg tablet 600 mg PO BID High triglycerides 08/02/22 08/02/22 History levothyroxine 112 mcg tablet 112 mcg PO DAILY Thyroid 08/02/22 08/02/22 History primidone 250 mg tablet
--- NOTE | 2022-08-03 09:57 | HMH.OTEV ---
OT Inpatient Evaluation Rehab OT IP Evaluation Start: 08/03/22 09:13 Freq: ONCE Status: Active Protocol: Document 08/03/22 09:51 [facility] (Rec: 08/03/22 09:57 [facility] [id number]) Rehab OT IP Assessment Subjective History Pt oriented x 4 on arrival. Pt was admitted via ED on 08/03 due to falls and weakness. Prior to being in the hospital, pt lived at home and her son lived with her. Her son is home at nights, but is goine throughout the day working. Pt claims she is independent with all ADLs. She is able to complete small IADLs such as laundry and light cleaning. Pt does use a walker during ambulation since recent fall. Pt has a past medical history of: Autoimmune hepatitis Elevated LFTs Essential tremor Hyperlipidemia Hypertension Hypothyroidism Osteoporosis Subjective My hip is very sore. Objective Patient Orientation Person,Place,Birthday Upper Extremity Gross ROM WFL Bed Mobility bed mobility-scooting,bed mobility - supine/sit,bed mobility - rolling Assist Level Minimal x 1 (25% assist) Transfer Training Sit/Stand Transfer Assist Level Contact Guard/Hand Hold Lower Body Dressing Ability Assistance X1 Rehab OT IP prob,goals,plan Problems Date of Evaluation: 08/03/22 OT IP Problems Bed Mobility,Transfers,Balance ,Self care,Safety Rehab Potential Rehab Potential Good Equipment Needs Assistive Devices Rolling / Wheeled Walker Plan OT intervention Plan Bed Mobility,Transfers,Balance ,Self care,Safety,Therapeutic Exercise OT Plan Frequency BID Duration LOS Discharge Goals Bed Mobility Ability Standby Assistance Sit to Stand Chair Transfer Ability Supervision/Stand by Chair Transfer Ability Supervision/Stand by Chair Transfer Technique Sit to/from Ambulatory Chair Transfer Assistive Devices
--- NOTE | 2022-08-03 10:02 | SW/DCPLANNER ---
Addendum entered by [facility] 08/04/22 14:44: Elenita Stafford stated if patient is medically stable for discharge tomorrow they can admit patient tomorrow. Addendum entered by [facility] 08/04/22 10:40: Updated patient information has been faxed to Elenita Stafford. Addendum entered by [facility] 08/03/22 13:21: Elenita Stafford stated that she can accept this patient once she is medically stable for discharge. Original Note: PT/OT will evaluate this patient this AM. Per patient request patient information has been faxed to Elenita Stafford. Elenita will follow up with patient onsite today.
--- NOTE | 2022-08-03 10:17 | HMH.PTEV ---
Physical Therapy Evaluation Rehab PT IP Evaluation Start: 08/03/22 09:13 Freq: ONCE Status: Active Protocol: Document 08/03/22 09:25 [facility] (Rec: 08/03/22 10:16 [facility] [id number]) Subjective/History History History [address] [facility] with UTI, general weakness, and ground level fall at home. Pt has hx of frequent falls. She reports living with her son, no steps to enter the home, uses a RW for all mobility at baseline. Her son works during the day and she is generally alone for that entire time. Subjective Subjective She reports pain in the back and in the R hip with movement this am. Rehab PT IP Eval Objective Appearance Patient Behavior Appropriate Patient Orientation Person,Place,Time Difficulty following instructions none Speech Pattern Clear Ambulation Patient Able to Ambulate Yes Ambulation Observation IP General Gait Pattern Observation Antalgic Gait,Shuffling Step Ambulation Distance (feet) 4 Ambulation Assistive Device None Ambulation Ability Minimal x 2 (25% assist) Balance Ability to Arise Able, uses arms to help Sitting Balance Steady, safe Standing Balance Unsteady Dynamic Sitting Balance Ability Good Dynamic Standing Balance Ability Poor Transfers Bed Transfer Ability Minimal x 1 (25% assist) Chair Transfer Ability Minimal x 2 (25% assist) Sit to Stand Bed Transfer Ability Minimal x 2 (25% assist) Sit to Stand Chair Transfer Ability Minimal x 2 (25% assist) ROM All Extremities PT ROM Status WFL MMT All Extremities PT MMT WFL Abnormal MMT Grade grossly 4/5 Rehab PT IP prob,goals,plan Problems Date of Evaluation: 08/03/22 PT IP Problems Bed Mobility,Transfers,Gait Rehab Potential Rehab Potential Good Plan PT Intervention Plan Bed Mobility,Transfers,Gait, Self care,Therapeutic Exercise PT Plan Frequency Daily Duration LOS Discharge Goals Bed Transfer Ability Contact Guard/Hand Hold Sit to Stand Chair Transfer Ability Minimal x 1 (25% assist) Ambulation Assistive Device Rolling Walker Ambulation Distance (feet) 20 Discharge Plan PT Discharge Plan Pt is currently most appropriate for rehab placement once med
[2022-08-04] VITALS (9 sets, daily range): BP systolic 116–173; BP diastolic 57–93; PULSE 50–730; RESP 16–18; TEMP 36.4–36.6; O2SAT 98–99; BMI 22.9
--- NOTE | 2022-08-04 08:26 | EXP.ACUTE.PN ---
Subjective *Date: 08/04/22 *Time: 08:46 Interval history: Patient is having a lot of pain in her back. The tramadol does not seem to be helping. She wants to know if there is something else she can take. She also questions if she could have a kyphoplasty and if it would help with the pain. She slept very little as she was uncomfortable. She was able to eat. Medical Exam Vital signs and Labs for Last 24 Hours: Vital Signs Temp Pulse Pulse Resp BP Pulse Ox 08/04/22 04:00 50 L 08/04/22 04:00 97.6 F 56 L 16 146/57 H 99 08/04/22 00:00 50 L 08/04/22 00:00 97.9 F 64 18 141/64 H 99 08/03/22 20:00 60 08/03/22 19:45 98.0 F 64 18 129/77 91 L 08/03/22 16:00 61 08/03/22 15:39 98.1 F 66 17 145/62 H 97 08/03/22 12:00 60 08/03/22 11:35 97.9 F 60 17 148/71 H 100 Intake and Output 08/03/22 08/04/22 08/04/22 19:59 03:59 11:59 Intake Total 1287 / 2337 1050 / 2337 Output Total 250 / 750 400 / 750 100 / 750 Balance 1037 / 1587 -400 / 1587 950 / 1587 Intake: Intake, Oral Amount 360 / 360 Intake, Total IV Amount 1976 0.9 % Sodium Chloride 1000ML 1976 000 ml @ 100 mls/hr IV .Q10H [facility] Rx#:[id number] Output: Output, Urine Amount 250 / 750 400 / 750 100 / 750 Other: Number of Unmeasured Voids 1 Weight 108 lb 8.008 oz 116 lb 12.8 oz Patient Weight 08/04/22 11:59 Weight 116 lb 12.8 oz I & O for Labs for Last 24 Hours: Intake & Output 08/01/22 08/02/22 08/03/22 08/04/22 11:59 11:59 11:59 11:59 Intake Total 240 / 240 2337 / 2337 Output Total 750 / 750 Balance 240 / 240 1587 / 1587 Weight 108 lb 8 oz 116 lb 12.8 oz Microbiology Reports for the Last 24 Hours: Microbiology 08/02/22 21:47 Urine,Catheterized Urine Culture - Preliminary NO GROWTH AFTER 24 HOURS Constitutional: Present no acute distress Respiratory: Present CTA bilaterally Cardiac: Present Reg Rate and Rhythm GI: Present soft and normal bowel sounds; Absent distention or tenderness Extremities: Absent edema, clubbing or cyanosis Skin: Present intact and ecchymosis (of left arm) Neuro: Present alert and awake Additional Findings:: Mid back very tender, pain with any movement Assessment and Plan *Assessment and plan (1) Acute UTI (urinary tract infection): Status: Acute Category: Medical Code(s): N39.0 - Urinary tract infection, site not specified (2) SIRS (systemic inflammatory response syndrome): Status: Acute Category: Medical Code(s): R65.10 - Systemic inflammatory response syndrome (SIRS) of non-infectious origin without acute organ dysfunction (3) Osteoporosis: Status: Chronic Qualifiers: Osteoporosis type: age-related Presence of current pathological fracture: unspecified Qualified Code(s): M81.0 - Age-related osteoporosis without current pathological fracture Category: Medical Code(s): M81.0 - Age-related osteoporosis without current pathological fracture (4) Hypothyroidism: Status: Chronic Category: Medical Code(s): E03.9 - Hypothyroidism, unspecified (5) Essential tremor: Status: Chronic Category: Medical Code(s): G25.0 - Essential tremor (6) Renal insufficiency: Status: Acute Category: Medical Code(s): N28.9 - Disorder of kidney and ureter, unspecified (7) Frequent falls: Status: Acute Category: Medical Code(s): R29.6 - Repeated falls (8) Elevated LFTs: Status: Acute Category: Medical Code(s): R79.89 - Other specified abnormal findings of blood chemistry (9) Polyarthralgia: Status: Acute Category: Medical Code(s): M25.50 - Pain in unspecified joint (10) Compression fracture of thoracic vertebra: Status: Acute Category: Medical Code(s):
[2022-08-04 09:09] LABS: Basophils % 0.7 % (0.1-2.0); Eosinophils # 0.2 K/mm3 (0.0-0.4); Eosinophils % 3.7 % (0.1-12.0); Hematocrit 38.7 % (37.0-47.0); Lymphocytes % 22.2 % (10-50); Mean Corpuscular HGB Conc 30.9 g/dL (31.8-35.4); Mean Corpuscular Hemoglobin 31.3 pg (27.0-31.2); Mean Corpuscular Volume 101.4 fl (81-99); Mean Platelet Volume 7.8 fl (7.4-10.4); Monocytes # 0.2 K/mm3 (0.1-1.0); Monocytes % 4.4 % (1.7-9.3); Neutrophils # 3.2 K/mm3 (1.8-7.8); Platelet Count 248 K/mm3 (142-424); Red Blood Count 3.82 M/mm3 (4.20-5.40); Red Cell Distribution Width 15.6 % (11.5-17.5); White Blood Count 4.6 K/mm3 (4.8-10.8)
[2022-08-04 10:09] LABS: Alanine Aminotransferase 85 U/L (12-78); Albumin/Globulin Ratio 0.9 (1.1-1.8); Alkaline Phosphatase 1212 U/L (38-126); Anion Gap 12.1 mEq/L (5-15); Aspartate Amino Transferase 146 U/L (14-36); Bilirubin,Total 0.8 mg/dl (0.2-1.3); Calcium 8.2 mg/dl (8.4-10.2); Carbon Dioxide 18 mmol/L (22.0-30.0); Chloride 112 mmol/L (98-107); Globulin 3.2 g/dL (1.3-3.2); Glucose 155 mg/dl (74-100); Potassium 4.1 mmoL/L (3.5-5.1); Sodium 138 mmol/L (136-145); Total Protein,Serum 6.2 g/dl (6.3-8.2)
[2022-08-04 10:13] LABS: Blood Urea Nitrogen 19 mg/dl (7-17); Creatinine Clearance Estimated 41 mL/min (50-200); Estimated Glomerular Filt Rate 61 ml/min (>60); GFR (African American) 74 ML/MIN (>60)
--- NOTE | 2022-08-04 10:46 | EXP.PAIN.OV ---
HPI Data of Consult Patient: new to practice Consult date: 08/04/22 Requesting Physician: Elder Brasher MD Primary Care Provider: Elder Brasher MD Consult Narrative Reason for consult: Acute compression fracture History of present illness: Ms. Oneill is a 72 year old female who presents today as a new patient. She is a consult from the floor for a acute compression fracture of T5. Today she rates her pain at a 9 out of 10. Patient states her pain is all in her upper to mid back with radiating symptoms. Patient states she was at home folding laundry when she got weak in the knees and stumbled. She did end up hitting an air purifier along her back and left arm. Patient was sent to the ER for evaluation and was admitted with UTI along with imaging showing an acute fracture, chronic T12 compression fracture and possible T4 spinous process fracture. Patient does describe her pain as a constant burning sensation that is worse with increased activity. Patient denies any prior mid back pain prior to this event. She does state that she cannot do anything due to her constant radiating pain. She does states she has a history of hip pain that she did recently get an injection for and was working well. Patient denies any history of kidney issues. Patient denies any use of oral steroids or muscle relaxers at this time. Patient has been tried on tramadol however this did not provide any additional relief. Patient does state that her son lives with her however he does work through the day. She states that she does believe he will be able to take her to additional follow-up visits. CC: Elder Brasher MD [facility] Disclaimer: The information contained in this section may have been updated after the patient was seen, as this information can be updated by other users. Medical History (Updated 08/04/22 @ 10:51 by Therese José APRN) Autoimmune hepatitis Elevated LFTs Essential tremor GERD (gastroesophageal reflux disease) Graves' disease Hyperlipidemia Hypertension Hypothyroidism Osteoporosis Surgical History (Updated 08/03/22 @ 09:13 by MELANIE Cabrera) History of cholecystectomy History of repair of hiatal hernia Hx of tubal ligation Family History (Updated 08/03/22 @ 09:13 by MELANIE Cabrera) Other Cancer Social History (Updated 08/03/22 @ 05:35 by Darlin Willett RN) Smoking Status: Former smoker second hand exposure: No alcohol intake: never substance use type: denies use current occupational status: retired Travel in the last 8 weeks: None household members: children housing: house 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[employer], 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 current occupational exposures/hazards: Yes caffeine: Yes Review of Systems Review of Systems Review of systems:: pertinent systems reviewed and negative unless documented below Review of systems (narrative): Review of Systems: General: No recent weight changes, no fever, no sleep disturbances Respiratory: No cough, no shortness of air, no recurring pulmonary infections Cardiovascular/peripheral vascular: No chest pain, no palpitations, no edema, no shortness of breath Gastrointestinal: No new onset incontinence, normal bowel movements reported Genitourinary: No new onset incontinence Musculoskeletal: Upper/mid back pain Psychiatric: [Normal mood/affect] Neurological: [Denies weakness in extremities], [denies balance issues] Constitutional Constitutional: Denies headache(s) and Reports weakness ENT Ears, Nose, Mouth, and Throat: Denies headache(s) and Reports vertigo *Neurologic Neurologic: Denies headache(s), Reports vertigo and Reports weakness Meds Home Medications and Allergies Home Medications Medication Instructions Recorded Confirmed Type doxepin 150 mg capsule 150 mg PO HS Pruritis 08/02/22 08/02/22 History famotidine 20 mg tablet 20 mg PO BID Acid reflux 08/02/22 08/03/22 History fluoxetine 20 mg capsule 20 mg PO DAILY Mood 08/02/22 08/02/22 H
--- NOTE | 2022-08-04 18:22 | PC.NURSE ---
pt has done well this shift. she was treated for pain x1 with prn pain medication with good effectiveness noted. no other complaints this shift.
[2022-08-05] VITALS: BP 136/69; PULSE 55; PULSE 63; RESP 16; TEMP 36.7; O2SAT 97
[2022-08-05 00:11] VITALS: PULSE 63
--- NOTE | 2022-08-05 03:22 | PC.NURSE ---
PATIENT HAS RESTED WELL SINCE MEDICATED WITH NORCO 7.5 MG 1 TAB EARLY IN THE SHIFT AT ABOUT 1999. REPORTS RELIEF FROM BACK PAIN. PLEASANT AND COOPERATIVE. PURWICK IN USE.
[2022-08-05 04:00] VITALS: BP 160/67; PULSE 53; PULSE 59; RESP 16; TEMP 36.4; O2SAT 98; BMI 23.0
[2022-08-05 07:30] VITALS: BP 161/84; PULSE 61; RESP 18; TEMP 36.6; O2SAT 95
[2022-08-05 08:00] VITALS: PULSE 58
--- NOTE | 2022-08-05 08:47 | EXP.ACUTE.PN ---
Subjective *Date: 08/05/22 *Time: 08:47 Interval history: Pain management saw patient yesterday and recommended she see Dr. Back as an outpatient for possible kyphoplasty. They wanted to treat her with steroids, muscle relaxers and pain medication. She feels some better today, ready [facility]. Medical Exam Vital signs and Labs for Last 24 Hours: Vital Signs Temp Pulse Pulse Resp BP Pulse Ox 08/05/22 07:30 97.9 F 61 18 161/84 H 95 08/05/22 04:00 53 L 08/05/22 04:00 97.6 F 59 L 16 160/67 H 98 08/05/22 00:00 63 08/05/22 00:11 63 08/05/22 00:00 98.1 F 55 L 16 136/69 97 08/04/22 20:00 58 L 08/04/22 20:00 99 08/04/22 21:16 58 L 08/04/22 20:00 97.9 F 65 17 154/76 H 99 08/04/22 12:00 55 L 08/04/22 16:00 60 08/04/22 15:53 97.6 F 65 18 150/77 H 99 08/04/22 11:48 97.5 F L 64 18 116/78 98 Intake and Output 08/04/22 08/05/22 08/05/22 23:59 07:59 15:59 Intake Total 170 / 1870 410 / 410 Output Total Balance 170 / 1370 409 / 409 Intake: Intake, Oral Amount 120 / 720 360 / 360 Intake, Total IV Amount 50 / 1150 50 / 50 Ceftriaxone Sodium 1 gm In 0.9 50 / 100 50 / 50 % Sodium Chloride 50 ml @ 100 mls/hr IV Q24H [facility] Rx#:[id number] Output: Output, Urine Amount Other: Number of Unmeasured Voids 500 Weight 117 lb 6.4 oz Patient Weight 08/05/22 23:59 Weight 117 lb 6.4 oz Laboratory Results - last 24 hr 08/02/22 21:47: Urine Color Yellow, Urine Appearance Sl cloudy, Urine pH 6.0, Ur Specific [place] 1.025, Urine Protein 1+, Urine Glucose (UA) Negative, Urine Ketones Negative, Urine Blood 1+, Urine Nitrate Positive, Urine Bilirubin Negative, Urine Urobilinogen 0.2, Ur Leukocyte Esterase 2+ A, Urine RBC Occasional, Urine WBC 10-20, Ur Squamous Epith Cells Occasional, Urine Bacteria 4+ 08/04/22 09:00: WBC 4.6 L D, RBC 3.82 L, Hgb 12.0 L, Hct 38.7, MCV 101.4 H, MCH 31.3 H, MCHC 30.9 L, RDW 15.6, Plt Count 248, MPV 7.8, Neut % (Auto) 69.0, Lymph % (Auto) 22.2, [place] % (Auto) 4.4, Eos % (Auto) 3.7, Baso % (Auto) 0.7, Neut # (Auto) 3.2, Lymph # (Auto) 1.0, [place] # (Auto) 0.2, Eos # (Auto) 0.2, Baso # (Auto) 0.0 08/04/22 09:00: Sodium 138, Potassium 4.1, Chloride 112 H, Carbon Dioxide 18 L, Anion Gap 12.1, BUN 19 H, Creatinine 0.90, Estimated Creat Clear 41, Estimated GFR 61, Est GFR ( Amer) 74, Glucose 155 H, Calcium 8.2 L, Total Bilirubin 0.8, AST 146 H, ALT 85 H, Alkaline Phosphatase 1212 H, Total Protein 6.2 L D, Albumin 3.0 L D, Globulin 3.2, Albumin/Globulin Ratio 0.9 L I & O for Labs for Last 24 Hours: Intake & Output 08/02/22 08/03/22 08/04/22 08/05/22 23:59 23:59 23:59 23:59 Intake Total 1527 / 1527 1580 / 1870 410 / 410 Output Total 250 / 650 500 / 500 Balance 1277 / 877 1080 / 1370 409 / 409 Weight 110 lb 108 lb 8.008 oz 116 lb 12.8 oz 117 lb 6.4 oz Microbiology Reports for the Last 24 Hours: Microbiology 08/02/22 21:47 Urine,Catheterized Urine Culture - Final Escherichia coli 08/02/22 00:34 Blood Blood Culture - Preliminary NO GROWTH AFTER 48 HOURS 08/02/22 00:34 Blood Blood Culture - Preliminary NO GROWTH AFTER 48 HOURS Constitutional: Present no acute distress Respiratory: Present CTA bilaterally Cardiac: Present Reg Rate and Rhythm GI: Present soft and normal bowel sounds; Absent distention or tenderness Extremities: Absent edema, clubbing or cyanosis Skin: Present intact and ecchymosis (of left arm) Neuro: Present alert and awake Assessment and Plan *Assessment and plan (1) Acute UTI (urinary tract infection): Status: Acute Category: Medical Code(s): N39.0 - Urinary tract infection, site not specified (2) SIRS (systemic inflammatory response syndrome): Status: Acute Category: Medical C
--- NOTE | 2022-08-05 09:15 | EXP.DC.SUM ---
General Admission date:: 08/03/22 Discharge date: 08/05/22 HPI HPI HPI: Ms. Oneill is a 72-year-old female who has had multiple falls in the last few weeks. She had recently been seen in the ER for a fall approximately a week ago where she fell and hit an air purifier. She hit the right side of her back and her left arm. She states after this fall she had difficulty getting out of bed. She was trying to use a walker, but her legs became so weak she was unable to get up even with the walker. She states she has been laying in bed for approximately 1 week. Her son does live with her but is not home during the day. She has not been eating and drinking and continued to feel poorly and asked her son to bring her to the emergency room. She was evaluated and found to have a UTI and was admitted. She had a CT of the head, cervical spine, lumbar spine, thoracic spine, and she had a pelvic x-ray and a chest x-ray. The patient's lumbar spine CT showed bilateral sacral body fractures most likely representing insufficiency fractures as well as a large amount of stool in the colon. Her thoracic spine CT showed a T5 compression fracture favored to be acute with mild retropulsed bone fragment producing mild spinal stenosis. There was also a T4 spinous process fracture which also could be acute and a small left pleural effusion. Her pelvic x-ray did not show any acute fracture. Hospital Course Hospital Course Hospital Course: Patient was admitted after frequent falls at home. She was found to have a UTI and throacic spine compression fracture. She was treated with IVF, antibiotics and pain medication and improved. Pain management saw patient for possible kyphoplasty and wanted to refer her to Dr. Bauman in [place] for an outpatient evaluation. Patient is agreeable to this treatment plan. She was evaluated by PT and OT and they recommend rehab for patient. She will be discharged to [facility] for short term rehab. Exam Data for Last 24 hours Vital signs and Labs for Last 24 Hours: Temp Pulse Resp BP Pulse Ox 97.9 F 61 18 161/84 H 95 08/05/22 07:30 08/05/22 07:30 08/05/22 07:30 08/05/22 07:30 08/05/22 07:30 Laboratory Results - last 24 hr 08/04/22 09:00: WBC 4.6 L D, RBC 3.82 L, Hgb 12.0 L, Hct 38.7, MCV 101.4 H, MCH 31.3 H, MCHC 30.9 L, RDW 15.6, Plt Count 248, MPV 7.8, Neut % (Auto) 69.0, Lymph % (Auto) 22.2, [place] % (Auto) 4.4, Eos % (Auto) 3.7, Baso % (Auto) 0.7, Neut # (Auto) 3.2, Lymph # (Auto) 1.0, [place] # (Auto) 0.2, Eos # (Auto) 0.2, Baso # (Auto) 0.0 08/04/22 09:00: Sodium 138, Potassium 4.1, Chloride 112 H, Carbon Dioxide 18 L, Anion Gap 12.1, BUN 19 H, Creatinine 0.90, Estimated Creat Clear 41, Estimated GFR 61, Est GFR ( Amer) 74, Glucose 155 H, Calcium 8.2 L, Total Bilirubin 0.8, AST 146 H, ALT 85 H, Alkaline Phosphatase 1212 H, Total Protein 6.2 L D, Albumin 3.0 L D, Globulin 3.2, Albumin/Globulin Ratio 0.9 L I & O for Last 24 hours: Intake & Output 08/02/22 08/03/22 08/04/22 08/05/22 23:59 23:59 23:59 23:59 Intake Total 1527 / 1527 1580 / 1870 410 / 410 Output Total 250 / 650 500 / 500 1 / 1 Balance 1277 / 877 1080 / 1370 409 / 409 Weight 110 lb 108 lb 8.008 oz 116 lb 12.8 oz 117 lb 6.4 oz Microbiology Reports for the Last 24 Hours: Microbiology 08/02/22 21:47 Urine,Catheterized Urine Culture - Final Escherichia coli 08/02/22 00:34 Blood Blood Culture - Preliminary NO GROWTH AFTER 48 HOURS 08/02/22 00:34 Blood Blood Culture - Preliminary NO GROWTH AFTER 48 HOURS Constitutional Constitutional: no acute distress *Routine HEENT Exam Head: Present normocephalic Eye: Present EOMI and PERRL ENT: Present mucous membranes moist *Routine Neck Exam Neck: Present supple; Absent lymphadenopathy *Routine Respiratory Exam Respiratory: Present CTA bilaterally *Routine Cardiovascular Exam Cardiovascular
--- NOTE | 2022-08-05 11:06 | PC.NURSE ---
pt has been discharged via private car to [place]. Report called to [facility]. All of pt belongings sent home with her including her home meds and back brace. voiced understanding of all mt education. iv removed x2. 2 prescriptions ready for bead picker @ [facility] the others sent to [facility].
== END 2022-08-05 11:08 ==
LOC: ER 22:53 → 2ND 08-03 05:02
PROVIDERS: Admitting Provider Family Medicine; Emergency Provider Emergency Medicine; PCP Family Medicine; Visit Provider Family Medicine
DX: S22.050A Wedge compression fracture of T5-T6 vertebra, initial encounter for closed fracture (principal); S22.048A Other fracture of fourth thoracic vertebra, initial encounter for closed fracture; N39.0 Urinary tract infection, site not specified; R29.6 Repeated falls; E03.9 Hypothyroidism, unspecified; G25.0 Essential tremor; M48.04 Spinal stenosis, thoracic region; M54.14 Radiculopathy, thoracic region; K75.4 Autoimmune hepatitis; I10 Essential (primary) hypertension; Z20.822 Contact with and (suspected) exposure to COVID-19; W01.198A Fall on same level from slipping, tripping and stumbling with subsequent striking against other object, initial encounter; Y92.019 Unspecified place in single-family (private) house as the place of occurrence of the external cause; M81.0 Age-related osteoporosis without current pathological fracture
CPT/HCPCS: G0378; 36415; 70450; 71045; 72125; 72128; 72131; 72170; 80053; 81001; 82550; 82553; 83605; 84145; 84484; 85025; 85651; 86140; 87040; 87086; 87088; 87186; 93005; 97162; 97166; 97530; 99285; C9803; J0696; U0003; U0005

== ENCOUNTER → 2022-08-22 10:07 | Outpatient (CLI) | payer MEDICARE, SELFPAY ==
--- NOTE | 2022-08-22 10:12 | MR_ITS ---
FINAL REPORT CLINICAL HISTORY: THORACIC PAIN fall x 2 weeks ago pain in back around shoulder blades COMPARISON: CT thoracic spine dated 08/03/2022, MRI thoracic spine dated 02/08/2022 FINDINGS: Multiplanar MR imaging of the thoracic spine was performed without contrast. On the sagittal T2-weighted images, disc degeneration is seen at multiple levels. There is a moderate chronic T12 compression fracture. A mild acute T11 inferior endplate compression fracture appears worse as compared to the prior CT from 08/03/2022. There is approximately 30% loss of height. There is a severe acute T5 compression fracture with 80% loss of anterior height. Moderate thoracic kyphosis appears worse. The thoracic spinal cord has an unremarkable appearance without evidence of mass, edema or syrinx. There is no evidence of significant canal stenosis or cord compression. On the axial images, mild disc bulges and small osteophytes are seen at multiple levels. No focal soft disc protrusion is identified. There is no evidence of significant canal stenosis or cord compression. No paraspinous soft tissue abnormality is identified. IMPRESSION: Severe T5 compression fracture, stable. Mild T11 inferior endplate compression fracture, worse as compared to 08/03/2022 Stable chronic T12 compression fracture. Reviewed, Interpreted and Dictated by Shoaib Park III, MD Transcribed by Jaquelin Wang Authenticated and . [facility]
== END ==
PROVIDERS: PCP Family Medicine; Visit Provider Orthopaedic Surgery
DX: M54.6 Pain in thoracic spine (principal)
CPT/HCPCS: 72146

== ENCOUNTER → 2022-08-24 14:19 | Outpatient (CLI) | payer MEDICARE, SELFPAY ==
--- NOTE | 2022-08-24 14:41 | ECG_ITS ---
APPROVED REPORT Exam: Resting ECG HR:78 bpm ECG Measurements Heart Rate 78 AXES TX 124 P -23 QRSd 84 QRS 0 QT 386 T -4 QTc 419 Conclusion SINUS RHYTHM VOLTAGE CRITERIA FOR LVH [MEETS CRITERIA IN ONE OF: R(aVL), S(V1), R(V5), R(V5/V6)+S(V1)] NONSPECIFIC T-WAVE ABNORMALITY ABNORMAL ECG UNCONFIRMED REPORT Electronically signed by : Hansel Polanco MD 08/24/2022 21:37:57
[2022-08-24 15:11] LABS: Basophils # 0.1 K/mm3 (0-0.2); Basophils % 0.6 % (0.1-2.0); Eosinophils # 0.1 K/mm3 (0.0-0.4); Eosinophils % 1.1 % (0.1-12.0); Hematocrit 35.6 % (37.0-47.0); Hemoglobin 11.1 g/dL (12.2-16.2); Lymphocytes % 25.7 % (10-50); Mean Corpuscular HGB Conc 31.3 g/dL (31.8-35.4); Mean Corpuscular Hemoglobin 31.2 pg (27.0-31.2); Mean Corpuscular Volume 99.5 fl (81-99); Mean Platelet Volume 9.2 fl (7.4-10.4); Monocytes # 0.6 K/mm3 (0.1-1.0); Monocytes % 7.1 % (1.7-9.3); Neutrophils # 5.1 K/mm3 (1.8-7.8); Neutrophils % 65.4 % (37.0-80.0); Platelet Count 286 K/mm3 (142-424); Red Blood Count 3.57 M/mm3 (4.20-5.40); Red Cell Distribution Width 15.6 % (11.5-17.5); White Blood Count 7.7 K/mm3 (4.8-10.8)
[2022-08-24 15:31] LABS: Blood Urea Nitrogen 36 mg/dl (7-17); Calcium 8.8 mg/dl (8.4-10.2); Carbon Dioxide 30 mmol/L (22.0-30.0); Chloride 92 mmol/L (98-107); Estimated Glomerular Filt Rate 61 ml/min (>60); GFR (African American) 74 ML/MIN (>60); Glucose 90 mg/dl (74-100); Sodium 140 mmol/L (136-145)
== END ==
PROVIDERS: PCP Family Medicine; Visit Provider Orthopaedic Surgery
DX: Z01.818 Encounter for other preprocedural examination (principal); M54.6 Pain in thoracic spine
CPT/HCPCS: 36415; 80048; 85025; 93005

== ENCOUNTER → 2022-10-06 07:37 | Outpatient (CLI) | payer MEDICARE, SELFPAY ==
--- NOTE | 2022-10-06 07:38 | MR_ITS ---
FINAL REPORT CLINICAL HISTORY: THORACIC SPINE PAIN. PATIENT FELL AND HAS RIGHT SIDED BACK PAIN. FINDINGS: Multiplanar MR imaging of the thoracic spine was performed without contrast. On the sagittal T2-weighted images, disc degeneration is seen at multiple levels. There are stable compression fractures of T5, T11, and T12. There is mild edema in the T5 vertebral body which may represent a subacute fracture. No new fracture is identified. There are degenerative changes at multiple levels. The vertebral alignment is normal. The thoracic spinal cord has an unremarkable appearance without evidence of mass, edema or syrinx. There is no evidence of significant canal stenosis or cord compression. On the axial images, mild disc bulges and small osteophytes are seen at multiple levels. No focal soft disc protrusion is identified. There is no evidence of significant canal stenosis or cord compression. No paraspinous soft tissue abnormality is identified. IMPRESSION: Multilevel mild degenerative disc disease and spondylosis. Stable compression fractures of T5, T11, and T12. T5 fracture may be subacute. Reviewed, Interpreted and Dictated by Shoaib Park III, MD Transcribed by Jaquelin Wang Authenticated and . [facility]
== END ==
PROVIDERS: PCP Family Medicine; Visit Provider Orthopaedic Surgery
DX: M54.6 Pain in thoracic spine (principal)
CPT/HCPCS: 72146

== ENCOUNTER → 2022-11-02 11:18 | Outpatient (POV) | payer MEDICARE, SELFPAY ==
[2022-11-02 11:38] VITALS: BP 106/77; PULSE 102; RESP 20; BMI 22.8
--- NOTE | 2022-11-02 12:01 | EXP.PAIN.SOA ---
[facility] Pain Management SOAP Note Subjective:: Patient is a pleasant 72-year-old female who presents today for follow-up. We are currently treating the patient for degenerative disc disease of thoracic spine with thoracic radiculopathy symptoms, chronic compression fractures. Patient does rate her pain today a 6 out of 10. Patient states her pain is all in her mid/low back with radiating symptoms to the right along her ribs. Patient states that she was at home about 3 weeks ago and bent down when her legs gave out and she fell back. Patient did have significant bruising and had updated imaging with no additional acute fractures. Patient does state that from our last visit she did go to see [facility] orth[facility] where John José did do surgery to repair her T5 compression fracture. Patient is unsure if it was a kyphoplasty or not. She does state that following the procedure she did feel much better. She does also state from the time we initially saw her that she has also had a flareup of pancreatitis however she is over that. Patient does describe her current pain as an aching, throbbing sensation that is worse with increased activity. She has tried [id number] medications along with heat and ice and Aspercreme with some improvement. Patient is interested in possibly getting an injection. Her Kishor has been reviewed and is appropriate. Review of Systems: General: No recent weight changes, no fever, no sleep disturbances Respiratory: No cough, no shortness of air, no recurring pulmonary infections Cardiovascular/peripheral vascular: No chest pain, no palpitations, no edema, no shortness of breath Gastrointestinal: No new onset incontinence, normal bowel movements reported Genitourinary: No new onset incontinence Musculoskeletal: Mid/low back pain Psychiatric: [Normal mood/affect] Neurological: [Denies weakness in extremities], [denies balance issues] Objective:: Physical Exam: General: Alert and oriented x3, no acute distress, pleasant and cooperative Lungs: Respirations even and unlabored, symmetrical chest expansion Eyes: PERRL Musculoskeletal: Flexion and extension of thoracic [spine] somewhat guarded secondary to pain, [antalgic gait noted] Neurological: Speech clear, no gross sensory deficit Oswestry index score of 26 Assessment:: Degenerative disc disease of thoracic spine with thoracic radiculopathy symptoms, chronic compression fractures Plan:: Patient is experiencing significant pain in her mid back with limited range of motion. I have discussed with the patient that she may benefit from a thoracic epidural. Risk and benefits were discussed with the patient and she would like to proceed forward with this plan of care. Patient is not on any blood thinners. We will also order the patient compounding cream. Patient will be scheduled for a T FRENCH T12-L1. Patient has been instructed to contact the clinic with any concerns before the next appointment. Dr. Christine has reviewed this note and agrees with this plan of care. This note was dictated using voice recognition software and make contain errors or omissions. [facility] Disclaimer: The information contained in this section may have been updated after the patient was seen, as this information can be updated by other users. Medical History (Updated 08/05/22 @ 08:57 by Elder Brasher MD) Autoimmune hepatitis Elevated LFTs Essential tremor GERD (gastroesophageal reflux disease) Graves' disease Hyperlipidemia Hypertension Hypothyroidism Osteoporosis Surgical History (Updated 08/05/22 @ 08:57 by Elder Brasher MD) History of cholecystectomy History of repair of hiatal hernia Hx of tubal ligation Family History (Updated 08/03/22 @ 09:13 by MELANIE Cabrera) Other Cancer Social History (Updated 08/03/22 @ 05:35 by Darlin Willett RN) Smoking Status: Former smoker second hand exposure: No alcohol intake: never substance use type: denies use current occup
== END ==
PROVIDERS: PCP Family Medicine; Visit Provider Nurse Practitioner Family
DX: M51.14 Intervertebral disc disorders with radiculopathy, thoracic region (principal); M48.50XS Collapsed vertebra, not elsewhere classified, site unspecified, sequela of fracture
CPT/HCPCS: 99212; G0463

== ENCOUNTER 2022-11-10 09:50 | Outpatient (CLI) | payer MEDICARE, SELFPAY ==
[2022-11-10 09:57] VITALS: BMI 22.8
[2022-11-10 10:27] LABS: Albumin Level 4.1 g/dl (3.5-5.0); Calcium 8.7 mg/dl (8.4-10.2); Creatinine Clearance Estimated 41 mL/min (50-200); Estimated Glomerular Filt Rate 54 ml/min (>60); GFR (African American) 66 ML/MIN (>60)
[2022-11-10 11:15] VITALS: BP 151/77; PULSE 72; RESP 18; O2SAT 98
[2022-11-10 11:45] VITALS: BP 155/88; PULSE 71; RESP 18; O2SAT 99
== END 2022-11-10 11:45 | disposition home or self-care (01) ==
LOC: INF 09:51
PROVIDERS: PCP Family Medicine; Visit Provider Family Medicine
DX: M81.0 Age-related osteoporosis without current pathological fracture (principal)
CPT/HCPCS: 82040; 82310; 82565; 96374; J3489

== ENCOUNTER 2022-11-28 09:43 | Day surgery (SDC) | payer MEDICARE, SELFPAY ==
[2022-11-28 10:03] VITALS: BP 116/72; PULSE 83; RESP 16; TEMP 36.3; O2SAT 99; BMI 22.8
[2022-11-28 10:28] VITALS: BP 141/79; PULSE 85; RESP 18; O2SAT 96
[2022-11-28 10:29] VITALS: BP 141/79; PULSE 85; RESP 18; O2SAT 96
--- NOTE | 2022-11-28 10:32 | EXP.PAIN.PRO ---
Procedure Date: 11/28/22 Time: 10:20 Anesthesiologist:: Jerel Forrester CRNA Complications:: None Pre-procedure Diagnosis:: Degenerative disc thoracic and lumbar spine. Thoracic and lumbar multilevel disc bulge. Thoracic and lumbar radiculopathy. Post-procedure Diagnosis:: Same. Indications for Procedure:: Patient is a very pleasant 72-year-old female comes our clinic today for T12-L1 epidural steroid injection. Patient complaining of thoracolumbar back pain she describes as constant, dull, aching. Patient has difficulty sitting, has difficulty lying. Ambulation increases pain significantly. Standing for any length of time pain increases significantly. Patient rates her pain 9/10. Procedure Details:: Procedure:Thoracic epidural steroid injection under fluoroscopy Informed consent was obtained and the risks and benefits of the procedure were explained to the patient. The patient was taken to the procedure room and noninvasive monitors placed, including noninvasive blood pressure cuff and pulse oximeter. The back was viewed using C-Arm fluoroscopy and prepped using Betadine as a cleansing solution and the T12-L1 interspace was palpated. Skin and subcutaneous tissues were anesthetized using lidocaine 1.5% and a 25-gauge needle. After this, an 18-gauge Touhy epidural needle was placed into the T12-L1 interspace and advanced using fluoroscopic guidance and loss of resistance to air until the epidural space was encountered. After confirmation of needle placement in the epidural space, with dye, a solution containing lidocaine 1.5%, 4 mL and Depo-Medrol 80 mg were incrementally injected into the thoracic epidural space. The patient tolerated the procedure well with no complications. The patient was observed in the Pain Clinic and then discharged home neurologically intact. Plan and Disposition:: Patient was discharged without incident.
[2022-11-28 10:40] VITALS: BP 139/79; PULSE 81; RESP 18; O2SAT 99
== END 2022-11-28 10:40 | disposition home or self-care (01) ==
PROVIDERS: PCP Family Medicine; Visit Provider Nurse Anesthetist, Certified Registered
DX: M51.14 Intervertebral disc disorders with radiculopathy, thoracic region (principal); M51.16 Intervertebral disc disorders with radiculopathy, lumbar region
CPT/HCPCS: 62321; J1040

== ENCOUNTER → 2022-12-20 10:48 | Outpatient (POV) | payer MEDICARE, SELFPAY ==
--- NOTE | 2022-12-20 10:55 | EXP.PAIN.SOA ---
[facility] Pain Management SOAP Note Subjective:: Patient is a pleasant 72-year-old female who presents today for follow-up of a thoracic epidural steroid injection T12-L1 on 11/28/2022. We are currently treating the patient for degenerative disc disease of thoracic spine with thoracic radiculopathy symptoms, chronic compression fractures. Patient does rate her pain today a 8 out of 10. She states following her injection she had 100% improvement along the right side however she did not notice any additional changes on the left. Patient does state today that her pain is all on that mid to low back area and describes her current pain as an aching, throbbing sensation that is worse with increased activity. She states the pain does interfere with her ability to perform activities of daily living such as cooking and cleaning or simple ambulation. Patient does state that she has been able to decrease her walker use following the initial injection. She does state that she still brings it with her for visits like today or when she is outside just as a precaution to make sure she does not have another fall. Patient is requesting pain medication if possible today. She states that she has tried tramadol in the past and did not really notice any additional improvement. Patient denies any kidney issues. She has tried kdsy-tmh-[id number] medications along with heat and ice and Aspercreme with some improvement. Her Kishor is [id number]. Its been reviewed and appropriate. Review of Systems: General: No recent weight changes, no fever, no sleep disturbances Respiratory: No cough, no shortness of air, no recurring pulmonary infections Cardiovascular/peripheral vascular: No chest pain, no palpitations, no edema, no shortness of breath Gastrointestinal: No new onset incontinence, normal bowel movements reported Genitourinary: No new onset incontinence Musculoskeletal: Mid/low back pain Psychiatric: [Normal mood/affect] Neurological: [Denies weakness in extremities], [denies balance issues Objective:: Physical Exam: General: Alert and oriented x3, no acute distress, pleasant and cooperative Lungs: Respirations even and unlabored, symmetrical chest expansion Eyes: PERRL Musculoskeletal: Flexion and extension of lumbar [spine] somewhat guarded secondary to pain, [antalgic gait noted] Neurological: Speech clear, no gross sensory deficit Assessment:: degenerative disc disease of thoracic spine with thoracic radiculopathy symptoms, chronic compression fractures Plan:: Patient continues to experience mid to low back pain more prominent on the left side with limited range of motion. I have discussed with the patient that she may benefit from a repeat thoracic epidural. Risk and benefits were explained to the patient and she would like to proceed forward with this plan of care. Patient is not on any blood thinners. I have also counseled the patient that I will send in a prescription of Celebrex 200 mg daily and provide a 30-day supply of this medication. I have counseled the patient to discontinue all other NSAIDs while taking this medication and to take with food to minimize GI upset. Patient will be scheduled for thoracic epidural steroid injection T12-L1. Patient has been instructed to contact the clinic with any concerns before the next appointment. Dr. Christine has reviewed this note and agrees with this plan of care. This note was dictated using voice recognition software and make contain errors or omissions. [facility] Disclaimer: The information contained in this section may have been updated after the patient was seen, as this information can be updated by other users. Medical History Autoimmune hepatitis Elevated LFTs Essential tremor GERD (gastroesophageal reflux disease) Graves' disease Hyperlipidemia Hypertension Hypothyroidism Osteoporosis Surgical History (Reviewed 11/28/22 @ 10:05 by Kirstie Garsia,
[2022-12-20 11:50] VITALS: BP 137/87; PULSE 66; RESP 18; O2SAT 97; BMI 16.7
== END | disposition home or self-care (01) ==
PROVIDERS: Visit Provider Nurse Practitioner Family
DX: M51.14 Intervertebral disc disorders with radiculopathy, thoracic region (principal); M84.48XS Pathological fracture, other site, sequela
CPT/HCPCS: 99212; G0463

== ENCOUNTER 2023-01-09 09:39 | Day surgery (SDC) | payer MEDICARE, SELFPAY ==
[2023-01-09 09:58] VITALS: BP 162/70; PULSE 63; RESP 18; TEMP 36.6; O2SAT 99; BMI 22.8
[2023-01-09 10:15] VITALS: BP 163/61; PULSE 60; RESP 18; O2SAT 100
[2023-01-09 10:16] VITALS: BP 163/61; PULSE 59; RESP 18; O2SAT 100
[2023-01-09 10:22] VITALS: BP 158/69; PULSE 63; RESP 18; O2SAT 99
--- NOTE | 2023-01-09 10:57 | P.PCN_ITS ---
Procedure Date: 01/09/23 Time: 10:35 Anesthesiologist:: Jerel Forrester CRNA Complications:: None Pre-procedure Diagnosis:: Degenerative disc thoracolumbar spine. Thoracolumbar radiculopathy. Post-procedure Diagnosis:: Same. Indications for Procedure:: Patient is a very pleasant 72-year-old female comes our clinic today for a T12- L1 lumbar epidural steroid injection. Patient complains of thoracolumbar back pain she describes as constant, dull, aching. Patient rates her pain 6/10 patient has degenerative disc throughout the thoracolumbar area. Procedure Details:: Procedure:Thoracic epidural steroid injection under fluoroscopy Informed consent was obtained and the risks and benefits of the procedure were explained to the patient. The patient was taken to the procedure room and noninvasive monitors placed, including noninvasive blood pressure cuff and pulse oximeter. The back was viewed using C-Arm fluoroscopy and prepped using Betadine as a cleansing solution and the T12-L1 interspace was palpated. Skin and subcutaneous tissues were anesthetized using lidocaine 1.5% and a 25-gauge needle. After this, an 18-gauge Touhy epidural needle was placed into the T12-L1 interspace and advanced using fluoroscopic guidance and loss of resistance to air until the epidural space was encountered. After confirmation of needle placement in the epidural space, with dye, a solution containing lidocaine 1.5%, 4 mL and Depo-Medrol 80 mg were incrementally injected into the thoracic epidural space. The patient tolerated the procedure well with no complications. The patient was observed in the Pain Clinic and then discharged home neurolo gically intact. Plan and Disposition:: Patient was discharged without incident.
== END 2023-01-09 10:22 | disposition home or self-care (01) ==
LOC: SC.PAINP 09:40
PROVIDERS: PCP Family Medicine; Visit Provider Nurse Anesthetist, Certified Registered
DX: M51.15 Intervertebral disc disorders with radiculopathy, thoracolumbar region (principal)
CPT/HCPCS: 62321; J1040

== ENCOUNTER → 2023-02-02 09:48 | Outpatient (POV) | payer MEDICARE, SELFPAY ==
--- OUTSIDE RECORDS SUMMARY | 2023-02-02 09:51 | XMS_ITS | Clinical Summary ---
Author Name Unknown Address [address] [place] [address] Phone Organization [facility] , [facility] Address [address] [place] [address] Phone Care Team Providers Care Restaurant Kitchen Manager Name Role Phone Arnav MEDEL, John Wilson Unavailable [phone] TAYE CURTIS Unavailable [phone] Reason for Visit and Chief Complaint The Chief Complaint is: LT Knee pain/Thoracic back pain Problems Includes: Problems addressed during this encounter and other active Problems All Visits Onset Date Resolved Date Provider Condition S tatus Joint Pain in the Left Knee 09/29/2022 Joao Yo PA-C Active Plan of Treatment Fall Risk Assessment: This patient has been identified as a fall risk. Balance/gait along with postural blood pressure, vision and home fall hazards have been assessed. Medications have been reviewed, and recommendations made with regard to contributing factors for future falls. Plan of care: Consideration of vitamin D supplementation along with balance and strength training with consideration for formal physical therapy has been discussed with the patient. - Last Documented On 10/16/2022 2:17PM ; [facility], [facility] Pending Tests Order Diagnosis Results Due Ordering P rovider Radiology - MRI MRI Lumbar Spine 03/23/22 Dre José MD Assessments Includes: Assessments from this encounter No Assessments Recorded Medical Equipment - Implanted Devices Includes: Current Devices No Medical Equipment Recorded Medications Includes: Medications
--- OUTSIDE RECORDS SUMMARY | 2023-02-02 09:51 | XMS_ITS ---
Author Name Unknown Address [address] [place] [address] Phone Organization [facility] , [facility] Address [address] [place] [address] Phone Care Team Providers Care Power Equipment Technology Instructor Name Role Phone Arnav MEDEL, John Wilson Unavailable [phone] TAYE CURTIS Unavailable [phone] Problems Includes: Active, inactive, and resolved Problems All Visits Onset Date Resolved Date Provider Condition S tatus Joint Pain in the Left Knee 09/29/2022 Joao Yo PA-C Active Plan of Treatment Pending Tests Order Diagnosis Results Due Ordering P rovider Radiology - MRI MRI Lumbar Spine 03/23/22 Dre José MD Assessments Includes: Assessments for all patient encounters No Assessments Recorded Medical Equipment - Implanted Devices Includes: Current and historical Devices No Medical Equipment Recorded Medications Includes: Current and historical Medications Current Medications (continue as prescribed) [facility] Vitamin D3 250 MCG (48337 UT) Oral Capsule 022 Provider: Diagnosis: Gemfibrozil 600 MG Oral Tablet 02/15/2022 Provider:
--- OUTSIDE RECORDS SUMMARY | 2023-02-02 09:51 | XMS_ITS | Clinical Summary ---
Author Name Unknown Address [address] [place] [address] Phone Organization [facility] , [facility] Address [address] [place] [place] [address] Phone Care Team Providers Care Analysis Consultant Name Role Phone Arnav MEDEL, John Wilson Unavailable [phone] EVER TAYE Unavailable [phone] Reason for Visit and Chief Complaint The Chief Complaint is: LT Knee pain/Thoracic back pain Problems Includes: Problems addressed during this encounter and other active Problems Current Visit Onset Date Resolved Date Provider Conditio n Status Joint Pain in the Left Knee 09/29/2022 Joao Yo PA-C Active Past Visits Onset Date Resolved Date Provider Condition Status Pain in the Thoracic Spine 03/09/2022 John José MD Active Plan of Treatment Fall Risk Assessment: [...] with the patient. - Last Documented On 09/29/2022 11:59AM ; [facility] Patient was seen by myself Joao Yo PA-C. Patient will follow up after new spine MRI to see if possibly she has a new compression fracture. - Last Documented On 09/29/2022 11:59AM ; [facility] Pending Tests Order Diagnosis Results Due Ordering Niyah pearson Ra
--- OUTSIDE RECORDS SUMMARY | 2023-02-02 09:51 | XMS_ITS | Clinical Summary ---
Author Name Unknown Address [address] [place] [address] Phone Organization [facility] , [facility] Address [address] [place] [address] Phone Care Team Providers Care Studio Sales Associate Name Role Phone Arnav MEDEL, John Wilson Unavailable [phone] TAEY CURTIS Unavailable [phone] Reason for Visit and Chief Complaint The Chief Complaint is: Thoracic back pain Problems Includes: Problems addressed during [...] with the patient. - Last Documented On 08/25/2022 2:44PM ; [facility] Patient was seen by myself and Dr. Arnav Yo PA-C. Patient will follow up post T5 kyphoplasty she understands all the benefits risks alternatives surgery and consents to proceed he did tell her that if he cannot keep her safe and cannot visualize everything appropriately then he would have to not do the procedure and she would have to then just have to manage this conservatively. - Last Documented On 08/25/2022 2:44PM ; [facility] Pending Tests Order Di
--- OUTSIDE RECORDS SUMMARY | 2023-02-02 09:51 | XMS_ITS | Clinical Summary ---
Author Name Unknown Address [address] [place] [address] Phone Organization [facility] , [facility] Address [address] [place] [address] Phone Care Team Providers Care Fruit Express Agent Name Role Phone Arnav MEDEL, John Wilson Unavailable [phone] TAYE CURTIS Unavailable [phone] Reason for Visit and Chief Complaint The [...] with the patient. - Last Documented On 09/08/2022 10:48AM ; [facility] Patient was seen by myself Joao oY PA-C. Patient will follow up as needed for now she was asking about an injection on her left knee I told her to give this a few more weeks before we consider injecting this. She can follow-up with me at that point in time for that she can does not need to wear the brace that she has now either. - Last Documented On 09/08/2022 10:48AM ; [facility] Pending Tests Order Diagnosis Results Due Ordering Niyah pearson
--- OUTSIDE RECORDS SUMMARY | 2023-02-02 09:51 | XMS_ITS ---
Care Plan - [facility], [facility] Created on: February 02, 2023 Terrie Oneill : 1950 Sex: Female Author Name Unknown Address [address] [place] [address] Phone Organization [facility] Address [address] [place] [place] [address] Phone Care Team Providers Care Leather Dresser Name Role Phone Arnav MEDEL, John Wilson Unavailable [phone] TAYE CURTIS Unavailable [phone]
--- OUTSIDE RECORDS SUMMARY | 2023-02-02 09:51 | XMS_ITS | Clinical Summary ---
Author Name Unknown Address [address] [place] [address] Phone Organization [facility] , [facility] Address [address] [place] [address] Phone Care Team Providers Care Stereo Map Plotter Operator Name Role Phone Arnav MEDEL, John Wilson Unavailable [phone] TAYE CURTIS Unavailable [phone] Reason for Visit and Chief Complaint Kyphoplasty Problems Includes: Problems addressed during this encounter and other active Problems All Visits Onset Date Resolved Date Provider Condition S tatus Joint Pain in the Left Knee 09/29/2022 Joao Yo PAWeston Active Plan of Treatment Pending Tests Order Diagnosis Results Due Ordering P rovider Radiology - MRI MRI Lumbar Spine 03/23/22 Dre José MD Assessments Includes: Assessments from this encounter No Assessments Recorded Medical Equipment - Implanted Devices Includes: Current Devices No Medical Equipment Recorded Medications Includes: Medications discussed during this encounter and other current Medications Current Medications (continue as prescribed) [facility] Vitamin D3 250 MCG (53385 UT) Oral Capsule 022 Provider: Diagnosis: Gemfibrozil 600 MG Oral Tablet 02/15/2022 Provider:
--- NOTE | 2023-02-02 10:12 | A.OFFVIS_ITS ---
[facility] Pain Management SOAP Note Subjective:: Patient is a pleasant 72-year-old female comes our clinic today for follow-up visit after receiving T12-L1 epidural steroid injection on 01/09/2023. This is her second injection at the same level. She is reporting 70% improvement in her overall thoracolumbar back pain. Patient states prior to the injections she could not stand for 1 minute without severe pain. She reports today she is able to stand and walk and do some light housework for an hour or more with minimal pain. She rates her pain today /10. Patient is prescribed Celebrex however she reports only taking it as needed. Her Kishor #[id number] has been reviewed and appropriate. Objective:: Patient is awake alert [place] x3. In no acute distress. Flexion-extension lumbar spine somewhat guarded secondary to pain. Deep tendon reflexes upper lower extremities normal. There is no gross sensory deficit. Gait is normal. Assessment:: Degenerative disc disease lumbar spine multilevels. Lumbar radiculopathy. Degenerative disc disease thoracic spine. Thoracic radiculopathy. Thoracolumbar spondylosis. Thoracolumbar multilevel facet arthropathy. Plan:: Patient will return to see us in 2 months. She would like to schedule a repeat injection at the first of the year. [facility] Disclaimer: The information contained in this section may have been updated after the patient was seen, as this information can be updated by other users. 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
[2023-02-02 10:14] VITALS: BP 132/63; PULSE 70; RESP 18; O2SAT 98; BMI 23.2
== END ==
PROVIDERS: PCP Nurse Anesthetist, Certified Registered; Visit Provider Nurse Anesthetist, Certified Registered
DX: M51.16 Intervertebral disc disorders with radiculopathy, lumbar region (principal); M51.14 Intervertebral disc disorders with radiculopathy, thoracic region; M47.24 Other spondylosis with radiculopathy, thoracic region
CPT/HCPCS: 99212; G0463

== ENCOUNTER → 2023-03-29 10:15 | Outpatient (POV) | payer MEDICARE, SELFPAY ==
--- NOTE | 2023-03-29 10:53 | EXP.PAIN.SOA ---
[facility] Pain Management SOAP Note Subjective:: Patient is a pleasant 72-year-old female who presents today for follow-up. We are currently treating the patient for degenerative disc disease of thoracic and lumbar spine with thoracic and lumbar radiculopathy symptoms, thoracic facet arthropathy, thoracic spondylosis. Today she rates her pain a 7 out of 10. Patient states that she is starting to experience more pain in her mid to low back unrelated to any new injury or trauma. She does state that she even has some tenderness along the right side of her ribs. Patient does describe her pain as an aching, throbbing sensation with some numbness that is worse with increased activity or ambulation. She does state the pain makes it difficult to perform activities of daily living such as cooking and cleaning or even simple ambulation. Patient does states she has to frequently stop and take multiple breaks due to the pain. Patient denies any heart or kidney issues and was previously prescribed Celebrex however she states that her PCP had tried her on meloxicam in the past and she felt like this did better. Patient is requesting if we can prescribe this. Her Kishor has been reviewed and is appropriate. Review of Systems: General: No recent weight changes, no fever, no sleep disturbances Respiratory: No cough, no shortness of air, no recurring pulmonary infections Cardiovascular/peripheral vascular: No chest pain, no palpitations, no edema, no shortness of breath Gastrointestinal: No new onset incontinence, normal bowel movements reported Genitourinary: No new onset incontinence Musculoskeletal: Mid to low back pain Psychiatric: [Normal mood/affect] Neurological: [Denies weakness in extremities], [denies balance issues] Objective:: Physical Exam: General: Alert and oriented x3, no acute distress, pleasant and cooperative Lungs: Respirations even and unlabored, symmetrical chest expansion Eyes: PERRL Musculoskeletal: Flexion and extension of thoracic [spine] somewhat guarded secondary to pain, [antalgic gait noted] Neurological: Speech clear, no gross sensory deficit Assessment:: Degenerative disc disease of thoracic and lumbar spine with thoracic and lumbar radiculopathy symptoms, thoracic spondylosis, facet arthropathy Plan:: Patient is experiencing worsening pain in her mid to low back with limited range of motion of her thoracic spine. I have discussed with patient that she may benefit from a thoracic epidural steroid injection. Risk and benefits were discussed with the patient and she would like to proceed forward with this plan of care. Patient is not on any blood thinners. I will send in a 30-day supply of meloxicam 15 mg daily. I have counseled the patient not to take any other NSAIDs while taking this medication and to take it with food to minimize GI upset. Patient will be scheduled for a MIGNON T12-L1. All epidurals are done under fluoroscopic guidance to confirm placement. Patient has been counseled to contact our office with any questions or concerns before their next appointment date. This note has been dictated using voice recognition software and may contain errors or omissions. Dr. Christine has read this note and agrees with this plan of care. [facility] Disclaimer: The information contained in this section may have been updated after the patient was seen, as this information can be updated by other users. Medical History Autoimmune hepatitis Elevated LFTs Essential tremor GERD (gastroesophageal reflux disease) Graves' disease Hyperlipidemia Hypertension Hypothyroidism Osteoporosis Surgical History History of cholecystectomy History of repair of hiatal hernia Hx of tubal ligation Family History Other Cancer Social History (Reviewed 01/09/23 @ 10:03 by Martha
[2023-03-29 11:11] VITALS: BP 122/68; PULSE 77; RESP 18; O2SAT 96; BMI 22.8
== END | disposition home or self-care (01) ==
PROVIDERS: PCP Family Medicine; Visit Provider Nurse Practitioner Family
DX: M51.14 Intervertebral disc disorders with radiculopathy, thoracic region (principal); M51.16 Intervertebral disc disorders with radiculopathy, lumbar region; M47.24 Other spondylosis with radiculopathy, thoracic region
CPT/HCPCS: 99212; G0463

== ENCOUNTER 2023-04-24 09:30 | Day surgery (SDC) | payer MEDICARE, SELFPAY ==
[2023-04-24 09:45] VITALS: BP 148/95; PULSE 87; RESP 16; TEMP 36.3; O2SAT 99; BMI 22.8
[2023-04-24] MEDS: methylPREDNISolone ACETATE 80MG/ML VIAL 80 MG (09:47)
[2023-04-24 09:49] VITALS: BP 162/72; PULSE 75; RESP 18; O2SAT 100
[2023-04-24 09:50] VITALS: BP 162/72; PULSE 75; RESP 18; O2SAT 100
[2023-04-24 09:55] VITALS: BP 154/61; PULSE 75; RESP 18; O2SAT 99
--- NOTE | 2023-04-24 10:06 | EXP.PAIN.PRO ---
Procedure Date: 04/24/23 Time: 09:30 Anesthesiologist:: Jerel Forrester CRNA Complications:: None Pre-procedure Diagnosis:: Degenerative disc lumbar spine multilevels. Lumbar radiculopathy. Degenerative disc thoracic spine multilevels. Thoracic radiculopathy. Lumbar spondylosis. Multilevel lumbar facet arthropathy Post-procedure Diagnosis:: Same. Indications for Procedure:: Patient is a very pleasant 72-year-old female comes our clinic today for repeat T12-L1 intralaminar epidural steroid injection. Patient reporting 50 to 70% improvement overall in terms of her thoracolumbar back pain as well as ambulating with minimal pain. She rates her pain today 5/10. Procedure Details:: Procedure: Lumbar epidural steroid injection under fluoroscopy Informed consent was obtained and the risks and benefits of the procedure were explained to the patient. The patient was taken to the procedure room and noninvasive monitors placed, including noninvasive blood pressure cuff and pulse oximeter. The back was viewed using C-arm Fluoroscopy and prepped using Chloraprep as a cleansing solution and the T12-L1 interspace was palpated. Skin and subcutaneous tissues were anesthetized using lidocaine 1.5% and a 25-gauge needle. After this, an 18-gauge Touhy epidural needle was placed into the T12-L1 interspace and advanced using fluoroscopic guidance and loss of resistance to air until the epidural space was encountered. After confirmation of needle placement in the epidural space, with dye, a solution containing normal saline, 3 mL and Depo-Medrol 80 mg were incrementally injected into the lumbar epidural space. The patient tolerated the procedure well with no complications. The patient was observed in the Pain Clinic and then discharged home neurologically intact. Plan and Disposition:: Patient was discharged without incident.
== END 2023-04-24 09:55 | disposition home or self-care (01) ==
LOC: SC.PAINP 09:31
PROVIDERS: PCP Family Medicine; Visit Provider Nurse Anesthetist, Certified Registered
DX: M51.16 Intervertebral disc disorders with radiculopathy, lumbar region (principal); M51.14 Intervertebral disc disorders with radiculopathy, thoracic region; M47.26 Other spondylosis with radiculopathy, lumbar region
CPT/HCPCS: 62323; J1040

== ENCOUNTER → 2023-05-09 09:18 | Outpatient (POV) | payer MEDICARE, SELFPAY ==
--- NOTE | 2023-05-09 09:44 | EXP.PAIN.SOA ---
[facility] Pain Management SOAP Note Subjective:: Patient is a pleasant 72-year-old female who presents today for follow-up of lumbar epidural steroid injection of T12-L1 on 04/24/2023. We are currently treating the patient for degenerative disc disease of thoracic and lumbar spine with thoracic and lumbar radiculopathy symptoms, thoracic facet arthropathy and spondylosis. Today she rates her pain a 5 out of 10. Patient states that she has had at least 80% improvement following this injection however she states that she recently was reaching back along her left side and felt like she overdid it causing a muscle strain. Patient states she has a little pain in and around her ribs however it has improved over the last couple of days. Patient is currently managed with 15 mg meloxicam daily. Her Kishor has been reviewed and is appropriate. Review of Systems: General: No recent weight changes, no fever, no sleep disturbances Respiratory: No cough, no shortness of air, no recurring pulmonary infections Cardiovascular/peripheral vascular: No chest pain, no palpitations, no edema, no shortness of breath Gastrointestinal: No new onset incontinence, normal bowel movements reported Genitourinary: No new onset incontinence Musculoskeletal: Mid to low back pain Psychiatric: [Normal mood/affect] Neurological: [Denies weakness in extremities], [denies balance issues] Objective:: Physical Exam: General: Alert and oriented x3, no acute distress, pleasant and cooperative Lungs: Respirations even and unlabored, symmetrical chest expansion Eyes: PERRL Musculoskeletal: Flexion and extension of thoracic [spine] somewhat guarded secondary to pain, [antalgic gait noted] Neurological: Speech clear, no gross sensory deficit Assessment:: Degenerative disc disease of thoracic and lumbar spine with thoracic and lumbar radiculopathy symptoms, thoracic facet arthropathy and spondylosis Plan:: Patient has had significant improvement following her thoracic/lumbar epidural of T12 and L1 and does not require any additional injection therapy at this time. I will send in a 2-week supply of baclofen 5 mg twice daily as needed for her muscle spasms. I will also send in refills on her meloxicam 15 mg daily and provide a 1 month supply of this medication. Patient will return to clinic in 1 month for reevaluation of symptoms and plan of care. Patient has been instructed to contact the clinic with any concerns before the next appointment. Dr. Christine has reviewed this note and agrees with this plan of care. This note was dictated using voice recognition software and make contain errors or omissions. [facility] Disclaimer: The information contained in this section may have been updated after the patient was seen, as this information can be updated by other users. 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
[2023-05-09 11:18] VITALS: BP 145/67; PULSE 79; RESP 18; O2SAT 98; BMI 22.8
== END | disposition home or self-care (01) ==
PROVIDERS: PCP Family Medicine; Visit Provider Nurse Practitioner Family
DX: M51.14 Intervertebral disc disorders with radiculopathy, thoracic region (principal); M47.24 Other spondylosis with radiculopathy, thoracic region; M51.16 Intervertebral disc disorders with radiculopathy, lumbar region
CPT/HCPCS: 99212; G0463

== ENCOUNTER 2023-07-02 08:36 | Outpatient (POV) | payer MEDICARE, SELFPAY ==
[2023-07-02 08:51] VITALS: BP 133/76; PULSE 92; RESP 18; O2SAT 92; BMI 22.8
--- NOTE | 2023-07-02 09:01 | A.OFFVIS_ITS ---
[facility] Pain Management SOAP Note Subjective:: Patient is a pleasant 72-year-old female who presents today for medication refill and follow-up. Today she rates her pain an 8 out of 10. She does state from our last visit she has had a fall. She states that she was at home and using her swing for mop when she fell up against her air purifier on the right side. Patient states this was about 4 weeks ago. She states that she did not believe that she did anything significant enough to fracture however she has had more soreness but she states that is improving. At our last visit we did try baclofen 5 mg twice a day however she states that she really did not notice much relief with this. She states in the past that she was given Flexeril 10 mg from a different provider and that she had a couple of these tablets and it did help during this time. Patient is managed with meloxicam 15 mg daily. Her Kishor has been reviewed and is appropriate. Review of Systems: General: No recent weight changes, no fever, no sleep disturbances Respiratory: No cough, no shortness of air, no recurring pulmonary infections Cardiovascular/peripheral vascular: No chest pain, no palpitations, no edema, no shortness of breath Gastrointestinal: No new onset incontinence, normal bowel movements reported Genitourinary: No new onset incontinence Musculoskeletal: Mid back pain Psychiatric: [Normal mood/affect] Neurological: [Denies weakness in extremities], [denies balance issues] Objective:: Physical Exam: General: Alert and oriented x3, no acute distress, pleasant and cooperative Lungs: Respirations even and unlabored, symmetrical chest expansion Eyes: PERRL Musculoskeletal: Flexion and extension of thoracic [spine] somewhat guarded secondary to pain, [antalgic gait noted] Neurological: Speech clear, no gross sensory deficit Assessment:: Degenerative disc disease of thoracic and lumbar spine with thoracic and lumbar radiculopathy symptoms, thoracic facet arthropathy and spondylosis Plan:: I will refill the patient's meloxicam 15 mg daily and send in a new prescription of Flexeril 10 mg 3 times a day and provide a 1 month supply of this medication. I have reviewed with the patient that if she does end up wanting us to do additional imaging to rule out any fracture that we can do this. Patient will return to clinic in 1 month for reevaluation of symptoms completed of care. Will also discussed whether or not at that time if she feels like she needs any additional injection therapy. Patient has been instructed to contact the clinic with any concerns before the next appointment. Dr. Christine has reviewed this note and agrees with this plan of care. This note was dictated using voice recognition software and make contain errors or omissions. [facility] Disclaimer: The information contained in this section may have been updated after the patient was seen, as this information can be updated by other users. 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
== END 2023-07-02 23:59 | disposition home or self-care (01) ==
PROVIDERS: PCP Family Medicine; Visit Provider Nurse Practitioner Family
DX: M51.14 Intervertebral disc disorders with radiculopathy, thoracic region (principal); M51.16 Intervertebral disc disorders with radiculopathy, lumbar region; M47.24 Other spondylosis with radiculopathy, thoracic region
CPT/HCPCS: 99212; G0463

== ENCOUNTER 2023-08-06 14:37 | Outpatient (POV) | payer MEDICARE, SELFPAY ==
--- NOTE | 2023-08-06 15:04 | EXP.PAIN.SOA ---
[facility] Pain Management SOAP Note Subjective:: Patient is a pleasant 73-year-old female who presents today for 1 month follow-up. We are currently treating the patient for degenerative disc disease of thoracic and lumbar spine with thoracic and lumbar radiculopathy symptoms, thoracic facet arthropathy, thoracic spondylosis. Today she rates her pain a 8 out of 10. She denies any new trauma or injury. She does state that she has continued to increase her activity and feels more functional however she states when she has been doing well she does start to experience more pain in her mid to low back with radiating symptoms. She describes this as an aching, throbbing sensation with some numbness that is worse with increased activity or ambulation. She does state the pain makes it difficult to perform activities of daily living such as cooking and cleaning or even simple ambulation. Patient has had previous thoracic/lumbar epidurals that did provide more than 70 to 80% relief. Patient states that she would like to repeat this injection as she feels like her last 1 is starting to wear off. Patient does have to stop and take more breaks due to the pain. Patient is currently managed with meloxicam 15 mg daily and Flexeril 10 mg 3 times a day. Patient denies any side effects from this. Her Kishor has been reviewed and is appropriate. Review of Systems: General: No recent weight changes, no fever, no sleep disturbances Respiratory: No cough, no shortness of air, no recurring pulmonary infections Cardiovascular/peripheral vascular: No chest pain, no palpitations, no edema, no shortness of breath Gastrointestinal: No new onset incontinence, normal bowel movements reported Genitourinary: No new onset incontinence Musculoskeletal: Mid/low back pain Psychiatric: [Normal mood/affect] Neurological: [Denies weakness in extremities], [denies balance issues] Objective:: Physical Exam: General: Alert and oriented x3, no acute distress, pleasant and cooperative Lungs: Respirations even and unlabored, symmetrical chest expansion Eyes: PERRL Musculoskeletal: Flexion and extension of thoracic [spine] somewhat guarded secondary to pain, [antalgic gait noted] Neurological: Speech clear, no gross sensory deficit Assessment:: Degenerative disc disease of thoracic and lumbar spine with thoracic and lumbar radiculopathy symptoms, thoracic facet arthropathy, spondylosis and chronic pain syndrome Plan:: I will refill the patient's meloxicam 15 mg daily and Flexeril 10 mg 3 times a day and provide a 3-month supply of this medication. Patient is experiencing worsening pain in her mid to low back that is worse with increased activity. Patient did have limited range of motion of her thoracic spine. I have discussed with the patient due to her having significant relief with her prior thoracic epidural of more than 70 to 80% lasting on average about 2 and half to 3 months that she may benefit from a repeat injection. Risk and benefits regarding this injection were explained to the patient and she would like to proceed forward with this plan of care. Patient has tried and failed conservative therapy. We will schedule the patient for a thoracic epidural steroid injection T12-L1 under fluoroscopy. Patient has been instructed to contact the clinic with any concerns before the next appointment. Dr. Christine has reviewed this note and agrees with this plan of care. This note was dictated using voice recognition software and make contain errors or omissions. [facility] Disclaimer: The information contained in this section may have been updated after the patient was seen, as this information can be updated by other users. 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
[2023-08-06 15:50] VITALS: BP 142/95; PULSE 120; RESP 18; O2SAT 95; BMI 22.9
== END 2023-08-06 23:59 | disposition home or self-care (01) ==
PROVIDERS: PCP Family Medicine; Visit Provider Nurse Practitioner Family
DX: M51.14 Intervertebral disc disorders with radiculopathy, thoracic region (principal); M51.16 Intervertebral disc disorders with radiculopathy, lumbar region; M47.24 Other spondylosis with radiculopathy, thoracic region; G89.4 Chronic pain syndrome
CPT/HCPCS: 99212; G0463

== ENCOUNTER 2023-08-21 12:39 | Day surgery (SDC) | payer MEDICARE, SELFPAY ==
[2023-08-21 13:09] VITALS: BP 119/66; PULSE 94; RESP 18; TEMP 36.2; O2SAT 98; BMI 22.8
[2023-08-21 13:10] VITALS: BP 152/85; PULSE 88; RESP 18; O2SAT 99
[2023-08-21] MEDS: methylPREDNISolone ACETATE 80MG/ML VIAL 80 MG (13:10)
[2023-08-21 13:11] VITALS: BP 152/85; PULSE 87; RESP 18; O2SAT 99
[2023-08-21 13:16] VITALS: BP 124/67; PULSE 88; RESP 18; O2SAT 98
--- NOTE | 2023-08-21 13:16 | P.PCN_ITS ---
Procedure Date: 08/21/23 Time: 13:00 Anesthesiologist:: Jerel Forrester CRNA Complications:: None Pre-procedure Diagnosis:: Degenerative disc disease thoracic spine. Degenerative disc disease lumbar spine. Multilevel thoracic and lumbar facet arthropathy. Thoracic and lumbar spondylosis. Post-procedure Diagnosis:: Same. Indications for Procedure:: Patient is a pleasant 73-year-old female comes our clinic today for repeat T12- L1 epidural steroid injection. She has had significant improvement terms of her overall mid and low back pain with previous injections. She rates her pain 6/10. Procedure Details:: Procedure:Thoracic epidural steroid injection under fluoroscopy Informed consent was obtained and the risks and benefits of the procedure were explained to the patient. The patient was taken to the procedure room and noninvasive monitors placed, including noninvasive blood pressure cuff and pulse oximeter. The back was viewed using C-Arm fluoroscopy and prepped using Betadine as a cleansing solution and the T12-L1 interspace was palpated. Skin and subcutaneous tissues were anesthetized using lidocaine 1.5% and a 25-gauge needle. After this, an 18-gauge Touhy epidural needle was placed into the T12-L1 interspace and advanced using fluoroscopic guidance and loss of resistance to air until the epidural space was encountered. After confirmation of needle placement in the epidural space, with dye, a solution containing lidocaine 1.5%, 4 mL and Depo-Medrol 80 mg were incrementally injected into the thoracic epidural space. The patient tolerated the procedure well with no complications. The patient was observed in the Pain Clinic and then discharged home neurologically intact. Plan and Disposition:: Patient was discharged without incident.
== END 2023-08-21 13:16 | disposition home or self-care (01) ==
PROVIDERS: PCP Family Medicine; Visit Provider Nurse Anesthetist, Certified Registered
DX: M51.36 Other intervertebral disc degeneration, lumbar region; M47.814 Spondylosis without myelopathy or radiculopathy, thoracic region; M47.816 Spondylosis without myelopathy or radiculopathy, lumbar region; M51.14 Intervertebral disc disorders with radiculopathy, thoracic region
CPT/HCPCS: 62321; J1010

== ENCOUNTER 2024-01-17 13:09 | Outpatient (CLI) | payer MEDICARE, SELFPAY ==
--- NOTE | 2024-01-17 13:19 | XR_ITS ---
FINAL REPORT CLINICAL HISTORY: right femur fx COMPARISON: No prior available for comparison FINDINGS: RIGHT FEMUR 2 views were obtained. There are postoperative changes from ORIF of the proximal femur. An intertrochanteric fracture is noted. Mild degenerative changes are present. IMPRESSION: Postoperative changes from ORIF the proximal femur. Intertrochanteric fracture. Reviewed, Interpreted and Dictated by Shoaib Park III, MD Transcribed by Jaquelin Wang Authenticated and [facility]
== END 2024-01-17 23:59 | disposition home or self-care (01) ==
LOC: RAD 13:11
PROVIDERS: PCP Family Medicine; Visit Provider Orthopaedic Surgery
DX: S72.141A Displaced intertrochanteric fracture of right femur, initial encounter for closed fracture (principal)
CPT/HCPCS: 73552

== ENCOUNTER 2024-03-18 15:08 | Outpatient (CLI) | payer MEDICARE, SELFPAY ==
--- NOTE | 2024-03-18 15:12 | XR_ITS ---
FINAL REPORT CLINICAL HISTORY: AP pelvis evaluation COMPARISON: 08/02/2022 FINDINGS: Pelvis One view was obtained. There is no fracture or dislocation. There are postoperative changes of the right femur. The bones are osteopenic. There is irregularity of the right medial pubic bone, favor chronic. IMPRESSION: Irregularity of the right pubic bone, favor chronic. If symptoms persist, CT may be helpful. Reviewed, Interpreted and Dictated by Shoaib Park III, MD Transcribed by Awa Boland Authenticated and . [facility]
== END 2024-03-18 23:59 | disposition home or self-care (01) ==
LOC: RAD 15:09
PROVIDERS: PCP Family Medicine; Visit Provider Orthopaedic Surgery
DX: S32.9XXA Fracture of unspecified parts of lumbosacral spine and pelvis, initial encounter for closed fracture (principal)
CPT/HCPCS: 72170

== ENCOUNTER 2024-03-22 11:18 | Emergency (ER) | payer MEDICARE, SELFPAY ==
[2024-03-22] VITALS (7 sets, daily range): BP systolic 141–165; BP diastolic 53–90; PULSE 58–84; RESP 18–20; TEMP 36.6–36.7; O2SAT 93–100; BMI 15.7; BMI 22.6
--- NOTE | 2024-03-22 11:22 | XR_ITS ---
PROCEDURE INFORMATION: Exam: XR Right Knee Exam date and time: 03/22/2024 11:16 AM Age: 73 years old Clinical indication: Other: Swelling after injection; Patient HX: PT states that she had an injection Luisa and the knee is now swollen; Additional info: Pain TECHNIQUE: Imaging protocol: Radiologic exam of the right knee. Views: 3 views. COMPARISON: CR XR FEMUR RT 2V 01/17/2024 1:29 PM FINDINGS: Bones/joints: Mild Tricompartmental joint space narrowing and osteophyte formation consistent with degenerative changes. There is no evidence of acute fracture.There is no evidence of malalignment or dislocation. Osteopenia Soft tissues: Soft tissue swelling medially in the distal thigh IMPRESSION: 1. Mild Tricompartmental joint space narrowing and osteophyte formation consistent with degenerative changes. 2. There is no evidence of acute fracture.There is no evidence of malalignment or dislocation.
--- NOTE | 2024-03-22 12:22 | ED_ITS ---
Discharge Plan Disposition Patient Disposition: Still a Patient Condition: Fair Prescriptions Prescriptions: No Action furosemide 40 mg tablet 40 mg PO DAILY Patient Comments: TAKE ONE TABLET BY MOUTH EVERY DAY famotidine 20 mg tablet 20 mg PO BID primidone 250 mg tablet 250 mg PO DAILY gemfibrozil 600 mg tablet 600 mg PO BID fluoxetine 20 mg capsule 20 mg PO DAILY doxepin 150 mg capsule 150 mg PO HS Patient Comments: TAKE ONE CAPSULE BY MOUTH EVERY DAY AT BEDTIME levothyroxine 112 mcg tablet 112 mcg PO DAILY hydrocodone-acetaminophen 7.5-325 mg Tablet 1 tab PO Q4HP PRN (Reason: Moderate To Severe Pain) Qty: 60 0RF cefuroxime axetil 500 mg tablet 500 mg PO Q12H celecoxib [Celebrex] 200 mg capsule 200 mg PO DAILY baclofen 5 mg tablet 5 mg PO BID Qty: 28 0RF cyclobenzaprine 10 mg tablet 10 mg PO TID PRN (Reason: muscle spasm) Qty: 90 2RF meloxicam 15 mg tablet 15 mg PO DAILY Qty: 30 2RF Referrals Follow up/Referrals: Elder Brasher MD [Primary Care Provider] - See instructions Clinical Impressions Clinical Impression: Swelling of right knee Print Language Print Language: Fijian Discharge ED [place] Therese [place] [facility] [place] [facility] [place] General Stated complaint: right leg pain/swelling Time Seen by Provider: 03/22/24 12:22 History of Present Illness Provider Complaint: She states that she has had right knee swelling for the past 2 days. She had a steroid injection into the knee 4 days ago. She denies any fever/chills. Related Data Home Medications ?Medication ?Instructions ?Recorded ?Confirmed doxepin 150 mg capsule 150 mg PO HS Pruritis 08/02/22 03/18/24 famotidine 20 mg tablet 20 mg PO BID Acid reflux 08/02/22 03/18/24 fluoxetine 20 mg capsule 20 mg PO DAILY Mood 08/02/22 03/18/24 furosemide 40 mg tablet 40 mg PO DAILY Fluid 08/02/22 03/18/24 gemfibrozil 600 mg tablet 600 mg PO BID High triglycerides 08/02/22 03/18/24 levothyroxine 112 mcg tablet 112 mcg PO DAILY Thyroid 08/02/22 03/18/24 primidone 250 mg tablet 250 mg PO DAILY Tremors 08/02/22 03/18/24 cefuroxime axetil 500 mg tablet 500 mg PO Q12H . 11/28/22 03/18/24 celecoxib 200 mg capsule (Celebrex) 200 mg PO DAILY . 01/09/23 03/18/24 Previous Rx's ?Medication ?Instructions ?Recorded hydrocodone 7.5 mg-acetaminophen 1 tab PO Q4HP PRN Moderate To 08/05/22 325 mg tablet Severe Pain #60 tabs baclofen 5 mg tablet 5 mg PO BID #28 tabs 05/09/23 cyclobenzaprine 10 mg tablet 10 mg PO TID PRN muscle spasm #90 08/06/23 tabs meloxicam 15 mg tablet 15 mg PO DAILY #30 tabs 08/06/23 Allergies Allergy/AdvReac Type Severity Reaction Status Date / Time No Known Allergies Allergy Verified 03/18/24 15:45 [facility] Disclaimer: The information contained in this section may have been updated after the patient was seen, as this information can be updated by other users. Medical History (Updated 03/22/24 @ 12:56 by Umair Crews APRN) Right knee pain Graves' disease GERD (gastroesophageal reflux disease) Autoimmune hepatitis Hyperlipidemia Hypertension Elevated LFTs Essential tremor Hypothyroidism Osteoporosis Surgical History History of repair of hiatal hernia Hx of tubal ligation History of cholecystectomy Family History Other Cancer Social History Smoking Status: Former smoker tobacco type: cigarettes packs per day: 1 second hand exposure: No alcohol intake: never substance use type: denies use current occupational status: retired Travel in the last 8 weeks: None household members: children housing: house 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[employer], 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 current occupational exposures/hazards: Yes caffeine: Yes Have you lived/traveled outside [place] in past 30 days?: No Contact w/someone who lives/traveled outside [place] past 30 days?: No Exposure to someone with infectious disease in past 14 days?: No Do you have a fever (greater than 100.4 F or 38 C)?: No Have you tested positive for COVID-19: No Exposed to someone with COVID-19 in past 14 days?: No Do you have a sore throat?: No Do you have a cough?: No Do you have any weakness?: No Do you have any diarrhea?: No Are you experiencing any unusual bleeding?: No Do you have any muscle aches/pain?: No Do you have any abdominal pain?: No Are you experiencing loss of taste or smell?: No ROS Obtained: Yes All systems reviewed & no additional complaints except as documented Constitutional Constitutional: Denies chills and Denies fever(s) Eyes Eyes: Denies eye discharge ENT Ears, Nose, Mouth, and Throat: Denies dizziness, Denies otalgia and Denies sore throat Cardiovascular Cardiovascular: Denies chest pain Respiratory Respiratory: Denies shortness of breath, Denies chest congestion, Denies cough, Denies stridor and Denies wheezing Gastrointestinal Gastrointestingal: Denies nausea or vomiting Musculoskeletal Musculoskeletal: Reports system reviewed and no additional complaints, except as documented and Denies arthralgias Integumentary/Breasts Skin/Breast: Denies rash Neurologic Neurologic: Denies dizziness and Denies paresthesias Allergic/Immunologic Allergic/Immunologic: Denies wheezing Physical Exam General General appearance: alert and in no apparent distress Head Head exam: atraumatic, normocephalic and normal inspection Eye Eye exam: Present normal appearance, PERRL and EOMI ENT ENT exam: Present normal exam, normal oropharynx, mucous membranes moist, TM's normal bilaterally and normal external ear exam Neck Neck exam: Present normal inspection, full ROM and trachea midline; Absent meningismus or lymphadenopathy Chest Chest inspection: Present normal inspection and symmetric chest wall rise; Absent tenderness Respiratory Respiratory exam: Present normal lung sounds bilaterally; Absent respiratory distress Cardiovascular Cardiovascular exam: Present regular rate and normal rhythm; Absent JVD Abdominal Exam Abdominal exam: Present soft and normal bowel sounds; Absent distention, tenderness or guarding Extremities Exam Extremities exam: Present normal inspection, full ROM and normal capillary refill; Absent calf tenderness Back Exam Back exam: Present normal inspection; Absent tenderness Neurological Exam Neurological exam: Present alert and oriented X3 Psychiatric Psychiatric exam: Present normal affect and normal mood Skin Skin exam: Present warm, dry, intact and normal color Lymphatic Lymphatic Findings: no adenopathy Medical Decision Making Medical Records Medical records reviewed: No I reviewed the patient's medical records. Screening: Per USPSTF and CDC recommendations, given the prevalence of disease in our region, it is our hospital?s policy to screen for HIV and viral Hepatitis for all patients aged 18 and over and those with ongoing risk factors. Kishor Inquiry Pt receiving controlled substance: No Orders (Tests/Meds): ORDERS Category Date Time Status Knee XR right 3 views [XR knee RT 3V] Stat Exams 03/22/24 11:22 Taken Medical Decision Narrative: She was transferred to the er due to the possibility of having a septic right knee.
--- NOTE | 2024-03-22 12:55 | ED_ITS ---
Discharge Plan Disposition Patient Disposition: Home, Self-Care Condition: Fair Prescriptions Prescriptions: No Action furosemide 40 mg tablet 40 mg PO DAILY Patient Comments: TAKE ONE TABLET BY MOUTH EVERY DAY famotidine 20 mg tablet 20 mg PO BID primidone 250 mg tablet 250 mg PO DAILY gemfibrozil 600 mg tablet 600 mg PO BID fluoxetine 20 mg capsule 20 mg PO DAILY doxepin 150 mg capsule 150 mg PO HS Patient Comments: TAKE ONE CAPSULE BY MOUTH EVERY DAY AT BEDTIME levothyroxine 112 mcg tablet 112 mcg PO DAILY hydrocodone-acetaminophen 7.5-325 mg Tablet 1 tab PO Q4HP PRN (Reason: Moderate To Severe Pain) Qty: 60 0RF cefuroxime axetil 500 mg tablet 500 mg PO Q12H celecoxib [Celebrex] 200 mg capsule 200 mg PO DAILY baclofen 5 mg tablet 5 mg PO BID Qty: 28 0RF cyclobenzaprine 10 mg tablet 10 mg PO TID PRN (Reason: muscle spasm) Qty: 90 2RF meloxicam 15 mg tablet 15 mg PO DAILY Qty: 30 2RF Referrals Follow up/Referrals: Elder Brasher MD [Primary Care Provider] - See instructions Moses José DO [Staff Physician] - See instructions Activity Restrictions/Add. Instructions Additional Instructions/Restrictions: You were evaluated in the emergency department today. Please follow-up closely with Dr. José with orthopedics. Please call his office Sunday to schedule an appointment. Return to the emergency department for new or worsening symptoms, such as fevers, significant worsening of pain, or other concerns. Clinical Impressions Clinical Impression: Swelling of right knee Instructions Patient Instructions: DI for Knee Effusion Print Language Print Language: Persian Discharge ED Provider: Therese Levy General Adult HPI General Chief complaint: Extremity Problem,Nontraumatic Stated complaint: right leg pain/swelling Time Seen by Provider: 03/22/24 12:22 Mode of Arrival: Ambulatory Source of Information: Patient Description of Symptoms (Recalled from ER Triage Doc. by RN): SWELLING OF RIGHT KNEE AFTER STEROID SHOT ON Mar History of Present Illness HPI narrative: This patient is a 73-year-old female with a history of prior right hip fracture status postsurgical fixation and pain of the right knee status post steroid injection with orthopedics 03/18/2024 presented to the emergency department for evaluation with concern for continued right knee pain and now swelling. Patient denies any known falls or injuries. No redness, warmth, skin color changes. No open wounds. She went to orthopedics clinic after a couple weeks of atraumatic right knee pain and she was given a steroid injection for osteoarthritis. She tolerated well. Given that the pain is worsened and she is having some swelling now, she presented to the [facility] for evaluation to rule out infection. She is still able to bear weight. [facility] provider sent her over here for further evaluation and management Related Data Home Medications ?Medication ?Instructions ?Recorded ?Confirmed doxepin 150 mg capsule 150 mg PO HS Pruritis 08/02/22 03/18/24 famotidine 20 mg tablet 20 mg PO BID Acid reflux 08/02/22 03/18/24 fluoxetine 20 mg capsule 20 mg PO DAILY Mood 08/02/22 03/18/24 furosemide 40 mg tablet 40 mg PO DAILY Fluid 08/02/22 03/18/24 gemfibrozil 600 mg tablet 600 mg PO BID High triglycerides 08/02/22 03/18/24 levothyroxine 112 mcg tablet 112 mcg PO DAILY Thyroid 08/02/22 03/18/24 primidone 250 mg tablet 250 mg PO DAILY Tremors 08/02/22 03/18/24 cefuroxime axetil 500 mg tablet 500 mg PO Q12H . 11/28/22 03/18/24 celecoxib 200 mg capsule (Celebrex) 200 mg PO DAILY . 01/09/23 03/18/24 Previous Rx's ?Medication ?Instructions ?Recorded hydrocodone 7.5 mg-acetaminophen 1 tab PO Q4HP PRN Moderate To 08/05/22 325 mg tablet Severe Pain #60 tabs baclofen 5 mg tablet 5 mg PO BID #28 tabs 05/09/23 cyclobenzaprine 10 mg tablet 10 mg PO TID PRN muscle spasm #90 08/06/23 tabs meloxicam 15 mg tablet 15 mg PO DAILY #30 tabs 08/06/23 Allergies Allergy/AdvReac Type Severity Reaction Status Date / Time No Known Allergies Allergy Verified 03/18/24 15:45 [facility] Disclaimer: The information contained in this section may have been updated after the patient was seen, as this information can be updated by other users. 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 current occupational exposures/hazards: Yes caffeine: Yes Have you lived/traveled outside [place] in past 30 days?: No Contact w/someone who lives/traveled outside [place] past 30 days?: No Exposure to someone with infectious disease in past 14 days?: No Do you have a fever (greater than 100.4 F or 38 C)?: No Have you tested positive for COVID-19: No Exposed to someone with COVID-19 in past 14 days?: No Do you have a sore throat?: No Do you have a cough?: No Do you have any weakness?: No Do you have any diarrhea?: No Are you experiencing any unusual bleeding?: No Do you have any muscle aches/pain?: No Do you have any abdominal pain?: No Are you experiencing loss of taste or smell?: No Other Medical History Have you received the Flu Vaccine for this season: No Have you received the Pneumonia Vaccine: Yes ROS Obtained: Yes All systems reviewed & no additional complaints except as documented Physical Exam General General appearance: alert and in no apparent distress Head Head exam: atraumatic and normocephalic Eye Eye exam: Present normal appearance, PERRL and EOMI ENT ENT exam: Present normal exam, normal oropharynx, mucous membranes moist and normal external ear exam Neck Neck exam: Present normal inspection, full ROM and trachea midline; Absent tenderness Chest Chest inspection: Present normal inspection and symmetric chest wall rise; Absent tenderness Respiratory Respiratory exam: Present normal lung sounds bilaterally; Absent respiratory distress, wheezes, stridor or accessory muscle use Cardiovascular Cardiovascular exam: Present regular rate and normal rhythm Abdominal Exam Abdominal exam: Present soft; Absent distention, tenderness or guarding Extremities Exam Extremities exam: Present normal capillary refill, joint swelling (Right knee effusion with no redness, warmth, or wounds) and other (Neurovascularly intact distally); Absent full ROM (Active range of motion of the right knee without significant pain from 0 to 105 degrees.), tenderness or edema Back Exam Back exam: Present normal inspection and full ROM; Absent tenderness Neurological Exam Neurological exam: Present alert, oriented X3 and CN II-XII intact; Absent motor sensory deficit Psychiatric Psychiatric exam: Present normal affect and normal mood Skin Skin exam: Present warm and dry Medical Decision Making Medical Records Medical records reviewed: Yes I reviewed the patient's medical records. Screening: Per USPSTF and CDC recommendations, given the prevalence of disease in our region, it is our hospital?s policy to screen for HIV and viral Hepatitis for all patients aged 18 and over and those with ongoing risk factors. Kishor Inquiry Pt receiving controlled substance: No Vital Signs: 03/22/24 12:26 03/22/24 12:54 03/22/24 13:30 Temperature 98.0 F 98 F Temperature Source Oral Oral Pulse Rate 61 Pulse Rate [Left Radial] 84 67 Respiratory Rate 18 18 18 Blood Pressure 147/61 H Blood Pressure [Left Arm] 141/53 H 148/71 H Blood Pressure Mean 109 Blood Pressure Mean [Left Arm] 82 96 Blood Pressure Source 02 Sat by Pulse Oximetry 99 93 L 100 Oxygen Delivery Method 03/22/24 14:00 03/22/24 14:30 03/22/24 15:00 Temperature Temperature Source Pulse Rate 58 L 64 58 L Pulse Rate [Left Radial] Respiratory Rate Blood Pressure 149/68 H 154/68 H 165/74 H Blood Pressure [Left Arm] Blood Pressure Mean Blood Pressure Mean [Left Arm] Blood Pressure Source 02 Sat by Pulse Oximetry 100 100 100 Oxygen Delivery Method Room Air Room Air Room Air 03/22/24 15:36 Temperature 98.0 F Temperature Source Pulse Rate 80 Pulse Rate [Left Radial] Respiratory Rate 20 Blood Pressure 141/90 H Blood Pressure [Left Arm] Blood Pressure Mean Blood Pressure Mean [Left Arm] Blood Pressure Source Automatic Cuff 02 Sat by Pulse Oximetry Oxygen Delivery Method Room Air Lab Data Lab results reviewed: Yes I reviewed the patient's lab results. Lab Results 03/22/24 13:00: WBC 6.0, RBC 3.40 L, Hgb 11.6 L, Hct 35.3 L, MCV 103.9 H, MCH 34.1 H, MCHC 32.8, RDW 15.5, Plt Count 267, MPV 8.9, Neut % (Auto) 67.0, Lymph % (Auto) 24.3, [place] % (Auto) 5.3, Eos % (Auto) 2.1, Baso % (Auto) 1.4, Neut # (Auto) 4.0, Lymph # (Auto) 1.5, [place] # (Auto) 0.3, Eos # (Auto) 0.1, Baso # (Auto) 0.1, ESR 134 H, Sodium 139, Potassium 5.2 H, Chloride 111 H, Carbon Dioxide 21 L, Anion Gap 12.2, BUN 20 H, Creatinine 1.20 H, Estimated Creat Clear 34, Estimated GFR 44 L, Est GFR ( Amer) 53 L, Glucose 96, Calcium 8.9, T otal Bilirubin 1.4 H, AST 143 H, ALT 81 H, Alkaline Phosphatase 1076 H, C- Reactive Protein 14.9 H, Total Protein 7.9, Albumin 4.2, Globulin 3.7 H, Albumin/Globulin Ratio 1.1 03/22/24 13:00 03/22/24 13:00 Orders (Tests/Meds): ED MEDICATIONS Discontinued Medications Generic Name Dose Route Start Last Admin Trade Name Abimbola PRN Reason Stop Dose Admin Acetaminophen 1,000 mg 03/22/24 15:32 03/22/24 15:38 Acetaminophen 500mg Tab PO 03/22/24 15:33 1,000 mg ONCE ONE Administration Ketorolac Tromethamine 15 mg 03/22/24 15:32 03/22/24 15:38 Ketorolac 30mg/Ml Vial IV 03/22/24 15:33 15 mg ONCE ONE Administration Lidocaine 1 each 03/22/24 15:32 03/22/24 15:38 Lidocaine 5% Transdermal Patch TP 03/22/24 15:33 1 each ONCE ONE Administration ORDERS Category Date Time Status Femur XR right 2 views [XR femur RT 2V] Stat Exams 03/22/24 13:06 Completed Hip XR right minimum 2 views [XR hip RT 2-3V w/pelvis] Exams 03/22/24 13:06 Completed Stat Knee XR right 3 views [XR knee RT 3V] Stat Exams 03/22/24 11:22 Completed CRP [C-Reactive Protein] Stat Lab 03/22/24 13:00 Completed Complete Blood Count Auto Diff Stat Lab 03/22/24 13:00 Completed Comprehensive Metabolic Panel Stat Lab 03/22/24 13:00 Completed ESR [Erythrocyte Sedimentation Rate] Stat Lab 03/22/24 13:00 Completed HIV (1&2) Antibody Rapid Stat Lab 03/22/24 13:00 Received Hep C Ab with Reflex to RNA Stat Lab 03/22/24 13:00 Received Medical Decision Narrative: In summary, this patient is a 73-year-old female presenting to the Emergency Department for evaluation of worsening right knee pain and swelling after recent steroid injection 4 days ago by orthopedic. Differential diagnoses considered include but are not limited to osteoarthritis, gouty arthritis, septic arthritis, fracture, strain/sprain. Ruling out the most morbid conditions drove assessment. It should be noted patient's history includes hypothyroidism, renal insufficiency which may or may not be at goal therapy. This complicates all aspects of care by increasing patient's risk for morbidity. I reviewed patient's past medical records and noted recent orthopedic evaluation as per HPI. On exam, the patient is sitting upright in wheelchair no acute distress. She is able to stand and pivot to the bed without significant issue and has intact active range of motion of the right knee from 0 to 105 degrees. She has no redness, warmth, or skin changes. She is neurovascularly intact distally. She does have mild right knee effusion. Workup included x-rays of the right hip, femur, knee as well as lab evaluation including CBC, CMP, ESR, CRP. I independently interpreted x-ray prior to the radiologist read and noted right knee joint effusion but no acute fracture. She does have osteoarthritis. Please see their read for final interpretation. Labs were obtained that demonstrated elevated ESR but CRP that is right at the upper limits of normal and not significantly elevated. No significant leukocytosis. Patient was given IV Toradol and oral Tylenol for pain as well as a topical Lidoderm patch. She is able to bear weight, she does have preserved active and passive range of motion. I had an interactive discussion with Dr. José who advises low concern for septic arthritis based on my assessment at this time. He advised he feels that she is appropriate for close follow-up in clinic with him without joint aspiration today. She was given instructions for this as well as instruction for supportive management and strict return precautions. She was discharged after all questions were answered. Critical Care Critical Care Time Critical Care Time: No
--- NOTE | 2024-03-22 13:03 | PC.NURSE ---
DR REZA AT BEDSIDE
--- NOTE | 2024-03-22 13:06 | XR_ITS ---
PROCEDURE INFORMATION: Exam: XR Right Hip Exam date and time: 03/22/2024 1:07 PM Age: 73 years old Clinical indication: Hip pain; Right hip; Prior surgery; Surgery date: 6+ months; Surgery type: Right femur; Additional info: Pain, remote h/o hip FX TECHNIQUE: Imaging protocol: Radiologic exam of the right hip. Views: 2 or 3 views hip with pelvis when performed. COMPARISON: CR XR PELVIS 1-2V 08/03/2022 12:42 AM FINDINGS: Bones/joints: Compression screw in the right hip. Short intramedullary kevin in the proximal right femur. Fracture fragments are in good alignment. . Soft tissues: Unremarkable. IMPRESSION: Compression screw in the right hip. Short intramedullary kevin in the proximal right femur. Fracture fragments are in good alignment. .
--- NOTE | 2024-03-22 13:06 | XR_ITS ---
PROCEDURE INFORMATION: Exam: XR Right Femur Exam date and time: 03/22/2024 1:09 PM Age: 73 years old Clinical indication: Pain; Hip; Prior surgery; Surgery date: 6+ months; Surgery type: Right femur; Additional info: Pain, remote h/o hip FX TECHNIQUE: Imaging protocol: Radiologic exam of the right femur. Views: 2 views. COMPARISON: CR XR FEMUR RT 2V 01/17/2024 1:29 PM FINDINGS: Bones/joints: Compression screw in the right femoral head and neck. Intramedullary kevin in the proximal femur. Fracture fragments are in good alignment.. Degenerative changes in the knee. Soft tissues: Unremarkable. IMPRESSION: 1. Compression screw in the right femoral head and neck. Intramedullary kevin in the proximal femur. Fracture fragments are in good alignment.. 2. Degenerative changes in the knee.
[2024-03-22 13:22] LABS: Basophils # 0.1 K/mm3 (0-0.2); Basophils % 1.4 % (0.1-2.0); Eosinophils # 0.1 K/mm3 (0.0-0.4); Eosinophils % 2.1 % (0.1-12.0); Hematocrit 35.3 % (37.0-47.0); Hemoglobin 11.6 g/dL (12.2-16.2); Lymphocytes # 1.5 K/mm3 (0.7-4.5); Lymphocytes % 24.3 % (10-50); Mean Corpuscular HGB Conc 32.8 g/dL (31.8-35.4); Mean Corpuscular Hemoglobin 34.1 pg (27.0-31.2); Mean Corpuscular Volume 103.9 fl (81-99); Mean Platelet Volume 8.9 fl (7.4-10.4); Monocytes # 0.3 K/mm3 (0.1-1.0); Monocytes % 5.3 % (1.7-9.3); Platelet Count 267 K/mm3 (142-424); Red Cell Distribution Width 15.5 % (11.5-17.5)
[2024-03-22 13:31] LABS: Chloride 111 mmol/L (98-107)
[2024-03-22 13:32] LABS: Albumin Level 4.2 g/dl (3.5-5.0); Potassium 5.2 mmoL/L (3.5-5.1); Sodium 139 mmol/L (136-145)
[2024-03-22 13:35] LABS: Alanine Aminotransferase 81 U/L (12-78); Albumin/Globulin Ratio 1.1 (1.1-1.8); Alkaline Phosphatase 1076 U/L (38-126); Anion Gap 12.2 mEq/L (5-15); Aspartate Amino Transferase 143 U/L (14-36); Bilirubin,Total 1.4 mg/dl (0.2-1.3); Blood Urea Nitrogen 20 mg/dl (7-17); Calcium 8.9 mg/dl (8.4-10.2); Carbon Dioxide 21 mmol/L (22.0-30.0); Creatinine Clearance Estimated 34 mL/min (50-200); Estimated Glomerular Filt Rate 44 ml/min (>60); GFR (African American) 53 ML/MIN (>60); Globulin 3.7 g/dL (1.3-3.2); Glucose 96 mg/dl (74-100); Total Protein,Serum 7.9 g/dl (6.3-8.2)
[2024-03-22 13:40] LABS: C-Reactive Protein 14.9 mg/L (0-4)
[2024-03-22 14:25] LABS: Erythrocyte Sedimentation Rate 134 mm/hr (0-30)
--- NOTE | 2024-03-22 15:29 | PC.NURSE ---
DR REZA AT BEDSIDE TO UPDATE PT
[2024-03-22] MEDS: KETOROLAC 30MG/ML VIAL 15 MG IV (15:38)
[2024-03-22] MEDS: LIDOCAINE 5% TRANSDERMAL PATCH 1 EACH TP (15:38)
[2024-03-22] MEDS: ACETAMINOPHEN 500MG TAB 1000 MG PO (15:38)
[2024-03-23 15:34] LABS: HIV Combo NEGATIVE (Negative)
[2024-03-24 10:08] LABS: HCV Ab Non Reactive (Non Reactive)
== END 2024-03-22 15:49 | disposition home or self-care (01) ==
LOC: UTC 11:25 → ER 12:54
PROVIDERS: Emergency Provider Emergency Medicine; PCP Family Medicine
DX: M25.461 Effusion, right knee (principal); M25.561 Pain in right knee
CPT/HCPCS: 73502; 73552; 73562; 80053; 85025; 85651; 86140; 86803; 87389; 96374; 99283; J1885

== ENCOUNTER 2024-03-29 09:22 | Observation (INO) | payer MEDICARE, SELFPAY ==
[2024-03-29] VITALS (11 sets, daily range): BP systolic 116–144; BP diastolic 61–79; PULSE 60–81; RESP 16–19; TEMP 36.4–36.9; O2SAT 95–100; BMI 22.6
--- NOTE | 2024-03-29 09:54 | CT_ITS ---
PROCEDURE INFORMATION: Exam: CT Lumbar Spine Without Contrast Exam date and time: 03/29/2024 10:12 AM Age: 73 years old Clinical indication: Low back pain; Additional info: Midline tenderness and pain TECHNIQUE: Imaging protocol: Computed tomography of the lumbar spine without contrast. Radiation optimization: All CT scans at this facility use at least one of these dose optimization techniques: automated exposure control; mA and/or kV adjustment per patient size (includes targeted exams where dose is matched to clinical indication); or iterative reconstruction. COMPARISON: CT LUMBAR SPINE WO CON 08/03/2022 1:04 AM FINDINGS: Bones/joints: Chronic insufficiency fractures in the sacral ala bilaterally. Severe compression fracture of T12 of unknown age. Moderate compression fracture of L2 of unknown age. Mild compression fractures of unknown age L3 through L5 Broad-based disc bulge at L4/L5 and L5/S1 consistent with degenerative disc disease. Soft tissues: Unremarkable. IMPRESSION: Chronic insufficiency fractures in the sacral ala bilaterally. Severe compression fracture of T12 of unknown age. Moderate compression fracture of L2 of unknown age. Mild compression fractures of unknown age L3 through L5 Broad-based disc bulge at L4/L5 and L5/S1 consistent with degenerative disc disease
--- NOTE | 2024-03-29 09:57 | HMH.EDGENADL ---
Discharge Plan Disposition Patient Disposition: Admitted Chief Complaint: Back Pain/Injury Prescriptions Prescriptions: No Action furosemide 40 mg tablet 40 mg PO DAILY Patient Comments: TAKE ONE TABLET BY MOUTH EVERY DAY famotidine 20 mg tablet 20 mg PO BID primidone 250 mg tablet 250 mg PO DAILY gemfibrozil 600 mg tablet 600 mg PO BID fluoxetine 20 mg capsule 20 mg PO DAILY doxepin 150 mg capsule 150 mg PO HS Patient Comments: TAKE ONE CAPSULE BY MOUTH EVERY DAY AT BEDTIME levothyroxine 112 mcg tablet 112 mcg PO DAILY hydrocodone-acetaminophen 7.5-325 mg Tablet 1 tab PO Q4HP PRN (Reason: Moderate To Severe Pain) Qty: 60 0RF cefuroxime axetil 500 mg tablet 500 mg PO Q12H celecoxib [Celebrex] 200 mg capsule 200 mg PO DAILY baclofen 5 mg tablet 5 mg PO BID Qty: 28 0RF cyclobenzaprine 10 mg tablet 10 mg PO TID PRN (Reason: muscle spasm) Qty: 90 2RF meloxicam 15 mg tablet 15 mg PO DAILY Qty: 30 2RF Referrals Follow up/Referrals: Provider,Referral, MD [Referring] - See instructions Clinical Impressions Clinical Impression: Back pain, Compression fracture, Declining functional status Instructions Patient Instructions: DI for Low Back Pain Print Language Print Language: Congolese Discharge ED Provider: Cedric Flores General Adult HPI General Chief complaint: Back Pain/Injury Stated complaint: back pain Time Seen by Provider: 03/29/24 09:26 Mode of Arrival: EMS Source of Information: Patient and EMS Limitations: No Limitations Description of Symptoms (Recalled from ER Triage Doc. by RN): back pain since sunday. normally gets steroid injections but hasnt had one in 6 months. History of Present Illness HPI narrative: Patient is a 73-year-old female past medical history of chronic back pain, osteoarthritis who presents emergency department for evaluation of back pain. Onset was acute, since Sunday. She broke her hip previously this year and got surgery with 2-month rehabilitation at [facility], was recently seen for osteoarthritis of her knee here. She has had chronic back pain however it is worse in her lumbar spine today causing her to present here for continued evaluation. She intermittently uses a walker at baseline, no urinary incontinence, no fecal incontinence, no other acute complaints at this time. She has had some relief with spinal injections through Dr. Christine's office before. Related Data Home Medications ?Medication ?Instructions ?Recorded ?Confirmed doxepin 150 mg capsule 150 mg PO HS Pruritis 08/02/22 03/18/24 famotidine 20 mg tablet 20 mg PO BID Acid reflux 08/02/22 03/18/24 fluoxetine 20 mg capsule 20 mg PO DAILY Mood 08/02/22 03/18/24 furosemide 40 mg tablet 40 mg PO DAILY Fluid 08/02/22 03/18/24 gemfibrozil 600 mg tablet 600 mg PO BID High triglycerides 08/02/22 03/18/24 levothyroxine 112 mcg tablet 112 mcg PO DAILY Thyroid 08/02/22 03/18/24 primidone 250 mg tablet 250 mg PO DAILY Tremors 08/02/22 03/18/24 cefuroxime axetil 500 mg tablet 500 mg PO Q12H . 11/28/22 03/18/24 celecoxib 200 mg capsule (Celebrex) 200 mg PO DAILY . 01/09/23 03/18/24 Previous Rx's ?Medication ?Instructions ?Recorded hydrocodone 7.5 mg-acetaminophen 1 tab PO Q4HP PRN Moderate To 08/05/22 325 mg tablet Severe Pain #60 tabs baclofen 5 mg tablet 5 mg PO BID #28 tabs 05/09/23 cyclobenzaprine 10 mg tablet 10 mg PO TID PRN muscle spasm #90 08/06/23 tabs meloxicam 15 mg tablet 15 mg PO DAILY #30 tabs 08/06/23 Allergies Allergy/AdvReac Type Severity Reaction Status Date / Time No Known Allergies Allergy Verified 03/18/24 15:45 [facility] Disclaimer: The information contained in this section may have been updated after the patient was seen, as this information can be updated by other users. 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 current occupational exposures/hazards: Yes caffeine: Yes Have you lived/traveled outside US in past 30 days?: No Contact w/someone who lives/traveled outside US past 30 days?: No Exposure to someone with infectious disease in past 14 days?: No Do you have a fever (greater than 100.4 F or 38 C)?: No Have you tested positive for COVID-19: No Exposed to someone with COVID-19 in past 14 days?: No Do you have a sore throat?: No Do you have a cough?: No Do you have any weakness?: No Do you have any diarrhea?: No Are you experiencing any unusual bleeding?: No Do you have any muscle aches/pain?: Yes Do you have any abdominal pain?: No Are you experiencing loss of taste or smell?: No Other Medical History Have you received the Flu Vaccine for this season: No Have you received the Pneumonia Vaccine: Yes ROS Obtained: Yes Systems reviewed as appropriate & no additional complaints except as documented Physical Exam General General appearance: alert and in no apparent distress Head Head exam: atraumatic and normocephalic Eye Eye exam: Present PERRL ENT ENT exam: Present mucous membranes moist Neck Neck exam: Present normal inspection Chest Chest inspection: Present normal inspection and symmetric chest wall rise Respiratory Respiratory exam: Present normal lung sounds bilaterally; Absent respiratory distress Cardiovascular Cardiovascular exam: Present regular rate and normal rhythm Abdominal Exam Abdominal exam: Present soft; Absent tenderness Extremities Exam Extremities exam: Present normal inspection Back Exam Back exam: Present tenderness (Mid to lower lumbar spine, no cervical thoracic tenderness) Neurological Exam Neurological exam: Present alert and other (5 out of 5 strength bilateral upper and lower extremities) Psychiatric Psychiatric exam: Present normal affect Skin Skin exam: Present warm and dry Medical Decision Making Medical Records Screening: Per USPSTF and CDC recommendations, given the prevalence of disease in our region, it is our hospital?s policy to screen for HIV and viral Hepatitis for all patients aged 18 and over and those with ongoing risk factors. Kishor Inquiry Pt receiving controlled substance: No Vital Signs: 03/29/24 09:22 03/29/24 10:17 03/29/24 10:30 Temperature 98.2 F Temperature Source Oral Pulse Rate 62 71 Pulse Rate [Right] 70 Respiratory Rate 18 Blood Pressure 117/61 Blood Pressure [Right Arm] 126/71 Blood Pressure Mean [Right Arm] 89 02 Sat by Pulse Oximetry 99 100 99 Oxygen Delivery Method Room Air 03/29/24 10:45 03/29/24 11:00 03/29/24 11:15 Temperature Temperature Source Pulse Rate 66 67 60 Pulse Rate [Right] Respiratory Rate Blood Pressure 135/64 Blood Pressure [Right Arm] Blood Pressure Mean [Right Arm] 02 Sat by Pulse Oximetry 100 100 100 Oxygen Delivery Method 03/29/24 11:30 Temperature Temperature Source Pulse Rate 60 Pulse Rate [Right] Respiratory Rate Blood Pressure 132/66 Blood Pressure [Right Arm] Blood Pressure Mean [Right Arm] 02 Sat by Pulse Oximetry 100 Oxygen Delivery Method Lab Data Lab Results 03/29/24 10:05: WBC 7.1, RBC 3.52 L, Hgb 11.5 L, Hct 34.7 L, MCV 98.6, MCH 32.7 H, MCHC 33.1, RDW 14.6, Plt Count 252, MPV 11.7 H, Neut % (Auto) 65.9, Lymph % (Auto) 22.7, Gonzales % (Auto) 7.3, Eos % (Auto) 3.0, Baso % (Auto) 0.7, Neut # (Auto) 4.7, Lymph # (Auto) 1.6, Gonzales # (Auto) 0.5, Eos # (Auto) 0.2, Baso # (Auto) 0.1, Sodium 136, Potassium 4.3, Chloride 109 H, Carbon Dioxide 22, Anion Gap 9.3, BUN 29 H, Creatinine 1.30 H, Estimated Creat Clear 31, Estimated GFR 40 L, Est GFR ( Amer) 48 L, Glucose 156 H, Calcium 9.0, Total Bilirubin 1.4 H, AST 132 H, ALT 64, Alkaline Phosphatase 1017 H, Total Protein 7.5, Albumin 3.8, Globulin 3.7 H, Albumin/Globulin Ratio 1.0 L 03/29/24 10:05 03/29/24 10:05 Orders (Tests/Meds): ED MEDICATIONS Discontinued Medications Generic Name Dose Route Start Last Admin Trade Name Freq PRN Reason Stop Dose Admin Acetaminophen 1,000 mg 03/29/24 09:56 03/29/24 10:28 Acetaminophen 500mg Tab PO 03/29/24 09:57 1,000 mg ONCE ONE Administration Ibuprofen 400 mg 03/29/24 09:56 03/29/24 10:28 Ibuprofen 400 Mg Tablet PO 03/29/24 09:57 400 mg ONCE ONE Administration Lidocaine 1 each 03/29/24 09:56 03/29/24 10:28 Lidocaine 5% Transdermal Patch TP 03/29/24 09:57 1 each ONCE ONE Administration Methocarbamol 1,000 mg 03/29/24 09:56 03/29/24 10:27 Methocarbamol 500mg Tablet PO 03/29/24 09:57 1,000 mg ONCE ONE Administration ORDERS Category Date Time Status CT lumbar spine wo con Stat Cat Scan 03/29/24 09:54 Completed CBC w/Auto Diff [Complete Blood Count Auto Diff] Stat Lab 03/29/24 10:05 Completed CMP [Comprehensive Metabolic Panel] Stat Lab 03/29/24 10:05 Completed Medical Decision Narrative: In summary patient is a 73-year-old female past medical history described above who presents emergency department for evaluation of back pain. Patient is hemodynamically stable nontoxic-appearing but arrival, afebrile. Patient's only red flag based on history and physical exam is midline tenderness, differential includes compression fracture, lumbar ago, among others. Workup will be conducted with hematologic labs, CT lumbar spine. Initial inventions include multimodal pain control with Tylenol, low-dose ibuprofen, lidocaine patch, Robaxin. CT scan informally visualized by me there appears to be multiple compression fractures. Formal read shows chronic insufficiency fractures of the sacral ala, severe compression fracture of T12 of unknown age however patient is tender in upper lumbar spine, moderate compression fracture of L2, mild compression fractures of L3-L5 with broad base disc bulge L4-L5 and L5-S1 consistent with degenerative disc disease. Patient does not have any red flag symptoms of spinal cord compression on my exam. The T12 compression fracture appears to be the same as it was on her thoracic spine CT in 2022 and patient is tender more towards her lower lumbar spine and not her lower thoracic spine therefore I do not think any acute intervention from the standpoint is warranted. Given no need for surgical intervention with no new compression fractures that have greater than 50% height loss and no red flags patient is appropriate for admission to our hospital because she underwent ambulation trial at bedside and failed even with assistance. The case was discussed with Dr. Brasher regarding management he will meet the patient their service for continued evaluation at this time. Critical Care Critical Care Time Critical Care Time: No
[2024-03-29 10:21] LABS: Chloride 109 mmol/L (98-107)
[2024-03-29 10:22] LABS: Albumin Level 3.8 g/dl (3.5-5.0); Potassium 4.3 mmoL/L (3.5-5.1); Sodium 136 mmol/L (136-145)
[2024-03-29 10:24] LABS: Alanine Aminotransferase 64 U/L (12-78); Alkaline Phosphatase 1017 U/L (38-126); Anion Gap 9.3 mEq/L (5-15); Aspartate Amino Transferase 132 U/L (14-36); Bilirubin,Total 1.4 mg/dl (0.2-1.3); Blood Urea Nitrogen 29 mg/dl (7-17); Carbon Dioxide 22 mmol/L (22.0-30.0); Creatinine Clearance Estimated 31 mL/min (50-200); Estimated Glomerular Filt Rate 40 ml/min (>60); GFR (African American) 48 ML/MIN (>60)
[2024-03-29 10:25] LABS: Basophils % 0.7 % (0.1-2.0); Globulin 3.7 g/dL (1.3-3.2); Glucose 156 mg/dl (74-100); Hematocrit 34.7 % (37.0-47.0); Hemoglobin 11.5 g/dL (12.2-16.2); Lymphocytes % 22.7 % (10-50); Mean Corpuscular HGB Conc 33.1 g/dL (31.8-35.4); Mean Corpuscular Hemoglobin 32.7 pg (27.0-31.2); Mean Corpuscular Volume 98.6 fl (81-99); Mean Platelet Volume 11.7 fl (7.4-10.4); Monocytes % 7.3 % (1.7-9.3); Neutrophils % 65.9 % (37.0-80.0); Platelet Count 252 K/mm3 (142-424); Red Blood Count 3.52 M/mm3 (4.20-5.40); Red Cell Distribution Width 14.6 % (11.5-17.5); Total Protein,Serum 7.5 g/dl (6.3-8.2); White Blood Count 7.1 K/mm3 (4.8-10.8)
[2024-03-29 10:26] LABS: Basophils # 0.1 K/mm3 (0-0.2); Eosinophils # 0.2 K/mm3 (0.0-0.4); Lymphocytes # 1.6 K/mm3 (0.7-4.5); Monocytes # 0.5 K/mm3 (0.1-1.0); Neutrophils # 4.7 K/mm3 (1.8-7.8)
[2024-03-29] MEDS: METHOCARBAMOL 500MG TABLET 1000 MG PO (10:27)
[2024-03-29] MEDS: ACETAMINOPHEN 500MG TAB 1000 MG PO (10:28)
[2024-03-29] MEDS: IBUPROFEN 400 MG TABLET PO (10:28)
[2024-03-29] MEDS: LIDOCAINE 5% TRANSDERMAL PATCH 1 EACH TP (10:28)
--- NOTE | 2024-03-29 11:50 | PC.NURSE ---
I attempted to ambulate the pt. She stood with a walker but was unable to ambulate due to pain.
--- NOTE | 2024-03-29 12:38 | P.HP_ITS ---
History of Present Illness *Admission Date: 03/29/24 *Reason for visit:: Low back pain, unable to walk *History of present illness: Ms. Oneill is a 73 year old female patient of [facility] who was brought to the [facility] ER this morning with complaints of worsening back pain and inability to walk. She has a long history of low back pain and has been under the care of Dr. Christine in pain management for sometime due to vertebral compression fractures and overall spinal degenerative disease. Her treatments have been interrupted after a recent right hip fracture (2023) which required surgery and a 2 month stay in [facility] for rehabilitation. Patient lives with her son at home and states she was discharged from the SNF about a month ago. She had been doing fairly well until this week, when for no known reason her back pain began to intensify. SHe has progressively had problems standing and walking, until today she was unable to walk. [facility] Disclaimer: The information contained in this section may have been updated after the patient was seen, as this information can be updated by other users. Medical History (Updated 03/29/24 @ 12:52 by Elder Brasher MD) Closed right hip fracture Colon polyps Right knee pain Graves' disease GERD (gastroesophageal reflux disease) Autoimmune hepatitis Hyperlipidemia Hypertension Elevated LFTs Essential tremor Hypothyroidism Osteoporosis Surgical History (Updated 03/29/24 @ 12:48 by Elder Brasher MD) Status post-operative repair of closed fracture of right hip History of repair of hiatal hernia Hx of tubal ligation History of cholecystectomy Family History Cancer Social History Smoking Status: Never smoker second hand exposure: No alcohol intake: never substance use type: denies use current occupational status: retired Travel in the last 8 weeks: None household members: children housing: house 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[employer], 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 current occupational exposures/hazards: Yes caffeine: Yes Have you lived/traveled outside US in past 30 days?: No Contact w/someone who lives/traveled outside US past 30 days?: No Exposure to someone with infectious disease in past 14 days?: No Do you have a fever (greater than 100.4 F or 38 C)?: No Have you tested positive for COVID-19: No Exposed to someone with COVID-19 in past 14 days?: No Do you have a sore throat?: No Do you have a cough?: No Do you have any weakness?: No Do you have any diarrhea?: No Are you experiencing any unusual bleeding?: No Do you have any muscle aches/pain?: Yes Do you have any abdominal pain?: No Are you experiencing loss of taste or smell?: No Other Medical History Have you received the Flu Vaccine for this season: No Have you received the Pneumonia Vaccine: Yes Review of Systems Constitutional Constitutional: Denies chills and Denies fever(s) ENT Ears, Nose, Mouth, and Throat: Denies dizziness *Cardiovascular Cardiovascular: Denies chest pain and Denies dyspnea *Respiratory Respiratory: Denies cough and Denies dyspnea *Gastrointestinal Gastrointestinal: Denies abdominal pain and Denies bloating *Genitourinary Genitourinary: Denies dysuria *Musculoskeletal Musculoskeletal: Reports as per HPI and Reports back pain *Neurologic Neurologic: Denies dizziness Meds Home Medications and Allergies Home Medications ?Medication ?Instructions ?Recorded ?Confirmed ?Type doxepin 150 mg capsule 150 mg PO HS Pruritis 08/02/22 03/18/24 History famotidine 20 mg tablet 20 mg PO BID Acid reflux 08/02/22 03/18/24 History fluoxetine 20 mg capsule 20 mg PO DAILY Mood 08/02/22 03/18/24 History furosemide 40 mg tablet 40 mg PO DAILY Fluid 08/02/22 03/18/24 History gemfibrozil 600 mg tablet 600 mg PO BID High triglycerides 08/02/22 03/18/24 History levothyroxine 112 mcg tablet 112 mcg PO DAILY Thyroid 08/02/22 03/18/24 History primidone 250 mg tablet 250 mg PO DAILY Tremors 08/02/22 03/18/24 History hydrocodone 7.5 mg-acetaminophen 1 tab PO Q4HP PRN Moderate To 08/05/22 03/18/24 Rx 325 mg tablet Severe Pain #60 tabs cefuroxime axetil 500 mg tablet 500 mg PO Q12H . 11/28/22 03/18/24 History celecoxib 200 mg capsule (Celebrex) 200 mg PO DAILY . 01/09/23 03/18/24 History baclofen 5 mg tablet 5 mg PO BID #28 tabs 05/09/23 03/18/24 Rx cyclobenzaprine 10 mg tablet 10 mg PO TID PRN muscle spasm #90 08/06/23 03/18/24 Rx tabs meloxicam 15 mg tablet 15 mg PO DAILY #30 tabs 08/06/23 03/18/24 Rx New Prescriptions to Start Prescriptions: Allergies Allergy/AdvReac Type Severity Reaction Status Date / Time No Known Allergies Allergy Verified 03/18/24 15:45 Exam Data for Last 24 hours Vital signs and Labs for Last 24 Hours: Temp Pulse Resp BP Pulse Ox O2 Del Method 98.2 F 60 18 132/66 100 Room Air 03/29/24 09:22 03/29/24 11:30 03/29/24 09:22 03/29/24 11:30 03/29/24 11:30 03/29/24 09:22 Laboratory Results - last 24 hr 03/29/24 10:05: WBC 7.1, RBC 3.52 L, Hgb 11.5 L, Hct 34.7 L, MCV 98.6, MCH 32.7 H, MCHC 33.1, RDW 14.6, Plt Count 252, MPV 11.7 H, Neut % (Auto) 65.9, Lymph % (Auto) 22.7, Lipscomb % (Auto) 7.3, Eos % (Auto) 3.0, Baso % (Auto) 0.7, Neut # (Auto) 4.7, Lymph # (Auto) 1.6, Lipscomb # (Auto) 0.5, Eos # (Auto) 0.2, Baso # (Auto) 0.1, Sodium 136, Potassium 4.3, Chloride 109 H, Carbon Dioxide 22, Anion Gap 9.3, BUN 29 H, Creatinine 1.30 H, Estimated Creat Clear 31, Estimated GFR 40 L, Est GFR ( Amer) 48 L, Glucose 156 H, Calcium 9.0, Total Bilirubin 1.4 H, AST 132 H, ALT 64, Alkaline Phosphatase 1017 H, Total Protein 7.5, Albumin 3.8, Globulin 3.7 H, Albumin/Globulin Ratio 1.0 L I & O for Last 24 hours: Intake & Output 03/26/24 03/27/24 03/28/24 03/29/24 23:59 23:59 23:59 23:59 Weight 116 lb Constitutional Constitutional: no acute distress *Routine HEENT Exam Head: Present normocephalic Eye: Present EOMI and PERRL ENT: Present mucous membranes moist *Routine Neck Exam Neck: Present supple; Absent lymphadenopathy *Routine Respiratory Exam Respiratory: Present CTA bilaterally *Routine Cardiovascular Exam Cardiovascular: Present RRR *Routine Abdominal Exam Abdominal: Present soft and normoactive bowel sounds; Absent tenderness *Routine Rectal Exam Rectal:: deferred *Routine Genitalia Exam Genitalia:: deferred *Routine Extremities Exam Extremities: Absent cyanosis, clubbing or edema *Routine Skin Exam Skin: Present warm; Absent rash *Routine Neurological Exam Neurological: Present alert, oriented X3 and tremors Comments: Did not attempt to stand Assessment and Plan *Assessment and plan (1) Declining functional status: Status: Acute Category: Medical Code(s): R53.81 - Other malaise (2) Unable to walk: Status: Acute Category: Medical Code(s): R26.2 - Difficulty in walking, not elsewhere classified (3) Back pain: Status: Acute Qualifiers: Back pain location: low back pain Chronicity: unspecified Back pain laterality: bilateral Sciatica presence: without sciatica Qualified Code(s): M54.50 - Low back pain, unspecified Category: Medical Code(s): M54.9 - Dorsalgia, unspecified (4) Spinal stenosis, thoracic: Status: Acute Category: Medical Code(s): M48.04 - Spinal stenosis, thoracic region (5) Compression fracture of thoracic vertebra: Status: Acute Category: Medical Code(s): S22.000A - Wedge compression fracture of unspecified thoracic vertebra, initial encounter for closed fracture (6) Essential tremor: Status: Chronic Category: Medical Code(s): G25.0 - Essential tremor (7) Hypothyroidism: Status: Chronic Category: Medical Code(s): E03.9 - Hypothyroidism, unspecified (8) Osteoporosis: Status: Chronic Qualifiers: Osteoporosis type: age-related Presence of current pathological fracture: unspecified Qualified Code(s): M81.0 - Age-related osteoporosis without current pathological fracture Category: Medical Code(s): M81.0 - Age-related osteoporosis without current pathological fracture (9) Renal insufficiency: Status: Acute Category: Medical Code(s): N28.9 - Disorder of kidney and ureter, unspecified (10) RUBÉN (acute kidney injury): Status: Inactive Category: Medical Code(s): N17.9 - Acute kidney failure, unspecified (11) Anemia: Status: Inactive Qualifiers: Anemia type: unspecified type Qualified Code(s): D64.9 - Anemia, unspecified Category: Medical Code(s): D64.9 - Anemia, unspecified (12) Polyarthralgia: Status: Acute Category: Medical Code(s): M25.50 - Pain in unspecified joint (13) Elevated LFTs: Status: Acute Category: Medical Code(s): R79.89 - Other specified abnormal findings of blood chemistry Plan Patient admitted for further evaluation and management of her back pain. CT L- spine was done in the ER, see report. Will ask PT to see patient. Will give some IVF overnight due to renal insufficiency.
--- NOTE | 2024-03-29 13:17 | HMH.PHAINT1 ---
Pharmacy Intervention Comments: MEDICATION RECONCILIATION COMPLETED ON PATIENT USING EXTERNAL FILL HISTORY FROM PHARMACY AND LIST FROM [facility] OFFICE. -FLORENCIO GÓMEZD
--- NOTE | 2024-03-29 13:20 | PC.NURSE ---
report called to Leticia
--- NOTE | 2024-03-29 13:34 | PC.NURSE ---
arrived by stretcher from ED
[2024-03-29] MEDS: LACTATED RINGERS 1000ML 1,000 ML 50 ML IV (14:29)
--- NOTE | 2024-03-29 18:47 | PC.NURSE ---
a&ox4. resting supine in bed. purewick in place. verbalizes no pain at this time. pt has tolerated diet well. tolerating ra. no complaints or needs at this time. call light within reach
[2024-03-30 04:00] VITALS: BMI 23.9
--- NOTE | 2024-03-30 04:01 | PC.NURSE ---
Patient is alert and oriented x4. Patient was observed to have eyes closed, respirations even and unlabored on room air, and no apparent distress throughout the majority of the night. Patient has been pleasant and talkative while awake. Upon assessment, she did not complain of any pain, nor has had any complaints throughout the shift. She did state however that she has great difficulty moving, and she is unable to ambulate at the moment. A purewick has remained in place this shift; urine output has been emptied and measured accordingly. Auscultation of her heart, lungs, and bowels were within normal findings; however, lung sounds were found to be diminished. Vital signs have been stable this shift. She did not have any bedtime medications ordered for this shift; she currently has LR infusing at 50 mL/hr. At this time, the patient is resting supine in bed. No acute changes noted thus far. Call light within reach.
[2024-03-30 04:03] VITALS: BP 118/57; PULSE 61; RESP 17; TEMP 36.4; O2SAT 100
[2024-03-30 08:00] VITALS: BP 124/62; PULSE 66; RESP 20; TEMP 36.4; O2SAT 100
--- NOTE | 2024-03-30 08:16 | P.PN_ITS ---
Subjective *Date: 03/30/24 *Time: 08:16 Interval history: Patient has less pain, states she was able to stand with assistance last night. Medical Exam Vital signs and Labs for Last 24 Hours: Vital Signs Temp Pulse Pulse Resp BP BP Pulse Ox 03/30/24 07:55 03/30/24 06:45 03/30/24 05:00 03/30/24 04:03 97.6 F 61 17 118/57 L 100 03/30/24 03:00 03/30/24 01:00 03/29/24 23:00 03/29/24 21:00 03/29/24 20:00 79 16 98 03/29/24 20:00 97.6 F 79 16 116/74 98 03/29/24 18:41 03/29/24 17:00 03/29/24 16:00 97.9 F 75 19 144/76 H 98 03/29/24 15:21 03/29/24 15:00 03/29/24 14:00 98 F 74 17 137/79 95 03/29/24 13:35 98.4 F 81 18 132/64 03/29/24 11:30 60 132/66 100 03/29/24 11:15 60 100 03/29/24 11:00 67 135/64 100 03/29/24 10:45 66 100 03/29/24 10:30 71 117/61 99 03/29/24 10:17 62 100 03/29/24 09:22 98.2 F 70 18 126/71 99 O2 Del Method 03/30/24 07:55 Room Air 03/30/24 06:45 Room Air 03/30/24 05:00 Room Air 03/30/24 04:03 Room Air 03/30/24 03:00 Room Air 03/30/24 01:00 Room Air 03/29/24 23:00 Room Air 03/29/24 21:00 Room Air 03/29/24 20:00 Room Air 03/29/24 20:00 Room Air 03/29/24 18:41 Room Air 03/29/24 17:00 Room Air 03/29/24 16:00 Room Air 03/29/24 15:21 Room Air 03/29/24 15:00 Room Air 03/29/24 14:00 Room Air 03/29/24 13:35 03/29/24 11:30 03/29/24 11:15 03/29/24 11:00 03/29/24 10:45 03/29/24 10:30 03/29/24 10:17 03/29/24 09:22 Room Air Intake and Output 03/29/24 03/30/24 03/30/24 23:59 07:59 15:59 Intake Total 300 / 771 471 / 471 Output Total 350 / 400 225 / 225 Balance -50 / 371 246 / 246 Intake: Intake, Oral Amount 200 / 311 111 / 111 Intake, Total IV Amount 100 / 100 Lactated Ringers 1000ML 1,000 100 / 100 ml @ 50 mls/hr IV .Q20H YONI Rx# :[id number] Infusion Intake 360 / 360 Lactated Ringers 1000ML 1,000 360 / 360 ml @ 50 mls/hr IV .Q20H YONI Rx# :[id number] Output: Output, Urine Amount 350 / 400 225 / 225 Other: Number of Unmeasured Voids 0 Weight 122 lb 1.6 oz Patient Weight 03/30/24 23:59 Weight 122 lb 1.6 oz Laboratory Results - last 24 hr 03/29/24 10:05: WBC 7.1, RBC 3.52 L, Hgb 11.5 L, Hct 34.7 L, MCV 98.6, MCH 32.7 H, MCHC 33.1, RDW 14.6, Plt Count 252, MPV 11.7 H, Neut % (Auto) 65.9, Lymph % (Auto) 22.7, Brewster % (Auto) 7.3, Eos % (Auto) 3.0, Baso % (Auto) 0.7, Neut # (Auto) 4.7, Lymph # (Auto) 1.6, Brewster # (Auto) 0.5, Eos # (Auto) 0.2, Baso # (Auto) 0.1, Sodium 136, Potassium 4.3, Chloride 109 H, Carbon Dioxide 22, Anion Gap 9.3, BUN 29 H, Creatinine 1.30 H, Estimated Creat Clear 31, Estimated GFR 40 L, Est GFR ( Amer) 48 L, Glucose 156 H, Calcium 9.0, Total Bilirubin 1.4 H, AST 132 H, ALT 64, Alkaline Phosphatase 1017 H, Total Protein 7.5, Albumin 3.8, Globulin 3.7 H, Albumin/Globulin Ratio 1.0 L I & O for Labs for Last 24 Hours: Intake & Output 03/27/24 03/28/24 03/29/24 03/30/24 23:59 23:59 23:59 23:59 Intake Total 300 / 771 471 / 471 Output Total 350 / 400 225 / 225 Balance -50 / 371 246 / 246 Weight 116 lb 122 lb 1.6 oz Constitutional: Present no acute distress Respiratory: Present normal respiratory effort Cardiac: Present Reg Rate and Rhythm GI: Present normal bowel sounds; Absent tenderness Extremities: Present normal inspection and full ROM Skin: Present intact; Absent erythema Neuro: Present Grossly Intact and moves all extremities Assessment and Plan *Assessment and plan (1) Declining functional status: Status: Acute Category: Medical Code(s): R53.81 - Other malaise (2) Unable to walk: Status: Acute Category: Medical Code(s): R26.2 - Difficulty in walking, not elsewhere classified (3) Back pain: Status: Acute Qualifiers: Back pain laterality: bilateral Back pain location: low back pain Chronicity: unspecified Sciatica presence: without sciatica Qualified Code(s): M54.50 - Low back pain, unspecified Category: Medical Code(s): M54.9 - Dorsalgia, unspecified (4) Spinal stenosis, thoracic: Status: Acute Category: Medical Code(s): M48.04 - Spinal stenosis, thoracic region (5) Compression fracture of thoracic vertebra: Status: Acute Category: Medical Code(s): S22.000A - Wedge compression fracture of unspecified thoracic vertebra, initial encounter for closed fracture (6) Essential tremor: Status: Chronic Category: Medical Code(s): G25.0 - Essential tremor (7) Hypothyroidism: Status: Chronic Category: Medical Code(s): E03.9 - Hypothyroidism, unspecified (8) Osteoporosis: Status: Chronic Qualifiers: Osteoporosis type: age-related Presence of current pathological fracture: unspecified Qualified Code(s): M81.0 - Age-related osteoporosis without current pathological fracture Category: Medical Code(s): M81.0 - Age-related osteoporosis without current pathological fracture (9) Renal insufficiency: Status: Acute Category: Medical Code(s): N28.9 - Disorder of kidney and ureter, unspecified (10) RUBÉN (acute kidney injury): Status: Inactive Category: Medical Code(s): N17.9 - Acute kidney failure, unspecified (11) Anemia: Status: Inactive Qualifiers: Anemia type: unspecified type Qualified Code(s): D64.9 - Anemia, unspecified Category: Medical Code(s): D64.9 - Anemia, unspecified (12) Polyarthralgia: Status: Acute Category: Medical Code(s): M25.50 - Pain in unspecified joint (13) Elevated LFTs: Status: Acute Category: Medical Code(s): R79.89 - Other specified abnormal findings of blood chemistry Plan Plan to saline lock today, await PT recs, continue current treatment otherwise.
[2024-03-30 08:29] LABS: Albumin Level 3.6 g/dl (3.5-5.0); Chloride 111 mmol/L (98-107); Hemoglobin 10.4 g/dL (12.2-16.2); Potassium 4.8 mmoL/L (3.5-5.1); Red Blood Count 3.29 M/mm3 (4.20-5.40); Sodium 134 mmol/L (136-145); White Blood Count 6.1 K/mm3 (4.8-10.8)
[2024-03-30 08:30] LABS: Basophils # 0.1 K/mm3 (0-0.2); Basophils % 0.8 % (0.1-2.0); Eosinophils # 0.3 K/mm3 (0.0-0.4); Eosinophils % 4.1 % (0.1-12.0); Hematocrit 32.4 % (37.0-47.0); Lymphocytes # 1.5 K/mm3 (0.7-4.5); Mean Corpuscular HGB Conc 32.1 g/dL (31.8-35.4); Mean Corpuscular Hemoglobin 31.9 pg (27.0-31.2); Mean Corpuscular Volume 99.4 fl (81-99); Mean Platelet Volume 11.6 fl (7.4-10.4); Monocytes # 0.5 K/mm3 (0.1-1.0); Monocytes % 8.3 % (1.7-9.3); Neutrophils # 3.8 K/mm3 (1.8-7.8); Neutrophils % 62.5 % (37.0-80.0); Platelet Count 249 K/mm3 (142-424); Red Cell Distribution Width 14.6 % (11.5-17.5)
[2024-03-30 08:31] LABS: Blood Urea Nitrogen 34 mg/dl (7-17); Creatinine Clearance Estimated 33 mL/min (50-200); Estimated Glomerular Filt Rate 40 ml/min (>60); GFR (African American) 48 ML/MIN (>60)
[2024-03-30 08:32] LABS: Alanine Aminotransferase 63 U/L (12-78); Alkaline Phosphatase 1005 U/L (38-126); Anion Gap 7.8 mEq/L (5-15); Aspartate Amino Transferase 118 U/L (14-36); Bilirubin,Total 1.2 mg/dl (0.2-1.3); Calcium 8.7 mg/dl (8.4-10.2); Carbon Dioxide 20 mmol/L (22.0-30.0); Globulin 3.6 g/dL (1.3-3.2); Glucose 92 mg/dl (74-100); Total Protein,Serum 7.2 g/dl (6.3-8.2)
[2024-03-30] MEDS: DOCUSATE SODIUM 100 MG CAPSULE PO (08:50)
[2024-03-30] MEDS: ENOXAPARIN 40MG/0.4ML SYRINGE 40 MG SUBCUT (08:50)
[2024-03-30] MEDS: HYDROCODONE/APAP 5/325 MG TABLET 1 TAB PO (08:50)
--- NOTE | 2024-03-30 10:44 | HMH.PTEV ---
Physical Therapy Evaluation Rehab PT IP Evaluation Start: 03/29/24 12:57 Freq: ONCE Status: Active Protocol: Document 03/30/24 10:39 NOEL (Rec: 03/30/24 10:44 PHORNICOLAS [id number]) Subjective/History History History 73 yowf adm to [facility] yolanda acute increase in low back pain. She has a long history of low back pain and has been under the care of Dr. Christine in pain management for sometime due to vertebral compression fractures and overall spinal degenerative disease. Her treatments have been interrupted after a recent right hip fracture (2023 ) which required surgery and a 2 month stay in [facility] for rehabilitation. Patient lives with her son at home and states she was discharged from the SNF about a month ago. She had been doing fairly well until this week, when for no known reason her back pain began to intensify. She reports she is generally independent with all mobility, no JANIE the home, independent with ADLs at baseline, and she does have a RW at home that she uses as needed. Subjective Subjective Pt reports no c/o pain in her back at this time while supine , she agrees to mobility assessment. New diagnosis of cancer in past 12 No months? Rehab PT IP Eval Objective Appearance Patient Behavior Appropriate,Aggressive Patient Orientation Place,Time Difficulty following instructions none Speech Pattern Clear Ambulation Patient Able to Ambulate Yes Ambulation Observation IP General Gait Pattern Observation Decrease Stride Lngth (R), Decrease Stride Lngth (L) Ambulation Distance (feet) 50 Ambulation Assistive Device Rolling Walker Ambulation Ability Supervision/Stand by Balance Ability to Arise Able, uses arms to help Sitting Balance Steady, safe Standing Balance Steady, wide stance Dynamic Sitting Balance Ability Good Dynamic Standing Balance Ability Fair Transfers Bed Transfer Ability Supervision/Stand by Chair Transfer Ability Supervision/Stand by Sit to Stand Bed Transfer Ability Supervision/Stand by Sit to Stand Chair Transfer Ability Supervision/Stand by Rehab PT IP prob,goals,plan Problems Date of Evaluation: 03/30/24 Discharge Plan PT Discharge Plan Pt currently appears to be at baseline for all mobility and is appropriate to return home once medically stable for d/c. No inpatient therapy services needed at this time. Pt may benefit from home health therapy after return home. Eval Complexity Eval Charge Codes 63236 - High Complexity PHYSICIAN CERTIFICATION: I certify the specified therapy services for Terrie W Oneill are required, authorized, and reviewed every 30 days.
[2024-03-30 16:00] VITALS: BP 140/65; PULSE 73; RESP 17; TEMP 36.6; O2SAT 98
--- NOTE | 2024-03-30 16:02 | PC.NURSE ---
Pt alert and oriented x4. pt has only required pain medication once this shift. Pt worked with pt, she ambulated in an and room with walker with just standy assistance. Pt lying in bed with no complaints at this time. call light in reach.
[2024-03-30] MEDS: HYDROCODONE/APAP 5/325 MG TABLET 2 TAB PO ×2 (18:01→23:21)
[2024-03-30 20:00] VITALS: BP 139/80; PULSE 67; RESP 18; TEMP 36.7; O2SAT 99
[2024-03-30 23:58] VITALS: BP 145/69; PULSE 59; RESP 18; TEMP 36.6; O2SAT 98
[2024-03-31 04:00] VITALS: BMI 23.6
[2024-03-31] MEDS: HYDROCODONE/APAP 5/325 MG TABLET 2 TAB PO (04:16)
[2024-03-31 08:00] VITALS: BP 153/90; PULSE 75; RESP 19; TEMP 36.4; O2SAT 95
[2024-03-31] MEDS: DOCUSATE SODIUM 100 MG CAPSULE PO (08:23)
[2024-03-31] MEDS: ENOXAPARIN 40MG/0.4ML SYRINGE 40 MG SUBCUT (08:23)
--- NOTE | 2024-03-31 08:40 | P.PN_ITS ---
Subjective *Date: 03/31/24 *Time: 08:40 Interval history: Patient feels better this morning, was able to walk a little with PT yesterday. Medical Exam Vital signs and Labs for Last 24 Hours: Vital Signs Temp Pulse Resp BP Pulse Ox O2 Del Method 03/31/24 07:00 Room Air 03/31/24 05:00 Room Air 03/31/24 03:00 Room Air 03/31/24 01:00 Room Air 03/30/24 23:58 97.9 F 59 L 18 145/69 H 98 Room Air 03/30/24 22:53 Room Air 03/30/24 21:00 Room Air 03/30/24 20:00 Room Air 03/30/24 20:00 98.1 F 67 18 139/80 99 Room Air 03/30/24 18:44 Room Air 03/30/24 17:00 Room Air 03/30/24 16:00 98 F 73 17 140/65 98 Room Air 03/30/24 15:00 Room Air 03/30/24 13:00 Room Air 03/30/24 10:46 Room Air 03/30/24 09:00 Room Air Intake and Output 03/30/24 03/31/24 03/31/24 23:59 07:59 15:59 Intake Total 240 / 1326 180 / 180 Output Total 100 / 575 0 / 0 Balance 140 / 751 180 / 180 Intake: Intake, Oral Amount 240 / 966 180 / 180 Output: Output, Urine Amount 100 / 575 0 / 0 Other: Number of Unmeasured Voids 1 1 Weight 120 lb 4.8 oz Patient Weight 03/31/24 23:59 Weight 120 lb 4.8 oz I & O for Labs for Last 24 Hours: Intake & Output 03/28/24 03/29/24 03/30/24 03/31/24 23:59 23:59 23:59 23:59 Intake Total 300 / 771 1146 / 1326 180 / 180 Output Total 350 / 400 575 / 575 0 / 0 Balance -50 / 371 571 / 751 180 / 180 Weight 116 lb 122 lb 1.6 oz 120 lb 4.8 oz Constitutional: Present no acute distress Respiratory: Present normal respiratory effort Cardiac: Present Reg Rate and Rhythm GI: Present normal bowel sounds; Absent tenderness Extremities: Present normal inspection and full ROM Skin: Present intact; Absent erythema Neuro: Present Grossly Intact and moves all extremities Assessment and Plan *Assessment and plan (1) Declining functional status: Status: Acute Category: Medical Code(s): R53.81 - Other malaise (2) Unable to walk: Status: Acute Category: Medical Code(s): R26.2 - Difficulty in walking, not elsewhere classified (3) Back pain: Status: Acute Qualifiers: Back pain laterality: bilateral Back pain location: low back pain Chronicity: unspecified Sciatica presence: without sciatica Qualified Code(s): M54.50 - Low back pain, unspecified Category: Medical Code(s): M54.9 - Dorsalgia, unspecified (4) Spinal stenosis, thoracic: Status: Acute Category: Medical Code(s): M48.04 - Spinal stenosis, thoracic region (5) Compression fracture of thoracic vertebra: Status: Acute Category: Medical Code(s): S22.000A - Wedge compression fracture of unspecified thoracic vertebra, initial encounter for closed fracture (6) Essential tremor: Status: Chronic Category: Medical Code(s): G25.0 - Essential tremor (7) Hypothyroidism: Status: Chronic Category: Medical Code(s): E03.9 - Hypothyroidism, unspecified (8) Osteoporosis: Status: Chronic Qualifiers: Osteoporosis type: age-related Presence of current pathological fracture: unspecified Qualified Code(s): M81.0 - Age-related osteoporosis without current pathological fracture Category: Medical Code(s): M81.0 - Age-related osteoporosis without current pathological fracture (9) Renal insufficiency: Status: Acute Category: Medical Code(s): N28.9 - Disorder of kidney and ureter, unspecified (10) RUBÉN (acute kidney injury): Status: Inactive Category: Medical Code(s): N17.9 - Acute kidney failure, unspecified (11) Anemia: Status: Inactive Qualifiers: Anemia type: unspecified type Qualified Code(s): D64.9 - Anemia, unspecified Category: Medical Code(s): D64.9 - Anemia, unspecified (12) Polyarthralgia: Status: Acute Category: Medical Code(s): M25.50 - Pain in unspecified joint (13) Elevated LFTs: Status: Acute Category: Medical Code(s): R79.89 - Other specified abnormal findings of blood chemistry Plan Plan for discharge home today with Tramadol for pain control. Patient will have home health and needs to see pain management at [facility].
--- NOTE | 2024-03-31 09:10 | SW/DCPLANNER ---
I spoke w/ this patient regarding plans once medically stable for discharge. PT/OT evaluated patient and recommended home w/ home health services. Patient is agreeable to home health and prefers to use [facility]. Patient information/order will be faxed to [facility]. Patient will discharge home today per MD.
--- NOTE | 2024-03-31 09:39 | SW/DCPLANNER ---
Addendum entered by Thelma Stapleton 03/31/24 09:44: [facility] is able to accept patient and wont be able to admitt her till because of the Holiday. Mary Rick Original Note: faxed over papers to [facility] and waiting for them to get back and see if they can take the patient. Mary Rick
--- NOTE | 2024-04-03 10:42 | SW/DCPLANNER ---
Phoned patient x2. Left a call back number. No calls back. Mary Rick
--- NOTE | 2024-04-07 12:39 | P.DS_ITS ---
General Admission date:: 03/29/24 Discharge date: 03/31/24 HPI HPI HPI: Ms. Oneill is a 73 year old female patient of [facility] who was brought to the [facility] ER this morning with complaints of worsening back pain and inability to walk. She has a long history of low back pain and has been under the care of Dr. Christine in pain management for sometime due to vertebral compression fractures and overall spinal degenerative disease. Her treatments have been interrupted after a recent right hip fracture (2023) which required surgery and a 2 month stay in [facility] for rehabilitation. Patient lives with her son at home and states she was discharged from the SNF about a month ago. She had been doing fairly well until this week, when for no known reason her back pain began to intensify. SHe has progressively had problems standing and walking, until today she was unable to walk. Hospital Course Hospital Course Hospital Course: The patient was admitted for management of her back pain. A CT of her L-spine was done in the ER. Her lumbar spine CT showed chronic insufficiency fractures in the sacral ala bilaterally. There was severe compression fracture at T12 and a moderate compression fracture of L2.. There were mild compression fractures of L3-L5. There was a disc bulge at L4-L5 and L5-S1 consistent with degenerative disc disease. Physical therapy was consulted and she was given some IV fluids due to renal insufficiency. By 03/30/2024, she had less pain and was able to stand with assistance. She was able to walk with physical therapy. It was felt she was stable for discharge on 03/31/2024 with tramadol for pain. She will have home health and needs to see pain management at [facility]. Exam Data for Last 24 hours Vital signs and Labs for Last 24 Hours: Temp Pulse Resp BP Pulse Ox O2 Del Method 97.5 F L 75 19 153/90 H 95 Room Air 03/31/24 08:00 03/31/24 08:00 03/31/24 08:00 03/31/24 08:00 03/31/24 08:00 03/31/24 11:00 Narrative: Constitutional Constitutional: no acute distress *Routine HEENT Exam Head: Present normocephalic Eye: Present EOMI and PERRL ENT: Present mucous membranes moist *Routine Neck Exam Neck: Present supple; Absent lymphadenopathy *Routine Respiratory Exam Respiratory: Present CTA bilaterally *Routine Cardiovascular Exam Cardiovascular: Present RRR *Routine Abdominal Exam Abdominal: Present soft and normoactive bowel sounds; Absent tenderness *Routine Rectal Exam Rectal:: deferred *Routine Genitalia Exam Genitalia:: deferred *Routine Extremities Exam Extremities: Absent cyanosis, clubbing or edema *Routine Skin Exam Skin: Present warm; Absent rash *Routine Neurological Exam Neurological: Present alert, oriented X3 and tremors Comments: Did not attempt to stand DS: Diagnosis Discharge Diagnosis (1) Declining functional status: Status: Acute Code(s): R53.81 - Other malaise (2) Unable to walk: Status: Acute Code(s): R26.2 - Difficulty in walking, not elsewhere classified (3) Back pain: Status: Acute Code(s): M54.9 - Dorsalgia, unspecified Qualifiers: Back pain laterality: bilateral Back pain location: low back pain Chronicity: unspecified Sciatica presence: without sciatica Qualified Code(s): M54.50 - Low back pain, unspecified (4) Spinal stenosis, thoracic: Status: Acute Code(s): M48.04 - Spinal stenosis, thoracic region (5) Compression fracture of thoracic vertebra: Status: Acute Code(s): S22.000A - Wedge compression fracture of unspecified thoracic vertebra, initial encounter for closed fracture (6) Essential tremor: Status: Chronic Code(s): G25.0 - Essential tremor (7) Hypothyroidism: Status: Chronic Code(s): E03.9 - Hypothyroidism, unspecified (8) Osteoporosis: Status: Chronic Code(s): M81.0 - Age-related osteoporosis without current pathological fracture Qualifiers: Osteoporosis type: age-related Presence of current pathological fracture: unspecified Qualified Code(s): M81.0 - Age-related osteoporosis without current pathological fracture (9) Renal insufficiency: Status: Acute Code(s): N28.9 - Disorder of kidney and ureter, unspecified (10) RUBÉN (acute kidney injury): Status: Inactive Code(s): N17.9 - Acute kidney failure, unspecified (11) Anemia: Status: Inactive Code(s): D64.9 - Anemia, unspecified Qualifiers: Anemia type: unspecified type Qualified Code(s): D64.9 - Anemia, unspecified (12) Polyarthralgia: Status: Acute Code(s): M25.50 - Pain in unspecified joint (13) Elevated LFTs: Status: Acute Code(s): R79.89 - Other specified abnormal findings of blood chemistry Meds Home Medications and Allergies Home Medications ?Medication ?Instructions ?Recorded ?Confirmed ?Type doxepin 150 mg capsule 150 mg PO HS 08/02/22 03/29/24 History fluoxetine 20 mg capsule 20 mg PO DAILY 08/02/22 03/29/24 History gemfibrozil 600 mg tablet 600 mg PO BID 08/02/22 03/29/24 History primidone 250 mg tablet 250 mg PO DAILY 08/02/22 03/29/24 History levothyroxine 150 mcg tablet 150 mcg PO DAILY 03/29/24 03/29/24 History polyethylene glycol 3350 17 gram 17 g PO DAILYP PRN Constipation 03/29/24 03/29/24 History oral powder packet (Miralax) sennosides 8.6 mg-docusate sodium 2 tab-cap PO BID 03/29/24 03/29/24 History 50 mg tablet tramadol 50 mg tablet 50 mg PO Q6H PRN pain #30 tabs 03/31/24 Rx New Prescriptions to Start Prescriptions: tramadol Elder Brasher Allergies Allergy/AdvReac Type Severity Reaction Status Date / Time No Known Allergies Allergy Verified 03/18/24 15:45 Discharge Plan Disposition Patient Disposition: Home Health Service Condition: Fair Discharge Order Discharge Orders: Discharge Order (Routine); Ordered 03/31/24 Ordered By: Elder Brasher Follow up Plan Follow up with: Elder Brasher MD [Primary Care Provider] - 04/08/24 11:15 am Prescriptions/Medication Reconciliation: New tramadol 50 mg tablet 50 mg PO Q6H PRN (Reason: pain) Qty: 30 0RF Continued primidone 250 mg tablet 250 mg PO DAILY gemfibrozil 600 mg tablet 600 mg PO BID fluoxetine 20 mg capsule 20 mg PO DAILY doxepin 150 mg capsule 150 mg PO HS Patient Comments: TAKE ONE CAPSULE BY MOUTH EVERY DAY AT BEDTIME polyethylene glycol 3350 [Miralax] 17 gram Powder In Packet 17 g PO DAILYP PRN (Reason: Constipation) sennosides-docusate sodium 8.6-50 mg Tablet 2 tab-cap PO BID levothyroxine 150 mcg tablet 150 mcg PO DAILY Discontinued hydrocodone-acetaminophen 5-325 mg tablet 1 tab PO Q6HP PRN (Reason: Moderate Pain (Scale Score 5-6)) Patient Comments: 1 tab orally every 6 hours Problem Reconciliation Problems Reviewed?: Yes Patient Discharge Instructions ACTIVITY: Continue current activity DIET: continue same diet Patient Instructions: Low Back Pain, Exercise May Reduce Risk of Low Back Pain Print Language: Italian Providers Primary Care Provider: Elder Brasher Admit Provider: Elder Brasher Attending Provider: Elder Brasher
== END 2024-03-31 11:40 | disposition home health service (06) ==
LOC: ER 12:30 → 2ND 13:04
PROVIDERS: Admitting Provider Family Medicine; Emergency Provider Emergency Medicine; PCP Family Medicine; Visit Provider Family Medicine
DX: M54.50 Low back pain, unspecified (principal); R26.2 Difficulty in walking, not elsewhere classified; M48.54XA Collapsed vertebra, not elsewhere classified, thoracic region, initial encounter for fracture; M48.04 Spinal stenosis, thoracic region; G25.0 Essential tremor; R53.81 Other malaise; E03.9 Hypothyroidism, unspecified; M81.0 Age-related osteoporosis without current pathological fracture; N17.9 Acute kidney failure, unspecified; D64.9 Anemia, unspecified; Z79.899 Other long term (current) drug therapy; M51.370 Other intervertebral disc degeneration, lumbosacral region with discogenic back pain only
CPT/HCPCS: 72131; 80053; 85025; 97163; 99285; G0378; J1650; J7120

== ENCOUNTER 2024-09-04 13:35 | Outpatient (CLI) | payer MEDICARE, SELFPAY ==
--- NOTE | 2024-09-04 13:39 | MR_ITS ---
FINAL REPORT CLINICAL HISTORY: right sided mid back pain COMPARISON: None FINDINGS: Multiplanar MR imaging of the thoracic spine was performed without contrast. There is marked loss of height of the T5 vertebra anteriorly. There is mild retropulsion of the T5 vertebra with mild spinal canal compromise eccentric to the right. There is 70% loss of height at T9, 70% loss of height at T12, and 50% loss of height at L1 and L2. No evidence of marrow edema at these sites. Findings are favored to be chronic. There is accentuation of the thoracic kyphosis. No bony mass is identified. The thoracic spinal cord has an unremarkable appearance without evidence of mass, edema or syrinx. There is no evidence of canal stenosis or cord compression. Mild retropulsion is noted at the inferior endplate of T9 and superior endplate of T12. IMPRESSION: Multiple compression deformities throughout the thoracic spine with accentuation of thoracic kyphosis but no evidence of marrow edema. Mild spinal canal compromise at T5. Reviewed, Interpreted and Dictated by Sebas Heck MD Transcribed by Cathy Perez Authenticated and [facility]
== END 2024-09-04 23:59 | disposition home or self-care (01) ==
LOC: RAD 13:36
PROVIDERS: PCP Family Medicine; Visit Provider Specialist/Technologist Athletic Trainer
DX: M43.8X4 Other specified deforming dorsopathies, thoracic region (principal); M40.204 Unspecified kyphosis, thoracic region; M51.04 Intervertebral disc disorders with myelopathy, thoracic region
CPT/HCPCS: 72146